=== PATIENT | male | born 1965 | race Caucasian/White ===

== ENCOUNTER → 2020-05-10 08:26 | Outpatient (BNVA) | payer BC, SELFPAY | PROVIDERS: PCP Internal Medicine; Referring Provider Internal Medicine; Visit Provider Nurse Practitioner Gerontology | DX: Z13.89 Encounter for screening for other disorder (principal) ==

== ENCOUNTER 2020-07-24 10:08 | Outpatient (REF) | payer BC, SELFPAY ==
[2020-07-24 11:04] LABS: MANUAL DIFF FLAG NO
[2020-07-24 11:15] LABS: Basophils Absolute Auto 0.1 X10*3/uL (0.0-0.2); Basophils Percent Auto 0.8 % (0-2); Eosinophils Absolute Auto 0.3 X10*3/uL (0.0-0.4); Hematocrit 46.1 % (42-52); Hemoglobin 15.3 g/dl (14.0-18.0); Imm Gran Abs Auto 0.05 X10*3/uL (0.00-0.03); Imm Gran Pct Auto 0.6 % (0.0-0.4); Lymphocytes Absolute Auto 2.2 X10*3/uL (1.2-4.9); Lymphocytes Percent Auto 26.1 % (20-40); Mean Corpuscular HGB Conc 33.2 g/dl (31.0-36.0); Mean Corpuscular Hemoglobin 27.7 pg (27.0-33.0); Mean Corpuscular Volume 83.5 fL (80-98); Mean Platelet Volume 8.6 fL (9.4-12.4); Monocytes Absolute Auto 0.8 X10*3/uL (0.1-1.2); Neutrophils Absolute Auto 5.1 X10*3/uL (2.0-8.3); Neutrophils Percent Auto 60.5 % (45-73); Platelet Count 399 X10*3/uL (160-400); Red Blood Count 5.52 X10*6/uL (4.60-5.80); Red Cell Distribution Width 12.3 % (11.0-16.0); White Blood Count 8.5 X10*3/uL (4.8-10.8)
[2020-07-24 11:30] LABS: Glucose Urine UA 500 MG/DL (NEG); Leukocyte Esterase Urine NEG (NEG); Nitrite Urine NEG (NEG); PH 5.5 (5.0-8.0); Specific Gravity - Urine >= 1.030 (1.005-1.025); Urine Blood NEG (NEG); Urine Ketones NEG (NEG); Urine Protein NEG (NEG-TRACE)
[2020-07-24 11:33] LABS: Appearance Urine CLEAR; Color Urine YELLOW
[2020-07-24 12:06] LABS: TSH reflex Free T4 1.69 uIU/mL (0.32-4.0)
[2020-07-24 12:11] LABS: Creatinine Urine 138.13 mg/dL; Microalbum/Creatinine Ratio Ur 73.8 ug/mg cr
[2020-07-24 12:12] LABS: Alanine Aminotransferase 22 U/L (0-40); Albumin Level 4.9 g/dL (3.5-5.0); Alkaline Phosphatase 41 U/L (39-117); Anion Gap 15 (12-20); Aspartate Amino Transferase 16 U/L (5-37); Bilirubin Total 0.5 mg/dL (0.0-1.0); Blood Urea Nitrogen 28 mg/dL (9-16); Calcium 10.2 mg/dL (8.4-10.2); Carbon Dioxide 26 mmol/L (22-29); Chloride 104 mmol/L (96-108); Cholesterol 180 mg/dL; Estimated Glomerular Filt Rate 48; Glucose Fasting 100 mg/dL (60-99); HDL Cholesterol 48 mg/dL; LDL Cholesterol Calculated 98 mg/dl; Potassium 4.3 mmol/L (3.3-5.1); Sodium 141 mmol/L (135-145); Total Protein 7.7 g/dL (6.5-8.0); Triglycerides 173 mg/dL
[2020-07-24 12:24] LABS: Folate 9.5 ng/mL (> or = 4.0); Vitamin B12 450 pg/mL (200-900)
== END 2020-07-24 10:09 | disposition home or self-care (01) ==
LOC: HO.HMGCLDS 10:08
PROVIDERS: PCP Internal Medicine; Visit Provider Internal Medicine
DX: D64.9 Anemia, unspecified (principal); I12.9 Hypertensive chronic kidney disease with stage 1 through stage 4 chronic kidney disease, or unspecified chronic kidney disease; E11.22 Type 2 diabetes mellitus with diabetic chronic kidney disease; E11.40 Type 2 diabetes mellitus with diabetic neuropathy, unspecified; N18.2 Chronic kidney disease, stage 2 (mild); K21.9 Gastro-esophageal reflux disease without esophagitis; E78.00 Pure hypercholesterolemia, unspecified; E55.9 Vitamin D deficiency, unspecified; G62.9 Polyneuropathy, unspecified; E66.9 Obesity, unspecified; R79.89 Other specified abnormal findings of blood chemistry; Z79.4 Long term (current) use of insulin
CPT/HCPCS: 36415; 80053; 80061; 81003; 82043; 82306; 82607; 82746; 84443; 85025

== ENCOUNTER → 2020-08-13 10:22 | Outpatient (BNVA) | payer BC, SELFPAY | PROVIDERS: PCP Internal Medicine; Visit Provider Nurse Practitioner Gerontology | DX: E11.40 Type 2 diabetes mellitus with diabetic neuropathy, unspecified (principal); E11.22 Type 2 diabetes mellitus with diabetic chronic kidney disease; I12.9 Hypertensive chronic kidney disease with stage 1 through stage 4 chronic kidney disease, or unspecified chronic kidney disease; N18.2 Chronic kidney disease, stage 2 (mild); Z79.4 Long term (current) use of insulin; E78.5 Hyperlipidemia, unspecified; E55.9 Vitamin D deficiency, unspecified; E66.9 Obesity, unspecified | CPT/HCPCS: 82947 ==

== ENCOUNTER 2021-01-06 14:04 | Outpatient (REF) | payer BC, SELFPAY ==
[2021-01-06 16:54] LABS: MANUAL DIFF FLAG NO
[2021-01-06 16:56] LABS: Glucose Urine UA >=1000 MG/DL (NEG); Leukocyte Esterase Urine NEG (NEG); Nitrite Urine NEG (NEG); Urine Blood NEG (NEG); Urine Ketones NEG (NEG); Urine Protein TRACE MG/DL (NEG-TRACE)
[2021-01-06 16:57] LABS: Appearance Urine CLEAR; Color Urine YELLOW
[2021-01-06 16:58] LABS: Basophils Absolute Auto 0.1 X10*3/uL (0.0-0.2); Basophils Percent Auto 0.7 % (0-2); Eosinophils Absolute Auto 0.2 X10*3/uL (0.0-0.4); Eosinophils Percent Auto 3.5 % (0-4); Imm Gran Abs Auto 0.03 X10*3/uL (0.00-0.03); Imm Gran Pct Auto 0.4 % (0.0-0.4); Lymphocytes Absolute Auto 1.8 X10*3/uL (1.2-4.9); Lymphocytes Percent Auto 25.8 % (20-40); Mean Corpuscular Hemoglobin 27.4 pg (27.0-33.0); Mean Corpuscular Volume 85.6 fL (80-98); Mean Platelet Volume 8.8 fL (9.4-12.4); Monocytes Absolute Auto 0.6 X10*3/uL (0.1-1.2); Monocytes Percent Auto 8.8 % (2-11); Neutrophils Absolute Auto 4.2 X10*3/uL (2.0-8.3); Neutrophils Percent Auto 60.8 % (45-73); Platelet Count 353 X10*3/uL (160-400); Red Blood Count 5.84 X10*6/uL (4.60-5.80); White Blood Count 6.9 X10*3/uL (4.8-10.8)
[2021-01-06 17:05] LABS: Estimated Average Glucose 160 mg/dL; Hemoglobin A1c % 7.2 %
[2021-01-06 17:10] LABS: Mucus Urine TRACE /LPF; RBC Urine 0 /HPF (0); Squamous Epithelial Cell Urine TRACE /LPF; WBC Urine 0 /HPF (0-4)
[2021-01-06 17:23] LABS: Alanine Aminotransferase 30 U/L (0-40); Albumin Level 4.6 g/dL (3.5-5.0); Alkaline Phosphatase 54 U/L (39-117); Anion Gap 14 (12-20); Aspartate Amino Transferase 20 U/L (5-37); Bilirubin Total 0.3 mg/dL (0.0-1.0); Blood Urea Nitrogen 23 mg/dL (9-16); Calcium 9.1 mg/dL (8.4-10.2); Carbon Dioxide 24 mmol/L (22-29); Chloride 106 mmol/L (96-108); Cholesterol 191 mg/dL; Creatinine Urine 128.44 mg/dL; Estimated Glomerular Filt Rate > 60; Glucose Fasting 167 mg/dL (60-99); HDL Cholesterol 57 mg/dL; LDL Cholesterol Calculated 99 mg/dl; Microalbum/Creatinine Ratio Ur 86.4 ug/mg cr; Potassium 4.2 mmol/L (3.3-5.1); Sodium 140 mmol/L (135-145); Total Protein 7.4 g/dL (6.5-8.0); Triglycerides 177 mg/dL
[2021-01-06 17:46] LABS: TSH reflex Free T4 2.13 uIU/mL (0.32-4.0)
[2021-01-06 17:53] LABS: Folate 7.1 ng/mL (> or = 4.0); Vitamin B12 491 pg/mL (200-900)
== END 2021-01-06 14:05 | disposition home or self-care (01) ==
LOC: HO.HMGCLDS 14:04
PROVIDERS: PCP Internal Medicine; Visit Provider Internal Medicine
DX: I12.9 Hypertensive chronic kidney disease with stage 1 through stage 4 chronic kidney disease, or unspecified chronic kidney disease (principal); N18.2 Chronic kidney disease, stage 2 (mild); E11.22 Type 2 diabetes mellitus with diabetic chronic kidney disease; E78.00 Pure hypercholesterolemia, unspecified; G62.9 Polyneuropathy, unspecified; E66.9 Obesity, unspecified; K21.9 Gastro-esophageal reflux disease without esophagitis; D64.9 Anemia, unspecified; E55.9 Vitamin D deficiency, unspecified; Z79.4 Long term (current) use of insulin
CPT/HCPCS: 36415; 80053; 80061; 81001; 82043; 82306; 82607; 82746; 83036; 84443; 85025

== ENCOUNTER 2021-03-18 10:48 | Outpatient (REF) | payer BC, SELFPAY ==
[2021-03-18 11:35] LABS: Amphetamine Screen Urine Not Detected (Not Detect); Barbiturates, Urine Not Detected (Not Detect); Benzodiazepines Screen Urine Not Detected (Not Detect); Cannabinoid Screen Urine Not Detected (Not Detect); Cocaine Screen Urine Not Detected (Not Detect); Fentanyl, urine Not Detected (Not Detect); Phencyclidine Screen Urine Not Detected (Not Detect)
[2021-03-18 11:37] LABS: Opiate Screen Urine POSITIVE (Not Detect)
== END 2021-03-18 10:49 | disposition home or self-care (01) ==
LOC: HO.LAB 10:48
PROVIDERS: PCP Internal Medicine; Visit Provider Internal Medicine
DX: F11.90 Opioid use, unspecified, uncomplicated (principal)
CPT/HCPCS: 80307

== ENCOUNTER 2021-05-05 10:52 | Outpatient (REF) | payer BC, SELFPAY ==
[2021-05-05 13:52] LABS: MANUAL DIFF FLAG NO
[2021-05-05 13:57] LABS: Basophils Percent Auto 0.5 % (0-2); Eosinophils Absolute Auto 0.2 X10*3/uL (0.0-0.4); Eosinophils Percent Auto 2.5 % (0-4); Hematocrit 47.2 % (42.0-52.0); Hemoglobin 15.5 g/dl (14.0-18.0); Imm Gran Abs Auto 0.04 X10*3/uL (0.00-0.03); Imm Gran Pct Auto 0.5 % (0.0-0.4); Lymphocytes Absolute Auto 1.8 X10*3/uL (1.2-4.9); Lymphocytes Percent Auto 22.4 % (20-40); Mean Corpuscular HGB Conc 32.8 g/dl (31.0-36.0); Mean Corpuscular Hemoglobin 27.6 pg (27.0-33.0); Mean Corpuscular Volume 84.1 fL (80.0-98.0); Mean Platelet Volume 8.7 fL (9.4-12.4); Monocytes Absolute Auto 0.6 X10*3/uL (0.1-1.2); Monocytes Percent Auto 7.4 % (2-11); Neutrophils Absolute Auto 5.3 x10*3/uL (2.0-8.3); Neutrophils Percent Auto 66.7 % (45-73); Platelet Count 305 X10*3/uL (160-400); Red Blood Count 5.61 X10*6/uL (4.60-5.80)
[2021-05-05 13:58] LABS: Appearance Urine CLEAR; Color Urine YELLOW; Glucose Urine UA 100 MG/DL (NEG); Leukocyte Esterase Urine NEG (NEG); Nitrite Urine NEG (NEG); UACC Culture Trigger NO; Urine Blood NEG (NEG); Urine Ketones NEG (NEG); Urine Protein 1+ MG/DL (NEG-TRACE)
[2021-05-05 14:16] LABS: Alanine Aminotransferase 22 U/L (0-40); Albumin Level 4.4 g/dL (3.5-5.0); Alkaline Phosphatase 60 U/L (39-117); Anion Gap 16 (12-20); Aspartate Amino Transferase 17 U/L (5-37); Bilirubin Total 0.5 mg/dL (0.0-1.0); Blood Urea Nitrogen 21 mg/dL (9-16); Calcium 9.7 mg/dL (8.4-10.2); Carbon Dioxide 26 mmol/L (22-29); Chloride 103 mmol/L (96-108); Cholesterol 227 mg/dL; Estimated Glomerular Filt Rate > 60; Glucose Fasting 105 mg/dL (60-99); HDL Cholesterol 60 mg/dL; LDL Cholesterol Calculated 117 mg/dl; Potassium 4.2 mmol/L (3.3-5.1); Sodium 141 mmol/L (135-145); Total Protein 7.1 g/dL (6.5-8.0); Triglycerides 251 mg/dL
[2021-05-05 14:25] LABS: RBC Urine 0 /HPF (0); WBC Urine 0-2 /HPF (0-4)
[2021-05-05 14:28] LABS: Estimated Average Glucose 171 mg/dL; Hemoglobin A1c % 7.6 %
[2021-05-05 14:41] LABS: TSH reflex Free T4 1.55 uIU/mL (0.32-4.0); Vitamin D 25-OH Total 26.7 ng/mL (>30)
[2021-05-05 14:45] LABS: Creatinine Urine 71.01 mg/dL; Microalbum/Creatinine Ratio Ur 408.3 ug/mg cr
[2021-05-05 14:52] LABS: Folate 11.5 ng/mL (> or = 4.0); Vitamin B12 551 pg/mL (200-900)
== END 2021-05-05 10:53 | disposition home or self-care (01) ==
LOC: HO.HMGCLDS 10:52
PROVIDERS: Visit Provider Internal Medicine
DX: E11.9 Type 2 diabetes mellitus without complications (principal); E78.00 Pure hypercholesterolemia, unspecified; E55.9 Vitamin D deficiency, unspecified; E53.8 Deficiency of other specified B group vitamins; G62.9 Polyneuropathy, unspecified; I10 Essential (primary) hypertension
CPT/HCPCS: 36415; 80053; 80061; 81001; 82043; 82306; 82607; 82746; 83036; 84443; 85025

== ENCOUNTER → 2021-06-09 08:15 | Outpatient (BNVA) | payer BC, SELFPAY | PROVIDERS: PCP Internal Medicine; Visit Provider Nurse Practitioner Gerontology ==

== ENCOUNTER 2021-08-26 10:38 | Outpatient (REF) | payer BC, SELFPAY ==
[2021-08-26 11:33] LABS: MANUAL DIFF FLAG NO
[2021-08-26 11:42] LABS: Basophils Absolute Auto 0.1 X10*3/uL (0.0-0.2); Basophils Percent Auto 0.6 % (0-2); Eosinophils Absolute Auto 0.3 X10*3/uL (0.0-0.4); Eosinophils Percent Auto 3.1 % (0-4); Hematocrit 39.7 % (42.0-52.0); Imm Gran Abs Auto 0.06 X10*3/uL (0.00-0.03); Imm Gran Pct Auto 0.8 % (0.0-0.4); Lymphocytes Percent Auto 24.9 % (20-40); Mean Corpuscular HGB Conc 32.7 g/dl (31.0-36.0); Mean Corpuscular Volume 88.4 fL (80.0-98.0); Mean Platelet Volume 8.6 fL (9.4-12.4); Monocytes Absolute Auto 0.8 X10*3/uL (0.1-1.2); Monocytes Percent Auto 10.3 % (2-11); Neutrophils Absolute Auto 4.8 x10*3/uL (2.0-8.3); Neutrophils Percent Auto 60.3 % (45-73); Platelet Count 345 X10*3/uL (160-400); Red Blood Count 4.49 X10*6/uL (4.60-5.80); Red Cell Distribution Width 12.7 % (11.0-16.0)
[2021-08-26 11:48] LABS: Estimated Average Glucose 171 mg/dL; Hemoglobin A1c % 7.6 %
[2021-08-26 12:16] LABS: TSH reflex Free T4 2.58 uIU/mL (0.32-4.0)
[2021-08-26 12:18] LABS: Alanine Aminotransferase 28 U/L (0-40); Albumin Level 4.2 g/dL (3.5-5.0); Alkaline Phosphatase 46 U/L (39-117); Anion Gap 14 (12-20); Aspartate Amino Transferase 12 U/L (5-37); Bilirubin Total 0.4 mg/dL (0.0-1.0); Blood Urea Nitrogen 34 mg/dL (9-16); Calcium 9.7 mg/dL (8.4-10.2); Carbon Dioxide 27 mmol/L (22-29); Chloride 106 mmol/L (96-108); Cholesterol 153 mg/dL; Estimated Glomerular Filt Rate 37; Glucose Fasting 147 mg/dL (60-99); HDL Cholesterol 43 mg/dL; LDL Cholesterol Calculated 70 mg/dl; Potassium 4.9 mmol/L (3.3-5.1); Sodium 142 mmol/L (135-145); Total Protein 6.9 g/dL (6.5-8.0); Triglycerides 203 mg/dL
[2021-08-26 14:07] LABS: Appearance Urine CLEAR; Color Urine STRAW; Glucose Urine UA >=1000 MG/DL (NEG); Leukocyte Esterase Urine NEG (NEG); Nitrite Urine NEG (NEG); PH 5.5 (5.0-8.0); Urine Blood NEG (NEG); Urine Ketones NEG (NEG); Urine Protein NEG (NEG-TRACE)
[2021-08-26 14:27] LABS: Creatinine Urine 72.85 mg/dL; Microalbum/Creatinine Ratio Ur 23.3 ug/mg cr
[2021-08-26 14:30] LABS: RBC Urine 0-2 /HPF (0); WBC Urine 0-2 /HPF (0-4)
[2021-08-28 14:03] LABS: Vitamin D 25-OH Total 28.9 ng/mL (>30)
== END 2021-08-26 10:39 | disposition home or self-care (01) ==
LOC: HO.HMGCLDS 10:38
PROVIDERS: PCP Internal Medicine; Visit Provider Internal Medicine
DX: I10 Essential (primary) hypertension (principal); E78.00 Pure hypercholesterolemia, unspecified; E11.9 Type 2 diabetes mellitus without complications; E55.9 Vitamin D deficiency, unspecified
CPT/HCPCS: 36415; 80053; 80061; 81001; 81003; 82043; 82306; 83036; 84443; 85025

== ENCOUNTER 2021-10-07 12:34 | Outpatient (REF) | payer BC, SELFPAY ==
--- NOTE | ~2021-10-07 | XR_ITS ---
EXAMINATION: XR KNEES, BILATERAL CLINICAL INFORMATION: Pain right knee. COMPARISON: None. TECHNIQUE: 3 views each knee. FINDINGS: Right Knee: There is mild loss of medial compartment joint space. Thee is no visible fracture, dislocation or subluxation. There is mild suprapatellar joint effusion. No loose body seen. Left Knee: The tricompartment joint space is maintained normal. There is no visible acute fracture, dislocation or subluxation. There is no abnormal suprapatellar joint effusion. The soft tissues are normal. XR/XR knee RT 3V IMPRESSION: Mild suprapatellar joint effusion with loss of medial compartment joint space and slight irregularity along the medial femoral condyle articular surface suggestive of degenerative arthritic changes, right knee. Unremarkable left knee.
--- NOTE | ~2021-10-07 | XR_ITS ---
EXAMINATION: XR KNEES, BILATERAL CLINICAL INFORMATION: Pain right knee. COMPARISON: None. TECHNIQUE: 3 views each knee. FINDINGS: Right Knee: There is mild loss of medial compartment joint space. Thee is no visible fracture, dislocation or subluxation. There is mild suprapatellar joint effusion. No loose body seen. Left Knee: The tricompartment joint space is maintained normal. There is no visible acute fracture, dislocation or subluxation. There is no abnormal suprapatellar joint effusion. The soft tissues are normal. XR/XR knee LT 3V IMPRESSION: Mild suprapatellar joint effusion with loss of medial compartment joint space and slight irregularity along the medial femoral condyle articular surface suggestive of degenerative arthritic changes, right knee. Unremarkable left knee.
[2021-10-07 13:50] LABS: Appearance Urine CLEAR; Color Urine YELLOW; Glucose Urine UA >=1000 MG/DL (NEG); Leukocyte Esterase Urine NEG (NEG); Nitrite Urine NEG (NEG); Specific Gravity - Urine 1.015 (1.005-1.025); UACC Culture Trigger NO; Urine Blood TRACE (NEG); Urine Ketones NEG (NEG); Urine Protein 1+ MG/DL (NEG-TRACE)
[2021-10-07 14:06] LABS: Anion Gap 14 (12-20); Blood Urea Nitrogen 21 mg/dL (9-16); Calcium 9.8 mg/dL (8.4-10.2); Carbon Dioxide 25 mmol/L (22-29); Chloride 102 mmol/L (96-108); Estimated Glomerular Filt Rate 47; Potassium 4.6 mmol/L (3.3-5.1); Sodium 136 mmol/L (135-145)
[2021-10-07 14:10] LABS: Glucose Random 398 mg/dL (60-115)
[2021-10-07 14:26] LABS: RBC Urine 0-2 /HPF (0); WBC Urine 0 /HPF (0-4)
== END 2021-10-07 12:35 | disposition home or self-care (01) ==
LOC: HO.HMGCLDS 12:34
PROVIDERS: Visit Provider Internal Medicine
DX: M25.561 Pain in right knee (principal); M25.562 Pain in left knee; N18.30 Chronic kidney disease, stage 3 unspecified
CPT/HCPCS: 36415; 73562; 80048; 81001

== ENCOUNTER 2021-12-15 10:14 | Outpatient (REF) | payer BC, SELFPAY ==
[2021-12-15 11:16] LABS: MANUAL DIFF FLAG NO
[2021-12-15 11:23] LABS: Basophils Absolute Auto 0.1 X10*3/uL (0.0-0.2); Eosinophils Absolute Auto 0.2 X10*3/uL (0.0-0.4); Eosinophils Percent Auto 2.8 % (0-4); Hematocrit 43.4 % (42.0-52.0); Hemoglobin 14.7 g/dl (14.0-18.0); Imm Gran Abs Auto 0.05 X10*3/uL (0.00-0.03); Imm Gran Pct Auto 0.7 % (0.0-0.4); Lymphocytes Percent Auto 27.5 % (20-40); Mean Corpuscular HGB Conc 33.9 g/dl (31.0-36.0); Mean Corpuscular Hemoglobin 27.6 pg (27.0-33.0); Mean Corpuscular Volume 81.4 fL (80.0-98.0); Monocytes Absolute Auto 0.6 X10*3/uL (0.1-1.2); Monocytes Percent Auto 7.8 % (2-11); Neutrophils Absolute Auto 4.3 x10*3/uL (2.0-8.3); Neutrophils Percent Auto 60.2 % (45-73); Platelet Count 271 X10*3/uL (160-400); Red Blood Count 5.33 X10*6/uL (4.60-5.80); Red Cell Distribution Width 12.1 % (11.0-16.0); White Blood Count 7.2 X10*3/uL (4.8-10.8)
[2021-12-15 11:32] LABS: Appearance Urine CLEAR; Color Urine STRAW; Glucose Urine UA >=1000 MG/DL (NEG); Leukocyte Esterase Urine NEG (NEG); Nitrite Urine NEG (NEG); Specific Gravity - Urine <= 1.005 (1.005-1.025); Urine Blood NEG (NEG); Urine Ketones NEG (NEG); Urine Protein NEG (NEG-TRACE)
[2021-12-15 11:38] LABS: Estimated Average Glucose 332 mg/dL; Hemoglobin A1c % 13.2 %
[2021-12-15 11:48] LABS: Alanine Aminotransferase 28 U/L (0-40); Albumin Level 4.5 g/dL (3.5-5.0); Alkaline Phosphatase 64 U/L (39-117); Anion Gap 15 (12-20); Aspartate Amino Transferase 14 U/L (5-37); Bilirubin Total 0.2 mg/dL (0.0-1.0); Blood Urea Nitrogen 35 mg/dL (9-16); Calcium 9.7 mg/dL (8.4-10.2); Carbon Dioxide 26 mmol/L (22-29); Chloride 99 mmol/L (96-108); Cholesterol 208 mg/dL; Estimated Glomerular Filt Rate 46; HDL Cholesterol 45 mg/dL; Potassium 4.8 mmol/L (3.3-5.1); Sodium 135 mmol/L (135-145); Total Protein 7.4 g/dL (6.5-8.0); Triglycerides 522 mg/dL
[2021-12-15 12:00] LABS: RBC Urine 0-2 /HPF (0); WBC Urine 0-2 /HPF (0-4)
[2021-12-15 12:09] LABS: TSH reflex Free T4 2.84 uIU/mL (0.32-4.0); Vitamin D 25-OH Total 30.2 ng/mL (>30)
[2021-12-15 12:25] LABS: Creatinine Urine 30.91 mg/dL; Microalbum/Creatinine Ratio Ur 145.5 ug/mg cr
[2021-12-15 13:16] LABS: Glucose Fasting 492 mg/dL (60-99)
== END 2021-12-15 10:15 | disposition home or self-care (01) ==
LOC: HO.HMGCLDS 10:14
PROVIDERS: Visit Provider Internal Medicine
DX: I12.9 Hypertensive chronic kidney disease with stage 1 through stage 4 chronic kidney disease, or unspecified chronic kidney disease (principal); N18.30 Chronic kidney disease, stage 3 unspecified; E11.22 Type 2 diabetes mellitus with diabetic chronic kidney disease; E78.00 Pure hypercholesterolemia, unspecified; E55.9 Vitamin D deficiency, unspecified
CPT/HCPCS: 36415; 80053; 80061; 81001; 82043; 82306; 83036; 84100; 84443; 85025

== ENCOUNTER 2022-03-10 12:35 | Outpatient (REF) | payer BC, SELFPAY ==
[2022-03-10 14:00] LABS: MANUAL DIFF FLAG NO
[2022-03-10 14:07] LABS: Basophils Absolute Auto 0.1 X10*3/uL (0.0-0.2); Basophils Percent Auto 0.8 % (0-2); Eosinophils Absolute Auto 0.2 X10*3/uL (0.0-0.4); Eosinophils Percent Auto 3.2 % (0-4); Hematocrit 48.5 % (42.0-52.0); Hemoglobin 16.3 g/dl (14.0-18.0); Imm Gran Abs Auto 0.07 X10*3/uL (0.00-0.03); Lymphocytes Absolute Auto 1.8 X10*3/uL (1.2-4.9); Lymphocytes Percent Auto 24.6 % (20-40); Mean Corpuscular HGB Conc 33.6 g/dl (31.0-36.0); Mean Corpuscular Hemoglobin 27.2 pg (27.0-33.0); Mean Corpuscular Volume 80.8 fL (80.0-98.0); Mean Platelet Volume 8.9 fL (9.4-12.4); Monocytes Absolute Auto 0.6 X10*3/uL (0.1-1.2); Monocytes Percent Auto 8.1 % (2-11); Neutrophils Absolute Auto 4.6 x10*3/uL (2.0-8.3); Neutrophils Percent Auto 62.3 % (45-73); Platelet Count 288 X10*3/uL (160-400); Red Cell Distribution Width 12.6 % (11.0-16.0); White Blood Count 7.3 X10*3/uL (4.8-10.8)
[2022-03-10 14:16] LABS: Appearance Urine Clear; Color Urine Yellow; Glucose Urine UA >=1000 mg/dL (Negative); Leukocyte Esterase Urine Negative (Negative); Nitrite Urine Negative (Negative); PH 5.5 (5.0-9.0); Specific Gravity - Urine >= 1.030 (1.005-1.025); UMIC TRIGGER UACC YES; Urine Blood Trace (Negative); Urine Ketones Negative (Negative); Urine Protein 100 (2+) mg/dL (Neg-Trace)
[2022-03-10 14:18] LABS: Estimated Average Glucose 335 mg/dL; Hemoglobin A1c % 13.3 %
[2022-03-10 14:22] LABS: Bacteria Urine None Seen (None Seen); Hyaline Casts Urine 0-2 /LPF (0-2); RBC Urine 0-2 /HPF (0-2); Squamous Epithelial Cell Urine 0-2 /HPF (0-2); WBC Urine 0-5 /HPF (0-5)
[2022-03-10 14:36] LABS: Alanine Aminotransferase 33 U/L (0-40); Albumin Level 4.8 g/dL (3.5-5.0); Alkaline Phosphatase 72 U/L (39-117); Anion Gap 16 (12-20); Aspartate Amino Transferase 14 U/L (5-37); Bilirubin Total 0.3 mg/dL (0.0-1.0); Blood Urea Nitrogen 28 mg/dL (9-16); Calcium 10.3 mg/dL (8.4-10.2); Carbon Dioxide 30 mmol/L (22-29); Chloride 97 mmol/L (96-108); Cholesterol 250 mg/dL; Estimated Glomerular Filt Rate 52; Glucose Fasting 428 mg/dL (60-99); HDL Cholesterol 53 mg/dL; Potassium 4.5 mmol/L (3.3-5.1); Sodium 138 mmol/L (135-145); Total Protein 7.8 g/dL (6.5-8.0); Triglycerides 422 mg/dL
[2022-03-10 14:43] LABS: TSH reflex Free T4 1.72 uIU/mL (0.32-4.0)
[2022-03-10 15:16] LABS: Creatinine Urine 48.52 mg/dL
[2022-03-10 15:45] LABS: Microalbum/Creatinine Ratio Ur 1201.5 ug/mg cr
== END 2022-03-10 12:36 | disposition home or self-care (01) ==
LOC: HO.HMGCLDS 12:35
PROVIDERS: PCP Internal Medicine; Visit Provider Internal Medicine
DX: E78.00 Pure hypercholesterolemia, unspecified (principal); E55.9 Vitamin D deficiency, unspecified; E11.9 Type 2 diabetes mellitus without complications; I10 Essential (primary) hypertension
CPT/HCPCS: 36415; 80053; 80061; 81001; 82043; 82306; 83036; 84443; 85025

== ENCOUNTER 2022-04-21 11:40 | Outpatient (REF) | payer BC, SELFPAY ==
[2022-04-21 14:23] LABS: Glucose Random 462 mg/dL (60-115)
[2022-04-22 04:51] LABS: C Peptide 4.18 ng/mL (0.80-3.85)
[2022-04-24 13:41] LABS: Glutamic acid decarboxylase Ab <5 IU/mL (<5)
== END 2022-04-21 11:41 | disposition home or self-care (01) ==
LOC: HO.10HDL 11:40
PROVIDERS: Visit Provider Internal Medicine Endocrinology, Diabetes & Metabolism
DX: E11.22 Type 2 diabetes mellitus with diabetic chronic kidney disease (principal); N18.2 Chronic kidney disease, stage 2 (mild); Z79.4 Long term (current) use of insulin
CPT/HCPCS: 36415; 82947; 84681; 86341

== ENCOUNTER → 2022-06-26 07:59 | Outpatient (BNVA) | payer BC, SELFPAY | PROVIDERS: PCP Internal Medicine; Visit Provider Registered Nurse Diabetes Educator | DX: Z13.89 Encounter for screening for other disorder (principal) ==

== ENCOUNTER 2022-06-30 14:05 | Outpatient (REF) | payer BC, SELFPAY ==
[2022-06-30 16:27] LABS: MANUAL DIFF FLAG NO
[2022-06-30 16:31] LABS: Basophils Absolute Auto 0.1 X10*3/uL (0.0-0.2); Basophils Percent Auto 0.8 % (0-2); Eosinophils Absolute Auto 0.2 X10*3/uL (0.0-0.4); Eosinophils Percent Auto 3.2 % (0-4); Hematocrit 44.9 % (42.0-52.0); Hemoglobin 14.8 g/dl (14.0-18.0); Imm Gran Abs Auto 0.05 X10*3/uL (0.00-0.03); Imm Gran Pct Auto 0.7 % (0.0-0.4); Lymphocytes Absolute Auto 2.2 X10*3/uL (1.2-4.9); Lymphocytes Percent Auto 29.9 % (20-40); Mean Corpuscular Hemoglobin 27.4 pg (27.0-33.0); Mean Corpuscular Volume 83.1 fL (80.0-98.0); Mean Platelet Volume 8.6 fL (9.4-12.4); Monocytes Absolute Auto 0.7 X10*3/uL (0.1-1.2); Monocytes Percent Auto 10.3 % (2-11); Neutrophils Percent Auto 55.1 % (45-73); Platelet Count 342 X10*3/uL (160-400); White Blood Count 7.2 X10*3/uL (4.8-10.8)
[2022-06-30 16:38] LABS: Estimated Average Glucose 269 mg/dL
[2022-06-30 16:40] LABS: Appearance Urine Clear; Color Urine Yellow; Glucose Urine UA >=1000 mg/dL (Negative); Leukocyte Esterase Urine Negative (Negative); Nitrite Urine Negative (Negative); Specific Gravity - Urine 1.025 (1.005-1.025); UMIC TRIGGER UACC YES; Urine Blood Negative (Negative); Urine Ketones Negative (Negative); Urine Protein Trace mg/dL (Neg-Trace)
[2022-06-30 16:55] LABS: Bacteria Urine None Seen (None Seen); Hyaline Casts Urine 0-2 /LPF (0-2); RBC Urine 0-2 /HPF (0-2); Squamous Epithelial Cell Urine 0-2 /HPF (0-2); WBC Urine 0-5 /HPF (0-5)
[2022-06-30 16:56] LABS: Creatinine Urine 68.74 mg/dL; Microalbum/Creatinine Ratio Ur 133.8 ug/mg cr
[2022-06-30 17:03] LABS: Alanine Aminotransferase 25 U/L (0-40); Albumin Level 4.2 g/dL (3.5-5.0); Alkaline Phosphatase 54 U/L (39-117); Anion Gap 15 (12-20); Aspartate Amino Transferase 17 U/L (5-37); Bilirubin Total 0.3 mg/dL (0.0-1.0); Blood Urea Nitrogen 39 mg/dL (9-16); Calcium 9.5 mg/dL (8.4-10.2); Carbon Dioxide 28 mmol/L (22-29); Chloride 104 mmol/L (96-108); Cholesterol 171 mg/dL; Estimated Glomerular Filt Rate 50; Glucose Fasting 98 mg/dL (60-99); HDL Cholesterol 55 mg/dL; LDL Cholesterol Calculated 82 mg/dl; Potassium 4.5 mmol/L (3.3-5.1); Sodium 142 mmol/L (135-145); Total Protein 6.9 g/dL (6.5-8.0); Triglycerides 170 mg/dL
[2022-06-30 17:12] LABS: TSH reflex Free T4 1.78 uIU/mL (0.32-4.0); Vitamin D 25-OH Total 32.5 ng/mL (>30)
== END 2022-06-30 14:06 | disposition home or self-care (01) ==
LOC: HO.HMGCLDS 14:05
PROVIDERS: PCP Internal Medicine; Visit Provider Internal Medicine
DX: E78.00 Pure hypercholesterolemia, unspecified (principal); E11.9 Type 2 diabetes mellitus without complications; E55.9 Vitamin D deficiency, unspecified; I10 Essential (primary) hypertension
CPT/HCPCS: 36415; 80053; 80061; 81001; 82043; 82306; 83036; 84443; 85025

== ENCOUNTER → 2022-07-01 09:30 | Outpatient (BNVA) | payer BC, SELFPAY | PROVIDERS: PCP Internal Medicine; Visit Provider Dietitian, Registered | DX: E11.22 Type 2 diabetes mellitus with diabetic chronic kidney disease (principal); N18.2 Chronic kidney disease, stage 2 (mild); Z79.4 Long term (current) use of insulin | CPT/HCPCS: 97802 ==

== ENCOUNTER 2022-09-22 14:33 | Outpatient (REF) | payer BC, SELFPAY ==
[2022-09-22 16:33] LABS: Appearance Urine Clear; Color Urine Yellow; Glucose Urine UA >=1000 mg/dL (Negative); Leukocyte Esterase Urine Negative (Negative); Nitrite Urine Negative (Negative); Specific Gravity - Urine 1.025 (1.005-1.025); UMIC TRIGGER UACC YES; Urine Blood Negative (Negative); Urine Ketones Negative (Negative); Urine Protein Negative (Neg-Trace)
[2022-09-22 16:36] LABS: Bacteria Urine None Seen (None Seen); Hyaline Casts Urine 0-2 /LPF (0-2); RBC Urine 0-2 /HPF (0-2); Squamous Epithelial Cell Urine 0-2 /HPF (0-2); WBC Urine 0-5 /HPF (0-5)
[2022-09-22 17:01] LABS: MANUAL DIFF FLAG NO
[2022-09-22 17:07] LABS: Basophils Absolute Auto 0.1 X10*3/uL (0.0-0.2); Basophils Percent Auto 0.9 % (0-2); Eosinophils Absolute Auto 0.3 X10*3/uL (0.0-0.4); Eosinophils Percent Auto 4.1 % (0-4); Hematocrit 43.9 % (42.0-52.0); Hemoglobin 14.8 g/dl (14.0-18.0); Imm Gran Abs Auto 0.05 X10*3/uL (0.00-0.03); Imm Gran Pct Auto 0.8 % (0.0-0.4); Lymphocytes Absolute Auto 1.9 X10*3/uL (1.2-4.9); Mean Corpuscular HGB Conc 33.7 g/dl (31.0-36.0); Mean Corpuscular Hemoglobin 28.1 pg (27.0-33.0); Mean Corpuscular Volume 83.3 fL (80.0-98.0); Mean Platelet Volume 8.6 fL (9.4-12.4); Monocytes Absolute Auto 0.7 X10*3/uL (0.1-1.2); Monocytes Percent Auto 10.3 % (2-11); Neutrophils Absolute Auto 3.6 x10*3/uL (2.0-8.3); Neutrophils Percent Auto 54.9 % (45-73); Platelet Count 266 X10*3/uL (160-400); Red Blood Count 5.27 X10*6/uL (4.60-5.80); Red Cell Distribution Width 12.6 % (11.0-16.0); White Blood Count 6.6 X10*3/uL (4.8-10.8)
[2022-09-22 17:19] LABS: Creatinine Urine 44.67 mg/dL; Microalbum/Creatinine Ratio Ur 123.1 ug/mg cr
[2022-09-22 17:28] LABS: Alanine Aminotransferase 26 U/L (0-40); Albumin Level 4.4 g/dL (3.5-5.0); Alkaline Phosphatase 57 U/L (39-117); Anion Gap 13 (12-20); Aspartate Amino Transferase 15 U/L (5-37); Bilirubin Total 0.4 mg/dL (0.0-1.0); Blood Urea Nitrogen 33 mg/dL (9-16); Calcium 9.7 mg/dL (8.4-10.2); Carbon Dioxide 26 mmol/L (22-29); Chloride 104 mmol/L (96-108); Cholesterol 208 mg/dL; Estimated Glomerular Filt Rate 49; Glucose Fasting 303 mg/dL (60-99); HDL Cholesterol 43 mg/dL; Potassium 4.8 mmol/L (3.3-5.1); Sodium 138 mmol/L (135-145); Total Protein 6.9 g/dL (6.5-8.0); Triglycerides 450 mg/dL
[2022-09-22 17:37] LABS: Estimated Average Glucose 214 mg/dL; Hemoglobin A1c % 9.1 %
[2022-09-22 17:44] LABS: TSH reflex Free T4 1.43 uIU/mL (0.32-4.0); Vitamin D 25-OH Total 31.9 ng/mL (>30)
== END 2022-09-22 14:34 | disposition home or self-care (01) ==
LOC: HO.HMGCLDS 14:33
PROVIDERS: PCP Internal Medicine; Visit Provider Internal Medicine
DX: E55.9 Vitamin D deficiency, unspecified (principal); E11.9 Type 2 diabetes mellitus without complications; I10 Essential (primary) hypertension; E78.00 Pure hypercholesterolemia, unspecified
CPT/HCPCS: 36415; 80053; 80061; 81001; 82043; 82306; 83036; 84443; 85025

== ENCOUNTER 2023-01-06 08:02 | Outpatient (AMB) | payer BC, SELFPAY ==
--- NOTE | 2023-01-06 08:06 | A.OFFVIS_ITS ---
Intake Vital Signs 01/06/23 08:09 Height 6 ft 1 in Weight 239 lb 13.807 oz BMI 31.6 BP 160/90 H Blood Pressure Location Rt brachial Position Sitting Pulse 92 Pulse Source Pulse Oximeter Intake Visit Reasons: dm Intake Note: Patient here today for Diabetes Type 2, with pump follow up visit. Patient receives is Omnipod supplies from [employer]. For eye care: last seen August 2022 For foot care: no specialist. [id number] A1c- >14.0 Content Specialist Required: No Accompanied by: Self / Same As Patient Allergies gabapentin Adverse Reaction (Intermediate, Verified 01/06/23 08:13) severe somnolence, dizziness HPI HPI Comments History of Present Illness Details Patient is a 57 yo male with DM type 2 diagnosed in 2012, who presents for continued diabetes management. Patient was last seen06/09/21 by Vidhya Thomas NP Past medical history: back pain with radiculopathy on opioid therapy, central hypogonadism, metastatic testicular cancer, CKD stage III, hypertension, hyperlipidemia, and diabetes mellitus type 2 diagnosed 2012 Micro and macrovascular complications include no retinopathy, + nephropathy, + neuropathy, diet: 2 meals and snacks. Medications: Trulicity 0.75mg/dl not taking , Humulin u500 via Omnipod pump, Jardiance 10mg. . Hypoglycemia: denies Hyperglycemia: nocturia (4-5x), polydypsia He has a Dexcom G6 but has not hooked it up. He is also not using insulin times as he was unable to afford it Previous Pump settings for [place] omnipod with u-500 12am - 12 pm 0.55 12 30pm- 12 am 0.600 Total 13.8 I:C Ratio 30 Sensitivity 97 Active insulin time 6 BG target 100 BG correction threshold 120 Total daily dose 14 units, 61% basal, 39% bolus. The patient states he went of insulin as but not t using the pump from time to time because he can not afford the insulin Back up plan: [place] U500 via insulin syringe: 30 units before breakfast, 25 units before lunch, 20 units before dinner - take insulin 30 mins prior to meal. Diet: 2 meals a day Activity: limited Eye Exam: needs to make appt Laboratory Tests 05/05/21 05/05/21 05/05/21 11:00 11:00 11:00 Creatinine 1.06 Estimated GFR > 60 Hemoglobin A1c % 7.6 Triglycerides 251 Cholesterol 227 LDL Cholesterol, C alc 117 HDL Cholesterol 60 Vitamin B12 551 25-OH Vitamin D To quita 26.7 TSH 1.55 Microalb/Creat Rat io 05/05/21 11:05 Creatinine Estimated GFR Hemoglobin A1c % Triglycerides Cholesterol LDL Cholesterol, C alc HDL Cholesterol Vitamin B12 25-OH Vitamin D To quita TSH Microalb/Creat Rat io 408.3 PFSH Medical History Anemia Anxiety Benign essential hypertension Chronic kidney disease (CKD), stage II (mild) Degeneration of lumbar or lumbosacral intervertebral disc Elevated LFTs GERD without esophagitis History of testicular cancer Mild chronic obstructive pulmonary disease Neuropathy Obesity (BMI 30-39.9) Type 2 diabetes mellitus with diabetic chronic kidney disease Type 2 diabetes mellitus with diabetic neuropathy, unspecified Vitamin D deficiency Surgical History (Updated 11/18/22 @ 10:59 by Yobany Raymundo MD) History of colonoscopy (~06/24/16) History of lumbar surgery History of orchiectomy Pure hypercholesterolemia Family History Father Cancer Mother Diabetes Social History Household Members: Other Housing: House Alcohol intake: former Patient Tobacco Use Status: Never used Tobacco e-Cigarette/Vaping Use: Never Used Second Hand Smoke Exposure: Yes service: Yes Current occupational status: disabled Cognitive needs: No Hearing needs: No Vision needs: No Physical Exam Absence of Cushingoid features. Absence of acromegalic features. Neck exam reveals nl size thyroid about 15 gms. No thyroid nodules palpable. No carotid bruits present. Lungs CTA. Heart S1 S2, Reg R/R. No M/R/ G. Skin exam reveals absence of vitiligo or acanthosis nigricans. Abdominal exam reveals Soft NT/ND with NA BS. No organomegaly present. Neck Other: . Extrem Other: Visual exam of foot performed. No ulcerations or open lesions. No onchomycosis, no callouses.Pulses 2 + distally Sensation decreased to monofilament exam. Vibratory sensation sensed is decreased with 128 Hz tuning fork Results AMB Hemoglobin A1c AMB Hemoglobin A1c > 14.0 % Last Edit by PIETER Andre on 01/06/23 08 :29 Assessment & Plan Assessment & Plan (1) Type 2 diabetes mellitus with diabetic chronic kidney disease: Code(s): E11.22 - Type 2 diabetes mellitus with diabetic chronic kidney disease Qualifiers: Diabetes mellitus intermediate project manager insulin use: with intermediate project manager use Chronic kidney disease stage: stage 2 (mild) Qualified Code(s): E11.22 - Type 2 diabetes mellitus with diabetic chronic kidney disease; N18.2 - Chronic kidney disease, stage 2 (mild); Z79.4 - [facility] (current) use of insulin Plan: This is a 57-year-old white male with history of type 2 diabetes being treated with Trulicity, Jardiance and U-500 insulin poor glycemic control and known microvascular complications namely CKD and neuropathy. Plan is stressed compliance with the insulin. Could not make any changes to the pump settings as not have any information. Will have patient meet with museum educator to initiate Dexcom and convert the Omnipod dash to Omnipod 5. Will change Trulicity to MonJaro 2.5 mg and titrate as tolerated. Went over side effects of Mounjaro including but not limited to nausea, vomiting risk of pancreatitis. Advised patient not to start Mounjaro until the hooks up the Dexcom. I explained the relationship of complication development and progression to that of poor glycemic control. Mounjaro 2.5 mg samples given to patient. Lot number [id number] A expiration date 06/28/2024 Orders: Orders AMB Hemoglobin A1c Today E11.9 - Type 2 diabetes mellitus without complications Coding Level of Care Code Est Pt Level 4 (35882) Diagnoses Type 2 diabetes mellitus with diabetic chronic kidney disease E11.22; N18.2; Z79.4 Diabetes mellitus intermediate project manager insulin use: with intermediate project manager use Chronic kidney disease stage: stage 2 (mild)
[2023-01-06 08:09] VITALS: BP 160/90; PULSE 92; BMI 31.6
[2023-01-06 08:17] LABS: Glucose, Whole Blood 344 mg/dL (60-115)
== END 2023-01-06 09:24 | disposition home or self-care (01) ==
PROVIDERS: PCP Internal Medicine; Referring Provider Internal Medicine; Visit Provider Internal Medicine Endocrinology, Diabetes & Metabolism
DX: E11.22 Type 2 diabetes mellitus with diabetic chronic kidney disease (principal); N18.2 Chronic kidney disease, stage 2 (mild); Z79.4 Long term (current) use of insulin
CPT/HCPCS: 99214

== ENCOUNTER → 2023-01-06 08:02 | Outpatient (BNVA) | payer BC, SELFPAY | PROVIDERS: Visit Provider Internal Medicine Endocrinology, Diabetes & Metabolism | DX: E11.22 Type 2 diabetes mellitus with diabetic chronic kidney disease (principal); E11.65 Type 2 diabetes mellitus with hyperglycemia; E11.40 Type 2 diabetes mellitus with diabetic neuropathy, unspecified; I12.9 Hypertensive chronic kidney disease with stage 1 through stage 4 chronic kidney disease, or unspecified chronic kidney disease; N18.2 Chronic kidney disease, stage 2 (mild); E78.00 Pure hypercholesterolemia, unspecified; E53.8 Deficiency of other specified B group vitamins; E55.9 Vitamin D deficiency, unspecified; Z79.85 Long-term (current) use of injectable non-insulin antidiabetic drugs; Z96.41 Presence of insulin pump (external) (internal); Z79.4 Long term (current) use of insulin; Z79.891 Long term (current) use of opiate analgesic | CPT/HCPCS: 82947; 83036 ==

== ENCOUNTER 2023-01-13 08:20 | Outpatient (REF) | payer BC, SELFPAY ==
[2023-01-13 11:32] LABS: MANUAL DIFF FLAG NO
[2023-01-13 11:46] LABS: Basophils Absolute Auto 0.1 X10*3/uL (0.0-0.2); Basophils Percent Auto 0.8 % (0-2); Eosinophils Absolute Auto 0.2 X10*3/uL (0.0-0.4); Eosinophils Percent Auto 2.6 % (0-4); Hematocrit 47.2 % (42.0-52.0); Hemoglobin 15.8 g/dl (14.0-18.0); Imm Gran Abs Auto 0.04 X10*3/uL (0.00-0.03); Imm Gran Pct Auto 0.5 % (0.0-0.4); Lymphocytes Absolute Auto 1.8 X10*3/uL (1.2-4.9); Lymphocytes Percent Auto 24.2 % (20-40); Mean Corpuscular HGB Conc 33.5 g/dl (31.0-36.0); Mean Corpuscular Hemoglobin 27.5 pg (27.0-33.0); Mean Corpuscular Volume 82.2 fL (80.0-98.0); Mean Platelet Volume 8.8 fL (9.4-12.4); Monocytes Absolute Auto 0.6 X10*3/uL (0.1-1.2); Monocytes Percent Auto 7.6 % (2-11); Neutrophils Absolute Auto 4.9 x10*3/uL (2.0-8.3); Neutrophils Percent Auto 64.3 % (45-73); Platelet Count 251 X10*3/uL (160-400); Red Blood Count 5.74 X10*6/uL (4.60-5.80); Red Cell Distribution Width 12.2 % (11.0-16.0); White Blood Count 7.6 X10*3/uL (4.8-10.8)
[2023-01-13 11:51] LABS: Estimated Average Glucose 352 mg/dL; Hemoglobin A1c % 13.9 %
[2023-01-13 12:00] LABS: Appearance Urine Clear; Color Urine Yellow; Glucose Urine UA >=1000 mg/dL (Negative); Leukocyte Esterase Urine Negative (Negative); Nitrite Urine Negative (Negative); PH 7.5 (5.0-9.0); Specific Gravity - Urine >= 1.030 (1.005-1.025); UMIC TRIGGER UACC YES; Urine Blood Negative (Negative); Urine Ketones Negative (Negative); Urine Protein Trace mg/dL (Neg-Trace)
[2023-01-13 12:06] LABS: Bacteria Urine None Seen (None Seen); Hyaline Casts Urine 0-2 /LPF (0-2); RBC Urine 0-2 /HPF (0-2); Squamous Epithelial Cell Urine 0-2 /HPF (0-2); WBC Urine 0-5 /HPF (0-5)
[2023-01-13 12:28] LABS: Creatinine Urine 45.48 mg/dL; Microalbum/Creatinine Ratio Ur 171.5 ug/mg cr
[2023-01-13 12:39] LABS: Folate 9.8 ng/mL (> or = 4.0); Vitamin B12 758 pg/mL (200-900)
[2023-01-13 12:42] LABS: Alanine Aminotransferase 49 U/L (0-40); Albumin Level 4.1 g/dL (3.5-5.0); Alkaline Phosphatase 70 U/L (39-117); Anion Gap 14 (12-20); Aspartate Amino Transferase 23 U/L (5-37); Bilirubin Total 0.4 mg/dL (0.0-1.0); Blood Urea Nitrogen 22 mg/dL (9-16); Carbon Dioxide 24 mmol/L (22-29); Chloride 102 mmol/L (96-108); Cholesterol 210 mg/dL; Estimated Glomerular Filt Rate 59; Glucose Fasting 432 mg/dL (60-99); HDL Cholesterol 47 mg/dL; LDL Cholesterol Calculated 91 mg/dl; Potassium 4.3 mmol/L (3.3-5.1); Sodium 136 mmol/L (135-145); TSH reflex Free T4 1.37 uIU/mL (0.32-4.0); Total Protein 7.3 g/dL (6.5-8.0); Triglycerides 360 mg/dL; Vitamin D 25-OH Total 40.9 ng/mL (>30)
== END 2023-01-13 08:21 | disposition home or self-care (01) ==
LOC: HO.HMGCLDS 08:20
PROVIDERS: PCP Internal Medicine; Visit Provider Internal Medicine
DX: E11.9 Type 2 diabetes mellitus without complications (principal); E78.00 Pure hypercholesterolemia, unspecified; I10 Essential (primary) hypertension; E53.8 Deficiency of other specified B group vitamins; E55.9 Vitamin D deficiency, unspecified; R30.0 Dysuria
CPT/HCPCS: 36415; 80053; 80061; 81001; 82043; 82306; 82607; 82746; 83036; 84443; 85025

== ENCOUNTER 2023-01-13 12:49 | Outpatient (AMB) | payer BC, SELFPAY ==
--- NOTE | 2023-01-13 12:49 | MHC.PC.OV ---
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) As directed 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 sensor (DexHi[employer] G6 Sensor device) As directed 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 transmitter (Dexcom G6 Transmitter device) USE DIRECTED carvedilol 12.5 mg PO BID 90 days cholecalciferol (vitamin D3) (Vitamin D3) 50 mcg PO DAILY 90 days empagliflozin (Jardiance) 10 mg PO QAM 90 days fenofibrate nanocrystallized 145 mg PO DAILY 90 days gabapentin 100 mg PO DAILY hydralazine 25 mg PO TID 90 days insulin regular hum U-500 conc (Humulin R U-500 (Concentrated) Insulin) 100 units (0.2 mL) subcut DIRECTED 30 days lamotrigine 200 mg PO BID lorazepam 1 mg PO BID PRN 30 days losartan 50 mg PO DAILY 90 days nortriptyline 50 mg PO BEDTIME oxycodone 30 mg PO Q6H PRN 30 days oxycodone ER 80 mg PO Q6H 30 days pravastatin 40 mg PO DAILY 90 days tirzepatide (Mounjaro) 2.5 mg subcut QWEEK Tobacco use date assessed: 01/13/23 Dental Screening Dental Screen Date: 01/13/23 Did you have a dental visit in the last 12 months?: Yes Did you have a dental problem in the last 6 months where you did not have access to dental care?: No Was dental information given to patient?: Patient has dentist HPI Med [phone] HPI Details Patient's follow up visit / consultation today is done over video conference (iPhone/iPad/Google Dexetra/Doximity) - this is a TELEHEALTH visit Patient's current medications have been reviewed and verified with patient and/or caregiver/proxy and have been updated accordingly in the medication list Patient states that his blood sugar has been not good lately States that he ran out of insulin for a while and could not get it refilled as he had no money to get it - will be picking up his Rx later today Adds that his insulin pump does not seem to be working correctly - was seen by Dr. Espinoza for follow up last week and states that he is going to have a new insulin pump set up tomorrow Will also have a CGM device in place as well He presently denies any headaches or dizziness Denies any chest pains, no SOB No nausea/vomiting, no abdominal pain and no change in bowel habits noted Relates that he could not get his pain med Rx in time last month even though we sent his Rx in to the pharmacy way ahead of time before I left for a couple of weeks States that he was experiencing increased diarrhea and stomach pains back then, presumably due to withdrawal symptoms States that his stomach is now back to normal States that his chronic pains remain adequately controlled on his current Rx and will need his Rx refilled again today Had his follow up labs done earlier this morning - to discuss his results [facility] Medical History Anemia Anxiety Benign essential hypertension Chronic kidney disease (CKD), stage II (mild) Degeneration of lumbar or lumbosacral intervertebral disc Elevated LFTs GERD without esophagitis History of testicular cancer Mild chronic obstructive pulmonary disease Neuropathy Obesity (BMI 30-39.9) Type 2 diabetes mellitus with diabetic chronic kidney disease Type 2 diabetes mellitus with diabetic neuropathy, unspecified Vitamin D deficiency Surgical History History of colonoscopy (~06/24/16) History of lumbar surgery History of orchiectomy Pure hypercholesterolemia Family History Father Cancer Mother Diabetes Social History Household Members: Other Housing: House Alcohol intake: former Patient Tobacco Use Status: Never used Tobacco e-Cigarette/Vaping Use: Never Used Second Hand Smoke Exposure: Yes service: Yes Current occupational status: disabled Cognitive needs: No Hearing needs: No Vision needs: No Questionnaire PHQ-9 Over the last 2 weeks, how often have you been bothered by any of the following problems? 1. Little interest or pleasure in doing things: not at all 2. Feeling down, depressed, or hopeless: not at all 3. Trouble falling or staying asleep, or sleeping too much: not at all 4. Feeling tired or having little energy: not at all 5. Poor appetite or overeating: not at all 6. Feeling bad about yourself - or that you are a failure or have let yourself or your family down: not at all 7. Trouble concentrating on things, such as reading the newspaper or watching television: not at all 8. Moving or speaking so slowly that other people could have noticed. Or the opposite - being so fidgety or restless that you have been moving around a lot more than usual: not at all 9. Thoughts that you would be better off or of hurting yourself in some way: not at all Total score: 0 Depression Screening Interpretation: Negative [id number] - PHQ-9 Billing: Yes Source: Developed by Drs. Robbi Keller, Margie Cardona, Parvez Adan and colleagues, with an educational breonna from [employer]. Thrive Questionnaire Date Thrive assessed: 01/13/23 I am a: Patient What is your living situation today?: I have a steady place to live Within the past 12 months, did the food you bought not last and you didn't have the money to get more?: Never true Within the past 12 months, did you worry whether your food would run out before you got money to buy more?: Never true Do you have trouble paying for medicines?: No Do you have trouble getting transportation to medical appointments?: No Do you have trouble paying your heating and electricity bill?: No Do you have trouble taking care of your child, family member or friend?: No Do you have trouble with day-to-day activities such as bathing, preparing meals, shopping, managing finances, etc.?: No Are you currently unemployed and looking for a job?: No Are you interested in more education?: No Please select the resources that you would like help with: None Currently or been in a relationship where the following occur: no concerns reported AUDIT C Alcohol Use Questionnaire (AUDIT-C) 1. How often do you have a drink containing alcohol?: Never 3. How often do you have six or more drinks on one occasion?: Never Total Score: 0 Score Reviewed/Action Taken: Yes SHAHRIAR-7 AMB Questionnaire SHAHRIAR-7 Date SHAHRIAR - 7 assessed: 01/13/23 Feeling nervous, anxious, or on edge: 0 = Not at all Not being able to stop or control worryin = Not at all Worrying too much about different things: 0 = Not at all Trouble relaxin = Not at all Being so restless that it is hard to sit still: 0 = Not at all Becoming easily annoyed or irritable: 0 = Not at all Feeling afraid as if something awful might happen: 0 = Not at all Total SHAHRIAR-7 score (0-4 normal; 5-9 mild; 10-14 moderate; 15-21 severe): 0 Source: Developed by Drs. Robbi Keller, Margie Cardona, Parvez Adan and colleagues, with an educational breonna from [employer]. Review of Systems Const Reports fatigue, Denies fever(s) and Denies headache(s) Eyes Details: (+) fixed visual field object in the left eye Denies eye pain ENT Denies dysphagia, Denies dizziness, Denies otalgia, Denies headache(s), Denies neck pain and Denies sore throat Card Denies chest pain, Denies palpitations and Denies dyspnea Resp Denies cough, Denies dyspnea and Denies wheezing GI Denies abdominal pain, Denies constipation, Denies dysphagia, Denies heartburn, Denies diarrhea, Denies nausea and Denies vomiting Denies dysuria, Reports nocturia and Reports urinary frequency Musc Reports back pain (over the lumbar spine - chronic), Reports arthralgias (over both knees - worsening lately), Denies joint swelling, Denies neck pain and Reports stiffness (a couple of fingers lock up every now and then) Neuro Denies dizziness and Denies headache(s) Psych Reports anxiety and Reports depression Endo Reports fatigue and Denies palpitations Aller/Immun Denies wheezing Physical exam (Primary Care) Vital Signs: Physical examination is not performed as visit / consultation today is done over videoconference - Telehealth visit All physical findings indicated here, if present, are as per patient's and / or caregivers / proxy's report and visual inspection over videoconference, if appropriate or applicable Tobacco/Smoking Status: Tobacco use Status Tobacco use date assessed 01/13/23 01/13/23 12:52 Patient Tobacco Use Status Never used Tobacco 01/13/23 12:52 e-Cigarette/Vaping Use Never Used 01/13/23 12:52 PHQ-9: PHQ-9 Score PHQ-9: Total score 0 01/13/23 12:52 Depression Screening Interpretation: Negative Thrive Assessment: Date of Thrive Assessment Date Thrive assessed 01/13/23 01/13/23 12:52 Currently or been in a relationship where the following occur: no concerns reported Telehealth Telehealth Location of provider rendering services: practice address Location of patient: address on file Patient Identification confirmed using: Name, : Yes Telehealth method: video (iphone/[employer]) Patient verbally consented to treatment: Yes Patient verbally consented to billing insurance company: Yes Patient informed of any privacy concerns related to visit: Yes Minutes spent on Phone/Video with Pt.: 23 Results Reviewed Results Reviewed: Laboratory Tests 01/06/23 01/13/23 01/13/23 08:25 08:26 08:26 WBC 7.6 Hgb 15.8 Hct 47.2 Plt Count 251 Sodium 136 Potassium 4.3 Creatinine 1.26 Estimated GFR 59 Fasting Glucose 432 H* Hgb A1c (Clinic) > 14.0 H Hemoglobin A1c % Calcium 10.0 AST 23 ALT 49 H Triglycerides 360 Cholesterol 210 LDL Cholesterol, Calc 91 HDL Cholesterol 47 Vitamin B12 25-OH Vitamin D Total 40.9 TSH 1.37 Ur Specific [place] Urine Protein Urine Glucose (UA) Urine Blood Microalb/Creat Ratio 01/13/23 01/13/23 01/13/23 08:26 08:26 08:30 WBC Hgb Hct Plt Count Sodium Potassium Creatinine Estimated GFR Fasting Glucose Hgb A1c (Clinic) Hemoglobin A1c % 13.9 Calcium AST ALT Triglycerides Cholesterol LDL Cholesterol, Calc HDL Cholesterol Vitamin B12 758 25-OH Vitamin D Total TSH Ur Specific [place] >= 1.030 H Urine Protein Trace Urine Glucose (UA) >=1000 H Urine Blood Negative Microalb/Creat Ratio 01/13/23 08:30 WBC Hgb Hct Plt Count Sodium Potassium Creatinine Estimated GFR Fasting Glucose Hgb A1c (Clinic) Hemoglobin A1c % Calcium AST ALT Triglycerides Cholesterol LDL Cholesterol, Calc HDL Cholesterol Vitamin B12 25-OH Vitamin D Total TSH Ur Specific [place] Urine Protein Urine Glucose (UA) Urine Blood Microalb/Creat Ratio 171.5 Assessment and Plan Assessment & Plan (1) Pure hypercholesterolemia: Code(s): E78.00 - Pure hypercholesterolemia, unspecified Plan: Results of his labs done earlier this morning reviewed and discussed with patient - cautioned that his serum TG level has increased further and is now at 360 mg/dl, most likely in relation to his declining/poor glycemic control lately Reinforced low cholesterol diet Continue Pravastatin 20 mg QD and Fenofibrate 145 mg QD (2) Type 2 diabetes mellitus with diabetic chronic kidney disease: Code(s): E11.22 - Type 2 diabetes mellitus with diabetic chronic kidney disease Qualifiers: Diabetes mellitus terminal superintendent insulin use: with chcf use Chronic kidney disease stage: stage 2 (mild) Qualified Code(s): E11.22 - Type 2 diabetes mellitus with diabetic chronic kidney disease; N18.2 - Chronic kidney disease, stage 2 (mild); Z79.4 - joint terminal attack controller (current) use of insulin Plan: HgbA1c is now at 13.9% on his labs done earlier this morning (in-office HgbA1c was >14% last week when checked at the endocrinology office; was previously at 9.1% a few months ago) - goal is <7.0% Admits that he ran out of his insulin recently and could not get it refilled immediately; thinks that his insulin pump was also not working correctly lately Admits also to poor compliance with his diet recently; reinforced again strict diabetic diet He is on an insulin pump (Omnipod) and follows up with endocrinology (Dr. Espinoza) for his diabetes management; was seen last week and is being switched out to a new insulin pump as well as set up for CGM Will be seeing diabetic orthopedic assistant again in a couple of weeks for diabetic teaching Continue Humalog solution 80 units per day via insulin pump and Jardiance 10 mg QD; used to be on Trulicity 0.75 mg but was switched over to Mounjaro 2.5 mg Q week by Dr. Espinoza last week Was previously taken OFF Metformin 500 mg BID due to his declining GFR (3) Chronic kidney disease (CKD), stage III (moderate): Code(s): N18.30 - Chronic kidney disease, stage 3 unspecified Qualifiers: Chronic kidney disease stage 3 subtype: stage 3a (GFR 45-59) Qualified Code(s): N18.31 - Chronic kidney disease, stage 3a Plan: Renal function still appears stable on his recent labs; will continue to monitor his renal function closely Follow up with nephrology as scheduled (4) Benign essential hypertension: Code(s): I10 - Essential (primary) hypertension Plan: Reinforced low-sodium diet -? goal is systolic BP of at least 130 mm or less Continue Amlodipine 10 mg QD, Carvedilol 12.5 mg BID, Hydralazine 25 mg TID and Losartan 50 mg QD Instructed to continue monitoring and checking his blood pressure regularly (5) Mild chronic obstructive pulmonary disease: Code(s): J44.9 - Chronic obstructive pulmonary disease, unspecified Plan: Stable -? PFTs done a couple of years ago showed mild COPD Patient has been mostly asymptomatic and has not needed to use any of his inhalers lately (6) Degeneration of lumbar or lumbosacral intervertebral disc: Code(s): M51.37 - Other intervertebral disc degeneration, lumbosacral region Plan: Reinforced activity and weight lifting restrictions Continue Oxycodone 30 mg every 6-8 hours as needed and Oxycodone ER 80 mg every 6 hours - Rx refilled (7) Bilateral knee pain: Code(s): M25.561 - Pain in right knee; M25.562 - Pain in left knee Qualifiers: Chronicity: unspecified Qualified Code(s): M25.561 - Pain in right knee; M25.562 - Pain in left knee Plan: X-rays of both knees done last year revealed (+) mild OA changes in the right knee; left knee x-rays were normal Was recommend to see orthopedics for further evaluation and management of his knee symptoms bur patient preferred to hold off for now and states that he will call for referral when he is ready to see orthopedics Notes that his knee symptoms have calmed down a lot since (8) Neuropathy: Code(s): G62.9 - Polyneuropathy, unspecified Plan: EMG and NCV of both lower extremities done in 2017 showed (+)? 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 chronic bilateral lower lumbar radiculopathy Continue Nortriptyline 50 mg Q HS Emphasized again the importance of tight glycemic control to slow down the progression of his neuropathy Follow up with podiatry as scheduled for regular/annual foot exam and diabetic foot care (9) Vision disturbance: Code(s): H53.9 - Unspecified visual disturbance Plan: Patient describes it as a fixed floater in his left eye's field of vision Due to his diabetes, this could represent a cotton wool spot, which can be a harbinger of diabetic retinopathy Follow up with ophthalmology as scheduled (10) Anemia: Code(s): D64.9 - Anemia, unspecified Qualifiers: Anemia type: unspecified type Qualified Code(s): D64.9 - Anemia, unspecified Plan: Most likely anemia of chronic disease although his H/H have corrected on his recent labs Will continue to monitor his CBC regularly (11) Elevated LFTs: Code(s): R79.89 - Other specified abnormal findings of blood chemistry Plan: Is most likely due to his weight and his medications and cholesterol level Reminded that losing weight will help keep his LFTs from going back up Will continue to monitor his LFTs regularly (12) GERD without esophagitis: Code(s): K21.9 - Gastro-esophageal reflux disease without esophagitis Plan: Dietary restrictions reinforced (13) Vitamin D deficiency: Code(s): E55.9 - Vitamin D deficiency, unspecified Plan: Corrected - continue Vitamin D3 1000 units QD (14) History of testicular cancer: Comment: S/P left orchiectomy Code(s): Z85.47 - Personal history of malignant neoplasm of testis Plan: S/P left orchiectomy - in remission Follow-up with Oncology/ urology as scheduled for continuing surveillance (15) Anxiety: Code(s): F41.9 - Anxiety disorder, unspecified Plan: Continue Lorazepam 1 mg 1 to 2 times a day as needed - Rx refilled (16) Obesity (BMI 30-39.9): Code(s): E66.9 - Obesity, unspecified Plan: Reinforced diet/exercise as tolerated/lose weight Plan Follow up in 1 month Medications: Refilled lorazepam 1 mg PO BID 30 days PRN 60 tabs 0RF anxiety F41.9 - Anxiety disorder, unspecified oxycodone 30 mg PO Q6H 30 days PRN 120 tabs 0RF pain M51.37 - Other intervertebral disc degeneration, lumbosacral region oxycodone ER 80 mg PO Q6H 30 days 120 tabs 0RF M51.37 - Other intervertebral disc degeneration, lumbosacral region Coding Level of Care Code Tele Est Pt Level 4 (42497) Diagnoses Pure hypercholesterolemia E78.00 Type 2 diabetes mellitus with diabetic chronic kidney disease E11.22; N18.2; Z79.4 Diabetes mellitus terminal superintendent insulin use: with terminal superintendent use Chronic kidney disease stage: stage 2 (mild) Chronic kidney disease (CKD), stage III (moderate) N18.31 Chronic kidney disease stage 3 subtype: stage 3a (GFR 45-59) Benign essential hypertension I10 Mild chronic obstructive pulmonary disease J44.9 Degeneration of lumbar or lumbosacral intervertebral disc M51.37 Bilateral knee pain M25.561; M25.562 Chronicity: unspecified Neuropathy G62.9 Vision disturbance H53.9 Anemia D64.9 Anemia type: unspecified type Elevated LFTs R79.89 GERD without esophagitis K21.9 Vitamin D deficiency E55.9 History of testicular cancer Z85.47 Anxiety F41.9 Obesity (BMI 30-39.9) E66.9
== END 2023-01-13 13:23 | disposition home or self-care (01) ==
LOC: HO.HMGH 12:49
PROVIDERS: PCP Internal Medicine; Visit Provider Internal Medicine
DX: E11.22 Type 2 diabetes mellitus with diabetic chronic kidney disease (principal); Z79.4 Long term (current) use of insulin; N18.31 Chronic kidney disease, stage 3a; J44.9 Chronic obstructive pulmonary disease, unspecified; E78.00 Pure hypercholesterolemia, unspecified; I12.9 Hypertensive chronic kidney disease with stage 1 through stage 4 chronic kidney disease, or unspecified chronic kidney disease; M51.37 Other intervertebral disc degeneration, lumbosacral region; M25.561 Pain in right knee; M25.562 Pain in left knee; G62.9 Polyneuropathy, unspecified; H53.9 Unspecified visual disturbance; D64.9 Anemia, unspecified
CPT/HCPCS: 99214

== ENCOUNTER 2023-02-10 12:37 | Outpatient (AMB) | payer BC, SELFPAY ==
--- NOTE | 2023-02-10 12:36 | A.OFFPC_ITS ---
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 Review/[phone] Info Specialist Required: No Accompanied by: Self / Same As Patient Allergies gabapentin Adverse Reaction (Intermediate, Verified 02/10/23 13:54) severe somnolence, dizziness Medication List - Last Reconciled 02/10/23 by Yobany Raymundo MD albuterol sulfate 90 mcg/actuation 2 puffs PO Q6H PRN amlodipine 10 mg PO DAILY 90 days 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 meter,continuous (Dexcom G6 [employer] Forms Developer) As directed 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 sensor (Dexcom G6 Sensor device) As directed 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 transmitter (Dexcom G6 Transmitter device) USE DIRECTED carvedilol 12.5 mg PO BID 90 days cholecalciferol (vitamin D3) (Vitamin D3) 50 mcg PO DAILY 90 days empagliflozin (Jardiance) 10 mg PO QAM 90 days fenofibrate nanocrystallized 145 mg PO DAILY 90 days gabapentin 100 mg PO DAILY hydralazine 25 mg PO TID 90 days insulin regular hum U-500 conc (Humulin R U-500 (Concentrated) Insulin) 100 units (0.2 mL) subcut DIRECTED 30 days lamotrigine 200 mg PO BID lorazepam 1 mg PO BID PRN 30 days losartan 50 mg PO DAILY 90 days nortriptyline 50 mg PO BEDTIME oxycodone 30 mg PO Q6H PRN 30 days oxycodone ER 80 mg PO Q6H 30 days pravastatin 40 mg PO DAILY 90 days tirzepatide (Mounjaro) 2.5 mg subcut QWEEK Tobacco use date assessed: 02/10/23 Dental Screening Dental Screen Date: 02/10/23 Did you have a dental visit in the last 12 months?: Yes Did you have a dental problem in the last 6 months where you did not have access to dental care?: No Was dental information given to patient?: Patient has dentist HPI Med Review/[id number] HPI Details Due to the COVID-19 pandemic, we are limiting [id number] visits to patients who have an absolute need for such visits Patient's follow up visit / consultation today is done over video conference (iPhone/iPad/[employer]) - this is a TELEHEALTH visit Patient's current medications have been reviewed and verified with patient and/or caregiver/proxy and have been updated accordingly in the medication list Patient states that he has been experiencing recurrent right-sided chest pa in/rib pain for the past 1 month or so Also relates (+) increased cough and congestion for the past 1 to 2 weeks and states that he is sometimes experiencing some difficulty breathing / chest congestion and tightness lately Coughs up some minimal phlegm at times Thinks that he may have contracted COVID recently as he states that everyone in the family and in his household all tested positive for COVID at one time or another about 2 weeks ago States that he has had similar symptoms from the others but he never got himself tested for COVID Relates (+) fatigue and some myalgia/malaise over the past couple of weeks but denies any fever, headaches or dizziness No nausea/vomiting, no abdominal pain and no change in bowel habits noted States that his blood sugars are still running high and are often over 300 mg/dl when he checks them; HgbA1c was most recently >14% early last month He is now seeing Dr. Espinoza for his diabetes and has a follow up appt scheduled with him next month States that his chronic low back pain and joint pains remain adequately controlled on his current Rx and he needs his pain meds and Lorazepam Rx refilled today [facility] Medical History Anemia Anxiety Benign essential hypertension Chronic kidney disease (CKD), stage II (mild) Degeneration of lumbar or lumbosacral intervertebral disc Elevated LFTs GERD without esophagitis History of testicular cancer Mild chronic obstructive pulmonary disease Neuropathy Obesity (BMI 30-39.9) Type 2 diabetes mellitus with diabetic chronic kidney disease Type 2 diabetes mellitus with diabetic neuropathy, unspecified Vitamin D deficiency Surgical History History of colonoscopy (~06/24/16) History of lumbar surgery History of orchiectomy Pure hypercholesterolemia Family History Father Cancer Mother Diabetes Social History Household Members: Other Housing: House Alcohol intake: former Patient Tobacco Use Status: Never used Tobacco e-Cigarette/Vaping Use: Never Used Second Hand Smoke Exposure: Yes service: Yes Current occupational status: disabled Cognitive needs: No Hearing needs: No Vision needs: No Questionnaire PHQ-9 Over the last 2 weeks, how often have you been bothered by any of the following problems? 1. Little interest or pleasure in doing things: not at all 2. Feeling down, depressed, or hopeless: not at all 3. Trouble falling or staying asleep, or sleeping too much: not at all 4. Feeling tired or having little energy: not at all 5. Poor appetite or overeating: not at all 6. Feeling bad about yourself - or that you are a failure or have let yourself or your family down: not at all 7. Trouble concentrating on things, such as reading the newspaper or watching television: not at all 8. Moving or speaking so slowly that other people could have noticed. Or the opposite - being so fidgety or restless that you have been moving around a lot more than usual: not at all 9. Thoughts that you would be better off or of hurting yourself in some way: not at all Total score: 0 Depression Screening Interpretation: Negative [id number] - PHQ-9 Billing: Yes Source: Developed by Drs. Robbi Keller, Margie Cardona, Parvez Adan and colleagues, with an educational breonna from [employer]. Thrive Questionnaire Date Thrive assessed: 02/10/23 I am a: Patient What is your living situation today?: I have a steady place to live Within the past 12 months, did the food you bought not last and you didn't have the money to get more?: Never true Within the past 12 months, did you worry whether your food would run out before you got money to buy more?: Never true Do you have trouble paying for medicines?: No Do you have trouble getting transportation to medical appointments?: No Do you have trouble paying your heating and electricity bill?: No Do you have trouble taking care of your child, family member or friend?: No Do you have trouble with day-to-day activities such as bathing, preparing meals, shopping, managing finances, etc.?: No Are you currently unemployed and looking for a job?: No Are you interested in more education?: No Please select the resources that you would like help with: None Currently or been in a relationship where the following occur: no concerns reported AUDIT C Alcohol Use Questionnaire (AUDIT-C) 1. How often do you have a drink containing alcohol?: Never 3. How often do you have six or more drinks on one occasion?: Never Total Score: 0 Score Reviewed/Action Taken: Yes SHAHRIAR-7 AMB Questionnaire SHAHRIAR-7 Date SHAHRIAR - 7 assessed: 02/10/23 Feeling nervous, anxious, or on edge: 0 = Not at all Not being able to stop or control worryin = Not at all Worrying too much about different things: 0 = Not at all Trouble relaxin = Not at all Being so restless that it is hard to sit still: 0 = Not at all Becoming easily annoyed or irritable: 0 = Not at all Feeling afraid as if something awful might happen: 0 = Not at all Total SHAHRIAR-7 score (0-4 normal; 5-9 mild; 10-14 moderate; 15-21 severe): 0 Source: Developed by Drs. Robbi Keller, Margie Cardona, Parvez Adan and colleagues, with an educational breonna from [employer]. Review of Systems Const Reports fatigue, Denies fever(s), Denies headache(s) and Reports malaise ENT Denies dysphagia, Denies dizziness, Denies otalgia, Denies headache(s), Reports nasal congestion, Denies neck pain, Denies odynophagia and Denies sore throat Card Reports chest pain (recurrent, over the right side (chest wall/ribs)), Denies palpitations and Reports dyspnea (mild, at times) Resp Reports chest congestion, Reports cough, Reports pain on inspiration (over the right chest wall), Reports dyspnea (mild, at times) and Denies wheezing GI Denies abdominal pain, Denies constipation, Denies dysphagia, Denies heartburn, Denies diarrhea, Denies nausea, Denies odynophagia and Denies vomiting Denies dysuria, Reports nocturia and Reports urinary frequency Musc Reports back pain (over the lumbar spine - chronic), Reports arthralgias (over both knees - worsening lately), Denies joint swelling, Denies neck pain and Reports stiffness (a couple of fingers lock up every now and then) Neuro Denies dizziness and Denies headache(s) Psych Reports anxiety and Reports depression Endo Reports fatigue and Denies palpitations Aller/Immun Denies wheezing Physical exam (Primary Care) Vital Signs: Physical examination is not performed as visit / consultation today is done over videoconference - Telehealth visit All physical findings indicated here, if present, are as per patient's and / or caregivers / proxy's report and visual inspection over videoconference, if appropriate or applicable Tobacco/Smoking Status: Tobacco use Status Tobacco use date assessed 02/10/23 02/10/23 12:39 Patient Tobacco Use Status Never used Tobacco 02/10/23 12:36 e-Cigarette/Vaping Use Never Used 02/10/23 12:36 PHQ-9: PHQ-9 Score PHQ-9: Total score 0 02/10/23 12:39 Depression Screening Interpretation: Negative Thrive Assessment: Date of Thrive Assessment Date Thrive assessed 02/10/23 02/10/23 12:39 Currently or been in a relationship where the following occur: no concerns reported Telehealth Telehealth Location of provider rendering services: practice address Location of patient: address on file Patient Identification confirmed using: Name, : Yes Telehealth method: video (iphone/[employer]) Patient verbally consented to treatment: Yes Patient verbally consented to billing insurance company: Yes Patient informed of any privacy concerns related to visit: Yes Minutes spent on Phone/Video with Pt.: 17 Assessment and Plan Assessment & Plan (1) Chest congestion: Code(s): R09.89 - Other specified symptoms and signs involving the circulatory and respiratory systems Plan: Will send patient for chest x-rays ROWENA for further evaluation Patient is advised that if his chest x-rays reveal (+) pneumonia or findings consistent with a respiratory tract infection, I will then send in the appropriate Abx or Rx for him as soon as possible if necessary (2) Right-sided chest pain: Code(s): R07.9 - Chest pain, unspecified Plan: Most likely musculoskeletal or pleuritic chest pains Will send patient for x-rays of the right ribs for further evaluation (3) Type 2 diabetes mellitus with diabetic chronic kidney disease: Code(s): E11.22 - Type 2 diabetes mellitus with diabetic chronic kidney disease Qualifiers: Diabetes mellitus intermission coordinator insulin use: with retirement use Chronic kidney disease stage: stage 2 (mild) Qualified Code(s): E11.22 - Type 2 diabetes mellitus with diabetic chronic kidney disease; N18.2 - Chronic kidney disease, stage 2 (mild); Z79.4 - longterm (current) use of insulin Plan: His HgbA1c was at 13.9% last month - goal is <7.0% Reinforced diabetic diet He is now seeing the diabetic hearing aid repair technician and educator(s) as well as Dr. Espinoza for management of his diabetes Continue Humalog solution 80 units per day via insulin pump and Jardiance 10 mg QD; used to be on Trulicity 0.75 mg but was switched over to Mounjaro 2.5 mg Q week by Dr. Espinoza last month Was previously taken OFF his Metformin 500 mg BID due to his declining renal function (4) Chronic kidney disease (CKD), stage III (moderate): Code(s): N18.30 - Chronic kidney disease, stage 3 unspecified Qualifiers: Chronic kidney disease stage 3 subtype: stage 3a (GFR 45-59) Qualified Code(s): N18.31 - Chronic kidney disease, stage 3a Plan: Renal function still appears stable on his recent labs last month; will continue to monitor his renal function closely Follow up with nephrology as scheduled (5) Benign essential hypertension: Code(s): I10 - Essential (primary) hypertension Plan: Reinforced low-sodium diet -? goal is systolic BP of at least 130 mm or less Continue Amlodipine 10 mg QD, Carvedilol 12.5 mg BID, Hydralazine 25 mg TID and Losartan 50 mg QD He is instructed again to continue monitoring and checking his blood pressure regularly (6) Pure hypercholesterolemia: Code(s): E78.00 - Pure hypercholesterolemia, unspecified Plan: Reinforced low cholesterol diet Continue Pravastatin 20 mg QD and Fenofibrate 145 mg QD (7) Mild chronic obstructive pulmonary disease: Code(s): J44.9 - Chronic obstructive pulmonary disease, unspecified Plan: Stable -? PFTs done a couple of years ago showed mild COPD Patient has been mostly asymptomatic and has not needed to use any of his inhalers lately unless he comes down with a cold or respiratory infection (8) Degeneration of lumbar or lumbosacral intervertebral disc: Code(s): M51.37 - Other intervertebral disc degeneration, lumbosacral region Plan: Reinforced activity and weight lifting restrictions Continue Oxycodone 30 mg every 6-8 hours as needed and Oxycodone ER 80 mg every 6 hours - Rx refilled (9) Bilateral knee pain: Code(s): M25.561 - Pain in right knee; M25.562 - Pain in left knee Qualifiers: Chronicity: unspecified Qualified Code(s): M25.561 - Pain in right knee; M25.562 - Pain in left knee Plan: X-rays of both knees done last year revealed (+) mild OA changes in the right knee; left knee x-rays were normal Was recommend to see orthopedics for further evaluation and management of his knee symptoms bur patient preferred to hold off for now and states that he will call for referral when he feels he is ready to see orthopedics; notes that his knee symptoms have calmed down a lot lately (10) Neuropathy: Code(s): G62.9 - Polyneuropathy, unspecified Plan: EMG and NCV of both lower extremities done in 2017 showed (+)? 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 chronic bilateral lower lumbar radiculopathy Continue Nortriptyline 50 mg Q HS Emphasized again the importance of tight glycemic control to slow down the progression of his neuropathy Follow up with podiatry as scheduled for regular/annual foot exam and diabetic foot care (11) Anemia: Code(s): D64.9 - Anemia, unspecified Qualifiers: Anemia type: unspecified type Qualified Code(s): D64.9 - Anemia, unspecified Plan: Most likely anemia of chronic disease although his H/H have corrected on his recent labs Will continue to monitor his CBC regularly (12) Elevated LFTs: Code(s): R79.89 - Other specified abnormal findings of blood chemistry Plan: Is most likely due to his weight and his medications and cholesterol level Reminded that losing weight will help keep his LFTs from going back up Will continue to monitor his LFTs regularly (13) GERD without esophagitis: Code(s): K21.9 - Gastro-esophageal reflux disease without esophagitis Plan: Dietary restrictions reinforced (14) Vitamin D deficiency: Code(s): E55.9 - Vitamin D deficiency, unspecified Plan: Continue Vitamin D3 1000 units QD (15) History of testicular cancer: Comment: S/P left orchiectomy Code(s): Z85.47 - Personal history of malignant neoplasm of testis Plan: S/P left orchiectomy - in remission Follow-up with Oncology/ urology as scheduled for continuing surveillance (16) Anxiety: Code(s): F41.9 - Anxiety disorder, unspecified Plan: Continue Lorazepam 1 mg 1 to 2 times a day as needed - Rx refilled (17) Obesity (BMI 30-39.9): Code(s): E66.9 - Obesity, unspecified Plan: Reinforced diet/exercise as tolerated/lose weight Plan Follow up in 1 month Orders: Orders XR chest 2V Today J98.8 - Other specified respiratory disorders, R05.9 - Cough, unspecified, R07.9 - Chest pain, unspecified XR ribs RT 2V Today R05.9 - Cough, unspecified, R07.9 - Chest pain, unspecified Medications: Refilled oxycodone ER 80 mg PO Q6H 30 days 120 tabs 0RF M51.37 - Other intervertebral disc degeneration, lumbosacral region oxycodone 30 mg PO Q6H 30 days PRN 120 tabs 0RF pain M51.37 - Other intervertebral disc degeneration, lumbosacral region lorazepam 1 mg PO BID 30 days PRN 60 tabs 0RF anxiety F41.9 - Anxiety disorder, unspecified Coding Level of Care Code Tele Est Pt Level 3 (10086) Diagnoses Chest congestion R09.89 Right-sided chest pain R07.9 Type 2 diabetes mellitus with diabetic chronic kidney disease E11.22; N18.2; Z79.4 Diabetes mellitus retirement insulin use: with retirement use Chronic kidney disease stage: stage 2 (mild) Chronic kidney disease (CKD), stage III (moderate) N18.31 Chronic kidney disease stage 3 subtype: stage 3a (GFR 45-59) Benign essential hypertension I10 Pure hypercholesterolemia E78.00 Mild chronic obstructive pulmonary disease J44.9 Degeneration of lumbar or lumbosacral intervertebral disc M51.37 Bilateral knee pain M25.561; M25.562 Chronicity: unspecified Neuropathy G62.9 Anemia D64.9 Anemia type: unspecified type Elevated LFTs R79.89 GERD without esophagitis K21.9 Vitamin D deficiency E55.9 History of testicular cancer Z85.47 Anxiety F41.9 Obesity (BMI 30-39.9) E66.9
== END 2023-02-10 13:19 | disposition home or self-care (01) ==
LOC: HO.HMGH 12:37
PROVIDERS: PCP Internal Medicine; Visit Provider Internal Medicine
DX: E11.22 Type 2 diabetes mellitus with diabetic chronic kidney disease (principal); I12.9 Hypertensive chronic kidney disease with stage 1 through stage 4 chronic kidney disease, or unspecified chronic kidney disease; N18.31 Chronic kidney disease, stage 3a; Z79.4 Long term (current) use of insulin; N18.2 Chronic kidney disease, stage 2 (mild); R09.89 Other specified symptoms and signs involving the circulatory and respiratory systems; R07.9 Chest pain, unspecified; E78.00 Pure hypercholesterolemia, unspecified; J44.9 Chronic obstructive pulmonary disease, unspecified; M51.37 Other intervertebral disc degeneration, lumbosacral region; M25.561 Pain in right knee; M25.562 Pain in left knee
CPT/HCPCS: 99213

== ENCOUNTER 2023-03-03 16:08 | Outpatient (REF) | payer BC, SELFPAY ==
--- NOTE | ~2023-03-03 | XR_ITS ---
X-RAY CHEST X-RAY RIGHT-SIDED RIBS CLINICAL HISTORY: Chest pain. COMPARISON: Chest radiograph 03/15/2015. TECHNIQUE: PA and lateral views of the chest. AP and oblique views of the right-sided rib cage. FINDINGS: Normal appearance of the cardiomediastinal silhouette. No focal airspace opacity, pleural effusion or pneumothorax. Very subtle nondisplaced fracture of the anterior right seventh rib. No displaced rib fractures. Chronic appearing deformity of the right mid clavicle. Partially imaged lumbar spinal hardware. XR/XR ribs RT 2V IMPRESSION: 1. No acute cardiopulmonary findings. 2. Very subtle nondisplaced fracture of the anterior right seventh rib. 3. Chronic appearing deformity of the right mid clavicle.
--- NOTE | ~2023-03-03 | XR_ITS ---
X-RAY CHEST X-RAY RIGHT-SIDED RIBS CLINICAL HISTORY: Chest pain. COMPARISON: Chest radiograph 03/15/2015. TECHNIQUE: PA and lateral views of the chest. AP and oblique views of the right-sided rib cage. FINDINGS: Normal appearance of the cardiomediastinal silhouette. No focal airspace opacity, pleural effusion or pneumothorax. Very subtle nondisplaced fracture of the anterior right seventh rib. No displaced rib fractures. Chronic appearing deformity of the right mid clavicle. Partially imaged lumbar spinal hardware. XR/XR chest 2V IMPRESSION: 1. No acute cardiopulmonary findings. 2. Very subtle nondisplaced fracture of the anterior right seventh rib. 3. Chronic appearing deformity of the right mid clavicle.
== END 2023-03-03 16:09 | disposition home or self-care (01) ==
LOC: HO.HMGCX 16:08
PROVIDERS: PCP Internal Medicine; Visit Provider Internal Medicine
DX: R07.9 Chest pain, unspecified (principal); J98.8 Other specified respiratory disorders; R05.9 Cough, unspecified
CPT/HCPCS: 71046; 71100

== ENCOUNTER 2023-03-10 09:30 | Outpatient (AMB) | payer BC, SELFPAY ==
--- NOTE | 2023-03-10 09:27 | A.OFFPC_ITS ---
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: No Accompanied by: Self / Same As Patient Allergies gabapentin Adverse Reaction (Intermediate, Verified 03/10/23 10:12) severe somnolence, dizziness Medication List - Last Reconciled 03/10/23 by Yobany Raymundo MD albuterol sulfate 90 mcg/actuation 2 puffs PO Q6H PRN amlodipine 10 mg PO DAILY 90 days 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 meter,continuous (Dexcom G6 Hat Cutter) As directed 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 sensor (Dexcom G6 Sensor device) As directed 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 transmitter (Dexcom G6 Transmitter device) USE DIRECTED carvedilol 12.5 mg PO BID 90 days cholecalciferol (vitamin D3) (Vitamin D3) 50 mcg PO DAILY 90 days empagliflozin (Jardiance) 10 mg PO QAM 90 days fenofibrate nanocrystallized 145 mg PO DAILY 90 days gabapentin 100 mg PO DAILY hydralazine 25 mg PO TID 90 days insulin regular hum U-500 conc (Humulin R U-500 (Concentrated) Insulin) 100 units (0.2 mL) subcut DIRECTED 30 days lamotrigine 200 mg PO BID lorazepam 1 mg PO BID PRN 30 days losartan 50 mg PO DAILY 90 days nortriptyline 50 mg PO BEDTIME oxycodone 30 mg PO Q6H PRN 30 days oxycodone ER 80 mg PO Q6H 30 days pravastatin 40 mg PO DAILY 90 days tirzepatide (Mounjaro) 2.5 mg subcut QWEEK Tobacco use date assessed: 03/10/23 Dental Screening Dental Screen Date: 03/10/23 Did you have a dental visit in the last 12 months?: No Did you have a dental problem in the last 6 months where you did not have access to dental care?: No Was dental information given to patient?: No HPI Med Review HPI Details Patient's follow up visit / consultation today is done over video conference (iPhone/iPad/the grafter/[employer]) - this is a TELEHEALTH visit Patient's current medications have been reviewed and verified with patient and/or caregiver/proxy and have been updated accordingly in the medication list States that he is still experiencing increased pain over the right side of his lower chest wall He was sent for rib x-rays last month and his x-rays revealed a very subtle non- displaced fracture of the right anterior 7th rib Patient again denies any recent injury, fall or trauma so he really does not know how he could have sustained his injury; may have been possibly incurred from severe coughing fits States that he feels okay otherwise and that he is still working on getting his blood sugar back under control - sees Dr. Espinoza now for management of his diabetes States that his chronic pains remain adequately controlled on his current Rx and will need his usual 3 Rx - Oxycodone ER, Oxycodone IR and Lorazepam - refilled today He denies any headaches or dizziness Denies any chest pains, no increased SOB No nausea/vomiting, no abdominal pain No change in bowel habits noted [facility] Medical History Obesity (BMI 30-39.9) Anxiety History of testicular cancer GERD without esophagitis Elevated LFTs Vitamin D deficiency Neuropathy Degeneration of lumbar or lumbosacral intervertebral disc Anemia Mild chronic obstructive pulmonary disease Benign essential hypertension Chronic kidney disease (CKD), stage II (mild) Type 2 diabetes mellitus with diabetic chronic kidney disease Type 2 diabetes mellitus with diabetic neuropathy, unspecified Surgical History History of colonoscopy (~06/24/16) History of orchiectomy Pure hypercholesterolemia History of lumbar surgery Family History Father Cancer Mother Diabetes Social History Household Members: Other Housing: House Alcohol intake: former Patient Tobacco Use Status: Never used Tobacco e-Cigarette/Vaping Use: Never Used Second Hand Smoke Exposure: Yes service: Yes Current occupational status: disabled Cognitive needs: No Hearing needs: No Vision needs: No Questionnaire PHQ-9 Over the last 2 weeks, how often have you been bothered by any of the following problems? 1. Little interest or pleasure in doing things: not at all 2. Feeling down, depressed, or hopeless: not at all 3. Trouble falling or staying asleep, or sleeping too much: not at all 4. Feeling tired or having little energy: not at all 5. Poor appetite or overeating: not at all 6. Feeling bad about yourself - or that you are a failure or have let yourself or your family down: not at all 7. Trouble concentrating on things, such as reading the newspaper or watching television: not at all 8. Moving or speaking so slowly that other people could have noticed. Or the opposite - being so fidgety or restless that you have been moving around a lot more than usual: not at all 9. Thoughts that you would be better off or of hurting yourself in some way: not at all Total score: 0 Depression Screening Interpretation: Negative Depression Screening Done: Yes 78700 - PHQ-9 Billing: Yes Source: Developed by Drs. Robbi Keller, Margie Cardona, Parvez Adan and colleagues, with an educational breonna from [employer]. Thrive Questionnaire Date Thrive assessed: 03/10/23 I am a: Patient What is your living situation today?: I have a steady place to live Within the past 12 months, did the food you bought not last and you didn't have the money to get more?: Never true Within the past 12 months, did you worry whether your food would run out before you got money to buy more?: Never true Do you have trouble paying for medicines?: No Do you have trouble getting transportation to medical appointments?: No Do you have trouble paying your heating and electricity bill?: No Do you have trouble taking care of your child, family member or friend?: No Do you have trouble with day-to-day activities such as bathing, preparing meals, shopping, managing finances, etc.?: No Are you currently unemployed and looking for a job?: No Are you interested in more education?: No Please select the resources that you would like help with: None Currently or been in a relationship where the following occur: no concerns reported AUDIT C Alcohol Use Questionnaire (AUDIT-C) 1. How often do you have a drink containing alcohol?: Never 3. How often do you have six or more drinks on one occasion?: Never Total Score: 0 Score Reviewed/Action Taken: Yes SHAHRIAR-7 AMB Questionnaire SHAHRIAR-7 Date SHAHRIAR - 7 assessed: 03/10/23 Feeling nervous, anxious, or on edge: 0 = Not at all Not being able to stop or control worryin = Not at all Worrying too much about different things: 0 = Not at all Trouble relaxin = Not at all Being so restless that it is hard to sit still: 0 = Not at all Becoming easily annoyed or irritable: 0 = Not at all Feeling afraid as if something awful might happen: 0 = Not at all Total SHAHRIAR-7 score (0-4 normal; 5-9 mild; 10-14 moderate; 15-21 severe): 0 Source: Developed by Drs. Robbi Keller, Margie Cardona, Parvez Adan and colleagues, with an educational breonna from [employer]. Review of Systems Const Reports fatigue, Denies fever(s) and Denies headache(s) ENT Denies dysphagia, Denies dizziness, Denies otalgia, Denies headache(s), Denies odynophagia and Denies sore throat Card Reports chest pain (recurrent, over the right side (chest wall/ribs)), Denies palpitations and Reports dyspnea (mild, at times) Resp Denies cough, Reports dyspnea (mild, at times) and Denies wheezing GI Denies abdominal pain, Denies constipation, Denies dysphagia, Denies heartburn, Denies diarrhea, Denies nausea, Denies odynophagia and Denies vomiting Denies dysuria, Reports nocturia and Reports urinary frequency Musc Reports back pain (over the lumbar spine - chronic), Reports arthralgias (over both knees - worsening lately), Denies joint swelling and Reports stiffness (a couple of fingers lock up every now and then) Skin/Breast Denies rash Neuro Denies dizziness and Denies headache(s) Psych Reports anxiety and Reports depression Endo Reports fatigue and Denies palpitations Aller/Immun Denies wheezing Physical exam (Primary Care) Vital Signs: Physical examination is not performed as visit / consultation today is done over videoconference - Telehealth visit All physical findings indicated here, if present, are as per patient's and / or caregivers / proxy's report and visual inspection over videoconference, if appropriate or applicable Tobacco/Smoking Status: Tobacco use Status Tobacco use date assessed 03/10/23 03/10/23 09:29 Patient Tobacco Use Status Never used Tobacco 03/10/23 09:29 e-Cigarette/Vaping Use Never Used 03/10/23 09:29 PHQ-9: PHQ-9 Score PHQ-9: Total score 0 03/10/23 09:29 Depression Screening Interpretation: Negative Thrive Assessment: Date of Thrive Assessment Date Thrive assessed 03/10/23 03/10/23 09:29 Currently or been in a relationship where the following occur: no concerns reported Telehealth Telehealth Location of provider rendering services: practice address Location of patient: address on file Patient Identification confirmed using: Name, : Yes Telehealth method: video (Iphone/Fixya) Patient verbally consented to treatment: Yes Patient verbally consented to billing insurance company: Yes Patient informed of any privacy concerns related to visit: Yes Minutes spent on Phone/Video with Pt.: 18 Assessment and Plan Assessment & Plan (1) Right rib fracture: Code(s): S22.31XA - Fracture of one rib, right side, initial encounter for closed fracture Qualifiers: Encounter type: sequela Rib fracture type: single rib Fracture type: closed Qualified Code(s): S22.31XS - Fracture of one rib, right side, sequela Plan: Patient is advised that his rib x-rays done last month revealed a subtle non-dis placed fracture of the anterior right 7th rib, which explains the source of his ongoing right-sided chest wall pain although patient states that he does not know how he could have gotten the injury It is likely that he sustained this when he was coughing severely a few weeks ago and as unlikely as it sounds, a very violent fit of coughing could theoretically result in a cracked rib if his bone density is low enough Advised that the fracture is non-displaced so there is really no intervention needed other than actively trying to avoid further injury or trauma that could potentially make this worse and give it some time to heal on its own Reassured that his chest x-rays came out normal (2) Type 2 diabetes mellitus with diabetic chronic kidney disease: Code(s): E11.22 - Type 2 diabetes mellitus with diabetic chronic kidney disease Qualifiers: Diabetes mellitus intermission coordinator insulin use: with intermission coordinator use Chronic kidney disease stage: stage 2 (mild) Qualified Code(s): E11.22 - Type 2 diabetes mellitus with diabetic chronic kidney disease; N18.2 - Chronic kidney disease, stage 2 (mild); Z79.4 - intermission coordinator (current) use of insulin Plan: His HgbA1c was at 13.9% a couple of months ago - goal is <7.0% Reinforced diabetic diet He is now seeing the the diabetic resistance welding machine operator and educator(s) at [facility] as well as Dr. Espinoza for management of his diabetes Continue Humalog solution 80 units per day via insulin pump and Jardiance 10 mg QD; used to be on Trulicity 0.75 mg but was switched over to Mounjaro 2.5 mg Q week by Dr. Espinoza last month Was previously taken OFF his Metformin 500 mg BID due to his declining renal function (3) Chronic kidney disease (CKD), stage III (moderate): Code(s): N18.30 - Chronic kidney disease, stage 3 unspecified Qualifiers: Chronic kidney disease stage 3 subtype: stage 3a (GFR 45-59) Qualified Code(s): N18.31 - Chronic kidney disease, stage 3a Plan: Renal function still appears stable on his recent labs from a couple of months ago; will continue to monitor his renal function closely Follow up with nephrology as scheduled (4) Benign essential hypertension: Code(s): I10 - Essential (primary) hypertension Plan: Reinforced low-sodium diet -? goal is systolic BP of at least 130 mm or less Continue Amlodipine 10 mg QD, Carvedilol 12.5 mg BID, Hydralazine 25 mg TID and Losartan 50 mg QD He is reminded to continue monitoring and checking his blood pressure regularly (5) Pure hypercholesterolemia: Code(s): E78.00 - Pure hypercholesterolemia, unspecified Plan: Reinforced low cholesterol diet Continue Pravastatin 20 mg QD and Fenofibrate 145 mg QD Will recheck his labs next month for follow up (6) Mild chronic obstructive pulmonary disease: Code(s): J44.9 - Chronic obstructive pulmonary disease, unspecified Plan: Stable -? PFTs done a couple of years ago showed mild COPD Patient has been mostly asymptomatic and has not needed to use any of his inhalers lately unless he comes down with a cold or respiratory infection (7) Degeneration of lumbar or lumbosacral intervertebral disc: Code(s): M51.37 - Other intervertebral disc degeneration, lumbosacral region Plan: Reinforced activity and weight lifting restrictions Continue Oxycodone 30 mg every 6-8 hours as needed and Oxycodone ER 80 mg every 6 hours - Rx refilled (8) Bilateral knee pain: Code(s): M25.561 - Pain in right knee; M25.562 - Pain in left knee Qualifiers: Chronicity: unspecified Qualified Code(s): M25.561 - Pain in right knee; M25.562 - Pain in left knee Plan: X-rays of both knees done last year revealed (+) mild OA changes in the right knee; left knee x-rays were normal Was recommend to see orthopedics for further evaluation and management of his knee symptoms bur patient preferred to hold off for now and states that he will call for referral when he feels he is ready to see orthopedics; notes that his knee symptoms have calmed down a lot lately (9) Neuropathy: Code(s): G62.9 - Polyneuropathy, unspecified Plan: EMG and NCV of both lower extremities done in 2017 showed (+)? 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 chronic bilateral lower lumbar radiculopathy Continue Nortriptyline 50 mg Q HS Emphasized again the importance of tight glycemic control to slow down the progression of his neuropathy Follow up with podiatry as scheduled for regular/annual foot exam and diabetic foot care (10) Anemia: Code(s): D64.9 - Anemia, unspecified Qualifiers: Anemia type: unspecified type Qualified Code(s): D64.9 - Anemia, unspecified Plan: Most likely anemia of chronic disease although his H/H have corrected on his recent labs Will continue to monitor his CBC regularly (11) Elevated LFTs: Code(s): R79.89 - Other specified abnormal findings of blood chemistry Plan: Is most likely due to his weight and his medications and cholesterol level Reminded that losing weight will help keep his LFTs from going back up Will continue to monitor his LFTs regularly (12) GERD without esophagitis: Code(s): K21.9 - Gastro-esophageal reflux disease without esophagitis Plan: Dietary restrictions reinforced (13) Vitamin D deficiency: Code(s): E55.9 - Vitamin D deficiency, unspecified Plan: Continue Vitamin D3 1000 units QD (14) History of testicular cancer: Comment: S/P left orchiectomy Code(s): Z85.47 - Personal history of malignant neoplasm of testis Plan: S/P left orchiectomy - in remission Follow-up with Oncology/ urology as scheduled for continuing surveillance (15) Anxiety: Code(s): F41.9 - Anxiety disorder, unspecified Plan: Continue Lorazepam 1 mg 1 to 2 times a day as needed - Rx refilled (16) Obesity (BMI 30-39.9): Code(s): E66.9 - Obesity, unspecified Plan: Reinforced diet/exercise as tolerated/lose weight Plan Follow up in 1 month Orders: Orders Complete Blood Count Auto Diff 4 Weeks I10 - Essential (primary) hypertension Hemoglobin A1c 4 Weeks E11.9 - Type 2 diabetes mellitus without complications Comprehensive Snow. Panel Fast 4 Weeks E78.00 - Pure hypercholesterolemia, unspecified Microalbumin, Random (w Creat) 4 Weeks E11.9 - Type 2 diabetes mellitus without complications Lipid Panel 4 Weeks E78.00 - Pure hypercholesterolemia, unspecified TSH reflex Free T4 4 Weeks E78.00 - Pure hypercholesterolemia, unspecified UA CC w/rflx Micro + Cult 4 Weeks R30.0 - Dysuria Vitamin B12 and Folate 4 Weeks E53.8 - Deficiency of other specified B group vitamins Vitamin D 25-OH Total 4 Weeks E55.9 - Vitamin D deficiency, unspecified Medications: Refilled oxycodone 30 mg PO Q6H PRN 120 tabs 0RF pain 30 days M51.37 - Other intervertebral disc degeneration, lumbosacral region oxycodone ER 80 mg PO Q6H 120 tabs 0RF 30 days M51.37 - Other intervertebral disc degeneration, lumbosacral region lorazepam 1 mg PO BID PRN 60 tabs 0RF anxiety 30 days F41.9 - Anxiety disorder, unspecified Coding Level of Care Code Tele Est Pt Level 3 (27471) Diagnoses Closed fracture of one rib of right side, sequela S22.31XS Encounter type: sequela Rib fracture type: single rib Fracture type: closed Type 2 diabetes mellitus with stage 2 chronic kidney disease, with long-term current use of insulin E11.22; N18.2; Z79.4 Diabetes mellitus intermission coordinator insulin use: with chcf use Chronic kidney disease stage: stage 2 (mild) Stage 3a chronic kidney disease N18.31 Chronic kidney disease stage 3 subtype: stage 3a (GFR 45-59) Benign essential hypertension I10 Pure hypercholesterolemia E78.00 Mild chronic obstructive pulmonary disease J44.9 Degeneration of lumbar or lumbosacral intervertebral disc M51.37 Pain in both knees, unspecified chronicity M25.561; M25.562 Chronicity: unspecified Neuropathy G62.9 Anemia, unspecified type D64.9 Anemia type: unspecified type Elevated LFTs R79.89 GERD without esophagitis K21.9 Vitamin D deficiency E55.9 History of testicular cancer Z85.47 Anxiety F41.9 Obesity (BMI 30-39.9) E66.9
== END 2023-03-10 11:02 | disposition home or self-care (01) ==
LOC: HO.HMGH 09:30
PROVIDERS: PCP Internal Medicine; Visit Provider Internal Medicine
DX: E11.22 Type 2 diabetes mellitus with diabetic chronic kidney disease (principal); I12.9 Hypertensive chronic kidney disease with stage 1 through stage 4 chronic kidney disease, or unspecified chronic kidney disease; N18.31 Chronic kidney disease, stage 3a; S22.31XS Fracture of one rib, right side, sequela
CPT/HCPCS: 99213

== ENCOUNTER 2023-03-16 11:30 | Outpatient (AMB) | payer BC, SELFPAY ==
--- NOTE | 2023-03-16 11:33 | MHC.OFFVIS ---
Intake Vital Signs 03/16/23 11:36 Weight 228 lb 6.382 oz BP 168/100 H Blood Pressure Location Lt brachial Position Sitting Pulse 121 H Pulse Source Pulse Oximeter Intake Visit Reasons: f/u Type 2 DM, appt confirmed Intake Note: Patient present today to follow up on Type 2 Diabetes Mellitus. Last Diabetic Eye exam: 8 years ago Last Podiatry Visit: None Random Glucose:246 mg/dl HgA1C: 13.9% 01/13/23 Night Warehouse Manager Required: No Accompanied by: Spouse Allergies gabapentin Adverse Reaction (Intermediate, Verified 03/16/23 11:38) severe somnolence, dizziness HPI HPI Comments History of Present Illness Details Patient is a 57 yo male with DM type 2 diagnosed in 2012, who presents for continued diabetes management. Patient was last seen06/09/21 by Vidhya Thomas NP Past medical history: back pain with radiculopathy on opioid therapy, central hypogonadism, metastatic testicular cancer, CKD stage III, hypertension, hyperlipidemia, and diabetes mellitus type 2 diagnosed 2012 Micro and macrovascular complications include no retinopathy, + nephropathy, + neuropathy, diet: 2 meals and snacks. Medications: Mounjaro 2.5 mg Qwkly , Humulin u500 via Omnipod pump, Jardiance 10mg. . Hypoglycemia: denies Hyperglycemia: nocturia (4-5x), polydypsia He has a Dexcom G6 but has not hooked it up. He is also not using insulin times as he was unable to afford it Previous Pump settings for [place] omnipod with u-500 was not using pump or sensor 12am - 12 pm 0.55 12 30pm- 12 am 0.600 Total 13.8 I:C Ratio 30 Sensitivity 97 Active insulin time 6 BG target 100 BG correction threshold 120 Total daily dose 14 units, 60% basal, 40% bolus. The patient states he went of insulin as but not t using the pump from time to time because he can not afford the insulin Back up plan: Humuling U500 via insulin syringe: 30 units before breakfast, 25 units before lunch, 20 units before dinner - take insulin 30 mins prior to meal. Diet: 2 meals a day Activity: limited Eye Exam: Laboratory Tests 05/05/21 05/05/21 05/05/21 11:00 11:00 11:00 Creatinine 1.06 Estimated GFR > 60 Hemoglobin A1c % 7.6 Triglycerides 251 Cholesterol 227 LDL Cholesterol, C alc 117 HDL Cholesterol 60 Vitamin B12 551 25-OH Vitamin D To quita 26.7 TSH 1.55 Microalb/Creat Rat io 05/05/21 11:05 Creatinine Estimated GFR Hemoglobin A1c % Triglycerides Cholesterol LDL Cholesterol, C alc HDL Cholesterol Vitamin B12 25-OH Vitamin D To quita TSH Microalb/Creat Rat io 408.3 [facility] Medical History Obesity (BMI 30-39.9) Anxiety History of testicular cancer GERD without esophagitis Elevated LFTs Vitamin D deficiency Neuropathy Degeneration of lumbar or lumbosacral intervertebral disc Anemia Mild chronic obstructive pulmonary disease Benign essential hypertension Chronic kidney disease (CKD), stage II (mild) Type 2 diabetes mellitus with diabetic chronic kidney disease Type 2 diabetes mellitus with diabetic neuropathy, unspecified Surgical History History of colonoscopy (~06/24/16) History of orchiectomy Pure hypercholesterolemia History of lumbar surgery Family History Father Cancer Mother Diabetes Social History Household Members: Other Housing: House Alcohol intake: former Patient Tobacco Use Status: Never used Tobacco e-Cigarette/Vaping Use: Never Used Second Hand Smoke Exposure: Yes service: Yes Current occupational status: disabled Cognitive needs: No Hearing needs: No Vision needs: No Physical Exam Vital Signs: Last Vital Signs Pulse 121 H 03/16/23 11:36 BP 168/100 H 03/16/23 11:36 Absence of Cushingoid features. Absence of acromegalic features. Neck exam reveals nl size thyroid about 15 gms. No thyroid nodules palpable. No carotid bruits present. Lungs CTA. Heart S1 S2, Reg R/R. No M/R/ G. Skin exam reveals absence of vitiligo or acanthosis nigricans. Abdominal exam reveals Soft NT/ND with NA BS. No organomegaly present. Neck Other: . Extrem Other: Visual exam of foot performed. No ulcerations or open lesions. No onchomycosis, no callouses.Pulses 2 + distally Sensation decreased to monofilament exam. 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 Plan is stressed compliance with the insulin. Could not make any changes to the pump settings as not have any information. Because currently we a short on staff and have no CDE to aid with sensor and pump initiation, suggested patient follow-up either [facility] for [facility]. Gave him contact information may referral to [facility]. Once again explained if point cares>400 to go to the emergency room. 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
[2023-03-16 11:36] VITALS: BP 168/100; PULSE 121
== END 2023-03-16 12:12 | disposition home or self-care (01) ==
PROVIDERS: PCP Internal Medicine; Visit Provider Internal Medicine Endocrinology, Diabetes & Metabolism
DX: E11.22 Type 2 diabetes mellitus with diabetic chronic kidney disease (principal); N18.2 Chronic kidney disease, stage 2 (mild); Z79.4 Long term (current) use of insulin
CPT/HCPCS: 99214

== ENCOUNTER → 2023-03-16 11:30 | Outpatient (BNVA) | payer BC, SELFPAY | PROVIDERS: PCP Internal Medicine; Visit Provider Internal Medicine Endocrinology, Diabetes & Metabolism | DX: E11.22 Type 2 diabetes mellitus with diabetic chronic kidney disease (principal); N18.2 Chronic kidney disease, stage 2 (mild); E11.40 Type 2 diabetes mellitus with diabetic neuropathy, unspecified; Z79.4 Long term (current) use of insulin | CPT/HCPCS: 82947 ==

== ENCOUNTER 2023-04-06 12:17 | Outpatient (REF) | payer BC, SELFPAY ==
[2023-04-06 13:28] LABS: MANUAL DIFF FLAG NO
[2023-04-06 13:33] LABS: Appearance Urine Clear; Color Urine Yellow; Glucose Urine UA >=1000 mg/dL (Negative); Leukocyte Esterase Urine Negative (Negative); Nitrite Urine Negative (Negative); Specific Gravity - Urine >= 1.030 (1.005-1.025); UMIC TRIGGER UACC YES; Urine Blood Negative (Negative); Urine Ketones Negative (Negative); Urine Protein Negative (Neg-Trace)
[2023-04-06 13:38] LABS: Basophils Absolute Auto 0.1 X10*3/uL (0.0-0.2); Basophils Percent Auto 0.8 % (0-2); Eosinophils Absolute Auto 0.1 X10*3/uL (0.0-0.4); Eosinophils Percent Auto 1.8 % (0-4); Hematocrit 47.2 % (42.0-52.0); Hemoglobin 16.1 g/dl (14.0-18.0); Imm Gran Abs Auto 0.07 X10*3/uL (0.00-0.03); Imm Gran Pct Auto 0.9 % (0.0-0.4); Lymphocytes Absolute Auto 1.5 X10*3/uL (1.2-4.9); Lymphocytes Percent Auto 19.5 % (20-40); Mean Corpuscular HGB Conc 34.1 g/dl (31.0-36.0); Mean Corpuscular Hemoglobin 27.5 pg (27.0-33.0); Mean Corpuscular Volume 80.7 fL (80.0-98.0); Mean Platelet Volume 9.1 fL (9.4-12.4); Monocytes Absolute Auto 0.6 X10*3/uL (0.1-1.2); Monocytes Percent Auto 7.2 % (2-11); Neutrophils Absolute Auto 5.3 x10*3/uL (2.0-8.3); Neutrophils Percent Auto 69.8 % (45-73); Platelet Count 311 X10*3/uL (160-400); Red Blood Count 5.85 X10*6/uL (4.60-5.80); Red Cell Distribution Width 12.1 % (11.0-16.0); White Blood Count 7.7 X10*3/uL (4.8-10.8)
[2023-04-06 13:53] LABS: Bacteria Urine None Seen (None Seen); Hyaline Casts Urine 0-2 /LPF (0-2); RBC Urine 0-2 /HPF (0-2); Squamous Epithelial Cell Urine 0-2 /HPF (0-2); WBC Urine 0-5 /HPF (0-5)
[2023-04-06 13:57] LABS: Hemoglobin A1c % > 14.0 % (<6.0)
[2023-04-06 14:44] LABS: Creatinine Urine 23.44 mg/dL; Microalbum/Creatinine Ratio Ur 349.8 ug/mg cr (<30)
[2023-04-06 14:51] LABS: Alanine Aminotransferase 43 U/L (0-40); Alkaline Phosphatase 98 U/L (39-117); Anion Gap 17 (12-20); Aspartate Amino Transferase 23 U/L (5-37); Bilirubin Total 0.4 mg/dL (0.0-1.0); Blood Urea Nitrogen 24 mg/dL (9-16); Calcium 9.8 mg/dL (8.4-10.2); Carbon Dioxide 21 mmol/L (22-29); Chloride 93 mmol/L (96-108); Cholesterol 267 mg/dL (<200); Estimated Glomerular Filt Rate 51; Glucose Fasting 686 mg/dL (60-99); HDL Cholesterol 40 mg/dL (>40); Potassium 4.3 mmol/L (3.3-5.1); Sodium 127 mmol/L (135-145); Total Protein 7.4 g/dL (6.5-8.0); Triglycerides 1031 mg/dL (<150)
[2023-04-06 15:08] LABS: Vitamin D 25-OH Total 34.5 ng/mL (>30)
[2023-04-06 15:17] LABS: Folate 7.9 ng/mL (> or = 4.0); Vitamin B12 883 pg/mL (200-900)
== END 2023-04-06 12:18 | disposition home or self-care (01) ==
LOC: HO.HMGCLDS 12:17
PROVIDERS: PCP Internal Medicine; Visit Provider Internal Medicine
DX: I10 Essential (primary) hypertension (principal); E11.9 Type 2 diabetes mellitus without complications; E78.00 Pure hypercholesterolemia, unspecified; E53.8 Deficiency of other specified B group vitamins; E55.9 Vitamin D deficiency, unspecified; R30.0 Dysuria
CPT/HCPCS: 36415; 80053; 80061; 81001; 82043; 82306; 82570; 82607; 82746; 83036; 84443; 85025

== ENCOUNTER 2023-04-07 10:00 | Outpatient (AMB) | payer BC, SELFPAY ==
--- NOTE | 2023-04-07 10:00 | A.OFFPC_ITS ---
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 Review, IPhone Screenplay Writer Required: No Accompanied by: Self / Same As Patient Allergies gabapentin Adverse Reaction (Intermediate, Verified 04/07/23 11:06) severe somnolence, dizziness Medication List - Last Reconciled 04/07/23 by Yobany Raymundo MD albuterol sulfate 90 mcg/actuation 2 puffs PO Q6H PRN amlodipine 10 mg PO DAILY 90 days blood sugar diagnostic (FreeStyle Lite Strips) As directed tests 4 X/day 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 meter,continuous (Dexcom G6 Hiv/Aids Care Nurse) As directed 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 sensor (Dexcom G6 Sensor device) As directed 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 transmitter (Dexbulletn. G6 Transmitter device) USE DIRECTED carvedilol 12.5 mg PO BID 90 days cholecalciferol (vitamin D3) (Vitamin D3) 50 mcg PO DAILY 90 days empagliflozin (Jardiance) 10 mg PO QAM 90 days fenofibrate nanocrystallized 145 mg PO DAILY 90 days gabapentin 100 mg PO DAILY hydralazine 25 mg PO TID 90 days insulin regular hum U-500 conc (Humulin R U-500 (Concentrated) Insulin) 100 units (0.2 mL) subcut DIRECTED 30 days lamotrigine 200 mg PO BID lorazepam 1 mg PO BID PRN 30 days losartan 50 mg PO DAILY 90 days nortriptyline 50 mg PO BEDTIME oxycodone 30 mg PO Q6H PRN 30 days oxycodone ER 80 mg PO Q6H 30 days pravastatin 40 mg PO DAILY 90 days tirzepatide (Mounjaro) 2.5 mg subcut QWEEK Tobacco use date assessed: 04/07/23 Dental Screening Dental Screen Date: 04/07/23 Did you have a dental visit in the last 12 months?: Yes Did you have a dental problem in the last 6 months where you did not have access to dental care?: No Was dental information given to patient?: Patient has dentist HPI Med Review, IPhone HPI Details Patient's follow up visit / consultation today is done over video conference (iPhone/iPad/Google Meets/Doximity) - this is a TELEHEALTH visit Patient's current medications have been reviewed and verified with patient and/or caregiver/proxy and have been updated accordingly in the medication list Patient states that he is still struggling with controlling his diabetes and is still getting high blood sugar readings often He was seeing a diabetes coordinator [place] [facility] [place] but was recently informed that the diabetes coordinator is no longer available (?) and was reportedly advised that if he wants to see one ROWENA, he can try going to [facility] to see if they can get him in faster (?) He admits that he has been drinking a lot of water lately (feels thirsty often) and has also been urinating often as a result Reports (+) some fatigue but states that he otherwise feels okay He denies any headaches or dizziness Denies any chest pains, no SOB No nausea/vomiting, no abdominal pain No change in bowel habits noted States that his chronic low back pain and joint pains remain adequately controlled on his current Rx and he needs his 2 pain meds and Lorazepam Rx refilled today Had his follow up labs done yesterday - to discuss his results [facility] Medical History Obesity (BMI 30-39.9) Anxiety History of testicular cancer GERD without esophagitis Elevated LFTs Vitamin D deficiency Neuropathy Degeneration of lumbar or lumbosacral intervertebral disc Anemia Mild chronic obstructive pulmonary disease Benign essential hypertension Chronic kidney disease (CKD), stage II (mild) Type 2 diabetes mellitus with diabetic chronic kidney disease Type 2 diabetes mellitus with diabetic neuropathy, unspecified Surgical History History of colonoscopy (~06/24/16) History of orchiectomy Pure hypercholesterolemia History of lumbar surgery Family History Father Cancer Mother Diabetes Social History Household Members: Other Housing: House Alcohol intake: former Patient Tobacco Use Status: Never used Tobacco e-Cigarette/Vaping Use: Never Used Second Hand Smoke Exposure: Yes service: Yes Current occupational status: disabled Cognitive needs: No Hearing needs: No Vision needs: No Questionnaire PHQ-9 Over the last 2 weeks, how often have you been bothered by any of the following problems? 1. Little interest or pleasure in doing things: not at all 2. Feeling down, depressed, or hopeless: not at all 3. Trouble falling or staying asleep, or sleeping too much: not at all 4. Feeling tired or having little energy: not at all 5. Poor appetite or overeating: not at all 6. Feeling bad about yourself - or that you are a failure or have let yourself or your family down: not at all 7. Trouble concentrating on things, such as reading the newspaper or watching television: not at all 8. Moving or speaking so slowly that other people could have noticed. Or the opposite - being so fidgety or restless that you have been moving around a lot more than usual: not at all 9. Thoughts that you would be better off or of hurting yourself in some way: not at all Total score: 0 Depression Screening Interpretation: Negative Depression Screening Done: Yes [id number] - PHQ-9 Billing: Yes Source: Developed by Drs. Robbi Keller, Margie Cardona, Parvze Adan and colleagues, with an educational breonna from [employer] Thrive Questionnaire Date Thrive assessed: 04/07/23 I am a: Patient What is your living situation today?: I have a steady place to live Within the past 12 months, did the food you bought not last and you didn't have the money to get more?: Never true Within the past 12 months, did you worry whether your food would run out before you got money to buy more?: Never true Do you have trouble paying for medicines?: No Do you have trouble getting transportation to medical appointments?: No Do you have trouble paying your heating and electricity bill?: No Do you have trouble taking care of your child, family member or friend?: No Do you have trouble with day-to-day activities such as bathing, preparing meals, shopping, managing finances, etc.?: No Are you currently unemployed and looking for a job?: No Are you interested in more education?: No Please select the resources that you would like help with: None Currently or been in a relationship where the following occur: no concerns reported AUDIT C Alcohol Use Questionnaire (AUDIT-C) 1. How often do you have a drink containing alcohol?: Never 3. How often do you have six or more drinks on one occasion?: Never Total Score: 0 Score Reviewed/Action Taken: Yes SHAHRIAR-7 AMB Questionnaire SHAHRIAR-7 Date SHAHRIAR - 7 assessed: 04/07/23 Feeling nervous, anxious, or on edge: 0 = Not at all Not being able to stop or control worryin = Not at all Worrying too much about different things: 0 = Not at all Trouble relaxin = Not at all Being so restless that it is hard to sit still: 0 = Not at all Becoming easily annoyed or irritable: 0 = Not at all Feeling afraid as if something awful might happen: 0 = Not at all Total SHAHRIAR-7 score (0-4 normal; 5-9 mild; 10-14 moderate; 15-21 severe): 0 Source: Developed by Drs. Robbi Keller, Margie Cardona, Parvez Adan and colleagues, with an educational breonna from [employer] Review of Systems Const Reports fatigue, Denies fever(s) and Denies headache(s) ENT Denies dysphagia, Denies dizziness, Denies otalgia, Denies headache(s), Denies odynophagia and Denies sore throat Card Denies chest pain, Denies palpitations and Reports dyspnea (mild, at times) Resp Denies cough, Reports dyspnea (mild, at times) and Denies wheezing GI Denies abdominal pain, Denies constipation, Denies dysphagia, Denies heartburn, Denies diarrhea, Denies nausea, Denies odynophagia and Denies vomiting Denies dysuria, Reports nocturia and Reports urinary frequency Musc Reports back pain (over the lumbar spine - chronic), Reports arthralgias (over both knees - worsening lately), Denies joint swelling and Reports stiffness (a couple of fingers lock up every now and then) Skin/Breast Denies rash Neuro Denies dizziness and Denies headache(s) Psych Reports anxiety and Reports depression Endo Reports fatigue, Reports polydipsia, Reports polyuria and Denies palpitations Aller/Immun Denies wheezing Physical exam (Primary Care) Vital Signs: Physical examination is not performed as visit / consultation today is done over videoconference - Telehealth visit All physical findings indicated here, if present, are as per patient's and / or caregivers / proxy's report and visual inspection over videoconference, if appropriate or applicable Tobacco/Smoking Status: Tobacco use Status Tobacco use date assessed 04/07/23 04/07/23 10:02 Patient Tobacco Use Status Never used Tobacco 04/07/23 10:02 e-Cigarette/Vaping Use Never Used 04/07/23 10:02 PHQ-9: PHQ-9 Score PHQ-9: Total score 0 04/07/23 11:11 Depression Screening Interpretation: Negative Thrive Assessment: Date of Thrive Assessment Date Thrive assessed 04/07/23 04/07/23 10:02 Currently or been in a relationship where the following occur: no concerns reported Telehealth Telehealth Location of provider rendering services: practice address Location of patient: address on file Patient Identification confirmed using: Name, : Yes Telehealth method: video (iPhone/[employer]) Patient verbally consented to treatment: Yes Patient verbally consented to billing insurance company: Yes Patient informed of any privacy concerns related to visit: Yes Minutes spent on Phone/Video with Pt.: 24 Results Reviewed Results Reviewed: Laboratory Tests 04/06/23 04/06/23 04/06/23 12:23 12:23 12:25 WBC 7.7 Hgb 16.1 Hct 47.2 Plt Count 311 Sodium 127 L Potassium 4.3 Creatinine 1.42 H Estimated GFR 51 Fasting Glucose 686 H* Hemoglobin A1c % > 14.0 H Calcium 9.8 AST 23 ALT 43 H Triglycerides 1031 H Cholesterol 267 H LDL Cholesterol, Calc TNP HDL Cholesterol 40 L Vitamin B12 883 25-OH Vitamin D Total 34.5 TSH 1.60 Ur Specific [place] >= 1.030 H Urine Protein Negative Urine Glucose (UA) >=1000 H Urine Blood Negative Microalb/Creat Ratio 04/06/23 12:25 WBC Hgb Hct Plt Count Sodium Potassium Creatinine Estimated GFR Fasting Glucose Hemoglobin A1c % Calcium AST ALT Triglycerides Cholesterol LDL Cholesterol, Calc HDL Cholesterol Vitamin B12 25-OH Vitamin D Total TSH Ur Specific [place] Urine Protein Urine Glucose (UA) Urine Blood Microalb/Creat Ratio 349.8 H Assessment and Plan Assessment & Plan (1) Uncontrolled diabetes mellitus with hyperglycemia: Code(s): E11.65 - Type 2 diabetes mellitus with hyperglycemia Qualifiers: Diabetes mellitus type: type 2 Qualified Code(s): E11.65 - Type 2 diabetes mellitus with hyperglycemia Plan: Patient is cautioned that his diabetes has been completely uncontrolled (HgbA1c >14%; FBS > 600 mg/dl) for some time now and his recent labs are showing a significant decline in his renal function as well as significant hyponatremia, which if it progresses, can lead to serious symptoms, including seizures He was seeing diabetic dormitory keeper and educator(s) [place] [facility] [place] as Dr. Espinoza for management of his diabetes but was reportedly informed recently that the glue plant operator he was seeing is no longer available currently (?) and if he wants an urgent appointment, can try to go to [facility] if he can get in quicker Patient states that [facility] would be too far for him to go as he lives in [place] but would like to try going to [facility] instead - referral to Endocrinology at [facility] done Is currently on Humalog solution 80 units per day via insulin pump and Jardiance 10 mg QD; used to be on Trulicity 0.75 mg but was switched over to Mounjaro 2.5 mg Q week by Dr. Espinoza a couple of months ago He was also previously taken OFF his Metformin 500 mg BID due to his declining renal function (2) Hyponatremia: Code(s): E87.1 - Hypo-osmolality and hyponatremia Plan: His serum sodium was at 127 mmol/L on his labs done yesterday Advised that this is the lowest his serum sodium has been over the past 5 years and is likely due to his uncontrolled DM as well as partly due to his recent polydipsia As mentioned above, he has been advised that if this gets worse. it can potentially cause some serious symptoms including seizures Will have him recheck his chem profile ROWENA for follow up/confirmation (3) Chronic kidney disease (CKD), stage III (moderate): Code(s): N18.30 - Chronic kidney disease, stage 3 unspecified Qualifiers: Chronic kidney disease stage 3 subtype: stage 3a (GFR 45-59) Qualified Code(s): N18.31 - Chronic kidney disease, stage 3a Plan: Patient is cautioned that his renal function has declined on his recent labs, likely due to his uncontrolled diabetes lately Will refer him to nephrology for an urgent consultation; have also included hyponatremia as a reason for his referral to nephrology (4) Benign essential hypertension: Code(s): I10 - Essential (primary) hypertension Plan: Reinforced low-sodium diet -? goal is systolic BP of at least 130 mm or less Continue Amlodipine 10 mg QD, Carvedilol 12.5 mg BID, Hydralazine 25 mg TID and Losartan 50 mg QD He is reminded to continue monitoring and checking his blood pressure regularly (5) Pure hypercholesterolemia: Code(s): E78.00 - Pure hypercholesterolemia, unspecified Plan: Results of his labs done yesterday reviewed and discussed with patient - cautioned that his total cholesterol has increased and his serum TG level is now >1000 mg/dl, likely in relation to his uncontrolled DM that has been going on lately Reinforced low cholesterol diet Continue Pravastatin 20 mg QD and Fenofibrate 145 mg QD for now (6) Mild chronic obstructive pulmonary disease: Code(s): J44.9 - Chronic obstructive pulmonary disease, unspecified Plan: Stable -? PFTs done a couple of years ago showed mild COPD Patient has been mostly asymptomatic and has not needed to use any of his inhalers lately unless he comes down with a cold or respiratory infection (7) Degeneration of lumbar or lumbosacral intervertebral disc: Code(s): M51.37 - Other intervertebral disc degeneration, lumbosacral region Plan: Reinforced activity and weight lifting restrictions Continue Oxycodone 30 mg every 6-8 hours as needed and Oxycodone ER 80 mg every 6 hours - Rx refilled (8) Bilateral knee pain: Code(s): M25.561 - Pain in right knee; M25.562 - Pain in left knee Qualifiers: Chronicity: unspecified Qualified Code(s): M25.561 - Pain in right knee; M25.562 - Pain in left knee Plan: X-rays of both knees done last year revealed (+) mild OA changes in the right knee; left knee x-rays were normal Was recommend to see orthopedics for further evaluation and management of his knee symptoms but patient prefers to hold off for now and he will call for referral when he feels he is ready to see orthopedics (9) Neuropathy: Code(s): G62.9 - Polyneuropathy, unspecified Plan: EMG and NCV of both lower extremities done in 2017 showed (+)? 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 chronic bilateral lower lumbar radiculopathy Continue Nortriptyline 50 mg Q HS Emphasized again the importance of tight glycemic control to slow down the progression of his neuropathy Follow up with podiatry as scheduled for regular/annual foot exam and diabetic foot care (10) Anemia: Code(s): D64.9 - Anemia, unspecified Qualifiers: Anemia type: unspecified type Qualified Code(s): D64.9 - Anemia, unspecified Plan: Most likely anemia of chronic disease although his H/H have corrected on his recent labs Will continue to monitor his CBC regularly (11) Elevated LFTs: Code(s): R79.89 - Other specified abnormal findings of blood chemistry Plan: Is most likely due to his weight and his medications and cholesterol level Reminded that losing weight will help keep his LFTs from going back up Will continue to monitor his LFTs regularly (12) GERD without esophagitis: Code(s): K21.9 - Gastro-esophageal reflux disease without esophagitis Plan: Dietary restrictions reinforced (13) Vitamin D deficiency: Code(s): E55.9 - Vitamin D deficiency, unspecified Plan: Continue Vitamin D3 1000 units QD (14) History of testicular cancer: Comment: S/P left orchiectomy Code(s): Z85.47 - Personal history of malignant neoplasm of testis Plan: S/P left orchiectomy - in remission Follow-up with Oncology/ urology as scheduled for continuing surveillance (15) Anxiety: Code(s): F41.9 - Anxiety disorder, unspecified Plan: Continue Lorazepam 1 mg 1 to 2 times a day as needed - Rx refilled (16) Obesity (BMI 30-39.9): Code(s): E66.9 - Obesity, unspecified Plan: Reinforced diet/exercise as tolerated/lose weight Plan Follow up in 1 month Orders: Orders Comprehensive [place]. Panel Fast 04/08/23 E11.22 - Type 2 diabetes mellitus with diabetic chronic kidney disease, E87.1 - Hypo-osmolality and hyponatremia Referrals Nephrology Referral E11.22 - Type 2 diabetes mellitus with diabetic chronic kidney disease, E87.1 - Hypo-osmolality and hyponatremia, N18.30 - Chronic kidney disease, stage 3 unspecified Endocrinology Referral E11.65 - Type 2 diabetes mellitus with hyperglycemia Medications: Refilled lorazepam 1 mg PO BID 30 days PRN 60 tabs 0RF anxiety F41.9 - Anxiety disorder, unspecified oxycodone ER 80 mg PO Q6H 30 days 120 tabs 0RF M51.37 - Other intervertebral disc degeneration, lumbosacral region oxycodone 30 mg PO Q6H 30 days PRN 120 tabs 0RF pain M51.37 - Other intervertebral disc degeneration, lumbosacral region Coding Level of Care Code Tele Est Pt Level 4 (72752) Diagnoses Uncontrolled type 2 diabetes mellitus with hyperglycemia E11.65 Diabetes mellitus type: type 2 Hyponatremia E87.1 Stage 3a chronic kidney disease N18.31 Chronic kidney disease stage 3 subtype: stage 3a (GFR 45-59) Benign essential hypertension I10 Pure hypercholesterolemia E78.00 Mild chronic obstructive pulmonary disease J44.9 Degeneration of lumbar or lumbosacral intervertebral disc M51.37 Pain in both knees, unspecified chronicity M25.561; M25.562 Chronicity: unspecified Neuropathy G62.9 Anemia, unspecified type D64.9 Anemia type: unspecified type Elevated LFTs R79.89 GERD without esophagitis K21.9 Vitamin D deficiency E55.9 History of testicular cancer Z85.47 Anxiety F41.9 Obesity (BMI 30-39.9) E66.9
== END 2023-04-07 11:58 | disposition home or self-care (01) ==
LOC: HO.HMGH 10:00
PROVIDERS: PCP Internal Medicine; Visit Provider Internal Medicine
DX: E11.65 Type 2 diabetes mellitus with hyperglycemia (principal); I12.9 Hypertensive chronic kidney disease with stage 1 through stage 4 chronic kidney disease, or unspecified chronic kidney disease; N18.31 Chronic kidney disease, stage 3a; J44.9 Chronic obstructive pulmonary disease, unspecified; M51.37 Other intervertebral disc degeneration, lumbosacral region; M25.561 Pain in right knee; M25.562 Pain in left knee; G62.9 Polyneuropathy, unspecified; D64.9 Anemia, unspecified; R79.89 Other specified abnormal findings of blood chemistry; K21.9 Gastro-esophageal reflux disease without esophagitis; E55.9 Vitamin D deficiency, unspecified
CPT/HCPCS: 99214

== ENCOUNTER 2023-04-08 09:56 | Outpatient (REF) | payer BC, SELFPAY ==
[2023-04-08 13:39] LABS: Alanine Aminotransferase 38 U/L (0-40); Albumin Level 4.3 g/dL (3.5-5.0); Alkaline Phosphatase 90 U/L (39-117); Anion Gap 14 (12-20); Aspartate Amino Transferase 18 U/L (5-37); Bilirubin Total 0.7 mg/dL (0.0-1.0); Blood Urea Nitrogen 29 mg/dL (9-16); Calcium 10.3 mg/dL (8.4-10.2); Carbon Dioxide 30 mmol/L (22-29); Chloride 92 mmol/L (96-108); Estimated Glomerular Filt Rate 49; Glucose Fasting 528 mg/dL (60-99); Potassium 4.5 mmol/L (3.3-5.1); Sodium 131 mmol/L (135-145); Total Protein 7.6 g/dL (6.5-8.0)
== END 2023-04-08 09:57 | disposition home or self-care (01) ==
LOC: HO.HMGCLDS 09:56
PROVIDERS: PCP Internal Medicine; Visit Provider Internal Medicine
DX: E87.1 Hypo-osmolality and hyponatremia (principal); E11.22 Type 2 diabetes mellitus with diabetic chronic kidney disease; N18.9 Chronic kidney disease, unspecified
CPT/HCPCS: 36415; 80053

== ENCOUNTER 2023-05-05 10:00 | Outpatient (AMB) | payer BC, SELFPAY ==
--- NOTE | 2023-05-05 09:57 | A.OFFPC_ITS ---
Vital Signs 05/05/23 09:57 Weight 220 lb 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 Review [phone] Chain Builder Required: No Accompanied by: Self / Same As Patient Allergies gabapentin Adverse Reaction (Intermediate, Verified 05/05/23 10:37) severe somnolence, dizziness Medication List - Last Reconciled 05/05/23 by Yobany Raymundo MD albuterol sulfate 90 mcg/actuation 2 puffs PO Q6H PRN amlodipine 10 mg PO DAILY 90 days blood sugar diagnostic (FreeStyle Lite Strips) As directed tests 4 X/day 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 meter,continuous (Dexcom G6 Spring Floor Service Worker) As directed 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 sensor (Dexcom G6 Sensor device) As directed 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 transmitter (Dexcom G6 Transmitter device) USE DIRECTED carvedilol 12.5 mg PO BID 90 days cholecalciferol (vitamin D3) (Vitamin D3) 50 mcg PO DAILY 90 days empagliflozin (Jardiance) 10 mg PO QAM 90 days fenofibrate nanocrystallized 145 mg PO DAILY 90 days gabapentin 100 mg PO DAILY hydralazine 25 mg PO TID 90 days insulin regular hum U-500 conc (Humulin R U-500 (Concentrated) Insulin) 100 un its (0.2 mL) subcut DIRECTED 30 days lamotrigine 200 mg PO BID lorazepam 1 mg PO BID PRN 30 days losartan 50 mg PO DAILY 90 days nortriptyline 50 mg PO BEDTIME oxycodone 30 mg PO Q6H PRN 30 days oxycodone ER 80 mg PO Q6H 30 days pravastatin 40 mg PO DAILY 90 days tirzepatide (Mounjaro) 2.5 mg subcut QWEEK Tobacco use date assessed: 05/05/23 Dental Screening Dental Screen Date: 05/05/23 Did you have a dental visit in the last 12 months?: Yes Did you have a dental problem in the last 6 months where you did not have access to dental care?: No Was dental information given to patient?: Patient has dentist HPI Med Review [phone] HPI Details Patient's follow up visit / consultation today is done over video conf erence (iPhone/iPad/Google Like.fm/Doximity) - this is a TELEHEALTH visit Patient's current medications have been reviewed andverified with patient and/or caregiver/proxy and have been updated accordingly in the medication list Patient states that he currently feels okay but his blood sugar remains uncontrolled Was reportedly advised by Dr. Espinoza a few weeks ago to try to reach out to [facility] as his diabetic nurse is supposedly on sick leave (FMLA) and he does not have anybody else in the office who can help him with his insulin pump and CGM device Patient states that he has not yet tried reaching out to [facility] but plans to do that after the holidays Feels that everybody around him in the family has been sick at one time or another with something lately although he himself has been able to stay away from them and he has not had any issues lately He was also previously referred to nephrology for his CKD and declining renal function and he has an appointment scheduled to see nephrology next week on 05/13/23 States that he currently feels okay He denies any headaches or dizziness Denies any chest pains, no SOB No nausea/vomiting, no abdominal pain No change in bowel habits noted States that his chronic low back pain and joint pains remain adequately controlled on his current Rx and as before, just needs his 2 pain meds and Lorazepam Rx refilled today [facility] Medical History Obesity (BMI 30-39.9) Anxiety History of testicular cancer GERD without esophagitis Elevated LFTs Vitamin D deficiency Neuropathy Degeneration of lumbar or lumbosacral intervertebral disc Anemia Mild chronic obstructive pulmonary disease Benign essential hypertension Chronic kidney disease (CKD), stage II (mild) Type 2 diabetes mellitus with diabetic chronic kidney disease Type 2 diabetes mellitus with diabetic neuropathy, unspecified Surgical History History of colonoscopy (~06/24/16) History of orchiectomy Pure hypercholesterolemia History of lumbar surgery Family History Father Cancer Mother Diabetes Social History Household Members: Other Housing: House Alcohol intake: former Patient Tobacco Use Status: Never used Tobacco e-Cigarette/Vaping Use: Never Used Second Hand Smoke Exposure: Yes service: Yes Current occupational status: disabled Cognitive needs: No Hearing needs: No Vision needs: No Questionnaire PHQ-9 Over the last 2 weeks, how often have you been bothered by any of the following problems? 1. Little interest or pleasure in doing things: not at all 2. Feeling down, depressed, or hopeless: not at all 3. Trouble falling or staying asleep, or sleeping too much: not at all 4. Feeling tired or having little energy: not at all 5. Poor appetite or overeating: not at all 6. Feeling bad about yourself - or that you are a failure or have let yourself or your family down: not at all 7. Trouble concentrating on things, such as reading the newspaper or watching television: not at all 8. Moving or speaking so slowly that other people could have noticed. Or the opposite - being so fidgety or restless that you have been moving around a lot more than usual: not at all 9. Thoughts that you would be better off or of hurting yourself in some way: not at all Total score: 0 Depression Screening Interpretation: Negative Depression Screening Done: Yes 86267 - PHQ-9 Billing: Yes Source: Developed by Drs. Robbi Keller, Margie Cardona, Parvez Adan and colleagues, with an educational breonna from [employer]. Thrive Questionnaire Date Thrive assessed: 05/05/23 I am a: Patient What is your living situation today?: I have a steady place to live Within the past 12 months, did the food you bought not last and you didn't have the money to get more?: Never true Within the past 12 months, did you worry whether your food would run out before you got money to buy more?: Never true Do you have trouble paying for medicines?: No Do you have trouble getting transportation to medical appointments?: No Do you have trouble paying your heating and electricity bill?: No Do you have trouble taking care of your child, family member or friend?: No Do you have trouble with day-to-day activities such as bathing, preparing meals, shopping, managing finances, etc.?: No Are you currently unemployed and looking for a job?: No Are you interested in more education?: No Please select the resources that you would like help with: None Currently or been in a relationship where the following occur: no concerns reported AUDIT C Alcohol Use Questionnaire (AUDIT-C) 1. How often do you have a drink containing alcohol?: Never 3. How often do you have six or more drinks on one occasion?: Never Total Score: 0 Score Reviewed/Action Taken: Yes SHAHRIAR-7 AMB Questionnaire SHAHRIAR-7 Date SHAHRIAR - 7 assessed: 05/05/23 Feeling nervous, anxious, or on edge: 0 = Not at all Not being able to stop or control worryin = Not at all Worrying too much about different things: 0 = Not at all Trouble relaxin = Not at all Being so restless that it is hard to sit still: 0 = Not at all Becoming easily annoyed or irritable: 0 = Not at all Feeling afraid as if something awful might happen: 0 = Not at all Total SHAHRIAR-7 score (0-4 normal; 5-9 mild; 10-14 moderate; 15-21 severe): 0 Source: Developed by Drs. Robbi Keller, Margie Cardona, Parvez Adan and colleagues, with an educational breonna from [employer]. Review of Systems Const Denies chills, Reports fatigue, Denies fever(s) and Denies headache(s) ENT Denies dysphagia, Denies dizziness, Denies otalgia, Denies headache(s), Denies neck pain, Denies odynophagia and Denies sore throat Card Denies chest pain, Denies palpitations and Reports dyspnea (mild, at times) Resp Denies cough, Reports dyspnea (mild, at times) and Denies wheezing GI Denies abdominal pain, Denies constipation, Denies dysphagia, Denies heartburn, Denies diarrhea, Denies nausea, Denies odynophagia and Denies vomiting Denies dysuria, Reports nocturia and Reports urinary frequency Musc Reports back pain (over the lumbar spine - chronic), Reports arthralgias (over both knees - worsening lately), Denies joint swelling, Denies neck pain and Reports stiffness (a couple of fingers lock up every now and then) Skin/Breast Denies rash Neuro Denies dizziness and Denies headache(s) Psych Reports anxiety and Reports depression Endo Details: blood sugar readings remain high.elevated often when checked Reports fatigue, Reports polydipsia, Reports polyuria and Denies palpitations Aller/Immun Denies wheezing Physical exam (Primary Care) Vital Signs: Physical examination is not performed as visit / consultation today is done over videoconference - Telehealth visit All physical findings indicated here, if present, are as per patient's and / or caregivers / proxy's report and visual inspection over videoconference, if appropriate or applicable Tobacco/Smoking Status: Tobacco use Status Tobacco use date assessed 05/05/23 05/05/23 09:59 Patient Tobacco Use Status Never used Tobacco 05/05/23 09:59 e-Cigarette/Vaping Use Never Used 05/05/23 09:59 PHQ-9: PHQ-9 Score PHQ-9: Total score 0 05/05/23 09:59 Depression Screening Interpretation: Negative Thrive Assessment: Date of Thrive Assessment Date Thrive assessed 05/05/23 05/05/23 09:59 Currently or been in a relationship where the following occur: no concerns reported Telehealth Telehealth Location of provider rendering services: practice address Location of patient: address on file Patient Identification confirmed using: Name, : Yes Telehealth method: video (Facetime) Patient verbally consented to treatment: Yes Patient verbally consented to billing insurance company: Yes Patient informed of any privacy concerns related to visit: Yes Minutes spent on Phone/Video with Pt.: 21 Assessment and Plan Assessment & Plan (1) Uncontrolled diabetes mellitus with hyperglycemia: Code(s): E11.65 - Type 2 diabetes mellitus with hyperglycemia Qualifiers: Diabetes mellitus type: type 2 Qualified Code(s): E11.65 - Type 2 diabetes mellitus with hyperglycemia Plan: Patient has been cautioned that his diabetes has been uncontrolled (HgbA1c >14%; FBS > 600 mg/dl) for some time now and his recent labs from last month are showing a significant decline in his renal function as well as hyponatremia - repeat chem profile showed some improvement in his hyponatremia to 131 mmol/L a couple of days later He was seeing diabetic fashion coordinator and educator(s) at [facility] as well as Dr. Espinoza for management of his diabetes but was reportedly informed recently that the senior health educator he was seeing is no longer available currently due to being on FMLA leave and if he wants an urgent appointment, can try to go to [facility] if he can get in quicker Patient states that [facility] would be too far for him to go as he lives in [place] but would like to try going to [facility] instead - referral to Endocrinology at [facility] was done last month and patient is still trying to decide where he wants to go but is now leaning on going to [facility] after the holidays Is currently on Humalog solution 80 units per day via insulin pump and Jardiance 10 mg QD; used to be on Trulicity 0.75 mg but was switched over to Mounjaro 2.5 mg Q week by Dr. Espinoza a couple of months ago He was also previously taken OFF his Metformin 500 mg BID due to his declining renal function (2) Hyponatremia: Code(s): E87.1 - Hypo-osmolality and hyponatremia Plan: His serum sodium was initially at 127 mmol/L on his labs done last month but repeat chem profile showed some improvement of this to 131 mmol/L a few days la ter Advised that this is likely related to his declining renal function as well as his persistent hyperglycemia (3) Chronic kidney disease (CKD), stage III (moderate): Code(s): N18.30 - Chronic kidney disease, stage 3 unspecified Qualifiers: Chronic kidney disease stage 3 subtype: stage 3a (GFR 45-59) Qualified Code(s): N18.31 - Chronic kidney disease, stage 3a Plan: Patient has been cautioned that his renal function has declined on his recent labs, likely due to his uncontrolled diabetes lately He was referred to nephrology for an urgent consultation and he is scheduled to be seen next week on 05/13/2023 (4) Benign essential hypertension: Code(s): I10 - Essential (primary) hypertension Plan: Reinforced low-sodium diet -? goal is systolic BP of at least 130 mm or less Continue Amlodipine 10 mg QD, Carvedilol 12.5 mg BID, Hydralazine 25 mg TID and Losartan 50 mg QD He is reminded to continue monitoring and checking his blood pressure regularly (5) Pure hypercholesterolemia: Code(s): E78.00 - Pure hypercholesterolemia, unspecified Plan: Reinforced low cholesterol diet Continue Pravastatin 20 mg QD and Fenofibrate 145 mg QD for now (6) Mild chronic obstructive pulmonary disease: Code(s): J44.9 - Chronic obstructive pulmonary disease, unspecified Plan: Stable -? PFTs done a couple of years ago showed mild COPD Patient has been mostly asymptomatic and has not needed to use any of his inhalers lately unless he comes down with a cold or respiratory infection (7) Degeneration of lumbar or lumbosacral intervertebral disc: Code(s): M51.37 - Other intervertebral disc degeneration, lumbosacral region Plan: Reinforced activity and weight lifting restrictions Continue Oxycodone 30 mg every 6-8 hours as needed and Oxycodone ER 80 mg every 6 hours - Rx refilled (8) Bilateral knee pain: Code(s): M25.561 - Pain in right knee; M25.562 - Pain in left knee Qualifiers: Chronicity: unspecified Qualified Code(s): M25.561 - Pain in right knee; M25.562 - Pain in left knee Plan: X-rays of both knees done last year revealed (+) mild OA changes in the right knee; left knee x-rays were normal Was recommend to see orthopedics for further evaluation and management of his knee symptoms but patient prefers to hold off for now and he will call for referral when he feels he is ready to see orthopedics (9) Neuropathy: Code(s): G62.9 - Polyneuropathy, unspecified Plan: EMG and NCV of both lower extremities done in 2017 showed (+)? 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 chronic bilateral lower lumbar radiculopathy Continue Nortriptyline 50 mg Q HS Emphasized again the importance of tight glycemic control to slow down the progression of his neuropathy Follow up with podiatry as scheduled for regular/annual foot exam and diabetic foot care (10) Anemia: Code(s): D64.9 - Anemia, unspecified Qualifiers: Anemia type: unspecified type Qualified Code(s): D64.9 - Anemia, unspecified Plan: Most likely anemia of chronic disease although his H/H have corrected on his recent labs Will continue to monitor his CBC regularly (11) Elevated LFTs: Code(s): R79.89 - Other specified abnormal findings of blood chemistry Plan: Is most likely due to his weight and his medications and cholesterol level Reminded that losing weight will help keep his LFTs from going back up Will continue to monitor his LFTs regularly (12) GERD without esophagitis: Code(s): K21.9 - Gastro-esophageal reflux disease without esophagitis Plan: Dietary restrictions reinforced (13) Vitamin D deficiency: Code(s): E55.9 - Vitamin D deficiency, unspecified Plan: Continue Vitamin D3 1000 units QD (14) History of testicular cancer: Comment: S/P left orchiectomy Code(s): Z85.47 - Personal history of malignant neoplasm of testis Plan: S/P left orchiectomy - in remission Follow-up with Oncology/ urology as scheduled for continuing surveillance (15) Anxiety: Code(s): F41.9 - Anxiety disorder, unspecified Plan: Continue Lorazepam 1 mg 1 to 2 times a day as needed - Rx refilled (16) Obesity (BMI 30-39.9): Code(s): E66.9 - Obesity, unspecified Plan: Reinforced diet/exercise as tolerated/lose weight Plan Follow up in 1 month Medications: Refilled lorazepam 1 mg PO BID 30 days PRN 60 tabs 0RF anxiety F41.9 - Anxiety disorder, unspecified oxycodone 30 mg PO Q6H 30 days PRN 120 tabs 0RF pain M51.37 - Other intervertebral disc degeneration, lumbosacral region oxycodone ER 80 mg PO Q6H 30 days 120 tabs 0RF M51.37 - Other intervertebral disc degeneration, lumbosacral region Coding Level of Care Code Tele Est Pt Level 3 (63162) Diagnoses Uncontrolled type 2 diabetes mellitus with hyperglycemia E11.65 Diabetes mellitus type: type 2 Hyponatremia E87.1 Stage 3a chronic kidney disease N18.31 Chronic kidney disease stage 3 subtype: stage 3a (GFR 45-59) Benign essential hypertension I10 Pure hypercholesterolemia E78.00 Mild chronic obstructive pulmonary disease J44.9 Degeneration of lumbar or lumbosacral intervertebral disc M51.37 Pain in both knees, unspecified chronicity M25.561; M25.562 Chronicity: unspecified Neuropathy G62.9 Anemia, unspecified type D64.9 Anemia type: unspecified type Elevated LFTs R79.89 GERD without esophagitis K21.9 Vitamin D deficiency E55.9 History of testicular cancer Z85.47 Anxiety F41.9 Obesity (BMI 30-39.9) E66.9
== END 2023-05-05 11:02 | disposition home or self-care (01) ==
LOC: HO.HMGH 10:00
PROVIDERS: PCP Internal Medicine; Visit Provider Internal Medicine
DX: E11.65 Type 2 diabetes mellitus with hyperglycemia (principal); I12.9 Hypertensive chronic kidney disease with stage 1 through stage 4 chronic kidney disease, or unspecified chronic kidney disease; N18.31 Chronic kidney disease, stage 3a; J44.9 Chronic obstructive pulmonary disease, unspecified; E87.1 Hypo-osmolality and hyponatremia; E78.00 Pure hypercholesterolemia, unspecified; M51.37 Other intervertebral disc degeneration, lumbosacral region; M25.561 Pain in right knee; M25.562 Pain in left knee; G62.9 Polyneuropathy, unspecified; D64.9 Anemia, unspecified; R79.89 Other specified abnormal findings of blood chemistry
CPT/HCPCS: 99213

== ENCOUNTER 2023-05-13 12:41 | Outpatient (AMB) | payer BC, SELFPAY ==
[2023-05-13 13:00] VITALS: BP 126/88; PULSE 80; O2SAT 93; BMI 29.3
--- NOTE | 2023-05-13 13:00 | HO.NEPHOV ---
HPI HPI Comments History of Present Illness Details 49-year-old man with a history of diabetes mellitus for almost 10 years which has been poorly controlled he is here for evaluation of CKD and hyponatremia. Blood pressure has been rather difficult to control. Recent blood sugars have been running in the range of 500-600 mg/dL. Serum sodium was 130 millimoles and hands this referral. Serum creatinine is around 1.4 mg/dL. History of SEminoma s/p Chemo [facility], [facility] Medical History Obesity (BMI 30-39.9) Anxiety History of testicular cancer GERD without esophagitis Elevated LFTs Vitamin D deficiency Neuropathy Degeneration of lumbar or lumbosacral intervertebral disc Anemia Mild chronic obstructive pulmonary disease Benign essential hypertension Chronic kidney disease (CKD), stage II (mild) Type 2 diabetes mellitus with diabetic chronic kidney disease Type 2 diabetes mellitus with diabetic neuropathy, unspecified Surgical History History of colonoscopy (~06/24/16) History of orchiectomy Pure hypercholesterolemia History of lumbar surgery Family History Father Cancer Mother Diabetes Social History Household Members: Other Housing: House Alcohol intake: former Patient Tobacco Use Status: Never used Tobacco e-Cigarette/Vaping Use: Never Used Second Hand Smoke Exposure: Yes service: Yes Current occupational status: disabled Cognitive needs: No Hearing needs: No Vision needs: No Vital Signs 05/13/23 13:00 Height 6 ft 1 in Weight 222 lb 6 oz BMI 29.3 BP 126/88 Blood Pressure Location Lt brachial Position Sitting Pulse 80 Pulse Source Pulse Oximeter Pulse Oximetry (%) 93 Oxygen Delivery Method Room Air Physical Exam Vital Signs: Last Vital Signs Pulse 80 05/13/23 13:00 BP 126/88 05/13/23 13:00 Pulse Ox 93 05/13/23 13:00 Oxygen Delivery Method Room Air 05/13/23 13:00 BMI result Body Mass Index 29.3 Const General: comfortable Nutritional Appearance: well nourished Orientation/consciousness: patient oriented x3 HEENT Head: No normal to inspection Mouth: moist mucous membranes Neck Neck: Yes supple and Yes no JVD Resp Auscultation: clear to auscultation bilaterally, no rales and rub present Cardio Jugular venous distension: no JVD Palpation: no palpable S3 and no palpable S4 Heart sounds: no rubs GI Palpation (GI): Soft to palpation and nontender Percussion: No Fluid wave present General: Yes no CVA tenderness Back/Spine/Pelvis Back: no CVA tenderness Skin General skin exam: no rashes or lesions noted Neuro General: patient oriented x3 Extrem General: Yes no pedal edema and No clubbing Assessment & Plan Assessment & Plan (1) Hyponatremia: Code(s): E87.1 - Hypo-osmolality and hyponatremia Plan: Hyponatremia in setting of hyperglycemia. I corrected serum sodium is more than 133 millimoles. Urine specific gravity is more than 1.030 which signifies adequate urinary concentrating ability. I have initiated workup for hyponatremia to rule out other causes (2) Chronic kidney disease (CKD), stage III (moderate): Code(s): N18.30 - Chronic kidney disease, stage 3 unspecified Qualifiers: Chronic kidney disease stage 3 subtype: stage 3a (GFR 45-59) Qualified Code(s): N18.31 - Chronic kidney disease, stage 3a Plan: Chronic kidney disease most likely due to underlying diabetic kidney disease. He has nonnephrotic range proteinuria due to underlying diabetic kidney disease Goal is to slow the progression of renal disease. Continue to avoid nephrotoxic agents. Maximize ELPIDIO inhibition. He will benefit from SGLT-2 inhibitor (3) Proteinuria: Code(s): R80.9 - Proteinuria, unspecified Plan: Due to underlying kidney disease As discussed above (4) Hyperglycemia: Code(s): R73.9 - Hyperglycemia, unspecified Plan: Chivo has poorly controlled diabetes mellitus He has severe hyperglycemia Complainance seems to be an issue. He needs close endocrine follow-up. Orders: Orders UA and rflx microscopic Today E87.1 - Hypo-osmolality and hyponatremia, N18.30 - Chronic kidney disease, stage 3 unspecified, R80.9 - Proteinuria, unspecified Basic Metabolic Panel Today E87.1 - Hypo-osmolality and hyponatremia, N18.30 - Chronic kidney disease, stage 3 unspecified, R80.9 - Proteinuria, unspecified Sodium Urine Random Today E87.1 - Hypo-osmolality and hyponatremia, N18.30 - Chronic kidney disease, stage 3 unspecified, R80.9 - Proteinuria, unspecified Osmolality Urine Today E87.1 - Hypo-osmolality and hyponatremia, N18.30 - Chronic kidney disease, stage 3 unspecified, R80.9 - Proteinuria, unspecified Creatinine Urine Today E87.1 - Hypo-osmolality and hyponatremia, N18.30 - Chronic kidney disease, stage 3 unspecified, R80.9 - Proteinuria, unspecified Osmolality, Serum Today E87.1 - Hypo-osmolality and hyponatremia, N18.30 - Chronic kidney disease, stage 3 unspecified, R80.9 - Proteinuria, unspecified Hemoglobin A1c Today E87.1 - Hypo-osmolality and hyponatremia, N18.30 - Chronic kidney disease, stage 3 unspecified, R80.9 - Proteinuria, unspecified Coding Level of Care Code New Pt Level 5 (29659) Diagnoses Hyponatremia E87.1 Stage 3a chronic kidney disease N18.31 Chronic kidney disease stage 3 subtype: stage 3a (GFR 45-59) Proteinuria R80.9 Hyperglycemia R73.9 Results Reviewed Nephrology Results: Hgb 16.1 g/dl (14.0-18.0) 04/06/23 WBC 7.7 X10*3/uL (4.8-10.8) 04/06/23 Plt Count 311 X10*3/uL (160-400) 04/06/23 Sodium 131 mmol/L (135-145) L 04/08/23 Potassium 4.5 mmol/L (3.3-5.1) 04/08/23 Chloride 92 mmol/L (96-108) L 04/08/23 Carbon Dioxide 30 mmol/L (22-29) H 04/08/23 BUN 29 mg/dL (9-16) H 04/08/23 Creatinine 1.48 mg/dL (0.5-1.4) H 04/08/23 Calcium 10.3 mg/dL (8.4-10.2) H 04/08/23 Urine Protein TNP 04/13/23 Urine Creatinine 23.44 mg/dL 04/06/23
== END 2023-05-13 13:38 | disposition home or self-care (01) ==
PROVIDERS: PCP Internal Medicine; Visit Provider Internal Medicine Hypertension Specialist
DX: E11.22 Type 2 diabetes mellitus with diabetic chronic kidney disease (principal); N18.31 Chronic kidney disease, stage 3a; E87.1 Hypo-osmolality and hyponatremia; E11.65 Type 2 diabetes mellitus with hyperglycemia; R80.9 Proteinuria, unspecified
CPT/HCPCS: 99205

== ENCOUNTER → 2023-05-13 12:41 | Outpatient (BNVA) | payer BC, SELFPAY | PROVIDERS: PCP Internal Medicine; Visit Provider Internal Medicine Hypertension Specialist ==

== ENCOUNTER 2023-06-01 12:22 | Outpatient (REF) | payer BC, SELFPAY ==
[2023-06-01 13:47] LABS: Hemoglobin A1c % > 14.0 % (<6.0)
[2023-06-01 14:11] LABS: Osmolality, Serum 309 mosm/kg (281-305)
[2023-06-01 14:14] LABS: Anion Gap 12 (12-20); Blood Urea Nitrogen 17 mg/dL (9-16); Calcium 9.5 mg/dL (8.4-10.2); Carbon Dioxide 27 mmol/L (22-29); Chloride 101 mmol/L (96-108); Estimated Glomerular Filt Rate > 60; Sodium 136 mmol/L (135-145)
[2023-06-01 15:53] LABS: Glucose Random 369 mg/dL (60-115)
[2023-06-01 16:39] LABS: Appearance Urine Clear; Color Urine Yellow; Glucose Urine UA >=1000 mg/dL (Negative); Leukocyte Esterase Urine Negative (Negative); Nitrite Urine Negative (Negative); PH 6.5 (5.0-9.0); Specific Gravity - Urine >= 1.030 (1.005-1.025); UMIC TRIGGER UA YES; Urine Blood Negative (Negative); Urine Ketones Negative (Negative); Urine Protein Negative (Neg-Trace)
[2023-06-01 17:18] LABS: Creatinine Urine 62.89 mg/dL
[2023-06-01 17:25] LABS: Bacteria Urine None Seen (None Seen); Hyaline Casts Urine 0-2 /LPF (0-2); RBC Urine 0-2 /HPF (0-2); Squamous Epithelial Cell Urine 0-2 /HPF (0-2); WBC Urine 0-5 /HPF (0-5)
[2023-06-01 17:30] LABS: Osmolality Urine 684 mosm/kg (373-1093)
== END 2023-06-01 12:23 | disposition home or self-care (01) ==
LOC: HO.HMGCLDS 12:22
PROVIDERS: PCP Internal Medicine; Visit Provider Internal Medicine Hypertension Specialist
DX: E87.1 Hypo-osmolality and hyponatremia (principal); N18.30 Chronic kidney disease, stage 3 unspecified; R80.9 Proteinuria, unspecified
CPT/HCPCS: 36415; 80048; 81001; 82570; 83036; 83930; 83935; 84300

== ENCOUNTER 2023-06-02 10:01 | Outpatient (AMB) | payer BC, SELFPAY ==
--- NOTE | 2023-06-02 10:07 | MHC.PC.OV ---
Vital Signs 06/02/23 10:08 06/02/23 10:14 Height 6 ft 1 in Weight 221 lb 2 oz BMI 29.2 BP 160/90 H 130/70 Blood Pressure Location Lt brachial Lt brachial Position Sitting Sitting Pulse 77 Pulse Source Pulse Oximeter Pulse Oximetry (%) 97 Oxygen Delivery Method Room Air 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 Review Intake Note: Patient is here to follow up on medication review. Nurse Ortho Required: No Manager Legal: Not Required per policy Accompanied by: Self / Same As Patient Allergies gabapentin Adverse Reaction (Intermediate, Verified 06/02/23 10:51) severe somnolence, dizziness Medication List - Last Reconciled 06/02/23 by Yobany Raymundo MD albuterol sulfate 90 mcg/actuation 2 puffs PO Q6H PRN amlodipine 10 mg PO DAILY 90 days blood sugar diagnostic (FreeStyle Lite Strips) As directed tests 4 X/day 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 meter,continuous (Dexcom G6 Combine Driver) As directed 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 sensor (Moodswiing G6 Sensor device) As directed 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 transmitter (Neuroneticscom G6 Transmitter device) USE DIRECTED carvedilol 12.5 mg PO BID 90 days cholecalciferol (vitamin D3) (Vitamin D3) 50 mcg PO DAILY 90 days empagliflozin (Jardiance) 10 mg PO QAM 90 days fenofibrate nanocrystallized 145 mg PO DAILY 90 days hydralazine 25 mg PO TID 90 days insulin regular hum U-500 conc (Humulin R U-500 (Concentrated) Insulin) 100 units (0.2 mL) subcut DIRECTED 30 days lamotrigine 200 mg PO BID lorazepam 1 mg PO BID PRN 30 days losartan 50 mg PO DAILY 90 days oxycodone 30 mg PO Q6H PRN 30 days oxycodone ER 80 mg PO Q6H 30 days pravastatin 40 mg PO DAILY 90 days tirzepatide (Mounjaro) 2.5 mg subcut QWEEK Tobacco use date assessed: 06/02/23 Dental Screening Dental Screen Date: 06/02/23 Did you have a dental visit in the last 12 months?: No Did you have a dental problem in the last 6 months where you did not have access to dental care?: No Was dental information given to patient?: Patient has dentist HPI Med Review HPI Details Patient comes in today for his follow up visit He continues to get high blood sugar readings - admits that he is currently NO LONGER on any insulin as his insulin pump is not working anymore; he is currently only taking his Mounjaro injections weekly and Jardiance 10 mg QD for his diabetes States that he has been drinking a lot of water lately and is aware that this is more likely a symptom of/due to his uncontrolled diabetes He has been referred back to endocrinology a couple of times over the past few months but states that he has no appointment scheduled yet - does not know why He denies any headaches or dizziness Denies any chest pains, no SOB No nausea/vomiting, no abdominal pain No change in bowel habits noted Was seen by nephrology a few weeks ago and is currently being worked up for his hyponatremia although he was advised that this is most likely due to his uncontrolled diabetes States that his chronic pain over his lower back and joints remain adequately controlled on his current Rx and needs his pain meds and Lorazepam Rx refilled today Had a couple of labs done yesterday, including his HgbA1c Would also like to get his flu shot today [facility] Medical History (Updated 06/02/23 @ 12:28 by Yobany Raymundo MD) Overweight (BMI 25.0-29.9) Obesity (BMI 30-39.9) Anxiety History of testicular cancer GERD without esophagitis Elevated LFTs Vitamin D deficiency Neuropathy Degeneration of lumbar or lumbosacral intervertebral disc Anemia Mild chronic obstructive pulmonary disease Benign essential hypertension Chronic kidney disease (CKD), stage II (mild) Type 2 diabetes mellitus with diabetic chronic kidney disease Type 2 diabetes mellitus with diabetic neuropathy, unspecified Surgical History History of colonoscopy (~06/24/16) History of orchiectomy Pure hypercholesterolemia History of lumbar surgery Family History Father Cancer Mother Diabetes Social History Household Members: Other Housing: House Alcohol intake: former Patient Tobacco Use Status: Never used Tobacco e-Cigarette/Vaping Use: Never Used Second Hand Smoke Exposure: Yes service: Yes Current occupational status: disabled Cognitive needs: No Hearing needs: No Vision needs: No Questionnaire Thrive Questionnaire Date Thrive assessed: 05/05/23 SHAHRIAR-7 AMB Questionnaire SHAHRIAR-7 Date SHAHRIAR - 7 assessed: 05/05/23 Source: Developed by Drs. Robbi Keller, Margie Cardona, Parvez Adan and colleagues, with an educational breonna from [employer] Review of Systems Const Denies chills, Reports fatigue, Denies fever(s) and Denies headache(s) ENT Denies dysphagia, Denies dizziness, Denies otalgia, Denies headache(s), Denies neck pain, Denies odynophagia and Denies sore throat Card Denies chest pain, Denies palpitations and Reports dyspnea (mild, at times) Resp Denies cough, Reports dyspnea (mild, at times) and Denies wheezing GI Denies abdominal pain, Denies constipation, Denies dysphagia, Denies heartburn, Denies diarrhea, Denies nausea, Denies odynophagia and Denies vomiting Denies dysuria, Reports nocturia and Reports urinary frequency Musc Reports back pain (over the lumbar spine - chronic), Reports arthralgias (over both knees - worsening lately), Denies joint swelling, Denies neck pain and Reports stiffness (a couple of fingers lock up every now and then) Skin/Breast Denies rash Neuro Denies dizziness and Denies headache(s) Psych Reports anxiety and Reports depression Endo Details: blood sugar readings remain high.elevated often when checked Reports fatigue, Reports polydipsia, Reports polyuria and Denies palpitations Aller/Immun Denies wheezing Physical exam (Primary Care) Vital Signs: Last Vital Signs Pulse 77 06/02/23 10:08 BP 130/70 06/02/23 10:14 Pulse Ox 97 06/02/23 10:08 Oxygen Delivery Method Room Air 06/02/23 10:08 BMI result Body Mass Index 29.2 Tobacco/Smoking Status: Tobacco use Status Tobacco use date assessed 06/02/23 06/02/23 10:15 Patient Tobacco Use Status Never used Tobacco 06/02/23 10:15 e-Cigarette/Vaping Use Never Used 06/02/23 10:15 Thrive Assessment: Date of Thrive Assessment Date Thrive assessed 05/05/23 06/02/23 10:15 Const General: no acute distress and alert HENMT Ears: TM's normal bilaterally and EAC's normal Throat: Yes posterior oropharynx normal and Yes tonsils normal (no TP congestion noted) Neck Neck: Yes no lymphadenopathy and Yes supple Resp Auscultation: clear to auscultation bilaterally, no rales and no wheezes Cardio Rate: regular rate Rhythm: regular rhythm Heart sounds: no murmurs GI Palpation (GI): Soft to palpation and nontender Auscultation: normal bowel sounds Back/Spine/Pelvis Thoracic/Lumbar Spine: lumbar spinal tenderness (chronic) Skin Rashes: no rashes Extrem General: Yes no clubbing, cyanosis or edema Office Procedures Flu Questionnaire Does the patient have a severe egg allergy?: No Does the patient have severe life threatening allergies?: No Does the patient have a fever or illness today?: No Has the patient ever had Guillain-Milford Syndrome?: No Has the patient ever had any past reaction to a flu shot?: No Immunizations flu vacc [id number] 6mos up(PF) 60 mcg(15 mcgx4)/0.5 mL IM syringe Performing Provider: Yobany Raymundo MD Performing Location: [facility] Administered by: PIETER Cage on 06/02/23 10:21 Dose Route Admin Location Dispensed Lot Number Expiration Date NDC Orthotist 0.5 mL IM Left Deltoid 0.5 mL [id number] 12/05/23 32361-119-49 [employer] VIS Given Date VIS Provided VIS Publication Date 06/02/23 Single Vaccine 21 Eligibility Eligibility Date Funding Source Not [facility] Eligible 06/02/23 Private Results Reviewed Results Reviewed: Laboratory Tests 06/01/23 12:26 Random Glucose 369 H* Hemoglobin A1c % > 14.0 H Calcium 9.5 D Ur Specific [place] >= 1.030 H Urine Glucose (UA) >=1000 H Assessment and Plan Assessment & Plan (1) Uncontrolled diabetes mellitus with hyperglycemia: Code(s): E11.65 - Type 2 diabetes mellitus with hyperglycemia Qualifiers: Diabetes mellitus type: type 2 Qualified Code(s): E11.65 - Type 2 diabetes mellitus with hyperglycemia Plan: Patient is again cautioned that his diabetes is completely uncontrolled (HgbA1c >14% yesterday) and has been for some time now His recent labs from a couple of months ago are showing a significant decline in his renal function as well as hyponatremia - repeat chem profile showed some improvement in his hyponatremia to 131 mmol/L a couple of days later He was seeing diabetic supervisor electric motor testing and educator([place] [facility] [place] Espinoza for management of his diabetes but has not been seen lately He was referred back to endocrinology a couple of times over the past few months but no appointments have been scheduled yet - states that he is not sure why He is advised to try calling them up and find out more details regarding this and try to get an appointment scheduled [facility] He was on Humalog solution 80 units per day via insulin pump and Jardiance 10 mg QD as well as Mounjaro 2.5 mg SQ once a week (used to be on Trulicity 0.75 mg but was switched over to Mounjaro by Dr. Espinoza a few months ago) but states that his insulin pump broke down and he has not been on any insulin for a few weeks now He was also previously taken OFF his Metformin 500 mg BID due to his declining renal function Advised that until he is seen by endocrinology, will at least start him back on some insulin injections to try to keep his diabetes under some control Will start him for now on Basaglar 20 units Q PM and Humalog Kwikpen 20 untis TID with meals He is to continue on his Mounjaro and Jardiance (2) Hyponatremia: Code(s): E87.1 - Hypo-osmolality and hyponatremia Plan: Advised again that this is likely related to his declining renal function as well as his persistent hyperglycemia Follow up with nephrology as scheduled - is currently being worked up further by nephrology (3) Chronic kidney disease (CKD), stage III (moderate): Code(s): N18.30 - Chronic kidney disease, stage 3 unspecified Qualifiers: Chronic kidney disease stage 3 subtype: stage 3a (GFR 45-59) Qualified Code(s): N18.31 - Chronic kidney disease, stage 3a Plan: Patient has been cautioned that his renal function has declined on his recent labs, likely due to his uncontrolled diabetes lately He is now being seen by nephrology as well for follow up and continuing management (4) Benign essential hypertension: Code(s): I10 - Essential (primary) hypertension Plan: Reinforced low-sodium diet -? goal is systolic BP of at least 130 mm or less Continue Amlodipine 10 mg QD, Carvedilol 12.5 mg BID, Hydralazine 25 mg TID and Losartan 50 mg QD He is reminded to continue monitoring and checking his blood pressure regularly (5) Pure hypercholesterolemia: Code(s): E78.00 - Pure hypercholesterolemia, unspecified Plan: Reinforced low cholesterol diet Continue Pravastatin 20 mg QD and Fenofibrate 145 mg QD Will recheck his labs and fasting lipids next month for follow up (6) Mild chronic obstructive pulmonary disease: Code(s): J44.9 - Chronic obstructive pulmonary disease, unspecified Plan: Stable -? PFTs done a couple of years ago showed mild COPD Patient has been mostly asymptomatic and has not needed to use any of his inhalers lately unless he comes down with a cold or respiratory infection (7) Degeneration of lumbar or lumbosacral intervertebral disc: Code(s): M51.37 - Other intervertebral disc degeneration, lumbosacral region Plan: Reinforced activity and weight lifting restrictions Continue Oxycodone 30 mg every 6-8 hours as needed and Oxycodone ER 80 mg every 6 hours - Rx refilled (8) Bilateral knee pain: Code(s): M25.561 - Pain in right knee; M25.562 - Pain in left knee Qualifiers: Chronicity: unspecified Qualified Code(s): M25.561 - Pain in right knee; M25.562 - Pain in left knee Plan: X-rays of both knees done last year revealed (+) mild OA changes in the right knee; left knee x-rays were normal Was recommended to see orthopedics for further evaluation and management of his knee symptoms but patient prefers to hold off for now and he will call for referral when he feels he is ready to see orthopedics (9) Neuropathy: Code(s): G62.9 - Polyneuropathy, unspecified Plan: EMG and NCV of both lower extremities done in 2017 showed (+)? 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 chronic bilateral lower lumbar radiculopathy Continue Nortriptyline 50 mg Q HS Emphasized again the importance of tight glycemic control to slow down the progression of his neuropathy Follow up with podiatry as scheduled for regular/annual foot exam and diabetic foot care (10) Anemia: Code(s): D64.9 - Anemia, unspecified Qualifiers: Anemia type: unspecified type Qualified Code(s): D64.9 - Anemia, unspecified Plan: Most likely anemia of chronic disease although his H/H have corrected on his recent labs Will continue to monitor his CBC regularly (11) Elevated LFTs: Code(s): R79.89 - Other specified abnormal findings of blood chemistry Plan: Is most likely due to his weight and his medications and cholesterol level Reminded that losing weight will help keep his LFTs from going back up Will continue to monitor his LFTs regularly (12) GERD without esophagitis: Code(s): K21.9 - Gastro-esophageal reflux disease without esophagitis Plan: Dietary restrictions reinforced (13) Vitamin D deficiency: Code(s): E55.9 - Vitamin D deficiency, unspecified Plan: Continue Vitamin D3 1000 units QD (14) History of testicular cancer: Comment: S/P left orchiectomy Code(s): Z85.47 - Personal history of malignant neoplasm of testis Plan: S/P left orchiectomy - in remission Follow-up with Oncology/ urology as scheduled for continuing surveillance (15) Anxiety: Code(s): F41.9 - Anxiety disorder, unspecified Plan: Continue Lorazepam 1 mg 1 to 2 times a day as needed - Rx refilled (16) Overweight (BMI 25.0-29.9): Code(s): E66.3 - Overweight Plan: Reinforced diet/exercise as tolerated/lose weight Plan Flu vaccine given today Follow up in 1 month Orders: Orders Complete Blood Count Auto Diff 06/26/23 I10 - Essential (primary) hypertension Comprehensive [place]. Panel Fast 06/26/23 E78.00 - Pure hypercholesterolemia, unspecified Microalbumin, Random (w Creat) 06/26/23 E11.9 - Type 2 diabetes mellitus without complications Influenza [id number] Immunization Today Z23 - Encounter for immunization Lipid Panel 06/26/23 E78.00 - Pure hypercholesterolemia, unspecified TSH reflex Free T4 06/26/23 E78.00 - Pure hypercholesterolemia, unspecified UA CC w/rflx Micro + Cult 06/26/23 R30.0 - Dysuria Hemoglobin A1c 06/26/23 E11.9 - Type 2 diabetes mellitus without complications Vitamin D 25-OH Total 06/26/23 E55.9 - Vitamin D deficiency, unspecified Medications: New pen needle, diabetic (BD Ultra-Fine Dee Pen Needle) As directed 4 times a day 100 ea 5RF E11.9 - Type 2 diabetes mellitus without complications insulin glargine (Basaglar Tempo Pen (U-100) Insulin) 20 units (0.2 mL) subcut QPM 6 mL 3RF 30 days insulin lispro (Humalog KwikPen (U-100) Insulin) 20 units (0.2 mL) subcut TID 18 mL 3RF 30 days Refilled albuterol sulfate 90 mcg/actuation 2 puffs PO Q6H PRN 8.5 grams 5RF for wheezing J44.9 - Chronic obstructive pulmonary disease, unspecified oxycodone 30 mg PO Q6H PRN 120 tabs 0RF pain 30 days M51.37 - Other intervertebral disc degeneration, lumbosacral region oxycodone ER 80 mg PO Q6H 120 tabs 0RF 30 days M51.37 - Other intervertebral disc degeneration, lumbosacral region lorazepam 1 mg PO BID PRN 60 tabs 0RF anxiety 30 days F41.9 - Anxiety disorder, unspecified Coding Level of Care Code Est Pt Level 4 (52214) Diagnoses Uncontrolled type 2 diabetes mellitus with hyperglycemia E11.65 Diabetes mellitus type: type 2 Hyponatremia E87.1 Stage 3a chronic kidney disease N18.31 Chronic kidney disease stage 3 subtype: stage 3a (GFR 45-59) Benign essential hypertension I10 Pure hypercholesterolemia E78.00 Mild chronic obstructive pulmonary disease J44.9 Degeneration of lumbar or lumbosacral intervertebral disc M51.37 Pain in both knees, unspecified chronicity M25.561; M25.562 Chronicity: unspecified Neuropathy G62.9 Anemia, unspecified type D64.9 Anemia type: unspecified type Elevated LFTs R79.89 GERD without esophagitis K21.9 Vitamin D deficiency E55.9 History of testicular cancer Z85.47 Anxiety F41.9 Overweight (BMI 25.0-29.9) E66.3
[2023-06-02 10:08] VITALS: BP 160/90; PULSE 77; O2SAT 97; BMI 29.2
[2023-06-02 10:14] VITALS: BP 130/70
== END 2023-06-02 11:06 | disposition home or self-care (01) ==
PROVIDERS: PCP Internal Medicine; Visit Provider Internal Medicine
DX: Z23 Encounter for immunization (principal); E11.65 Type 2 diabetes mellitus with hyperglycemia; I12.9 Hypertensive chronic kidney disease with stage 1 through stage 4 chronic kidney disease, or unspecified chronic kidney disease; N18.31 Chronic kidney disease, stage 3a; J44.9 Chronic obstructive pulmonary disease, unspecified; M51.37 Other intervertebral disc degeneration, lumbosacral region; M25.561 Pain in right knee; M25.562 Pain in left knee; G62.9 Polyneuropathy, unspecified; D64.9 Anemia, unspecified; R79.89 Other specified abnormal findings of blood chemistry
CPT/HCPCS: 90471; 90686; 99214

== ENCOUNTER 2023-06-10 13:05 | Outpatient (AMB) | payer BC, SELFPAY ==
[2023-06-10 13:17] VITALS: BP 150/108; PULSE 81; O2SAT 95; BMI 29.7
--- NOTE | 2023-06-10 13:17 | HO.NEPHOV ---
HPI HPI Comments History of Present Illness Details 49-year-old man with a history of diabetes mellitus for almost 10 years which has been poorly controlled he is here for evaluation of CKD and hyponatremia. Blood pressure has been rather difficult to control. Recent blood sugars have been running in the range of 500-600 mg/dL. Serum sodium was 130 millimoles and hands this referral. Serum creatinine is around 1.4 mg/dL. History of SEminoma s/p Chemo 06/10/2023. Insulin has been adjusted Blood sugar seems better control. He is feeling better. No new issues today. [facility] Medical History (Updated 06/02/23 @ 12:28 by Yobany Raymundo MD) Overweight (BMI 25.0-29.9) Obesity (BMI 30-39.9) Anxiety History of testicular cancer GERD without esophagitis Elevated LFTs Vitamin D deficiency Neuropathy Degeneration of lumbar or lumbosacral intervertebral disc Anemia Mild chronic obstructive pulmonary disease Benign essential hypertension Chronic kidney disease (CKD), stage II (mild) Type 2 diabetes mellitus with diabetic chronic kidney disease Type 2 diabetes mellitus with diabetic neuropathy, unspecified Surgical History History of colonoscopy (~06/24/16) History of orchiectomy Pure hypercholesterolemia History of lumbar surgery Family History Father Cancer Mother Diabetes Social History Household Members: Other Housing: House Alcohol intake: former Patient Tobacco Use Status: Never used Tobacco e-Cigarette/Vaping Use: Never Used Second Hand Smoke Exposure: Yes service: Yes Current occupational status: disabled Cognitive needs: No Hearing needs: No Vision needs: No Vital Signs 06/10/23 13:17 06/10/23 13:31 Height 6 ft 1 in Weight 225 lb 4 oz BMI 29.7 BP 150/108 H 130/88 Blood Pressure Location Lt brachial Lt brachial Position Sitting Pulse 81 Pulse Source Pulse Oximeter Pulse Oximetry (%) 95 Oxygen Delivery Method Room Air Physical Exam Vital Signs: Last Vital Signs Pulse 81 06/10/23 13:17 BP 130/88 06/10/23 13:31 Pulse Ox 95 06/10/23 13:17 Oxygen Delivery Method Room Air 06/10/23 13:17 BMI result Body Mass Index 29.7 Const General: comfortable Nutritional Appearance: well nourished Orientation/consciousness: patient oriented x3 HEENT Head: No normal to inspection Mouth: moist mucous membranes Neck Neck: Yes supple and Yes no JVD Resp Auscultation: clear to auscultation bilaterally, no rales and rub present Cardio Jugular venous distension: no JVD Palpation: no palpable S3 and no palpable S4 Heart sounds: no rubs GI Palpation (GI): Soft to palpation and nontender Percussion: No Fluid wave present General: Yes no CVA tenderness Back/Spine/Pelvis Back: no CVA tenderness Skin General skin exam: no rashes or lesions noted Neuro General: patient oriented x3 Extrem General: Yes no pedal edema and No clubbing Assessment & Plan Assessment & Plan (1) Hyponatremia: Code(s): E87.1 - Hypo-osmolality and hyponatremia Plan: Hyponatremia in setting of hyperglycemia. corrected serum sodium is more than 133 millimoles. Urine specific gravity is more than 1.030 which signifies adequate urinary concentrating ability. Repeat sodium seems better after blood sugar is better controlled (2) Chronic kidney disease (CKD), stage III (moderate): Code(s): N18.30 - Chronic kidney disease, stage 3 unspecified Qualifiers: Chronic kidney disease stage 3 subtype: stage 3a (GFR 45-59) Qualified Code(s): N18.31 - Chronic kidney disease, stage 3a Plan: Chronic kidney disease most likely due to underlying diabetic kidney disease. He has nonnephrotic range proteinuria due to underlying diabetic kidney disease Goal is to slow the progression of renal disease. Continue to avoid nephrotoxic agents. Maximize ELPIDIO inhibition. He will benefit from SGLT-2 inhibitor Creatinine is improved (3) Proteinuria: Code(s): R80.9 - Proteinuria, unspecified Plan: Due to underlying kidney disease As discussed above (4) Hyperglycemia: Code(s): R73.9 - Hyperglycemia, unspecified Plan: Chivo has poorly controlled diabetes mellitus He has h/o severe hyperglycemia Complainance seems to be an issue. Orders: Orders Blood Urea Nitrogen 3 Months E87.1 - Hypo-osmolality and hyponatremia, N18.30 - Chronic kidney disease, stage 3 unspecified Creatinine 3 Months E87.1 - Hypo-osmolality and hyponatremia, N18.30 - Chronic kidney disease, stage 3 unspecified Electrolytes 3 Months E87.1 - Hypo-osmolality and hyponatremia, N18.30 - Chronic kidney disease, stage 3 unspecified Calcium 3 Months E87.1 - Hypo-osmolality and hyponatremia, N18.30 - Chronic kidney disease, stage 3 unspecified Coding Level of Care Code Est Pt Level 4 (93837) Diagnoses Hyponatremia E87.1 Stage 3a chronic kidney disease N18.31 Chronic kidney disease stage 3 subtype: stage 3a (GFR 45-59) Proteinuria R80.9 Hyperglycemia R73.9 Results Reviewed Nephrology Results: Hgb 16.1 g/dl (14.0-18.0) 04/06/23 WBC 7.7 X10*3/uL (4.8-10.8) 04/06/23 Plt Count 311 X10*3/uL (160-400) 04/06/23 Sodium 136 mmol/L (135-145) 06/01/23 Potassium 4.0 mmol/L (3.3-5.1) 06/01/23 Chloride 101 mmol/L (96-108) 06/01/23 Carbon Dioxide 27 mmol/L (22-29) 06/01/23 BUN 17 mg/dL (9-16) H 06/01/23 Creatinine 1.16 mg/dL (0.5-1.4) 06/01/23 Calcium 9.5 mg/dL (8.4-10.2) 06/01/23 Urine Protein Negative mg/dL (Neg-Trace) 06/01/23 Urine Creatinine 62.89 mg/dL 06/01/23
[2023-06-10 13:31] VITALS: BP 130/88
== END 2023-06-10 13:35 | disposition home or self-care (01) ==
PROVIDERS: PCP Internal Medicine; Visit Provider Internal Medicine Hypertension Specialist
DX: E87.1 Hypo-osmolality and hyponatremia (principal); N18.31 Chronic kidney disease, stage 3a; R80.9 Proteinuria, unspecified; R73.9 Hyperglycemia, unspecified
CPT/HCPCS: 99214

== ENCOUNTER → 2023-06-10 13:05 | Outpatient (BNVA) | payer BC, SELFPAY | PROVIDERS: PCP Internal Medicine; Visit Provider Internal Medicine Hypertension Specialist ==

== ENCOUNTER 2023-06-30 10:41 | Outpatient (AMB) | payer BC, SELFPAY ==
--- NOTE | 2023-06-30 10:41 | A.OFFPC_ITS ---
Intake Visit Reasons: uncontrolled [id number] Tim[employer] Required: No Accompanied by: Self / Same As Patient Allergies gabapentin Adverse Reaction (Intermediate, Verified 06/30/23 11:22) severe somnolence, dizziness Medication List - Last Reconciled 06/30/23 by Yobany Raymundo MD albuterol sulfate 90 mcg/actuation 2 puffs PO Q6H PRN amlodipine 10 mg PO DAILY 90 days blood sugar diagnostic (FreeStyle Lite Strips) As directed tests 4 X/day 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 meter,continuous (Dexcom G6 Blood Bank Technician) As directed 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 sensor (Dexcom G6 Sensor device) As directed 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 transmitter (Dexcom G6 Transmitter device) USE DIRECTED carvedilol 12.5 mg PO BID 90 days cholecalciferol (vitamin D3) (Vitamin D3) 50 mcg PO DAILY 90 days empagliflozin (Jardiance) 10 mg PO QAM 90 days fenofibrate nanocrystallized 145 mg PO DAILY 90 days hydralazine 25 mg PO TID 90 days insulin glargine (Basaglar Tempo Pen (U-100) Insulin) 20 units (0.2 mL) subcut QPM 30 days insulin lispro (Humalog KwikPen (U-100) Insulin) 20 units (0.2 mL) subcut TID 30 days lamotrigine 200 mg PO BID lorazepam 1 mg PO BID PRN 30 days losartan 50 mg PO DAILY 90 days oxycodone 30 mg PO Q6H PRN 30 days oxycodone ER 80 mg PO Q6H 30 days pen needle, diabetic (BD Ultra-Fine Dee Pen Needle) As directed 4 times a day pravastatin 40 mg PO DAILY 90 days tirzepatide (Mounjaro) 2.5 mg subcut QWEEK Tobacco use date assessed: 06/30/23 Dental Screening Dental Screen Date: 06/30/23 Did you have a dental visit in the last 12 months?: No Did you have a dental problem in the last 6 months where you did not have access to dental care?: No Was dental information given to patient?: No HPI uncontrolled [id number] HPI Details Patient's follow up visit / consultation today is done over video conference (iPhone/iPad/Google Meets/Doximity) - this is a TELEHEALTH visit Patient's current medications have been reviewed and verified with patient and/or caregiver/proxy and have been updated accordingly in the medication list Patient states that he is actually feeling much better on his current insulin regimen than when he was on his insulin pump and states that his blood sugar readings have been gradually going down lately He has been taking his Basaglar with meals but admits that he has not been taking his insulin glargine (Lantus) at bedtime as he is scared of taking insulin at night for fear of experiencing hypoglycemia States that he actually has been taking his insuilin lispro (Basaglar) up to 5 times a day lately to try to get his blood sugar controlled better throughout the day He is presently not yet scheduled to see endocrinology States that he feels okay otherwise He denies any headaches or dizziness Denies any chest pains, no shortness of breath No nausea/vomiting, no abdominal pain No change in bowel habits noted States that his chronic low back pain and joint pains remain adequately controlled on his current medications and he needs his pain medications as well and as his Lorazepam Rx refilled today [facility] Medical History Overweight (BMI 25.0-29.9) Obesity (BMI 30-39.9) Anxiety History of testicular cancer GERD without esophagitis Elevated LFTs Vitamin D deficiency Neuropathy Degeneration of lumbar or lumbosacral intervertebral disc Anemia Mild chronic obstructive pulmonary disease Benign essential hypertension Chronic kidney disease (CKD), stage II (mild) Type 2 diabetes mellitus with diabetic chronic kidney disease Type 2 diabetes mellitus with diabetic neuropathy, unspecified Surgical History History of colonoscopy (~06/24/16) History of orchiectomy Pure hypercholesterolemia History of lumbar surgery Family History Father Cancer Mother Diabetes Social History Household Members: Other Housing: House Alcohol intake: former Patient Tobacco Use Status: Never used Tobacco e-Cigarette/Vaping Use: Never Used Second Hand Smoke Exposure: Yes service: Yes Current occupational status: disabled Cognitive needs: No Hearing needs: No Vision needs: No Questionnaire PHQ-9 Over the last 2 weeks, how often have you been bothered by any of the following problems? 1. Little interest or pleasure in doing things: not at all 2. Feeling down, depressed, or hopeless: not at all 3. Trouble falling or staying asleep, or sleeping too much: not at all 4. Feeling tired or having little energy: not at all 5. Poor appetite or overeating: not at all 6. Feeling bad about yourself - or that you are a failure or have let yourself or your family down: not at all 7. Trouble concentrating on things, such as reading the newspaper or watching television: not at all 8. Moving or speaking so slowly that other people could have noticed. Or the opposite - being so fidgety or restless that you have been moving around a lot more than usual: not at all 9. Thoughts that you would be better off or of hurting yourself in some way: not at all Total score: 0 Depression Screening Interpretation: Negative Depression Screening Done: Yes 21711 - PHQ-9 Billing: Yes Source: Developed by Drs. Robbi Keller, Margie Cardona, Parvez Adan and colleagues, with an educational breonna from [employer]. Thrive Questionnaire Date Thrive assessed: 06/30/23 I am a: Patient What is your living situation today?: I have a steady place to live Within the past 12 months, did the food you bought not last and you didn't have the money to get more?: Never true Within the past 12 months, did you worry whether your food would run out before you got money to buy more?: Never true Do you have trouble paying for medicines?: No Do you have trouble getting transportation to medical appointments?: No Do you have trouble paying your heating and electricity bill?: No Do you have trouble taking care of your child, family member or friend?: No Do you have trouble with day-to-day activities such as bathing, preparing meals, shopping, managing finances, etc.?: No Are you currently unemployed and looking for a job?: No Are you interested in more education?: No Please select the resources that you would like help with: None Currently or been in a relationship where the following occur: no concerns reported THRIVE Score: 0 AUDIT C Alcohol Use Questionnaire (AUDIT-C) 1. How often do you have a drink containing alcohol?: Never 3. How often do you have six or more drinks on one occasion?: Never Total Score: 0 Score Reviewed/Action Taken: Yes SHAHRIAR-7 AMB Questionnaire SHAHRIAR-7 Date SHAHRIAR - 7 assessed: 06/30/23 Feeling nervous, anxious, or on edge: 0 = Not at all Not being able to stop or control worryin = Not at all Worrying too much about different things: 0 = Not at all Trouble relaxin = Not at all Being so restless that it is hard to sit still: 0 = Not at all Becoming easily annoyed or irritable: 0 = Not at all Feeling afraid as if something awful might happen: 0 = Not at all Total SHAHRIAR-7 score (0-4 normal; 5-9 mild; 10-14 moderate; 15-21 severe): 0 Source: Developed by Drs. Robbi Keller, Margie Cardona, Parvez Adan and colleagues, with an educational breonna from [employer]. Review of Systems Const Denies chills, Denies fatigue, Denies fever(s) and Denies headache(s) ENT Denies dysphagia, Denies dizziness, Denies otalgia, Denies headache(s), Denies neck pain, Denies odynophagia and Denies sore throat Card Denies chest pain, Denies palpitations and Denies dyspnea Resp Denies cough, Denies dyspnea and Denies wheezing GI Denies abdominal pain, Denies constipation, Denies dysphagia, Denies heartburn, Denies diarrhea, Denies nausea, Denies odynophagia and Denies vomiting Denies dysuria, Denies nocturia and Denies urinary frequency Musc Reports back pain (over the lumbar spine - chronic), Reports arthralgias (over both knees - worsening lately), Denies joint swelling, Denies neck pain and Reports stiffness (a couple of fingers lock up every now and then) Skin/Breast Denies rash Neuro Denies dizziness and Denies headache(s) Psych Reports anxiety and Reports depression Endo Details: blood sugar readings remain high.elevated often when checked Denies fatigue, Denies polydipsia and Denies palpitations Aller/Immun Denies wheezing Physical exam (Primary Care) Vital Signs: Physical examination is not performed as visit / consultation today is done over videoconference - Telehealth visit All physical findings indicated here, if present, are as per patient's and / or caregivers / proxy's report and visual inspection over videoconference, if appropriate or applicable Tobacco/Smoking Status: Tobacco use Status Tobacco use date assessed 06/30/23 06/30/23 10:43 Patient Tobacco Use Status Never used Tobacco 06/30/23 10:43 e-Cigarette/Vaping Use Never Used 06/30/23 10:43 PHQ-9: PHQ-9 Score PHQ-9: Total score 0 06/30/23 11:34 Depression Screening Interpretation: Negative Thrive Assessment: Date of Thrive Assessment Date Thrive assessed 06/30/23 06/30/23 10:43 Currently or been in a relationship where the following occur: no concerns reported Telehealth Telehealth Location of provider rendering services: practice address Location of patient: address on file Patient Identification confirmed using: Name, : Yes Telehealth method: video (Iphone - [employer]) Patient verbally consented to treatment: Yes Patient verbally consented to billing insurance company: Yes Patient informed of any privacy concerns related to visit: Yes Minutes spent on Phone/Video with Pt.: 24 Assessment and Plan Assessment & Plan (1) Uncontrolled diabetes mellitus with hyperglycemia: Code(s): E11.65 - Type 2 diabetes mellitus with hyperglycemia Qualifiers: Diabetes mellitus type: type 2 Qualified Code(s): E11.65 - Type 2 diabetes mellitus with hyperglycemia Plan: He is currently on Humalog Kwikpen 20 units TID with meals although he admits to taking this up to 5 times a day recently to try to get his high blood sugar readings under better control He is also on Jardiance 10 mg QD as well as Mounjaro 2.5 mg SQ once a week He was supposed to take Basaglar 20 units Q HS as well but admits that he did not start this as he is scared of taking insulin at night Have advised him to start taking his Basaglar at bedtime and reassured him that Basaglar should not cause his blood sugar to bottom out in the middle of the night He should also go back to TID dosing with meals on his Humalog Will have him recheck his labs next month for follow-up and depending on how his HgbA1c is then (was >14% last month), will determine any further adjustments on his current medications He has been referred to Endocrinology but has not yet been seen or scheduled (2) Hyponatremia: Code(s): E87.1 - Hypo-osmolality and hyponatremia Plan: Advised again that this is likely related to his declining renal function as well as his persistent hyperglycemia Follow up with nephrology as scheduled - is currently being worked up further by nephrology (3) Chronic kidney disease (CKD), stage III (moderate): Code(s): N18.30 - Chronic kidney disease, stage 3 unspecified Qualifiers: Chronic kidney disease stage 3 subtype: stage 3a (GFR 45-59) Qualified Code(s): N18.31 - Chronic kidney disease, stage 3a Plan: Patient has been cautioned that his renal function has declined on his recent labs, likely due to his uncontrolled diabetes lately He is now being seen by nephrology as well for follow up and continuing management (4) Benign essential hypertension: Code(s): I10 - Essential (primary) hypertension Plan: Reinforced low-sodium diet -? goal is systolic BP of at least 130 mm or less Continue Amlodipine 10 mg QD, Carvedilol 12.5 mg BID, Hydralazine 25 mg TID and Losartan 50 mg QD He is reminded to continue monitoring and checking his blood pressure regularly (5) Pure hypercholesterolemia: Code(s): E78.00 - Pure hypercholesterolemia, unspecified Plan: Reinforced low cholesterol diet Continue Pravastatin 20 mg QD and Fenofibrate 145 mg QD Will recheck his labs and fasting lipids next month for follow up (6) Mild chronic obstructive pulmonary disease: Code(s): J44.9 - Chronic obstructive pulmonary disease, unspecified Plan: Stable -? PFTs done a couple of years ago showed mild COPD Patient has been mostly asymptomatic and has not needed to use any of his inhalers lately unless he comes down with a cold or respiratory infection (7) Degeneration of lumbar or lumbosacral intervertebral disc: Code(s): M51.37 - Other intervertebral disc degeneration, lumbosacral region Plan: Reinforced activity and weight lifting restrictions Continue Oxycodone 30 mg every 6-8 hours as needed and Oxycodone ER 80 mg every 6 hours - Rx refilled (8) Bilateral knee pain: Code(s): M25.561 - Pain in right knee; M25.562 - Pain in left knee Qualifiers: Chronicity: unspecified Qualified Code(s): M25.561 - Pain in right knee; M25.562 - Pain in left knee Plan: X-rays of both knees done last year revealed (+) mild OA changes in the right knee; left knee x-rays were normal Was recommended to see orthopedics for further evaluation and management of his knee symptoms but patient prefers to hold off for now and he will call for referral when he feels he is ready to see orthopedics (9) Neuropathy: Code(s): G62.9 - Polyneuropathy, unspecified Plan: EMG and NCV of both lower extremities done in 2017 showed (+)? 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 chronic bilateral lower lumbar radiculopathy Continue Nortriptyline 50 mg Q HS Emphasized again the importance of tight glycemic control to slow down the progression of his neuropathy Follow up with podiatry as scheduled for regular/annual foot exam and diabetic foot care (10) Anemia: Code(s): D64.9 - Anemia, unspecified Qualifiers: Anemia type: unspecified type Qualified Code(s): D64.9 - Anemia, unspecified Plan: Most likely anemia of chronic disease although his H/H have corrected on his recent labs Will continue to monitor his CBC regularly (11) Elevated LFTs: Code(s): R79.89 - Other specified abnormal findings of blood chemistry Plan: Is most likely due to his weight and his medications and cholesterol level Reminded that losing weight will help keep his LFTs from going back up Will continue to monitor his LFTs regularly (12) GERD without esophagitis: Code(s): K21.9 - Gastro-esophageal reflux disease without esophagitis Plan: Dietary restrictions reinforced (13) Vitamin D deficiency: Code(s): E55.9 - Vitamin D deficiency, unspecified Plan: Continue Vitamin D3 1000 units QD (14) History of testicular cancer: Comment: S/P left orchiectomy Code(s): Z85.47 - Personal history of malignant neoplasm of testis Plan: S/P left orchiectomy - in remission Follow-up with Oncology/ urology as scheduled for continuing surveillance (15) Anxiety: Code(s): F41.9 - Anxiety disorder, unspecified Plan: Continue Lorazepam 1 mg 1 to 2 times a day as needed - Rx refilled (16) Overweight (BMI 25.0-29.9): Code(s): E66.3 - Overweight Plan: Reinforced diet/exercise as tolerated/lose weight Plan Follow up in 1 month Orders: Orders Complete Blood Count Auto Diff 07/22/23 D64.9 - Anemia, unspecified Lipid Panel 07/22/23 E78.00 - Pure hypercholesterolemia, unspecified Microalbumin, Random (w Creat) 07/22/23 E11.9 - Type 2 diabetes mellitus without complications Comprehensive [place]. Panel Fast 07/22/23 E78.00 - Pure hypercholesterolemia, unspecified TSH reflex Free T4 07/22/23 E78.00 - Pure hypercholesterolemia, unspecified UA CC w/rflx Micro + Cult 07/22/23 R30.0 - Dysuria Hemoglobin A1c 07/22/23 E11.9 - Type 2 diabetes mellitus without complications Vitamin D 25-OH Total 07/22/23 E55.9 - Vitamin D deficiency, unspecified Medications: Refilled oxycodone ER 80 mg PO Q6H 30 days 120 tabs 0RF M51.37 - Other intervertebral disc degeneration, lumbosacral region lorazepam 1 mg PO BID 30 days PRN 60 tabs 0RF anxiety F41.9 - Anxiety disorder, unspecified oxycodone 30 mg PO Q6H 30 days PRN 120 tabs 0RF pain M51.37 - Other intervertebral disc degeneration, lumbosacral region Coding Level of Care Code Tele Est Pt Level 4 (44512) Diagnoses Uncontrolled type 2 diabetes mellitus with hyperglycemia E11.65 Diabetes mellitus type: type 2 Hyponatremia E87.1 Stage 3a chronic kidney disease N18.31 Chronic kidney disease stage 3 subtype: stage 3a (GFR 45-59) Benign essential hypertension I10 Pure hypercholesterolemia E78.00 Mild chronic obstructive pulmonary disease J44.9 Degeneration of lumbar or lumbosacral intervertebral disc M51.37 Pain in both knees, unspecified chronicity M25.561; M25.562 Chronicity: unspecified Neuropathy G62.9 Anemia, unspecified type D64.9 Anemia type: unspecified type Elevated LFTs R79.89 GERD without esophagitis K21.9 Vitamin D deficiency E55.9 History of testicular cancer Z85.47 Anxiety F41.9 Overweight (BMI 25.0-29.9) E66.3
== END 2023-06-30 12:04 | disposition home or self-care (01) ==
LOC: HO.HMGH 10:41
PROVIDERS: PCP Internal Medicine; Visit Provider Internal Medicine
DX: I12.9 Hypertensive chronic kidney disease with stage 1 through stage 4 chronic kidney disease, or unspecified chronic kidney disease (principal); E11.65 Type 2 diabetes mellitus with hyperglycemia; N18.31 Chronic kidney disease, stage 3a; J44.9 Chronic obstructive pulmonary disease, unspecified; E87.1 Hypo-osmolality and hyponatremia; E78.00 Pure hypercholesterolemia, unspecified; M51.37 Other intervertebral disc degeneration, lumbosacral region; M25.561 Pain in right knee; M25.562 Pain in left knee; G62.9 Polyneuropathy, unspecified; D64.9 Anemia, unspecified; R79.89 Other specified abnormal findings of blood chemistry
CPT/HCPCS: 99214

== ENCOUNTER 2023-07-27 15:13 | Outpatient (REF) | payer BC, SELFPAY ==
[2023-07-27 16:15] LABS: MANUAL DIFF FLAG NO
[2023-07-27 16:20] LABS: Basophils Absolute Auto 0.1 X10*3/uL (0.0-0.2); Basophils Percent Auto 0.8 % (0-2); Eosinophils Absolute Auto 0.2 X10*3/uL (0.0-0.4); Eosinophils Percent Auto 2.7 % (0-4); Hematocrit 45.3 % (42.0-52.0); Hemoglobin 15.4 g/dl (14.0-18.0); Imm Gran Abs Auto 0.03 X10*3/uL (0.00-0.03); Imm Gran Pct Auto 0.4 % (0.0-0.4); Lymphocytes Absolute Auto 2.1 X10*3/uL (1.2-4.9); Lymphocytes Percent Auto 25.2 % (20-40); Mean Corpuscular Hemoglobin 27.3 pg (27.0-33.0); Mean Corpuscular Volume 80.2 fL (80.0-98.0); Mean Platelet Volume 8.7 fL (9.4-12.4); Monocytes Absolute Auto 0.6 X10*3/uL (0.1-1.2); Monocytes Percent Auto 7.5 % (2-11); Neutrophils Absolute Auto 5.2 x10*3/uL (2.0-8.3); Neutrophils Percent Auto 63.4 % (45-73); Platelet Count 295 X10*3/uL (160-400); Red Blood Count 5.65 X10*6/uL (4.60-5.80); Red Cell Distribution Width 12.2 % (11.0-16.0); White Blood Count 8.3 X10*3/uL (4.8-10.8)
[2023-07-27 16:21] LABS: Appearance Urine Clear; Color Urine Yellow; Glucose Urine UA >=1000 mg/dL (Negative); Leukocyte Esterase Urine Negative (Negative); Nitrite Urine Negative (Negative); PH 5.5 (5.0-9.0); Specific Gravity - Urine >= 1.030 (1.005-1.025); UMIC TRIGGER UACC YES; Urine Blood Negative (Negative); Urine Ketones Negative (Negative); Urine Protein Negative (Neg-Trace)
[2023-07-27 16:30] LABS: Estimated Average Glucose 298 mg/dL
[2023-07-27 16:35] LABS: Bacteria Urine None Seen (None Seen); Hyaline Casts Urine 0-2 /LPF (0-2); RBC Urine 0-2 /HPF (0-2); Squamous Epithelial Cell Urine 0-2 /HPF (0-2); WBC Urine 0-5 /HPF (0-5)
[2023-07-27 16:44] LABS: Creatinine Urine 36.48 mg/dL; Microalbum/Creatinine Ratio Ur 158.9 ug/mg cr (<30)
[2023-07-27 16:53] LABS: Alanine Aminotransferase 18 U/L (0-40); Albumin Level 4.3 g/dL (3.5-5.0); Alkaline Phosphatase 67 U/L (39-117); Anion Gap 14 (12-20); Aspartate Amino Transferase 13 U/L (5-37); Bilirubin Total 0.3 mg/dL (0.0-1.0); Blood Urea Nitrogen 33 mg/dL (9-16); Calcium 9.7 mg/dL (8.4-10.2); Carbon Dioxide 25 mmol/L (22-29); Chloride 102 mmol/L (96-108); Cholesterol 188 mg/dL (<200); Estimated Glomerular Filt Rate 52; Glucose Fasting 276 mg/dL (60-99); HDL Cholesterol 53 mg/dL (>40); LDL Cholesterol Calculated 62 mg/dL (<100); Potassium 3.8 mmol/L (3.3-5.1); Sodium 137 mmol/L (135-145); Total Protein 7.4 g/dL (6.5-8.0); Triglycerides 367 mg/dL (<150)
[2023-07-27 17:09] LABS: TSH reflex Free T4 1.38 uIU/mL (0.32-4.0); Vitamin D 25-OH Total 33.4 ng/mL (>30)
== END 2023-07-27 15:14 | disposition home or self-care (01) ==
LOC: HO.HMGCLDS 15:13
PROVIDERS: PCP Internal Medicine; Visit Provider Internal Medicine
DX: E55.9 Vitamin D deficiency, unspecified (principal); E78.00 Pure hypercholesterolemia, unspecified; E11.9 Type 2 diabetes mellitus without complications; D64.9 Anemia, unspecified
CPT/HCPCS: 36415; 80053; 80061; 81001; 82043; 82306; 82570; 83036; 84443; 85025

== ENCOUNTER 2023-07-28 10:43 | Outpatient (AMB) | payer BC, SELFPAY ==
--- NOTE | 2023-07-28 10:51 | MHC.PC.OV ---
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 Management [phone] Collections And Archives Director Required: No Accompanied by: Self / Same As Patient Allergies gabapentin Adverse Reaction (Intermediate, Verified 07/28/23 12:30) severe somnolence, dizziness Medication List - Last Reconciled 07/28/23 by Yobany Raymundo MD albuterol sulfate 90 mcg/actuation 2 puffs PO Q6H PRN amlodipine 10 mg PO DAILY 90 days Basaglar KwikPen U-100 Insulin (insulin glargine) 20 units (0.2 mL) subcut QPM 30 days NS blood sugar diagnostic (FreeStyle Lite Strips) As directed tests 4 X/day 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 meter,continuous (Dexcom G6 Rolling Attendant) As directed 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 sensor (Dexcom G6 Sensor device) As directed 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 transmitter (Dexcom G6 Transmitter device) USE DIRECTED carvedilol 12.5 mg PO BID 90 days cholecalciferol (vitamin D3) (Vitamin D3) 50 mcg PO DAILY 90 days empagliflozin (Jardiance) 10 mg PO QAM 90 days fenofibrate nanocrystallized 145 mg PO DAILY 90 days hydralazine 25 mg PO TID 90 days insulin lispro (Humalog KwikPen (U-100) Insulin) 20 units (0.2 mL) subcut TID 30 days lamotrigine 200 mg PO BID lorazepam 1 mg PO BID PRN 30 days losartan 50 mg PO DAILY 90 days Mounjaro (tirzepatide) 2.5 mg (0.5 mL) subcut QWEEK 4 weeks NS oxycodone 30 mg PO Q6H PRN 30 days oxycodone ER 80 mg PO Q6H 30 days pen needle, diabetic (BD Ultra-Fine Dee Pen Needle) As directed 4 times a day pravastatin 40 mg PO DAILY 90 days Tobacco use date assessed: 07/28/23 Dental Screening Dental Screen Date: 07/28/23 Did you have a dental visit in the last 12 months?: Yes Did you have a dental problem in the last 6 months where you did not have access to dental care?: No Was dental information given to patient?: Patient has dentist HPI Med Management [phone] HPI Details Patient's follow up visit / consultation today is done over video conference (iPhone/iPad/Google X2TV/Doximity) - this is a TELEHEALTH visit Patient's current medications have been reviewed and verified with patient and/or caregiver/proxy and have been updated accordingly in the medication list Patient states that he feels okay and he feels that his blood sugar has been continuing to slowly improve over the past month He has been experiencing increased pain over his right shoulder for a while now and would like to see if he can get an order for x-rays to look into this He does not recall any recent injury or trauma to his right shoulder He denies any headaches or dizziness Denies any chest pains, no SOB No nausea/vomiting, no abdominal pain No change in bowel habits noted States that his chronic low back pain and joint pains (hip pains) remain adequately controlled on his current Rx and needs his usual pain med Rx refilled, as well as his Lorazepam Also needs a couple of his Rx refilled Had his follow up labs done yesterday - to discuss his results [facility] Medical History Overweight (BMI 25.0-29.9) Obesity (BMI 30-39.9) Anxiety History of testicular cancer GERD without esophagitis Elevated LFTs Vitamin D deficiency Neuropathy Degeneration of lumbar or lumbosacral intervertebral disc Anemia Mild chronic obstructive pulmonary disease Benign essential hypertension Chronic kidney disease (CKD), stage II (mild) Type 2 diabetes mellitus with diabetic chronic kidney disease Type 2 diabetes mellitus with diabetic neuropathy, unspecified Surgical History History of colonoscopy (~06/24/16) History of orchiectomy Pure hypercholesterolemia History of lumbar surgery Family History Father Cancer Mother Diabetes Social History Household Members: Other Housing: House Alcohol intake: former Patient Tobacco Use Status: Never used Tobacco e-Cigarette/Vaping Use: Never Used Second Hand Smoke Exposure: Yes service: Yes Current occupational status: disabled Cognitive needs: No Hearing needs: No Vision needs: No Questionnaire PHQ-9 Over the last 2 weeks, how often have you been bothered by any of the following problems? 1. Little interest or pleasure in doing things: not at all 2. Feeling down, depressed, or hopeless: not at all 3. Trouble falling or staying asleep, or sleeping too much: not at all 4. Feeling tired or having little energy: not at all 5. Poor appetite or overeating: not at all 6. Feeling bad about yourself - or that you are a failure or have let yourself or your family down: not at all 7. Trouble concentrating on things, such as reading the newspaper or watching television: not at all 8. Moving or speaking so slowly that other people could have noticed. Or the opposite - being so fidgety or restless that you have been moving around a lot more than usual: not at all 9. Thoughts that you would be better off or of hurting yourself in some way: not at all Total score: 0 Depression Screening Interpretation: Negative Depression Screening Done: Yes 69374 - PHQ-9 Billing: Yes Source: Developed by Drs. Robbi Keller, Margie Cardona, Parvez Adan and colleagues, with an educational breonna from [employer]. Thrive Questionnaire Date Thrive assessed: 07/28/23 I am a: Patient What is your living situation today?: I have a steady place to live Within the past 12 months, did the food you bought not last and you didn't have the money to get more?: Never true Within the past 12 months, did you worry whether your food would run out before you got money to buy more?: Never true Do you have trouble paying for medicines?: No Do you have trouble getting transportation to medical appointments?: No Do you have trouble paying your heating and electricity bill?: No Do you have trouble taking care of your child, family member or friend?: No Do you have trouble with day-to-day activities such as bathing, preparing meals, shopping, managing finances, etc.?: No Are you currently unemployed and looking for a job?: No Are you interested in more education?: No Please select the resources that you would like help with: None Currently or been in a relationship where the following occur: no concerns reported THRIVE Score: 0 AUDIT C Alcohol Use Questionnaire (AUDIT-C) 1. How often do you have a drink containing alcohol?: Never 3. How often do you have six or more drinks on one occasion?: Never Total Score: 0 Score Reviewed/Action Taken: Yes SHAHRIAR-7 AMB Questionnaire SHAHRIAR-7 Date SHAHRIAR - 7 assessed: 07/28/23 Feeling nervous, anxious, or on edge: 0 = Not at all Not being able to stop or control worryin = Not at all Worrying too much about different things: 0 = Not at all Trouble relaxin = Not at all Being so restless that it is hard to sit still: 0 = Not at all Becoming easily annoyed or irritable: 0 = Not at all Feeling afraid as if something awful might happen: 0 = Not at all Total SHAHRIAR-7 score (0-4 normal; 5-9 mild; 10-14 moderate; 15-21 severe): 0 Source: Developed by Drs. Robbi Keller, Margie Cardona, Parvez Adan and colleagues, with an educational breonna from [employer]. Review of Systems Const Denies chills, Denies fatigue, Denies fever(s) and Denies headache(s) ENT Denies dysphagia, Denies dizziness, Denies otalgia, Denies headache(s), Denies neck pain, Denies odynophagia and Denies sore throat Card Denies chest pain, Denies palpitations and Denies dyspnea Resp Denies cough, Denies dyspnea and Denies wheezing GI Denies abdominal pain, Denies constipation, Denies dysphagia, Denies heartburn, Denies diarrhea, Denies nausea, Denies odynophagia and Denies vomiting Denies dysuria, Denies nocturia and Denies urinary frequency Musc Reports back pain (over the lumbar spine - chronic), Reports arthralgias (over both knees; increased in the right shoulder lately), Denies joint swelling, Denies neck pain and Reports stiffness (a couple of fingers lock up every now and then) Skin/Breast Denies rash Neuro Denies dizziness and Denies headache(s) Psych Reports anxiety and Reports depression Endo Details: blood sugar readings remain high.elevated often when checked Denies fatigue, Denies polydipsia and Denies palpitations Aller/Immun Denies wheezing Physical exam (Primary Care) Vital Signs: Physical examination is not performed as visit / consultation today is done over videoconference - Telehealth visit All physical findings indicated here, if present, are as per patient's and / or caregivers / proxy's report and visual inspection over videoconference, if appropriate or applicable Tobacco/Smoking Status: Tobacco use Status Tobacco use date assessed 07/28/23 07/28/23 10:53 Patient Tobacco Use Status Never used Tobacco 07/28/23 10:53 e-Cigarette/Vaping Use Never Used 07/28/23 10:53 PHQ-9: PHQ-9 Score PHQ-9: Total score 0 07/28/23 10:53 Depression Screening Interpretation: Negative Thrive Assessment: Date of Thrive Assessment Date Thrive assessed 07/28/23 07/28/23 10:53 Currently or been in a relationship where the following occur: no concerns reported Telehealth Telehealth Location of provider rendering services: practice address Location of patient: address on file Patient Identification confirmed using: Name, : Yes Telehealth method: video (Facetime) Patient verbally consented to treatment: Yes Patient verbally consented to billing insurance company: Yes Patient informed of any privacy concerns related to visit: Yes Minutes spent on Phone/Video with Pt.: 23 Results Reviewed Results Reviewed: Laboratory Tests 07/27/23 07/27/23 07/27/23 13:25 13:25 13:25 WBC Hgb Hct Plt Count Sodium 137 Potassium 3.8 Creatinine 1.41 H Estimated GFR 52 Fasting Glucose 276 H Hemoglobin A1c % Calcium 9.7 AST 13 ALT 18 Triglycerides 367 H Cholesterol 188 LDL Cholesterol, Calc 62 HDL Cholesterol 25-OH Vitamin D Total 33.4 TSH 1.38 Ur Specific [place] Urine Protein Urine Glucose (UA) Urine Blood Urine Nitrite Ur Leukocyte Esterase Microalb/Creat Ratio 07/27/23 07/27/23 07/27/23 13:25 15:25 15:25 WBC 8.3 Hgb 15.4 Hct 45.3 Plt Count 295 Sodium Potassium Creatinine Estimated GFR Fasting Glucose Hemoglobin A1c % 12.0 H Calcium AST ALT Triglycerides Cholesterol LDL Cholesterol, Calc HDL Cholesterol 53 25-OH Vitamin D Total TSH Ur Specific [place] Urine Protein Urine Glucose (UA) Urine Blood Urine Nitrite Ur Leukocyte Esterase Microalb/Creat Ratio 07/27/23 07/27/23 15:28 15:28 WBC Hgb Hct Plt Count Sodium Potassium Creatinine Estimated GFR Fasting Glucose Hemoglobin A1c % Calcium AST ALT Triglycerides Cholesterol LDL Cholesterol, Calc HDL Cholesterol 25-OH Vitamin D Total TSH Ur Specific [place] >= 1.030 H Urine Protein Negative Urine Glucose (UA) >=1000 H Urine Blood Negative Urine Nitrite Negative Ur Leukocyte Esterase Negative Microalb/Creat Ratio 158.9 H Assessment and Plan Assessment & Plan (1) Uncontrolled diabetes mellitus with hyperglycemia: Code(s): E11.65 - Type 2 diabetes mellitus with hyperglycemia Qualifiers: Diabetes mellitus type: type 2 Qualified Code(s): E11.65 - Type 2 diabetes mellitus with hyperglycemia Plan: Patient's HgbA1c on his recent labs is now starting to trend again in the right direction, as he has gone down from >14.0% previously to 12.0% on his labs done yesterday - goal is at least <7.0% He is currently still on Humalog Kwikpen 20 units TID with meals, Jardiance 10 mg QD and Mounjaro 2.5 mg SQ once a week He was supposed to start back on Basaglar 20 units Q HS but states that he does not have this and for unclear reasons, cannot get it at his pharmacy as he was supposedly told that they did not receive this prescription - Rx sent to pharmacy now Have advised him to start taking his Basaglar at bedtime ROWENA He has been referred to Endocrinology but has not yet been seen or scheduled - states that he would prefer not seeing endocrinology as he is tired and frustrated at having to pay his $60 co-pay every time he is seen by endocrinology and he feels that he is only there for a few minutes and is not even getting the proper attention and treatment and that what we currently have him on works a lot better (and he feels a lot better on) that any of the ones endocrinology has him on in the past (2) Hyponatremia: Code(s): E87.1 - Hypo-osmolality and hyponatremia Plan: His serum sodium level is now back to normal on his recent labs Advised again that this is likely related to his declining renal function as well as his hyperglycemia Will continue to monitor this regularly Follow up with nephrology as scheduled (3) Chronic kidney disease (CKD), stage III (moderate): Code(s): N18.30 - Chronic kidney disease, stage 3 unspecified Qualifiers: Chronic kidney disease stage 3 subtype: stage 3a (GFR 45-59) Qualified Code(s): N18.31 - Chronic kidney disease, stage 3a Plan: Advised that his renal function appears to have stabilized again lately, based on his recent lab results Follow up with nephrology as scheduled (4) Benign essential hypertension: Code(s): I10 - Essential (primary) hypertension Plan: Reinforced low-sodium diet -? goal is systolic BP of at least 130 mm or less Continue Amlodipine 10 mg QD, Carvedilol 12.5 mg BID, Hydralazine 25 mg TID and Losartan 50 mg QD He is reminded to continue monitoring and checking his blood pressure regularly (5) Pure hypercholesterolemia: Code(s): E78.00 - Pure hypercholesterolemia, unspecified Plan: Results of his labs done yesterday reviewed and discussed with patient - advised that his triglyceride level has improved significantly from previous and his other numbers are at or close to goal Reinforced low cholesterol diet Continue Pravastatin 20 mg QD and Fenofibrate 145 mg QD (6) Mild chronic obstructive pulmonary disease: Code(s): J44.9 - Chronic obstructive pulmonary disease, unspecified Plan: Stable -? PFTs done a couple of years ago showed mild COPD Patient has been mostly asymptomatic and has not needed to use any of his inhalers lately unless he comes down with a cold or respiratory infection (7) Degeneration of lumbar or lumbosacral intervertebral disc: Code(s): M51.37 - Other intervertebral disc degeneration, lumbosacral region Plan: Reinforced activity and weight lifting restrictions Continue Oxycodone 30 mg every 6-8 hours as needed and Oxycodone ER 80 mg every 6 hours - Rx refilled (8) Bilateral knee pain: Code(s): M25.561 - Pain in right knee; M25.562 - Pain in left knee Qualifiers: Chronicity: unspecified Qualified Code(s): M25.561 - Pain in right knee; M25.562 - Pain in left knee Plan: X-rays of both knees done last year revealed (+) mild OA changes in the right knee; left knee x-rays were normal Was recommended to see orthopedics for further evaluation and management of his knee symptoms but patient prefers to hold off for now and he will call for referral when he feels he is ready to see orthopedics (9) Right shoulder pain: Code(s): M25.511 - Pain in right shoulder Qualifiers: Chronicity: acute Qualified Code(s): M25.511 - Pain in right shoulder Plan: Will send patient for x-rays of the right shoulder for further evaluation (10) Neuropathy: Code(s): G62.9 - Polyneuropathy, unspecified Plan: EMG and NCV of both lower extremities done in 2017 showed (+)? 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 chronic bilateral lower lumbar radiculopathy Continue Nortriptyline 50 mg Q HS Emphasized again the importance of tight glycemic control to slow down the progression of his neuropathy Follow up with podiatry as scheduled for regular/annual foot exam and diabetic foot care (11) Anemia: Code(s): D64.9 - Anemia, unspecified Qualifiers: Anemia type: unspecified type Qualified Code(s): D64.9 - Anemia, unspecified Plan: Most likely anemia of chronic disease although his H/H have corrected and have remained normal on his recent labs Will continue to monitor his CBC regularly (12) Elevated LFTs: Code(s): R79.89 - Other specified abnormal findings of blood chemistry Plan: His LFTs have remained normal on his recent labs - were most likely due to his weight and his medications and cholesterol level Reminded that losing weight will help keep his LFTs from going back up Will continue to monitor his LFTs regularly (13) GERD without esophagitis: Code(s): K21.9 - Gastro-esophageal reflux disease without esophagitis Plan: Dietary restrictions reinforced (14) Vitamin D deficiency: Code(s): E55.9 - Vitamin D deficiency, unspecified Plan: Continue Vitamin D3 1000 units QD (15) History of testicular cancer: Comment: S/P left orchiectomy Code(s): Z85.47 - Personal history of malignant neoplasm of testis Plan: S/P left orchiectomy - in remission Follow-up with Oncology/ urology as scheduled for continuing surveillance (16) Anxiety: Code(s): F41.9 - Anxiety disorder, unspecified Plan: Continue Lorazepam 1 mg 1 to 2 times a day as needed - Rx refilled (17) Overweight (BMI 25.0-29.9): Code(s): E66.3 - Overweight Plan: Reinforced diet/exercise as tolerated/lose weight Plan Follow up in 1 month Orders: Orders XR shoulder RT min 2V Today M25.511 - Pain in right shoulder Medications: Changed From insulin glargine (Basaglar Tempo Pen (U-100) Insulin) 20 units (0.2 mL) subcut QPM 30 days 6 mL 3RF To Basaglar KwikPen U-100 Insulin (insulin glargine) 20 units (0.2 mL) subcut QPM 30 days 15 mL 3RF NS From tirzepatide (Mounjaro) 2.5 mg subcut QWEEK To Mounjaro (tirzepatide) 2.5 mg (0.5 mL) subcut QWEEK 4 weeks 2 mL 3RF NS Refilled oxycodone ER 80 mg PO Q6H 30 days 120 tabs 0RF M51.37 - Other intervertebral disc degeneration, lumbosacral region oxycodone 30 mg PO Q6H 30 days PRN 120 tabs 0RF pain M51.37 - Other intervertebral disc degeneration, lumbosacral region lorazepam 1 mg PO BID 30 days PRN 60 tabs 0RF anxiety F41.9 - Anxiety disorder, unspecified Coding Level of Care Code Tele Est Pt Level 4 (12331) Diagnoses Uncontrolled type 2 diabetes mellitus with hyperglycemia E11.65 Diabetes mellitus type: type 2 Hyponatremia E87.1 Stage 3a chronic kidney disease N18.31 Chronic kidney disease stage 3 subtype: stage 3a (GFR 45-59) Benign essential hypertension I10 Pure hypercholesterolemia E78.00 Mild chronic obstructive pulmonary disease J44.9 Degeneration of lumbar or lumbosacral intervertebral disc M51.37 Pain in both knees, unspecified chronicity M25.561; M25.562 Chronicity: unspecified Acute pain of right shoulder M25.511 Chronicity: acute Neuropathy G62.9 Anemia, unspecified type D64.9 Anemia type: unspecified type Elevated LFTs R79.89 GERD without esophagitis K21.9 Vitamin D deficiency E55.9 History of testicular cancer Z85.47 Anxiety F41.9 Overweight (BMI 25.0-29.9) E66.3
== END 2023-07-28 13:03 | disposition home or self-care (01) ==
LOC: HO.HMGH 10:43
PROVIDERS: PCP Internal Medicine; Visit Provider Internal Medicine
DX: I12.9 Hypertensive chronic kidney disease with stage 1 through stage 4 chronic kidney disease, or unspecified chronic kidney disease (principal); E11.65 Type 2 diabetes mellitus with hyperglycemia; N18.31 Chronic kidney disease, stage 3a; J44.9 Chronic obstructive pulmonary disease, unspecified; E87.1 Hypo-osmolality and hyponatremia; E78.00 Pure hypercholesterolemia, unspecified; M51.37 Other intervertebral disc degeneration, lumbosacral region; M25.561 Pain in right knee; M25.562 Pain in left knee; M25.511 Pain in right shoulder; G62.9 Polyneuropathy, unspecified; D64.9 Anemia, unspecified
CPT/HCPCS: 99214

== ENCOUNTER 2023-08-19 12:01 | Outpatient (AMB) | payer BC, SELFPAY ==
[2023-08-19 12:02] VITALS: BP 130/86; PULSE 97; O2SAT 98; BMI 30.5
--- NOTE | 2023-08-19 12:02 | MHC.PC.OV ---
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: No Accompanied by: Self / Same As Patient Allergies gabapentin Adverse Reaction (Intermediate, Verified 08/19/23 12:22) severe somnolence, dizziness Medication List - Last Reconciled 08/19/23 by Yobany Raymundo MD albuterol sulfate 90 mcg/actuation 2 puffs PO Q6H PRN amlodipine 10 mg PO DAILY 90 days Basaglar KwikPen U-100 Insulin (insulin glargine) 20 units (0.2 mL) subcut QPM 30 days NS blood sugar diagnostic (FreeStyle Lite Strips) As directed tests 4 X/day 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 meter,continuous (Dexcom G6 Library Technology Instructor) As directed 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 sensor (Dexcom G6 Sensor device) As directed 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 transmitter (Dexcom G6 Transmitter device) USE DIRECTED carvedilol 12.5 mg PO BID 90 days cholecalciferol (vitamin D3) (Vitamin D3) 50 mcg PO DAILY 90 days empagliflozin (Jardiance) 10 mg PO QAM 90 days fenofibrate nanocrystallized 145 mg PO DAILY 90 days hydralazine 25 mg PO TID 90 days insulin lispro (Humalog KwikPen (U-100) Insulin) 20 units (0.2 mL) subcut TID 30 days lamotrigine 200 mg PO BID lorazepam 1 mg PO BID PRN 30 days losartan 50 mg PO DAILY 90 days Mounjaro (tirzepatide) 2.5 mg (0.5 mL) subcut QWEEK 4 weeks NS oxycodone 30 mg PO Q6H PRN 30 days oxycodone ER 80 mg PO Q6H 30 days pen needle, diabetic (BD Ultra-Fine Dee Pen Needle) As directed 4 times a day pravastatin 40 mg PO DAILY 90 days Tobacco use date assessed: 08/19/23 Dental Screening Dental Screen Date: 08/19/23 Did you have a dental visit in the last 12 months?: Yes Did you have a dental problem in the last 6 months where you did not have access to dental care?: No Was dental information given to patient?: Patient has dentist HPI Med Management HPI Details Patient comes in today for his follow up visit States that he feels okay States that he has gotten back on his Basaglar 20 units Q HS as instructed after his last visit and feels that his blood sugar is continuing to improve on his current Rx He denies any headaches or dizziness Denies any chest pains, no SOB No nausea/vomiting, no abdominal pain No change in bowel habits noted States that his chronic low back pain and joint pains remain adequately controlled on his current Rx and as I am not going to be in the office next week, he would like to have his pain meds Rx and Lorazepam Rx sent ahead to his pharmacy, who agreed to hold onto the Rx and will refill them next week when they are actually due [facility] Medical History Overweight (BMI 25.0-29.9) Obesity (BMI 30-39.9) Anxiety History of testicular cancer GERD without esophagitis Elevated LFTs Vitamin D deficiency Neuropathy Degeneration of lumbar or lumbosacral intervertebral disc Anemia Mild chronic obstructive pulmonary disease Benign essential hypertension Chronic kidney disease (CKD), stage II (mild) Type 2 diabetes mellitus with diabetic chronic kidney disease Type 2 diabetes mellitus with diabetic neuropathy, unspecified Surgical History History of colonoscopy (~06/24/16) History of orchiectomy Pure hypercholesterolemia History of lumbar surgery Family History Father Cancer Mother Diabetes Social History Household Members: Other Housing: House Alcohol intake: former Patient Tobacco Use Status: Never used Tobacco e-Cigarette/Vaping Use: Never Used Second Hand Smoke Exposure: Yes service: Yes Current occupational status: disabled Cognitive needs: No Hearing needs: No Vision needs: No Questionnaire PHQ-9 Over the last 2 weeks, how often have you been bothered by any of the following problems? 1. Little interest or pleasure in doing things: not at all 2. Feeling down, depressed, or hopeless: not at all 3. Trouble falling or staying asleep, or sleeping too much: not at all 4. Feeling tired or having little energy: not at all 5. Poor appetite or overeating: not at all 6. Feeling bad about yourself - or that you are a failure or have let yourself or your family down: not at all 7. Trouble concentrating on things, such as reading the newspaper or watching television: not at all 8. Moving or speaking so slowly that other people could have noticed. Or the opposite - being so fidgety or restless that you have been moving around a lot more than usual: not at all 9. Thoughts that you would be better off or of hurting yourself in some way: not at all Total score: 0 Depression Screening Interpretation: Negative Depression Screening Done: Yes 74768 - PHQ-9 Billing: Yes Source: Developed by Drs. Robbi Keller, Margie Cardona, Parvez Adan and colleagues, with an educational breonna from [employer]. Thrive Questionnaire Date Thrive assessed: 08/19/23 I am a: Patient What is your living situation today?: I have a steady place to live Within the past 12 months, did the food you bought not last and you didn't have the money to get more?: Never true Within the past 12 months, did you worry whether your food would run out before you got money to buy more?: Never true Do you have trouble paying for medicines?: No Do you have trouble getting transportation to medical appointments?: No Do you have trouble paying your heating and electricity bill?: No Do you have trouble taking care of your child, family member or friend?: No Do you have trouble with day-to-day activities such as bathing, preparing meals, shopping, managing finances, etc.?: No Are you currently unemployed and looking for a job?: No Are you interested in more education?: No Please select the resources that you would like help with: None Currently or been in a relationship where the following occur: no concerns reported THRIVE Score: 0 AUDIT C Alcohol Use Questionnaire (AUDIT-C) 1. How often do you have a drink containing alcohol?: Never 3. How often do you have six or more drinks on one occasion?: Never Total Score: 0 Score Reviewed/Action Taken: Yes SHAHRIAR-7 AMB Questionnaire SHAHRIAR-7 Date SHAHRIAR - 7 assessed: 08/19/23 Feeling nervous, anxious, or on edge: 0 = Not at all Not being able to stop or control worryin = Not at all Worrying too much about different things: 0 = Not at all Trouble relaxin = Not at all Being so restless that it is hard to sit still: 0 = Not at all Becoming easily annoyed or irritable: 0 = Not at all Feeling afraid as if something awful might happen: 0 = Not at all Total SHAHRIAR-7 score (0-4 normal; 5-9 mild; 10-14 moderate; 15-21 severe): 0 Source: Developed by Drs. Robbi Keller, Margie Cardona, Parvez Adan and colleagues, with an educational breonna from [employer]. Review of Systems Const Denies chills, Denies fatigue, Denies fever(s) and Denies headache(s) ENT Denies dysphagia, Denies dizziness, Denies otalgia, Denies headache(s), Denies neck pain, Denies odynophagia and Denies sore throat Card Denies chest pain, Denies palpitations and Denies dyspnea Resp Denies cough, Denies dyspnea and Denies wheezing GI Denies abdominal pain, Denies constipation, Denies dysphagia, Denies heartburn, Denies diarrhea, Denies nausea, Denies odynophagia and Denies vomiting Denies dysuria, Denies nocturia and Denies urinary frequency Musc Reports back pain (over the lumbar spine - chronic), Reports arthralgias (over both knees; increased in the right shoulder lately), Denies joint swelling, Denies neck pain and Reports stiffness (a couple of fingers lock up every now and then) Skin/Breast Denies rash Neuro Denies dizziness and Denies headache(s) Psych Reports anxiety and Reports depression Endo Details: blood sugar readings remain high.elevated often when checked Denies fatigue, Denies polydipsia and Denies palpitations Aller/Immun Denies wheezing Physical exam (Primary Care) Vital Signs: Last Vital Signs Pulse 97 08/19/23 12:02 BP 130/86 08/19/23 12:02 Pulse Ox 98 08/19/23 12:02 Oxygen Delivery Method Room Air 08/19/23 12:02 BMI result Body Mass Index 30.5 Tobacco/Smoking Status: Tobacco use Status Tobacco use date assessed 08/19/23 08/19/23 12:06 Patient Tobacco Use Status Never used Tobacco 08/19/23 12:06 e-Cigarette/Vaping Use Never Used 08/19/23 12:06 PHQ-9: PHQ-9 Score PHQ-9: Total score 0 08/19/23 12:23 Depression Screening Interpretation: Negative Thrive Assessment: Date of Thrive Assessment Date Thrive assessed 08/19/23 08/19/23 12:06 Currently or been in a relationship where the following occur: no concerns reported Const General: no acute distress and alert HENMT Ears: TM's normal bilaterally and EAC's normal Throat: Yes posterior oropharynx normal and Yes tonsils normal (no TP congestion noted) Neck Neck: Yes no lymphadenopathy and Yes supple Thyroid: Thyroid normal Resp Auscultation: clear to auscultation bilaterally, no rales and no wheezes Cardio Rate: regular rate Rhythm: regular rhythm Heart sounds: no murmurs GI Palpation (GI): Soft to palpation and nontender Auscultation: normal bowel sounds General: Yes no CVA tenderness Back/Spine/Pelvis Back: no CVA tenderness Thoracic/Lumbar Spine: lumbar spinal tenderness (chronic) Skin Rashes: no rashes Extrem General: Yes no clubbing, cyanosis or edema Results AMB Hemoglobin A1c AMB Hemoglobin A1c 13.6 % Last Edit by Neli Barrera on 08/19/23 12:21 Results Reviewed Results Reviewed: Laboratory Last Values Hgb A1c (Clinic) 13.6 % (4.0-6.0) H 08/19/23 12:15 Assessment and Plan Assessment & Plan (1) Uncontrolled diabetes mellitus with hyperglycemia: Code(s): E11.65 - Type 2 diabetes mellitus with hyperglycemia Qualifiers: Diabetes mellitus type: type 2 Qualified Code(s): E11.65 - Type 2 diabetes mellitus with hyperglycemia Plan: In-office HgbA1c today is at 13.6% (HgbA1c was at 12.0% on his labs done last month) - goal is at least <7.0% Reinforced diabetic diet He is currently on Humalog Kwikpen 20 units TID with meals, Basaglar 20 units Q HS, Jardiance 10 mg QD and Mounjaro 2.5 mg SQ once a week and based on his lab results last month and his report today that he feels okay and that his blood sugar readings have been improving, it comes as a surprise that his HgbA1c today is actually WORSE than it was last month Discussed that this can only mean that he is not really doing that well with his diet as he claims that he is taking all of his meds as prescribed He is again advised to continue on his current dose and meds for now but we will need to look into adjusting these further if his glycemic control still does not improve over the next month or two Have cautioned patient that he cannot keep procrastinating on his diet as he is already in stage 3 CKD and his renal function will continue to decline rapidly as long as his diabetes (and his blood pressure) are not adequately controlled He has been referred to Endocrinology but has not yet been seen or scheduled - he prefers not seeing endocrinology as he is tired and frustrated at having to pay his $60 co-pay every time he is seen by endocrinology and he feels that he is only there for a few minutes and is not even getting the proper attention and treatment there Feels that what we currently have him on has been working a lot better for him (and he feels a lot better on) than any of the Rx or Tx that endocrinology has him on in the past (2) Hyponatremia: Code(s): E87.1 - Hypo-osmolality and hyponatremia Plan: His serum sodium level was back to normal on his recent labs from last month Advised again that this is likely related to his declining renal function as well as his hyperglycemia We will continue to monitor this regularly Follow up with nephrology as scheduled (3) Chronic kidney disease (CKD), stage III (moderate): Code(s): N18.30 - Chronic kidney disease, stage 3 unspecified Qualifiers: Chronic kidney disease stage 3 subtype: stage 3a (GFR 45-59) Qualified Code(s): N18.31 - Chronic kidney disease, stage 3a Plan: Advised that his renal function appears to have stabilized again lately, based on his recent lab results but cautioned that this can change very quickly as long as his diabetes is uncontrolled Follow up with nephrology as scheduled (4) Benign essential hypertension: Code(s): I10 - Essential (primary) hypertension Plan: Reinforced low-sodium diet -? goal is systolic BP of at least 130 mm or less Continue Amlodipine 10 mg QD, Carvedilol 12.5 mg BID, Hydralazine 25 mg TID and Losartan 50 mg QD He is reminded to continue monitoring and checking his blood pressure regularly (5) Pure hypercholesterolemia: Code(s): E78.00 - Pure hypercholesterolemia, unspecified Plan: Reinforced low cholesterol diet Continue Pravastatin 20 mg QD and Fenofibrate 145 mg QD (6) Mild chronic obstructive pulmonary disease: Code(s): J44.9 - Chronic obstructive pulmonary disease, unspecified Plan: Stable -? PFTs done a couple of years ago showed mild COPD Patient has been mostly asymptomatic and has not needed to use any of his inhalers lately unless he comes down with a cold or respiratory infection (7) Degeneration of lumbar or lumbosacral intervertebral disc: Code(s): M51.37 - Other intervertebral disc degeneration, lumbosacral region Plan: Reinforced activity and weight lifting restrictions Continue Oxycodone 30 mg every 6-8 hours as needed and Oxycodone ER 80 mg every 6 hours - Rx refilled today although they are actually due some time next week (8) Bilateral knee pain: Code(s): M25.561 - Pain in right knee; M25.562 - Pain in left knee Qualifiers: Chronicity: unspecified Qualified Code(s): M25.561 - Pain in right knee; M25.562 - Pain in left knee Plan: X-rays of both knees done last year revealed (+) mild OA changes in the right knee; left knee x-rays were normal Was recommended to see orthopedics for further evaluation and management of his knee symptoms but patient prefers to hold off for now and he will call for referral when he feels he is ready to see orthopedics (9) Neuropathy: Code(s): G62.9 - Polyneuropathy, unspecified Plan: EMG and NCV of both lower extremities done in 2017 showed (+)? 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 chronic bilateral lower lumbar radiculopathy Continue Nortriptyline 50 mg Q HS Emphasized again the importance of tight glycemic control to slow down the progression of his neuropathy Follow up with podiatry as scheduled for regular/annual foot exam and diabetic foot care (10) Anemia: Code(s): D64.9 - Anemia, unspecified Qualifiers: Anemia type: unspecified type Qualified Code(s): D64.9 - Anemia, unspecified Plan: Most likely anemia of chronic disease although his H/H have corrected and have remained normal on his recent labs Will continue to monitor his CBC regularly (11) Elevated LFTs: Code(s): R79.89 - Other specified abnormal findings of blood chemistry Plan: His LFTs have remained normal on his recent labs - were most likely due to his weight and his medications and cholesterol level Reminded that losing weight will help keep his LFTs from going back up Will continue to monitor his LFTs regularly (12) GERD without esophagitis: Code(s): K21.9 - Gastro-esophageal reflux disease without esophagitis Plan: Dietary restrictions reinforced (13) Vitamin D deficiency: Code(s): E55.9 - Vitamin D deficiency, unspecified Plan: Continue Vitamin D3 1000 units QD (14) History of testicular cancer: Comment: S/P left orchiectomy Code(s): Z85.47 - Personal history of malignant neoplasm of testis Plan: S/P left orchiectomy - in remission Follow-up with Oncology/ urology as scheduled for continuing surveillance (15) Anxiety: Code(s): F41.9 - Anxiety disorder, unspecified Plan: Continue Lorazepam 1 mg 1 to 2 times a day as needed - Rx refilled (16) Overweight (BMI 25.0-29.9): Code(s): E66.3 - Overweight Plan: Reinforced diet/exercise as tolerated/lose weight Plan Follow up in 1 month Orders: Orders AMB Hemoglobin A1c Today Z13.9 - Encounter for screening, unspecified Medications: Refilled oxycodone 30 mg PO Q6H 30 days PRN 120 tabs 0RF pain M51.37 - Other intervertebral disc degeneration, lumbosacral region oxycodone ER 80 mg PO Q6H 30 days 120 tabs 0RF M51.37 - Other intervertebral disc degeneration, lumbosacral region lorazepam 1 mg PO BID 30 days PRN 60 tabs 0RF anxiety F41.9 - Anxiety disorder, unspecified Coding Level of Care Code Est Pt Level 4 (25887) Diagnoses Uncontrolled type 2 diabetes mellitus with hyperglycemia E11.65 Diabetes mellitus type: type 2 Hyponatremia E87.1 Stage 3a chronic kidney disease N18.31 Chronic kidney disease stage 3 subtype: stage 3a (GFR 45-59) Benign essential hypertension I10 Pure hypercholesterolemia E78.00 Mild chronic obstructive pulmonary disease J44.9 Degeneration of lumbar or lumbosacral intervertebral disc M51.37 Pain in both knees, unspecified chronicity M25.561; M25.562 Chronicity: unspecified Neuropathy G62.9 Anemia, unspecified type D64.9 Anemia type: unspecified type Elevated LFTs R79.89 GERD without esophagitis K21.9 Vitamin D deficiency E55.9 History of testicular cancer Z85.47 Anxiety F41.9 Overweight (BMI 25.0-29.9) E66.3
== END 2023-08-19 12:44 | disposition home or self-care (01) ==
PROVIDERS: PCP Internal Medicine; Visit Provider Internal Medicine
DX: E11.65 Type 2 diabetes mellitus with hyperglycemia (principal)
CPT/HCPCS: 83036; 99214

== ENCOUNTER 2023-09-22 14:32 | Outpatient (AMB) | payer BC, SELFPAY ==
--- NOTE | 2023-09-22 14:32 | MHC.PC.OV ---
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 Management Allergies gabapentin Adverse Reaction (Intermediate, Verified 09/22/23 15:22) severe somnolence, dizziness Medication List - Last Reconciled 09/22/23 by Yobany Raymundo MD albuterol sulfate 90 mcg/actuation 2 puffs PO Q6H PRN amlodipine 10 mg PO DAILY 90 days Basaglar KwikPen U-100 Insulin (insulin glargine) 20 units (0.2 mL) subcut QPM 30 days NS blood sugar diagnostic (FreeStyle Lite Strips) As directed tests 4 X/day 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 meter,continuous (Dexcom G6 Full Fashioned Garment Knitter) As directed 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 sensor (Dexcom G6 Sensor device) As directed 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 transmitter (Dexcom G6 Transmitter device) USE DIRECTED carvedilol 12.5 mg PO BID 90 days cholecalciferol (vitamin D3) (Vitamin D3) 50 mcg PO DAILY 90 days empagliflozin (Jardiance) 10 mg PO QAM 90 days fenofibrate nanocrystallized 145 mg PO DAILY 90 days hydralazine 25 mg PO TID 90 days insulin lispro (Humalog KwikPen (U-100) Insulin) 20 units (0.2 mL) subcut TID 30 days lamotrigine 200 mg PO BID lorazepam 1 mg PO BID PRN 30 days losartan 50 mg PO DAILY 90 days Mounjaro (tirzepatide) 2.5 mg (0.5 mL) subcut QWEEK 4 weeks NS oxycodone 30 mg PO Q6H PRN 30 days oxycodone ER 80 mg PO Q6H 30 days pen needle, diabetic (BD Ultra-Fine Dee Pen Needle) As directed 4 times a day pravastatin 40 mg PO DAILY 90 days Tobacco use date assessed: 09/22/23 Dental Screening Dental Screen Date: 08/19/23 HPI Med Management HPI Details Patient's follow up visit / consultation today is done over video conference (iPhone/iPad/Google Meets/[employer]) - this is a TELEHEALTH visit Patient's current medications have been reviewed and verified with patient and/or caregiver/proxy and have been updated accordingly in the medication list Patient states that he currently feels okay and feels that his blood sugar readings have stabilized lately - FBS was around 160 mg/dl earlier this morning but states that he went to bed very late and woke up later than usual this morning He denies any headaches or dizziness Denies any chest pains, no SOB No nausea/vomiting, no abdominal pain No change in bowel habits noted States that his chronic low back pain and joint pains remain adequately controlled on his current Rx Will need his pain meds and Lorazepam Rx refilled as usual [facility] Medical History Overweight (BMI 25.0-29.9) Obesity (BMI 30-39.9) Anxiety History of testicular cancer GERD without esophagitis Elevated LFTs Vitamin D deficiency Neuropathy Degeneration of lumbar or lumbosacral intervertebral disc Anemia Mild chronic obstructive pulmonary disease Benign essential hypertension Chronic kidney disease (CKD), stage II (mild) Type 2 diabetes mellitus with diabetic chronic kidney disease Type 2 diabetes mellitus with diabetic neuropathy, unspecified Surgical History History of colonoscopy (~06/24/16) History of orchiectomy Pure hypercholesterolemia History of lumbar surgery Family History Father Cancer Mother Diabetes Social History Household Members: Other Housing: House Alcohol intake: former Patient Tobacco Use Status: Never used Tobacco e-Cigarette/Vaping Use: Never Used Second Hand Smoke Exposure: Yes service: Yes Current occupational status: disabled Cognitive needs: No Hearing needs: No Vision needs: No Questionnaire Thrive Questionnaire Date Thrive assessed: 08/19/23 SHAHRIAR-7 AMB Questionnaire SHAHRIAR-7 Date SHAHRIAR - 7 assessed: 08/19/23 Source: Developed by Drs. Robbi Keller, Margie Cardona, Parvez Adan and colleagues, with an educational breonna from [employer] Review of Systems Const Denies chills, Denies fatigue, Denies fever(s) and Denies headache(s) ENT Denies dysphagia, Denies dizziness, Denies otalgia, Denies headache(s), Denies neck pain, Denies odynophagia and Denies sore throat Card Denies chest pain, Denies palpitations and Denies dyspnea Resp Denies cough, Denies dyspnea and Denies wheezing GI Denies abdominal pain, Denies constipation, Denies dysphagia, Denies heartburn, Denies diarrhea, Denies nausea, Denies odynophagia and Denies vomiting Denies dysuria, Denies nocturia and Denies urinary frequency Musc Reports back pain (over the lumbar spine - chronic), Reports arthralgias (over both knees; increased in the right shoulder lately), Denies joint swelling, Denies neck pain and Reports stiffness (a couple of fingers lock up every now and then) Skin/Breast Denies rash Neuro Denies dizziness and Denies headache(s) Psych Reports anxiety and Reports depression Endo Details: blood sugar readings remain high.elevated often when checked Denies fatigue, Denies polydipsia and Denies palpitations Aller/Immun Denies wheezing Physical exam (Primary Care) Vital Signs: Physical examination is not performed as visit / consultation today is done over videoconference - Telehealth visit All physical findings indicated here, if present, are as per patient's and / or caregivers / proxy's report and visual inspection over videoconference, if appropriate or applicable Tobacco/Smoking Status: Tobacco use Status Tobacco use date assessed 09/22/23 09/22/23 14:34 Patient Tobacco Use Status Never used Tobacco 09/22/23 14:34 e-Cigarette/Vaping Use Never Used 09/22/23 14:34 Thrive Assessment: Date of Thrive Assessment Date Thrive assessed 08/19/23 09/22/23 14:34 Telehealth Telehealth Location of provider rendering services: practice address Location of patient: address on file Patient Identification confirmed using: Name, : Yes Telehealth method: video (iphone/[employer]) Patient verbally consented to treatment: Yes Patient verbally consented to billing insurance company: Yes Patient informed of any privacy concerns related to visit: Yes Minutes spent on Phone/Video with Pt.: 18 Assessment and Plan Assessment & Plan (1) Uncontrolled diabetes mellitus with hyperglycemia: Code(s): E11.65 - Type 2 diabetes mellitus with hyperglycemia Qualifiers: Diabetes mellitus type: type 2 Qualified Code(s): E11.65 - Type 2 diabetes mellitus with hyperglycemia Plan: His in-office HgbA1c last month was at 13.6% (HgbA1c was previously at 12.0%) - goal is at least <7.0% Reinforced diabetic diet He is currently on Humalog Kwikpen 20 units TID with meals, Basaglar 20 units Q HS, Jardiance 10 mg QD and Mounjaro 2.5 mg SQ once a week He has been referred to Endocrinology but he prefers not seeing endocrinology as he is tired and frustrated at having to pay his $60 co-pay every time he is seen by endocrinology and he feels that he is only seen there for a few minutes and is not even getting the proper attention and treatment there Feels that what we currently have him on has been working a lot better for him (and he feels a lot better on) than any of the Rx or Tx that endocrinology has him on in the past Will have him recheck his labs next month for follow up (2) Hyponatremia: Code(s): E87.1 - Hypo-osmolality and hyponatremia Plan: His serum sodium level was back to normal on his recent labs from last month Advised again that this is likely related to his declining renal function as well as his hyperglycemia We will continue to monitor this regularly Follow up with nephrology as scheduled (3) Chronic kidney disease (CKD), stage III (moderate): Code(s): N18.30 - Chronic kidney disease, stage 3 unspecified Qualifiers: Chronic kidney disease stage 3 subtype: stage 3a (GFR 45-59) Qualified Code(s): N18.31 - Chronic kidney disease, stage 3a Plan: Advised that his renal function appears to have stabilized again lately, based on his recent lab results but cautioned that this can change very quickly as long as his diabetes is uncontrolled Follow up with nephrology as scheduled (4) Benign essential hypertension: Code(s): I10 - Essential (primary) hypertension Plan: Reinforced low-sodium diet -? goal is systolic BP of at least 130 mm or less Continue Amlodipine 10 mg QD, Carvedilol 12.5 mg BID, Hydralazine 25 mg TID and Losartan 50 mg QD He is reminded to continue monitoring and checking his blood pressure regularly (5) Pure hypercholesterolemia: Code(s): E78.00 - Pure hypercholesterolemia, unspecified Plan: Reinforced low cholesterol diet Continue Pravastatin 20 mg QD and Fenofibrate 145 mg QD Will have patient recheck his labs and fasting lipids next month for follow up (6) Mild chronic obstructive pulmonary disease: Code(s): J44.9 - Chronic obstructive pulmonary disease, unspecified Plan: Stable -? PFTs done a couple of years ago showed mild COPD Patient has been mostly asymptomatic and has not needed to use any of his inhalers lately unless he comes down with a cold or respiratory infection (7) Degeneration of lumbar or lumbosacral intervertebral disc: Code(s): M51.37 - Other intervertebral disc degeneration, lumbosacral region Plan: Reinforced activity and weight lifting restrictions Continue Oxycodone 30 mg every 6-8 hours as needed and Oxycodone ER 80 mg every 6 hours - Rx refilled today (8) Bilateral knee pain: Code(s): M25.561 - Pain in right knee; M25.562 - Pain in left knee Qualifiers: Chronicity: unspecified Qualified Code(s): M25.561 - Pain in right knee; M25.562 - Pain in left knee Plan: X-rays of both knees done last year revealed (+) mild OA changes in the right knee; left knee x-rays were normal Was recommended to see orthopedics for further evaluation and management of his knee symptoms but patient prefers to hold off for now and he will call for referral when he feels he is ready to or needs to see orthopedics (9) Neuropathy: Code(s): G62.9 - Polyneuropathy, unspecified Plan: EMG and NCV of both lower extremities done in 2017 showed (+)? 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 chronic bilateral lower lumbar radiculopathy Continue Nortriptyline 50 mg Q HS Emphasized again the importance of tight glycemic control to slow down the progression of his neuropathy Follow up with podiatry as scheduled for regular/annual foot exam and diabetic foot care (10) Anemia: Code(s): D64.9 - Anemia, unspecified Qualifiers: Anemia type: unspecified type Qualified Code(s): D64.9 - Anemia, unspecified Plan: Most likely anemia of chronic disease although his H/H have corrected and have remained normal on his recent labs Will continue to monitor his CBC regularly (11) Elevated LFTs: Code(s): R79.89 - Other specified abnormal findings of blood chemistry Plan: His LFTs have remained normal on his recent labs - were most likely due to his weight and his medications and cholesterol level Reminded that losing weight will help keep his LFTs from going back up Will continue to monitor his LFTs regularly (12) GERD without esophagitis: Code(s): K21.9 - Gastro-esophageal reflux disease without esophagitis Plan: Dietary restrictions reinforced (13) Vitamin D deficiency: Code(s): E55.9 - Vitamin D deficiency, unspecified Plan: Continue Vitamin D3 1000 units QD (14) History of testicular cancer: Comment: S/P left orchiectomy Code(s): Z85.47 - Personal history of malignant neoplasm of testis Plan: S/P left orchiectomy - in remission Follow-up with Oncology/ urology as scheduled for continuing surveillance (15) Anxiety: Code(s): F41.9 - Anxiety disorder, unspecified Plan: Continue Lorazepam 1 mg 1 to 2 times a day as needed - Rx refilled (16) Overweight (BMI 25.0-29.9): Code(s): E66.3 - Overweight Plan: Reinforced diet/exercise as tolerated/lose weight Plan Follow up in 1 month Orders: Orders Comprehensive Shock. Panel Fast 10/12/23 E78.00 - Pure hypercholesterolemia, unspecified TSH reflex Free T4 10/12/23 E78.00 - Pure hypercholesterolemia, unspecified UA CC w/rflx Micro + Cult 10/12/23 R30.0 - Dysuria Vitamin D 25-OH Total 10/12/23 E55.9 - Vitamin D deficiency, unspecified Hemoglobin A1c 10/12/23 E11.9 - Type 2 diabetes mellitus without complications Complete Blood Count Auto Diff 10/12/23 D64.9 - Anemia, unspecified Lipid Panel 10/12/23 E78.00 - Pure hypercholesterolemia, unspecified Microalbumin, Random (w Creat) 10/12/23 E11.9 - Type 2 diabetes mellitus without complications Vitamin B12 and Folate 10/12/23 E53.8 - Deficiency of other specified B group vitamins Medications: Refilled lorazepam 1 mg PO BID 30 days PRN 60 tabs 0RF anxiety F41.9 - Anxiety disorder, unspecified oxycodone 30 mg PO Q6H 30 days PRN 120 tabs 0RF pain M51.37 - Other intervertebral disc degeneration, lumbosacral region oxycodone ER 80 mg PO Q6H 30 days 120 tabs 0RF M51.37 - Other intervertebral disc degeneration, lumbosacral region Coding Level of Care Code Tele Est Pt Level 3 (03106) Diagnoses Uncontrolled type 2 diabetes mellitus with hyperglycemia E11.65 Diabetes mellitus type: type 2 Hyponatremia E87.1 Stage 3a chronic kidney disease N18.31 Chronic kidney disease stage 3 subtype: stage 3a (GFR 45-59) Benign essential hypertension I10 Pure hypercholesterolemia E78.00 Mild chronic obstructive pulmonary disease J44.9 Degeneration of lumbar or lumbosacral intervertebral disc M51.37 Pain in both knees, unspecified chronicity M25.561; M25.562 Chronicity: unspecified Neuropathy G62.9 Anemia, unspecified type D64.9 Anemia type: unspecified type Elevated LFTs R79.89 GERD without esophagitis K21.9 Vitamin D deficiency E55.9 History of testicular cancer Z85.47 Anxiety F41.9 Overweight (BMI 25.0-29.9) E66.3
== END 2023-09-22 15:51 | disposition home or self-care (01) ==
LOC: HO.HMGH 14:32
PROVIDERS: PCP Internal Medicine; Visit Provider Internal Medicine
DX: E11.65 Type 2 diabetes mellitus with hyperglycemia (principal); E87.1 Hypo-osmolality and hyponatremia; I12.9 Hypertensive chronic kidney disease with stage 1 through stage 4 chronic kidney disease, or unspecified chronic kidney disease; N18.31 Chronic kidney disease, stage 3a; E78.00 Pure hypercholesterolemia, unspecified; J44.9 Chronic obstructive pulmonary disease, unspecified; M51.37 Other intervertebral disc degeneration, lumbosacral region; M25.561 Pain in right knee; M25.562 Pain in left knee; G62.9 Polyneuropathy, unspecified; D64.9 Anemia, unspecified; R79.89 Other specified abnormal findings of blood chemistry
CPT/HCPCS: 99213

== ENCOUNTER 2023-10-19 11:27 | Outpatient (REF) | payer BC, SELFPAY ==
[2023-10-19 13:16] LABS: MANUAL DIFF FLAG NO
[2023-10-19 13:21] LABS: Basophils Absolute Auto 0.1 X10*3/uL (0.0-0.2); Basophils Percent Auto 1.1 % (0-2); Eosinophils Absolute Auto 0.2 X10*3/uL (0.0-0.4); Eosinophils Percent Auto 2.4 % (0-4); Hematocrit 45.5 % (42.0-52.0); Hemoglobin 15.5 g/dl (14.0-18.0); Imm Gran Abs Auto 0.03 X10*3/uL (0.00-0.03); Imm Gran Pct Auto 0.4 % (0.0-0.4); Lymphocytes Absolute Auto 1.8 X10*3/uL (1.2-4.9); Lymphocytes Percent Auto 25.5 % (20-40); Mean Corpuscular HGB Conc 34.1 g/dl (31.0-36.0); Mean Corpuscular Hemoglobin 27.9 pg (27.0-33.0); Mean Platelet Volume 8.9 fL (9.4-12.4); Monocytes Absolute Auto 0.5 X10*3/uL (0.1-1.2); Monocytes Percent Auto 7.5 % (2-11); Neutrophils Absolute Auto 4.4 x10*3/uL (2.0-8.3); Neutrophils Percent Auto 63.1 % (45-73); Platelet Count 294 X10*3/uL (160-400); Red Blood Count 5.55 X10*6/uL (4.60-5.80); Red Cell Distribution Width 12.7 % (11.0-16.0)
[2023-10-19 13:35] LABS: Appearance Urine Clear; Color Urine Yellow; Glucose Urine UA >=1000 mg/dL (Negative); Leukocyte Esterase Urine Negative (Negative); Nitrite Urine Negative (Negative); PH 5.5 (5.0-9.0); Specific Gravity - Urine >= 1.030 (1.005-1.025); UMIC TRIGGER UACC YES; Urine Blood Negative (Negative); Urine Ketones Negative (Negative); Urine Protein Trace mg/dL (Neg-Trace)
[2023-10-19 13:43] LABS: Estimated Average Glucose 309 mg/dL; Hemoglobin A1c % 12.4 % (<6.0)
[2023-10-19 13:46] LABS: Bacteria Urine None Seen (None Seen); Hyaline Casts Urine 0-2 /LPF (0-2); RBC Urine 0-2 /HPF (0-2); Squamous Epithelial Cell Urine 0-2 /HPF (0-2); WBC Urine 0-5 /HPF (0-5)
[2023-10-19 14:06] LABS: Alanine Aminotransferase 18 U/L (0-40); Albumin Level 4.2 g/dL (3.5-5.0); Alkaline Phosphatase 87 U/L (39-117); Anion Gap 16 (12-20); Aspartate Amino Transferase 11 U/L (5-37); Bilirubin Total 0.4 mg/dL (0.0-1.0); Blood Urea Nitrogen 24 mg/dL (9-16); Calcium 10.1 mg/dL (8.4-10.2); Carbon Dioxide 26 mmol/L (22-29); Chloride 100 mmol/L (96-108); Cholesterol 222 mg/dL (<200); Estimated Glomerular Filt Rate 59; Glucose Fasting 379 mg/dL (60-99); HDL Cholesterol 56 mg/dL (>40); LDL Cholesterol Calculated 105 mg/dL (<100); Potassium 4.7 mmol/L (3.3-5.1); Sodium 137 mmol/L (135-145); Total Protein 7.3 g/dL (6.5-8.0); Triglycerides 307 mg/dL (<150)
[2023-10-19 14:12] LABS: TSH reflex Free T4 1.69 uIU/mL (0.32-4.0)
[2023-10-19 14:21] LABS: Creatinine Urine 56.82 mg/dL; Microalbum/Creatinine Ratio Ur 195.3 ug/mg cr (<30)
[2023-10-19 14:32] LABS: Folate 9.2 ng/mL (> or = 4.0); Vitamin B12 535 pg/mL (200-900)
== END 2023-10-19 11:28 | disposition home or self-care (01) ==
LOC: HO.HMGCLDS 11:27
PROVIDERS: PCP Internal Medicine; Visit Provider Internal Medicine
DX: E11.9 Type 2 diabetes mellitus without complications (principal); D64.9 Anemia, unspecified; E78.00 Pure hypercholesterolemia, unspecified; E53.8 Deficiency of other specified B group vitamins; E55.9 Vitamin D deficiency, unspecified; R30.0 Dysuria
CPT/HCPCS: 36415; 80053; 80061; 81001; 82043; 82306; 82570; 82607; 82746; 83036; 84443; 85025

== ENCOUNTER 2023-10-19 16:38 | Outpatient (AMB) | payer BC, SELFPAY ==
[2023-10-19 16:44] VITALS: BP 176/96; PULSE 90; O2SAT 95; BMI 29.7
--- NOTE | 2023-10-19 16:44 | A.OFFPC_ITS ---
Vital Signs 10/19/23 16:44 Height 6 ft 1 in Weight 225 lb BMI 29.7 BP 176/96 H Blood Pressure Location Lt brachial Position Sitting Pulse 90 Pulse Source Pulse Oximeter Pulse Oximetry (%) 95 Oxygen Delivery Method Room Air 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 Management Integrative Medicine Physician Required: No Punch Finisher: Not Required per policy Accompanied by: Self / Same As Patient Allergies gabapentin Adverse Reaction (Intermediate, Verified 11/17/23 16:31) severe somnolence, dizziness Medication List - Last Reconciled 10/19/23 by Yobany Raymundo MD albuterol sulfate 90 mcg/actuation 2 puffs PO Q6H PRN amlodipine 10 mg PO DAILY 90 days Basaglar KwikPen U-100 Insulin (insulin glargine) 20 units (0.2 mL) subcut QPM 30 days NS blood sugar diagnostic (FreeStyle Lite Strips) As directed tests 4 X/day 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 meter,continuous (Dexcom G6 Order Takers Supervisor) As directed 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 sensor (Dexcom G6 Sensor device) As directed 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 transmitter (Dexcom G6 Transmitter device) USE DIRECTED carvedilol 12.5 mg PO BID 90 days cholecalciferol (vitamin D3) (Vitamin D3) 50 mcg PO DAILY 90 days empagliflozin (Jardiance) 10 mg PO QAM 90 days fenofibrate nanocrystallized 145 mg PO DAILY 90 days hydralazine 25 mg PO TID 90 days insulin lispro (Humalog KwikPen (U-100) Insulin) 20 units (0.2 mL) subcut TID 30 days lamotrigine 200 mg PO BID lorazepam 1 mg PO BID PRN 30 days losartan 50 mg PO DAILY 90 days Mounjaro (tirzepatide) 2.5 mg (0.5 mL) subcut QWEEK 4 weeks NS oxycodone 30 mg PO Q6H PRN 30 days oxycodone ER 80 mg PO Q6H 30 days pen needle, diabetic (BD Ultra-Fine Dee Pen Needle) As directed 4 times a day pravastatin 40 mg PO DAILY 90 days Tobacco use date assessed: 09/22/23 Dental Screening Dental Screen Date: 08/19/23 HPI Med Management HPI Details Patient comes in today for his follow up visit States that he feels okay He denies any headaches or dizziness Denies any chest pains, no SOB No nausea/vomiting, no abdominal pain No change in bowel habits noted States that his low back pain and lower extremity pain (due to neuropathy) remain adequately controlled on his current meds - needs his pain meds and Lorazepam Rx refilled He had his follow up labs done earlier this morning - to discuss his results [facility] Medical History Overweight (BMI 25.0-29.9) Obesity (BMI 30-39.9) Anxiety History of testicular cancer GERD without esophagitis Elevated LFTs Vitamin D deficiency Neuropathy Degeneration of lumbar or lumbosacral intervertebral disc Anemia Mild chronic obstructive pulmonary disease Benign essential hypertension Chronic kidney disease (CKD), stage II (mild) Type 2 diabetes mellitus with diabetic chronic kidney disease Type 2 diabetes mellitus with diabetic neuropathy, unspecified Surgical History History of colonoscopy (~06/24/16) History of orchiectomy Pure hypercholesterolemia History of lumbar surgery Family History Father Cancer Mother Diabetes Social History Household Members: Other Housing: House Alcohol intake: former Patient Tobacco Use Status: Never used Tobacco e-Cigarette/Vaping Use: Never Used Second Hand Smoke Exposure: Yes service: Yes Current occupational status: disabled Cognitive needs: No Hearing needs: No Vision needs: No Questionnaire Thrive Questionnaire Date Thrive assessed: 08/19/23 SHAHRIAR-7 AMB Questionnaire SHAHRIAR-7 Date SHAHRIAR - 7 assessed: 08/19/23 Source: Developed by Drs. Robbi Keller, Margie Cardona, Parvez Adan and colleagues, with an educational breonna from [employer]. Review of Systems Const Denies chills, Denies fatigue, Denies fever(s) and Denies headache(s) Eyes Denies blurry vision ENT Denies dysphagia, Denies dizziness, Denies otalgia, Denies headache(s), Denies neck pain, Denies odynophagia and Denies sore throat Card Denies chest pain, Denies palpitations and Denies dyspnea Resp Denies cough, Denies dyspnea and Denies wheezing GI Denies abdominal pain, Denies constipation, Denies dysphagia, Denies heartburn, Denies diarrhea, Denies nausea, Denies odynophagia and Denies vomiting Denies dysuria, Reports nocturia and Reports urinary frequency Musc Reports back pain (over the lumbar spine - chronic), Reports arthralgias (over both knees), Denies joint swelling and Denies neck pain Skin/Breast Denies rash Neuro Denies dizziness and Denies headache(s) Psych Reports anxiety and Reports depression Endo Denies fatigue, Denies polydipsia and Denies palpitations Aller/Immun Denies wheezing Physical exam (Primary Care) Vital Signs: Last Vital Signs Pulse 90 10/19/23 16:44 BP 176/96 H 10/19/23 16:44 Pulse Ox 95 10/19/23 16:44 Oxygen Delivery Method Room Air 10/19/23 16:44 BMI result Body Mass Index 29.7 Tobacco/Smoking Status: Tobacco use Status Tobacco use date assessed 09/22/23 10/19/23 16:45 Patient Tobacco Use Status Never used Tobacco 10/19/23 16:45 e-Cigarette/Vaping Use Never Used 10/19/23 16:45 Thrive Assessment: Date of Thrive Assessment Date Thrive assessed 08/19/23 10/19/23 16:45 Const General: no acute distress and alert HENMT Ears: TM's normal bilaterally and EAC's normal Throat: Yes posterior oropharynx normal and Yes tonsils normal (no TP congestion noted) Neck Neck: Yes no lymphadenopathy and Yes supple Thyroid: Thyroid normal Resp Auscultation: clear to auscultation bilaterally, no rales and no wheezes Cardio Rate: regular rate Rhythm: regular rhythm Heart sounds: no murmurs GI Palpation (GI): Soft to palpation and nontender Auscultation: normal bowel sounds General: Yes no CVA tenderness Back/Spine/Pelvis Back: no CVA tenderness Thoracic/Lumbar Spine: lumbar spinal tenderness (chronic) Skin Rashes: no rashes Extrem General: Yes no clubbing, cyanosis or edema Results Reviewed Results Reviewed: Laboratory Tests 10/19/23 11:37 WBC 7.0 Hgb 15.5 Hct 45.5 Plt Count 294 Sodium 137 Potassium 4.7 D Creatinine 1.26 Estimated GFR 59 Fasting Glucose 379 H* Hemoglobin A1c % 12.4 H Calcium 10.1 AST 11 ALT 18 Triglycerides 307 H Cholesterol 222 H LDL Cholesterol, Calc 105 H HDL Cholesterol 56 Vitamin B12 535 25-OH Vitamin D Total 45.0 Folate 9.2 TSH 1.69 Ur Specific [place] >= 1.030 H Urine Protein Trace Urine Glucose (UA) >=1000 H Urine Ketones Negative Urine Blood Negative Urine Nitrite Negative Ur Leukocyte Esterase Negative Microalb/Creat Ratio 195.3 H Assessment and Plan Assessment & Plan (1) Uncontrolled diabetes mellitus with hyperglycemia: Code(s): E11.65 - Type 2 diabetes mellitus with hyperglycemia Qualifiers: Diabetes mellitus type: type 2 Qualified Code(s): E11.65 - Type 2 diabetes mellitus with hyperglycemia Plan: His HgbA1c is at 12.4% on his labs done earlier today (HgbA1c was at 13.6% last month) - goal is at least <7.0% Reinforced diabetic diet He is currently on Humalog Kwikpen 20 units TID with meals, Basaglar 20 units Q HS and will continue him on the same dose Will increase his Jardiance from 10 mg to 25 mg QD and his Mounjaro from 2.5 mg to 5 mg SQ once a week He has been referred to Endocrinology but he prefers not seeing endocrinology as he is tired and frustrated at having to pay his $60 co-pay every time he is seen by endocrinology and he feels that he is only seen there for a few minutes and is not even getting the proper attention and treatment there Feels that what we currently have him on has been working a lot better for him (and he feels a lot better on) than any of the Rx or Tx that endocrinology had him on in the past Will also refer him to ophthalmology for his annual eye exam (2) Hyponatremia: Code(s): E87.1 - Hypo-osmolality and hyponatremia Plan: His serum sodium level remains normal on his labs done earlier today Advised again that this is likely related to his declining renal function as well as his hyperglycemia We will continue to monitor this regularly Follow up with nephrology as scheduled (3) Chronic kidney disease (CKD), stage III (moderate): Code(s): N18.30 - Chronic kidney disease, stage 3 unspecified Qualifiers: Chronic kidney disease stage 3 subtype: stage 3a (GFR 45-59) Qualified Code(s): N18.31 - Chronic kidney disease, stage 3a Plan: Patient is advised that his renal function appears to have stabilized again on his labs done earlier today, based on his recent lab results but cautioned that this can change very quickly as long as his diabetes is uncontrolled Follow up with nephrology as scheduled (4) Benign essential hypertension: Code(s): I10 - Essential (primary) hypertension Plan: Reinforced low-sodium diet -? goal is systolic BP of at least 130 mm or less Continue Amlodipine 10 mg QD, Carvedilol 12.5 mg BID, Hydralazine 25 mg TID and Losartan 50 mg QD He is reminded to continue monitoring and checking his blood pressure regularly (5) Pure hypercholesterolemia: Code(s): E78.00 - Pure hypercholesterolemia, unspecified Plan: Results of his labs done earlier today reviewed and discussed with patient Reinforced low cholesterol diet Continue Pravastatin 20 mg QD and Fenofibrate 145 mg QD (6) Mild chronic obstructive pulmonary disease: Code(s): J44.9 - Chronic obstructive pulmonary disease, unspecified Plan: Stable -? PFTs done a couple of years ago showed mild COPD Patient has been mostly asymptomatic and has not needed to use any of his inhalers lately unless he comes down with a cold or respiratory infection (7) Neuropathy: Code(s): G62.9 - Polyneuropathy, unspecified Plan: EMG and NCV of both lower extremities done in 2017 showed (+)? 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 chronic bilateral lower lumbar radiculopathy Continue Nortriptyline 50 mg Q HS Emphasized again the importance of tight glycemic control to slow down the progression of his neuropathy Follow up with podiatry as scheduled for regular/annual foot exam and diabetic foot care (8) Degeneration of lumbar or lumbosacral intervertebral disc: Code(s): M51.37 - Other intervertebral disc degeneration, lumbosacral region Plan: Reinforced activity and weight lifting restrictions Continue Oxycodone 30 mg every 6-8 hours as needed and Oxycodone ER 80 mg every 6 hours - Rx refilled today (9) Bilateral knee pain: Code(s): M25.561 - Pain in right knee; M25.562 - Pain in left knee Qualifiers: Chronicity: unspecified Qualified Code(s): M25.561 - Pain in right knee; M25.562 - Pain in left knee Plan: X-rays of both knees done last year revealed (+) mild OA changes in the right knee; left knee x-rays were normal Was recommended to see orthopedics for further evaluation and management of his knee symptoms but patient prefers to hold off for now and he will call for referral when he feels he is ready to or needs to see orthopedics (10) Anemia: Code(s): D64.9 - Anemia, unspecified Qualifiers: Anemia type: unspecified type Qualified Code(s): D64.9 - Anemia, unspecified Plan: Most likely anemia of chronic disease although his H/H have corrected and have remained normal on his recent labs Will continue to monitor his CBC regularly (11) Elevated LFTs: Code(s): R79.89 - Other specified abnormal findings of blood chemistry Plan: His LFTs have remained normal on his recent labs - were most likely due to his weight and his medications and cholesterol level Reminded that losing weight will help keep his LFTs from going back up Will continue to monitor his LFTs regularly (12) GERD without esophagitis: Code(s): K21.9 - Gastro-esophageal reflux disease without esophagitis Plan: Dietary restrictions reinforced (13) Vitamin D deficiency: Code(s): E55.9 - Vitamin D deficiency, unspecified Plan: Continue Vitamin D3 1000 units QD (14) History of testicular cancer: Comment: S/P left orchiectomy Code(s): Z85.47 - Personal history of malignant neoplasm of testis Plan: S/P left orchiectomy - in remission Follow-up with Oncology/ urology as scheduled for continuing surveillance (15) Anxiety: Code(s): F41.9 - Anxiety disorder, unspecified Plan: Continue Lorazepam 1 mg 1 to 2 times a day as needed - Rx refilled (16) Overweight (BMI 25.0-29.9): Code(s): E66.3 - Overweight Plan: Reinforced diet/exercise as tolerated/lose weight - he has been able to lose some weight lately Plan Follow up in 1 month Orders: Referrals Ophthalmology Referral E11.65 - Type 2 diabetes mellitus with hyperglycemia, E11.319 - Type 2 diabetes mellitus with unspecified diabetic retinopathy without macular edema Medications: Changed From empagliflozin 10 mg PO QAM 90 days 90 tabs 3RF E11.40 - Type 2 diabetes mellitus with diabetic neuropathy, unspecified To empagliflozin 25 mg PO QAM 90 tabs 3RF 90 days E11.40 - Type 2 diabetes mellitus with diabetic neuropathy, unspecified From Mounjaro 2.5 mg (0.5 mL) subcut QWEEK 4 weeks 2 mL 3RF NS To tirzepatide 5 mg (0.5 mL) subcut QWEEK 2 mL 3RF 4 weeks Refilled lorazepam 1 mg PO BID PRN 60 tabs 0RF anxiety 30 days F41.9 - Anxiety disorder, unspecified oxycodone 30 mg PO Q6H PRN 120 tabs 0RF pain 30 days M51.37 - Other intervertebral disc degeneration, lumbosacral region oxycodone ER 80 mg PO Q6H 120 tabs 0RF 30 days M51.37 - Other intervertebral disc degeneration, lumbosacral region Coding Level of Care Code Est Pt Level 4 (42059) Complex EM visit Add On G2211 Diagnoses Uncontrolled type 2 diabetes mellitus with hyperglycemia E11.65 Diabetes mellitus type: type 2 Hyponatremia E87.1 Stage 3a chronic kidney disease N18.31 Chronic kidney disease stage 3 subtype: stage 3a (GFR 45-59) Benign essential hypertension I10 Pure hypercholesterolemia E78.00 Mild chronic obstructive pulmonary disease J44.9 Neuropathy G62.9 Degeneration of lumbar or lumbosacral intervertebral disc M51.37 Pain in both knees, unspecified chronicity M25.561; M25.562 Chronicity: unspecified Anemia, unspecified type D64.9 Anemia type: unspecified type Elevated LFTs R79.89 GERD without esophagitis K21.9 Vitamin D deficiency E55.9 History of testicular cancer Z85.47 Anxiety F41.9 Overweight (BMI 25.0-29.9) E66.3
== END 2023-10-19 17:13 | disposition home or self-care (01) ==
PROVIDERS: PCP Internal Medicine; Visit Provider Internal Medicine
DX: I12.9 Hypertensive chronic kidney disease with stage 1 through stage 4 chronic kidney disease, or unspecified chronic kidney disease (principal); E11.65 Type 2 diabetes mellitus with hyperglycemia; N18.31 Chronic kidney disease, stage 3a; J44.9 Chronic obstructive pulmonary disease, unspecified; E87.1 Hypo-osmolality and hyponatremia; E78.00 Pure hypercholesterolemia, unspecified; G62.9 Polyneuropathy, unspecified; M51.37 Other intervertebral disc degeneration, lumbosacral region; M25.561 Pain in right knee; M25.562 Pain in left knee; D64.9 Anemia, unspecified; R79.89 Other specified abnormal findings of blood chemistry
CPT/HCPCS: 99214

== ENCOUNTER 2023-11-17 15:26 | Outpatient (AMB) | payer BC, SELFPAY ==
[2023-11-17 15:27] VITALS: BP 156/80; PULSE 86; O2SAT 100; BMI 30.5
--- NOTE | 2023-11-17 15:27 | A.OFFPC_ITS ---
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 Allergies gabapentin Adverse Reaction (Intermediate, Verified 11/17/23 16:31) severe somnolence, dizziness Medication List - Last Reconciled 11/17/23 by Yobany Raymundo MD albuterol sulfate 90 mcg/actuation 2 puffs PO Q6H PRN amlodipine 10 mg PO DAILY 90 days Basaglar KwikPen U-100 Insulin (insulin glargine) 20 units (0.2 mL) subcut QPM 30 days NS blood sugar diagnostic (FreeStyle Lite Strips) As directed tests 4 X/day 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 meter,continuous (Dexcom G6 Combat Control) As directed 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 sensor (Dexcom G6 Sensor device) As directed 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 transmitter (Dexcom G6 Transmitter device) USE DIRECTED carvedilol 12.5 mg PO BID 90 days cholecalciferol (vitamin D3) (Vitamin D3) 50 mcg PO DAILY 90 days empagliflozin 25 mg PO QAM 90 days fenofibrate nanocrystallized 145 mg PO DAILY 90 days hydralazine 25 mg PO TID 90 days insulin lispro (Humalog KwikPen (U-100) Insulin) 20 units (0.2 mL) subcut TID 30 days lamotrigine 200 mg PO BID lorazepam 1 mg PO BID PRN 30 days losartan 50 mg PO DAILY 90 days oxycodone 30 mg PO Q6H PRN 30 days oxycodone ER 80 mg PO Q6H 30 days pen needle, diabetic (BD Ultra-Fine Dee Pen Needle) As directed 4 times a day pravastatin 40 mg PO DAILY 90 days tirzepatide 5 mg (0.5 mL) subcut QWEEK 4 weeks Tobacco use date assessed: 11/17/23 Dental Screening Dental Screen Date: 11/17/23 HPI Med Management HPI Details Patient comes in today for his follow up visit States that he feels okay He denies any headaches or dizziness Denies any chest pains, no SOB No nausea/vomiting, no abdominal pain No change in bowel habits noted States that his low back pain and lower extremity pain (due to neuropathy) remain adequately controlled on his current meds - needs again his pain meds and Lorazepam Rx refilled PFSH Medical History Overweight (BMI 25.0-29.9) Obesity (BMI 30-39.9) Anxiety History of testicular cancer GERD without esophagitis Elevated LFTs Vitamin D deficiency Neuropathy Degeneration of lumbar or lumbosacral intervertebral disc Anemia Mild chronic obstructive pulmonary disease Benign essential hypertension Chronic kidney disease (CKD), stage II (mild) Type 2 diabetes mellitus with diabetic chronic kidney disease Type 2 diabetes mellitus with diabetic neuropathy, unspecified Surgical History History of colonoscopy (~06/24/16) History of orchiectomy Pure hypercholesterolemia History of lumbar surgery Family History Father Cancer Mother Diabetes Social History Household Members: Other Housing: House Alcohol intake: former Patient Tobacco Use Status: Never used Tobacco e-Cigarette/Vaping Use: Never Used Second Hand Smoke Exposure: Yes service: Yes Current occupational status: disabled Cognitive needs: No Hearing needs: No Vision needs: No Questionnaire Thrive Questionnaire Date Thrive assessed: 08/19/23 AUDIT C Alcohol Use Questionnaire (AUDIT-C) 1. How often do you have a drink containing alcohol?: Never 3. How often do you have six or more drinks on one occasion?: Never Total Score: 0 Score Reviewed/Action Taken: Yes SHAHRIAR-7 AMB Questionnaire SHAHRIAR-7 Date SHAHRIAR - 7 assessed: 08/19/23 Source: Developed by Drs. Robbi Keller, Margie Cardona, Parvez Adan and colleagues, with an educational breonna from [employer]. Review of Systems Const Denies chills, Denies fatigue, Denies fever(s) and Denies headache(s) ENT Denies dysphagia, Denies dizziness, Denies headache(s), Denies neck pain, Denies odynophagia and Denies sore throat Card Denies chest pain, Denies palpitations and Denies dyspnea Resp Denies cough, Denies dyspnea and Denies wheezing GI Denies abdominal pain, Denies constipation, Denies dysphagia, Denies heartburn, Denies diarrhea, Denies nausea, Denies odynophagia and Denies vomiting Denies dysuria, Reports nocturia and Reports urinary frequency Musc Reports back pain (over the lumbar spine - chronic), Reports arthralgias (over both knees; increased in the right shoulder lately), Denies joint swelling, Denies neck pain and Reports stiffness (a couple of fingers lock up every now and then) Skin/Breast Denies rash Neuro Denies dizziness and Denies headache(s) Psych Reports anxiety and Reports depression Endo Denies fatigue, Denies polydipsia and Denies palpitations Aller/Immun Denies wheezing Physical exam (Primary Care) Vital Signs: Last Vital Signs Pulse 86 11/17/23 15:27 BP 156/80 H 11/17/23 15:27 Pulse Ox 100 11/17/23 15:27 Oxygen Delivery Method Room Air 11/17/23 15:27 BMI result Body Mass Index 30.5 Tobacco/Smoking Status: Tobacco use Status Tobacco use date assessed 11/17/23 11/17/23 15:28 Patient Tobacco Use Status Never used Tobacco 11/17/23 15:28 e-Cigarette/Vaping Use Never Used 11/17/23 15:28 Thrive Assessment: Date of Thrive Assessment Date Thrive assessed 08/19/23 11/17/23 15:28 Const General: no acute distress and alert HENMT Throat: Yes posterior oropharynx normal and Yes tonsils normal (no TP congestion noted) Neck Neck: Yes no lymphadenopathy and Yes supple Thyroid: Thyroid normal Resp Auscultation: clear to auscultation bilaterally, no rales and no wheezes Cardio Rate: regular rate Rhythm: regular rhythm Heart sounds: no murmurs GI Palpation (GI): Soft to palpation and nontender Auscultation: normal bowel sounds General: Yes no CVA tenderness Back/Spine/Pelvis Back: no CVA tenderness Thoracic/Lumbar Spine: lumbar spinal tenderness (chronic) Skin Rashes: no rashes Extrem General: Yes no clubbing, cyanosis or edema Results AMB Hemoglobin A1c AMB Hemoglobin A1c 14.0 % Last Edit by PIETER Cage on 11/17/23 16:41 14.0> Анна Brito 11/17/23 16:41 Results Reviewed Results Reviewed: Laboratory Last Values Hgb A1c (Clinic) 14.0 % (4.0-6.0) H 11/17/23 16:35 Assessment and Plan Assessment & Plan (1) Uncontrolled diabetes mellitus with hyperglycemia: Code(s): E11.65 - Type 2 diabetes mellitus with hyperglycemia Qualifiers: Diabetes mellitus type: type 2 Qualified Code(s): E11.65 - Type 2 diabetes mellitus with hyperglycemia Plan: His in-office HgbA1c today is again >14.0% (HgbA1c was at 12.4% last month) - goal is at least <7.0% Reinforced diabetic diet Will now increase his Humalog Kwikpen to 30 units TID with meals and his Basaglar to 30 units Q HS Continue Jardiance 10 mg QD and Mounjaro 2.5 mg SQ once a week He has been referred to Endocrinology but he still prefers not seeing endocrinology as he is tired and frustrated at having to pay his $60 co-pay every time he is seen by endocrinology and he feels that he is only seen there for a few minutes and is not even getting the proper attention and treatment there He feels that what we currently have him on has been working a lot better for him (and he feels a lot better on) than any of the Rx or Tx that endocrinology had him on in the past (2) Hyponatremia: Code(s): E87.1 - Hypo-osmolality and hyponatremia Plan: His serum sodium level has remained normal at 137 on his labs done last month He is advised again that this is likely related to his declining renal function as well as his hyperglycemia We will continue to monitor this regularly Follow up with nephrology as scheduled (3) Chronic kidney disease (CKD), stage III (moderate): Code(s): N18.30 - Chronic kidney disease, stage 3 unspecified Qualifiers: Chronic kidney disease stage 3 subtype: stage 3a (GFR 45-59) Qualified Code(s): N18.31 - Chronic kidney disease, stage 3a Plan: Patient is advised that his renal function appears to have stabilized again lately, based on his recent lab results from last month but cautioned that this can change very quickly as long as his diabetes is uncontrolled Follow up with nephrology as scheduled (4) Benign essential hypertension: Code(s): I10 - Essential (primary) hypertension Plan: Reinforced low-sodium diet -? goal is systolic BP of at least 130 mm or less Continue Amlodipine 10 mg QD, Carvedilol 12.5 mg BID, Hydralazine 25 mg TID and Losartan 50 mg QD for now He is reminded to continue monitoring and checking his blood pressure regularly (5) Pure hypercholesterolemia: Code(s): E78.00 - Pure hypercholesterolemia, unspecified Plan: Reinforced low cholesterol diet Continue Pravastatin 20 mg QD and Fenofibrate 145 mg QD (6) Mild chronic obstructive pulmonary disease: Code(s): J44.9 - Chronic obstructive pulmonary disease, unspecified Plan: Stable -? PFTs done a couple of years ago showed mild COPD Patient has been mostly asymptomatic and has not needed to use any of his inhalers lately except for when he came down with a cold or respiratory infection (7) Degeneration of lumbar or lumbosacral intervertebral disc: Code(s): M51.37 - Other intervertebral disc degeneration, lumbosacral region Plan: Reinforced activity and weight lifting restrictions Continue Oxycodone 30 mg every 6-8 hours as needed and Oxycodone ER 80 mg every 6 hours - Rx refilled today (8) Bilateral knee pain: Code(s): M25.561 - Pain in right knee; M25.562 - Pain in left knee Qualifiers: Chronicity: unspecified Qualified Code(s): M25.561 - Pain in right knee; M25.562 - Pain in left knee Plan: X-rays of both knees done last year revealed (+) mild OA changes in the right knee; left knee x-rays were normal Was recommended to see orthopedics for further evaluation and management of his knee symptoms but patient prefers to hold off for now and he will call for referral when he feels he is ready to or needs to see orthopedics (9) Neuropathy: Code(s): G62.9 - Polyneuropathy, unspecified Plan: EMG and NCV of both lower extremities done in 2017 showed (+)? 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 chronic bilateral lower lumbar radiculopathy Continue Nortriptyline 50 mg Q HS Emphasized again the importance of tight glycemic control to slow down the progression of his neuropathy Follow up with podiatry as scheduled for regular/annual foot exam and diabetic foot care (10) Anemia: Code(s): D64.9 - Anemia, unspecified Qualifiers: Anemia type: unspecified type Qualified Code(s): D64.9 - Anemia, unspecified Plan: Most likely anemia of chronic disease although his H/H have corrected and have remained normal on his recent labs Will continue to monitor his CBC regularly (11) Elevated LFTs: Code(s): R79.89 - Other specified abnormal findings of blood chemistry Plan: His LFTs have remained normal on his recent labs - were most likely due to his weight and his medications and cholesterol level Reminded that losing weight will help keep his LFTs from going back up Will continue to monitor his LFTs regularly (12) GERD without esophagitis: Code(s): K21.9 - Gastro-esophageal reflux disease without esophagitis Plan: Dietary restrictions reinforced (13) Vitamin D deficiency: Code(s): E55.9 - Vitamin D deficiency, unspecified Plan: Continue Vitamin D3 1000 units QD (14) History of testicular cancer: Comment: S/P left orchiectomy Code(s): Z85.47 - Personal history of malignant neoplasm of testis Plan: S/P left orchiectomy - in remission Follow-up with Oncology/ urology as scheduled for continuing surveillance (15) Anxiety: Code(s): F41.9 - Anxiety disorder, unspecified Plan: Continue Lorazepam 1 mg 1 to 2 times a day as needed - Rx refilled (16) Obesity (BMI 30-39.9): Code(s): E66.9 - Obesity, unspecified Plan: Reinforced diet/exercise as tolerated/lose weight Plan Follow up in 1 month Orders: Orders AMB Hemoglobin A1c 11/17/23 E11.40 - Type 2 diabetes mellitus with diabetic neuropathy, unspecified Medications: Changed From Basaglar KwikPen U-100 Insulin (insulin glargine) 20 units (0.2 mL) subcut QPM 30 days 15 mL 3RF NS To Basaglar KwikPen U-100 Insulin (insulin glargine) 30 units (0.3 mL) subcut QPM 30 days 9 mL 3RF NS From insulin lispro (Humalog KwikPen (U-100) Insulin) 20 units (0.2 mL) subcut TID 30 days 18 mL 3RF To Humalog KwikPen Insulin (insulin lispro) 30 units (0.3 mL) subcut TID 30 days 30 mL 3RF NS Refilled lorazepam 1 mg PO BID 30 days PRN 60 tabs 0RF anxiety F41.9 - Anxiety disorder, unspecified oxycodone 30 mg PO Q6H 30 days PRN 120 tabs 0RF pain M51.37 - Other intervertebral disc degeneration, lumbosacral region oxycodone ER 80 mg PO Q6H 30 days 120 tabs 0RF M51.37 - Other intervertebral disc degeneration, lumbosacral region Coding Level of Care Code Est Pt Level 4 (09250) Complex EM visit Add On G2211 Diagnoses Uncontrolled type 2 diabetes mellitus with hyperglycemia E11.65 Diabetes mellitus type: type 2 Hyponatremia E87.1 Stage 3a chronic kidney disease N18.31 Chronic kidney disease stage 3 subtype: stage 3a (GFR 45-59) Benign essential hypertension I10 Pure hypercholesterolemia E78.00 Mild chronic obstructive pulmonary disease J44.9 Degeneration of lumbar or lumbosacral intervertebral disc M51.37 Pain in both knees, unspecified chronicity M25.561; M25.562 Chronicity: unspecified Neuropathy G62.9 Anemia, unspecified type D64.9 Anemia type: unspecified type Elevated LFTs R79.89 GERD without esophagitis K21.9 Vitamin D deficiency E55.9 History of testicular cancer Z85.47 Anxiety F41.9 Obesity (BMI 30-39.9) E66.9
== END 2023-11-17 16:45 | disposition home or self-care (01) ==
PROVIDERS: PCP Internal Medicine; Visit Provider Internal Medicine
DX: E11.40 Type 2 diabetes mellitus with diabetic neuropathy, unspecified (principal)
CPT/HCPCS: 83036; 99214

== ENCOUNTER 2023-12-15 09:49 | Outpatient (AMB) | payer BC, SELFPAY ==
[2023-12-15 09:55] VITALS: BP 176/110; PULSE 111; O2SAT 98; BMI 29.0
--- NOTE | 2023-12-15 09:55 | MHC.PC.OV ---
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: No Allergies gabapentin Adverse Reaction (Intermediate, Verified 12/15/23 10:21) severe somnolence, dizziness Medication List - Last Reconciled 12/15/23 by Yobany Raymundo MD albuterol sulfate 90 mcg/actuation 2 puffs PO Q6H PRN amlodipine 10 mg PO DAILY 90 days Basaglar KwikPen U-100 Insulin (insulin glargine) 30 units (0.3 mL) subcut QPM 30 days NS blood sugar diagnostic (FreeStyle Lite Strips) As directed tests 4 X/day 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 meter,continuous ([employer] G6 [employer]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) As directed 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 sensor (Dexcom G6 Sensor device) As directed 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 transmitter (Dexcom G6 Transmitter device) USE DIRECTED carvedilol 12.5 mg PO BID 90 days cholecalciferol (vitamin D3) (Vitamin D3) 50 mcg PO DAILY 90 days empagliflozin 25 mg PO QAM 90 days fenofibrate nanocrystallized 145 mg PO DAILY 90 days Humalog KwikPen Insulin (insulin lispro) 30 units (0.3 mL) subcut TID 30 days NS hydralazine 25 mg PO TID 90 days lamotrigine 200 mg PO BID lorazepam 1 mg PO BID PRN 30 days losartan 50 mg PO DAILY 90 days oxycodone 30 mg PO Q6H PRN 30 days oxycodone ER 80 mg PO Q6H 30 days pen needle, diabetic (BD Ultra-Fine Dee Pen Needle) As directed 4 times a day pravastatin 40 mg PO DAILY 90 days tirzepatide 5 mg (0.5 mL) subcut QWEEK 4 weeks Tobacco use date assessed: 11/17/23 Dental Screening Dental Screen Date: 11/17/23 HPI Med Management HPI Details Patient comes in today for his follow up visit Relates (+) fatigue but states that otherwise he feels okay He denies any headaches or dizziness Denies any chest pains, no SOB No nausea/vomiting, no abdominal pain No change in bowel habits noted States that his low back pain and lower extremity pain (due to neuropathy) remain adequately controlled on his current meds and again needs his pain meds and Lorazepam Rx refilled but he is aggravated by the fact that his insurance is requiring a prior authorization again on his meds and he has been playing phone tag for hours since yesterday with all the parties involved, including his insurance company and with the office and he thinks that this may be what is affecting his blood pressure, which is high today He is supposed to sign a new pain management agreement in the office today and provide a urine sample for a random drug screen, which was advised by his insurance company that these need to be sent to them as part of his prior authorization process States that his blood sugar seems to be responding to the dose adjustments in his meds that we did last month [facility] Medical History Overweight (BMI 25.0-29.9) Obesity (BMI 30-39.9) Anxiety History of testicular cancer GERD without esophagitis Elevated LFTs Vitamin D deficiency Neuropathy Degeneration of lumbar or lumbosacral intervertebral disc Anemia Mild chronic obstructive pulmonary disease Benign essential hypertension Chronic kidney disease (CKD), stage II (mild) Type 2 diabetes mellitus with diabetic chronic kidney disease Type 2 diabetes mellitus with diabetic neuropathy, unspecified Surgical History History of colonoscopy (~06/24/16) History of orchiectomy Pure hypercholesterolemia History of lumbar surgery Family History Father Cancer Mother Diabetes Social History Household Members: Other Housing: House Alcohol intake: former Patient Tobacco Use Status: Never used Tobacco e-Cigarette/Vaping Use: Never Used Second Hand Smoke Exposure: Yes service: Yes Current occupational status: disabled Cognitive needs: No Hearing needs: No Vision needs: No Questionnaire Thrive Questionnaire Date Thrive assessed: 08/19/23 AUDIT C Alcohol Use Questionnaire (AUDIT-C) 1. How often do you have a drink containing alcohol?: Never 3. How often do you have six or more drinks on one occasion?: Never Total Score: 0 Score Reviewed/Action Taken: Yes SHAHRIAR-7 AMB Questionnaire SHAHRIAR-7 Date SHAHRIAR - 7 assessed: 08/19/23 Source: Developed by Drs. Robbi Keller, Margie Cardona, Parvez Adan and colleagues, with an educational breonna from [employer]. Review of Systems Const Denies chills, Reports fatigue, Denies fever(s) and Denies headache(s) ENT Denies dysphagia, Denies dizziness, Denies otalgia, Denies headache(s), Denies neck pain, Denies odynophagia and Denies sore throat Card Denies chest pain, Denies palpitations and Denies dyspnea Resp Denies cough, Denies dyspnea and Denies wheezing GI Denies abdominal pain, Denies constipation, Denies dysphagia, Denies heartburn, Denies diarrhea, Denies nausea, Denies odynophagia and Denies vomiting Denies dysuria, Reports nocturia and Reports urinary frequency Musc Reports back pain (over the lumbar spine - chronic), Reports arthralgias (over both knees; increased in the right shoulder lately), Denies joint swelling, Denies neck pain and Reports stiffness (a couple of fingers lock up every now and then) Skin/Breast Denies rash Neuro Denies dizziness and Denies headache(s) Psych Reports anxiety and Reports depression Endo Reports fatigue, Denies polydipsia and Denies palpitations Aller/Immun Denies wheezing Physical exam (Primary Care) Vital Signs: Last Vital Signs Pulse 111 H 12/15/23 09:55 BP 176/110 H 12/15/23 09:55 Pulse Ox 98 12/15/23 09:55 Oxygen Delivery Method Room Air 12/15/23 09:55 BMI result Body Mass Index 29.0 Tobacco/Smoking Status: Tobacco use Status Tobacco use date assessed 11/17/23 12/15/23 09:56 Patient Tobacco Use Status Never used Tobacco 12/15/23 09:56 e-Cigarette/Vaping Use Never Used 12/15/23 09:56 Thrive Assessment: Date of Thrive Assessment Date Thrive assessed 08/19/23 12/15/23 09:56 Const General: no acute distress and alert HENMT Ears: TM's normal bilaterally and EAC's normal Throat: Yes posterior oropharynx normal and Yes tonsils normal (no TP congestion noted) Neck Neck: Yes no lymphadenopathy and Yes supple Thyroid: Thyroid normal Resp Auscultation: clear to auscultation bilaterally, no rales and no wheezes Cardio Rate: regular rate Rhythm: regular rhythm Heart sounds: no murmurs GI Palpation (GI): Soft to palpation and nontender Auscultation: normal bowel sounds General: Yes no CVA tenderness Back/Spine/Pelvis Back: no CVA tenderness Thoracic/Lumbar Spine: lumbar spinal tenderness (chronic) Skin Rashes: no rashes Extrem General: Yes no clubbing, cyanosis or edema Results AMB Hemoglobin A1c AMB Hemoglobin A1c 13.5 % Last Edit by PIETER Cage on 12/15/23 10:35 Assessment and Plan Assessment & Plan (1) Uncontrolled diabetes mellitus with hyperglycemia: Code(s): E11.65 - Type 2 diabetes mellitus with hyperglycemia Qualifiers: Diabetes mellitus type: type 2 Qualified Code(s): E11.65 - Type 2 diabetes mellitus with hyperglycemia Plan: His in-office HgbA1c done today is at >13.5% (was >14.0% last month) - goal is at least <7.0% Reinforced diabetic diet Will now increase his Humalog Kwikpen further to 35 units TID with meals and his Basaglar to 40 units Q HS Continue Jardiance 25 mg QD and Mounjaro 2.5 mg SQ once a week He is advised that I want to see his blood sugar readings and glycemic control continue to trend downwards consistently and not backtrack again He has been referred to Endocrinology but he still prefers not seeing endocrinology as he is tired and frustrated at having to pay his $60 co-pay every time he is seen by endocrinology and he feels that he is only seen there for a few minutes and is not even getting the proper attention and treatment there He feels that what we currently have him on has been working a lot better for him (and he feels a lot better on) than any of the Rx or Tx that endocrinology had him on in the past (2) Hyponatremia: Code(s): E87.1 - Hypo-osmolality and hyponatremia Plan: His serum sodium level has remained normal at 137 on his labs done a couple of months ago - he was advised that this is likely related to his declining renal function as well as his persistent hyperglycemia and we will continue to monitor this regularly Follow up with nephrology as scheduled (3) Chronic kidney disease (CKD), stage III (moderate): Code(s): N18.30 - Chronic kidney disease, stage 3 unspecified Qualifiers: Chronic kidney disease stage 3 subtype: stage 3a (GFR 45-59) Qualified Code(s): N18.31 - Chronic kidney disease, stage 3a Plan: Patient is advised that his renal function appears to have stabilized again lately, based on his recent lab results from a couple of months ago but cautioned that this can change very quickly as long as his diabetes is uncontrolled Follow up with nephrology as scheduled (4) Benign essential hypertension: Code(s): I10 - Essential (primary) hypertension Plan: Reinforced low-sodium diet -? goal is systolic BP of at least 130 mm or less His BP is still high today but he states that he has also been very aggravated for the past few days regarding the PA process on his pain meds Continue Amlodipine 10 mg QD, Carvedilol 12.5 mg BID, Hydralazine 25 mg TID and Losartan 50 mg QD for now He is reminded to continue monitoring and checking his blood pressure regularly (5) Pure hypercholesterolemia: Code(s): E78.00 - Pure hypercholesterolemia, unspecified Plan: Reinforced low cholesterol diet Continue Pravastatin 20 mg QD and Fenofibrate 145 mg QD Will have him recheck his labs and fasting lipids next month for follow up (6) Mild chronic obstructive pulmonary disease: Code(s): J44.9 - Chronic obstructive pulmonary disease, unspecified Plan: Stable -? PFTs done a couple of years ago showed mild COPD Patient has been mostly asymptomatic and has not needed to use any of his inhalers lately except for when he came down with a cold or respiratory infection (7) Degeneration of lumbar or lumbosacral intervertebral disc: Code(s): M51.37 - Other intervertebral disc degeneration, lumbosacral region Plan: Reinforced activity and weight lifting restrictions Continue Oxycodone 30 mg every 6-8 hours as needed and Oxycodone ER 80 mg every 6 hours - Rx refilled today As requested, have discussed with patient and updated his pain management agreement today Will also have him do a random UDS today for compliance (8) Bilateral knee pain: Code(s): M25.561 - Pain in right knee; M25.562 - Pain in left knee Qualifiers: Chronicity: unspecified Qualified Code(s): M25.561 - Pain in right knee; M25.562 - Pain in left knee Plan: X-rays of both knees done last year revealed (+) mild OA changes in the right knee; left knee x-rays were normal He was recommended to see orthopedics for further evaluation and management of his knee symptoms but patient prefers to hold off for now and he will call for referral when he feels he is ready to or needs to see orthopedics (9) Neuropathy: Code(s): G62.9 - Polyneuropathy, unspecified Plan: EMG and NCV of both lower extremities done in 2017 showed (+)? 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 chronic bilateral lower lumbar radiculopathy Continue Nortriptyline 50 mg Q HS Emphasized again the importance of tight glycemic control to slow down the progression of his neuropathy Follow up with podiatry as scheduled for regular/annual foot exam and diabetic foot care (10) Anemia: Code(s): D64.9 - Anemia, unspecified Qualifiers: Anemia type: unspecified type Qualified Code(s): D64.9 - Anemia, unspecified Plan: Most likely anemia of chronic disease although his H/H have corrected and have remained normal on his recent labs Will continue to monitor his CBC regularly (11) Elevated LFTs: Code(s): R79.89 - Other specified abnormal findings of blood chemistry Plan: His LFTs have remained normal on his recent labs - were most likely due to his weight and his medications and cholesterol level Reminded that losing weight will help keep his LFTs from going back up Will continue to monitor his LFTs regularly (12) GERD without esophagitis: Code(s): K21.9 - Gastro-esophageal reflux disease without esophagitis Plan: Dietary restrictions reinforced (13) Vitamin D deficiency: Code(s): E55.9 - Vitamin D deficiency, unspecified Plan: Continue Vitamin D3 1000 units QD (14) History of testicular cancer: Comment: S/P left orchiectomy Code(s): Z85.47 - Personal history of malignant neoplasm of testis Plan: S/P left orchiectomy - in remission Follow-up with Oncology/ urology as scheduled for continuing surveillance (15) Anxiety: Code(s): F41.9 - Anxiety disorder, unspecified Plan: Continue Lorazepam 1 mg 1 to 2 times a day as needed - Rx refilled (16) Obesity (BMI 30-39.9): Code(s): E66.9 - Obesity, unspecified Plan: Reinforced diet/exercise as tolerated/lose weight Plan Follow up as scheduled in 1 month Orders: Orders Complete Blood Count Auto Diff 01/06/24 D64.9 - Anemia, unspecified Comprehensive Prompton. Panel Fast 01/06/24 E78.00 - Pure hypercholesterolemia, unspecified TSH reflex Free T4 01/06/24 E78.00 - Pure hypercholesterolemia, unspecified Vitamin B12 and Folate 01/06/24 E53.8 - Deficiency of other specified B group vitamins AMB 14 Panel Urine Drug Screen Today Z51.81 - Encounter for therapeutic drug level monitoring AMB Hemoglobin A1c Today E11.40 - Type 2 diabetes mellitus with diabetic neuropathy, unspecified Hemoglobin A1c 01/06/24 E11.9 - Type 2 diabetes mellitus without complications Microalbumin, Random (w Creat) 01/06/24 E11.9 - Type 2 diabetes mellitus without complications Lipid Panel 01/06/24 E78.00 - Pure hypercholesterolemia, unspecified UA CC w/rflx Micro + Cult 01/06/24 R30.0 - Dysuria Vitamin D 25-OH Total 01/06/24 E55.9 - Vitamin D deficiency, unspecified Medications: Changed From Basaglar KwikPen U-100 Insulin (insulin glargine) 30 units (0.3 mL) subcut QPM 30 days 9 mL 3RF NS To Basaglar KwikPen U-100 Insulin (insulin glargine) 40 units (0.4 mL) subcut QPM 30 days 12 mL 3RF NS From Humalog KwikPen Insulin (insulin lispro) 30 units (0.3 mL) subcut TID 30 days 30 mL 3RF NS To Humalog KwikPen Insulin (insulin lispro) 35 units (0.35 mL) subcut TID 30 days 31.5 mL 3RF NS Refilled oxycodone ER 80 mg PO Q6H 30 days 120 tabs 0RF M51.37 - Other intervertebral disc degeneration, lumbosacral region lorazepam 1 mg PO BID 30 days PRN 60 tabs 0RF anxiety F41.9 - Anxiety disorder, unspecified oxycodone 30 mg PO Q6H 30 days PRN 120 tabs 0RF pain M51.37 - Other intervertebral disc degeneration, lumbosacral region Coding Level of Care Code Est Pt Level 4 (60461) Complex EM visit Add On G2211 Diagnoses Uncontrolled type 2 diabetes mellitus with hyperglycemia E11.65 Diabetes mellitus type: type 2 Hyponatremia E87.1 Stage 3a chronic kidney disease N18.31 Chronic kidney disease stage 3 subtype: stage 3a (GFR 45-59) Benign essential hypertension I10 Pure hypercholesterolemia E78.00 Mild chronic obstructive pulmonary disease J44.9 Degeneration of lumbar or lumbosacral intervertebral disc M51.37 Pain in both knees, unspecified chronicity M25.561; M25.562 Chronicity: unspecified Neuropathy G62.9 Anemia, unspecified type D64.9 Anemia type: unspecified type Elevated LFTs R79.89 GERD without esophagitis K21.9 Vitamin D deficiency E55.9 History of testicular cancer Z85.47 Anxiety F41.9 Obesity (BMI 30-39.9) E66.9
[2023-12-15 10:41] VITALS: BP 150/100
== END 2023-12-15 10:51 | disposition home or self-care (01) ==
PROVIDERS: PCP Internal Medicine; Visit Provider Internal Medicine
DX: E11.65 Type 2 diabetes mellitus with hyperglycemia (principal); I12.9 Hypertensive chronic kidney disease with stage 1 through stage 4 chronic kidney disease, or unspecified chronic kidney disease; N18.31 Chronic kidney disease, stage 3a; J44.9 Chronic obstructive pulmonary disease, unspecified; E78.00 Pure hypercholesterolemia, unspecified; M51.37 Other intervertebral disc degeneration, lumbosacral region; M25.561 Pain in right knee; M25.562 Pain in left knee; G62.9 Polyneuropathy, unspecified; D64.9 Anemia, unspecified; R79.89 Other specified abnormal findings of blood chemistry; K21.9 Gastro-esophageal reflux disease without esophagitis; E55.9 Vitamin D deficiency, unspecified; Z85.47 Personal history of malignant neoplasm of testis; F41.9 Anxiety disorder, unspecified; E66.9 Obesity, unspecified
CPT/HCPCS: 83036; 99214

== ENCOUNTER 2023-12-15 17:45 | Outpatient (REF) | payer BC, SELFPAY ==
[2023-12-16 08:52] LABS: Amphetamine Screen Urine Not Detected (Not Detect); Barbiturates, Urine Not Detected (Not Detect); Benzodiazepines Screen Urine Not Detected (Not Detect); Buprenorphine Scr Positive (Not Detect); Cannabinoid Screen Urine Not Detected (Not Detect); Cocaine Screen Urine Not Detected (Not Detect); Fentanyl, urine Not Detected (Not Detect); Methadone Screen, Urine Not Detected (Not Detect); Opiate Screen Urine Not Detected (Not Detect); Oxycodone Screen Urine Positive (Not Detect); Phencyclidine Screen Urine Not Detected (Not Detect)
== END 2023-12-15 17:46 | disposition home or self-care (01) ==
LOC: HO.LNP 17:45
PROVIDERS: Visit Provider Internal Medicine
DX: Z51.81 Encounter for therapeutic drug level monitoring (principal)
CPT/HCPCS: 80307

== ENCOUNTER 2024-01-12 09:54 | Outpatient (AMB) | payer BC, SELFPAY ==
[2024-01-12 10:10] VITALS: BP 148/80; PULSE 87; O2SAT 99; BMI 28.8
--- NOTE | 2024-01-12 10:10 | A.OFFPC_ITS ---
Vital Signs 01/12/24 10:10 Height 6 ft 1 in Weight 218 lb BMI 28.8 BP 148/80 H Blood Pressure Location Lt brachial Position Sitting Pulse 87 Pulse Source Pulse Oximeter Pulse Oximetry (%) 99 Oxygen Delivery Method Room Air 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 Management Allergies gabapentin Adverse Reaction (Intermediate, Verified 01/12/24 10:23) severe somnolence, dizziness Medication List - Last Reconciled 01/12/24 by Yobany Raymundo MD albuterol sulfate 90 mcg/actuation 2 puffs PO Q6H PRN amlodipine 10 mg PO DAILY 90 days Basaglar KwikPen U-100 Insulin (insulin glargine) 40 units (0.4 mL) subcut QPM 30 days NS blood sugar diagnostic (FreeStyle Lite Strips) As directed tests 4 X/day 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 meter,continuous (Dexcom G6 Process Area Supervisor) As directed 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 sensor (Dexcom G6 Sensor device) As directed 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 transmitter (Dexcom G6 Transmitter device) USE DIRECTED carvedilol 12.5 mg PO BID 90 days cholecalciferol (vitamin D3) (Vitamin D3) 50 mcg PO DAILY 90 days empagliflozin 25 mg PO QAM 90 days fenofibrate nanocrystallized 145 mg PO DAILY 90 days Humalog KwikPen Insulin (insulin lispro) 35 units (0.35 mL) subcut TID 30 days NS hydralazine 25 mg PO TID 90 days lamotrigine 200 mg PO BID lorazepam 1 mg PO BID PRN 30 days losartan 50 mg PO DAILY 90 days oxycodone 30 mg PO Q6H PRN 30 days oxycodone ER 80 mg PO Q6H 30 days pen needle, diabetic (BD Ultra-Fine Dee Pen Needle) As directed 4 times a day pravastatin 40 mg PO DAILY 90 days tirzepatide 5 mg (0.5 mL) subcut QWEEK 4 weeks Tobacco use date assessed: 11/17/23 Dental Screening Dental Screen Date: 11/17/23 HPI Med Management HPI Details Patient comes in today for his follow up visit States that he feels okay He denies any headaches or dizziness Denies any chest pains, no SOB No nausea/vomiting, no abdominal pain No change in bowel habits noted States that his low back pain and lower extremity pain (due to neuropathy) remain adequately controlled on his current meds Will need his pain meds and Lorazepam Rx refilled today He again feels that his blood sugar has been slowly improving over the past few weeks on his current Rx regimen He was supposed to get his follow up labs done prior to his appointment today but he forgot to do so [facility] Medical History Overweight (BMI 25.0-29.9) Obesity (BMI 30-39.9) Anxiety History of testicular cancer GERD without esophagitis Elevated LFTs Vitamin D deficiency Neuropathy Degeneration of lumbar or lumbosacral intervertebral disc Anemia Mild chronic obstructive pulmonary disease Benign essential hypertension Chronic kidney disease (CKD), stage II (mild) Type 2 diabetes mellitus with diabetic chronic kidney disease Type 2 diabetes mellitus with diabetic neuropathy, unspecified Surgical History History of colonoscopy (~06/24/16) History of orchiectomy Pure hypercholesterolemia History of lumbar surgery Family History Father Cancer Mother Diabetes Social History Household Members: Other Housing: House Alcohol intake: former Patient Tobacco Use Status: Never used Tobacco Tobacco use type: Cigarette e-Cigarette/Vaping Use: Never Used Second Hand Smoke Exposure: Yes service: Yes Current occupational status: disabled Cognitive needs: No Hearing needs: No Vision needs: Yes Questionnaire PHQ-9 Over the last 2 weeks, how often have you been bothered by any of the following problems? 1. Little interest or pleasure in doing things: not at all 2. Feeling down, depressed, or hopeless: not at all 3. Trouble falling or staying asleep, or sleeping too much: not at all 4. Feeling tired or having little energy: not at all 5. Poor appetite or overeating: not at all 6. Feeling bad about yourself - or that you are a failure or have let yourself or your family down: not at all 7. Trouble concentrating on things, such as reading the newspaper or watching television: not at all 8. Moving or speaking so slowly that other people could have noticed. Or the opposite - being so fidgety or restless that you have been moving around a lot more than usual: not at all 9. Thoughts that you would be better off or of hurting yourself in some way: not at all Total score: 0 Depression Screening Interpretation: Negative Depression Screening Done: Yes 32273 - PHQ-9 Billing: Yes Source: Developed by Drs. Robbi Keller, Margie Cardona, Parvez Adan and colleagues, with an educational breonna from [employer]. Thrive Questionnaire Date Thrive assessed: 08/19/23 AUDIT C Alcohol Use Questionnaire (AUDIT-C) 1. How often do you have a drink containing alcohol?: Never 3. How often do you have six or more drinks on one occasion?: Never Total Score: 0 Score Reviewed/Action Taken: Yes SHAHRIAR-7 AMB Questionnaire SHAHRIAR-7 Date SHAHRIAR - 7 assessed: 08/19/23 Source: Developed by Drs. Robbi Keller, Margie Cardona, Parvez Adan and colleagues, with an educational breonna from [employer]. Review of Systems Const Denies chills, Reports fatigue, Denies fever(s) and Denies headache(s) ENT Denies dysphagia, Denies dizziness, Denies otalgia, Denies headache(s), Denies neck pain, Denies odynophagia and Denies sore throat Card Denies chest pain, Denies palpitations and Denies dyspnea Resp Denies cough, Denies dyspnea and Denies wheezing GI Denies abdominal pain, Denies constipation, Denies dysphagia, Denies heartburn, Denies diarrhea, Denies nausea, Denies odynophagia and Denies vomiting Denies dysuria, Reports nocturia and Reports urinary frequency Musc Reports back pain (over the lumbar spine - chronic), Reports arthralgias (over both knees; increased in the right shoulder lately), Denies joint swelling, Denies neck pain and Reports stiffness (a couple of fingers lock up every now and then) Skin/Breast Denies rash Neuro Denies dizziness and Denies headache(s) Psych Reports anxiety and Reports depression Endo Reports fatigue, Denies polydipsia and Denies palpitations Aller/Immun Denies wheezing Physical exam (Primary Care) Vital Signs: Last Vital Signs Pulse 87 01/12/24 10:10 BP 148/80 H 01/12/24 10:10 Pulse Ox 99 01/12/24 10:10 Oxygen Delivery Method Room Air 01/12/24 10:10 BMI result Body Mass Index 28.8 Tobacco/Smoking Status: Tobacco use Status Tobacco use date assessed 11/17/23 01/12/24 10:16 Patient Tobacco Use Status Never used Tobacco 01/12/24 10:16 Tobacco use type Cigarette 01/12/24 10:16 e-Cigarette/Vaping Use Never Used 01/12/24 10:16 PHQ-9: PHQ-9 Score PHQ-9: Total score 0 01/12/24 10:16 Depression Screening Interpretation: Negative Thrive Assessment: Date of Thrive Assessment Date Thrive assessed 08/19/23 01/12/24 10:16 Const General: no acute distress and alert HENMT Throat: Yes posterior oropharynx normal and Yes tonsils normal (no TP congestion noted) Neck Neck: Yes no lymphadenopathy and Yes supple Thyroid: Thyroid normal Resp Auscultation: clear to auscultation bilaterally, no rales and no wheezes Cardio Rate: regular rate Rhythm: regular rhythm Heart sounds: no murmurs GI Palpation (GI): Soft to palpation and nontender Auscultation: normal bowel sounds General: Yes no CVA tenderness Back/Spine/Pelvis Back: no CVA tenderness Thoracic/Lumbar Spine: lumbar spinal tenderness (chronic) Skin Rashes: no rashes Extrem General: Yes no clubbing, cyanosis or edema Assessment and Plan Assessment & Plan (1) Uncontrolled diabetes mellitus with hyperglycemia: Code(s): E11.65 - Type 2 diabetes mellitus with hyperglycemia Qualifiers: Diabetes mellitus type: type 2 Qualified Code(s): E11.65 - Type 2 diabetes mellitus with hyperglycemia Plan: Patient is instructed to go and get his follow up labs done today and he can go straight to the lab after his visit today His in-office HgbA1c done was at >13.5% last month (was previously >14.0% a month before that) - goal is at least <7.0% Reinforced diabetic diet Continue Humalog Kwikpen 35 units TID with meals and Basaglar 40 units Q HS for now, pending the results of his labs Continue Jardiance 25 mg QD and Mounjaro 2.5 mg SQ once a week He has been referred to Endocrinology before but he still prefers not seeing endocrinology as he is tired and frustrated at having to pay a $60 co-pay every time he is seen by endocrinology and he feels that he is only seen there for a few minutes and is not even getting the proper attention and treatment there He feels that what we currently have him on has been working a lot better for him (and he feels a lot better on) than any of the Rx or Tx that endocrinology had him on in the past (2) Hyponatremia: Code(s): E87.1 - Hypo-osmolality and hyponatremia Plan: His serum sodium level has remained normal at 137 on his labs done a few months ago (will be rechecked as well today) - he was advised that this is likely related to his declining renal function as well as his persistent hyperglycemia and we will continue to monitor this regularly Follow up with nephrology as scheduled (3) Chronic kidney disease (CKD), stage III (moderate): Code(s): N18.30 - Chronic kidney disease, stage 3 unspecified Qualifiers: Chronic kidney disease stage 3 subtype: stage 3a (GFR 45-59) Qualified Code(s): N18.31 - Chronic kidney disease, stage 3a Plan: Patient is advised that his renal function appears to have stabilized again lately, based on his recent lab results from a few months ago but has been cautioned that this can change very quickly as long as his diabetes is uncontrolled Follow up with nephrology as scheduled (4) Benign essential hypertension: Code(s): I10 - Essential (primary) hypertension Plan: Reinforced low-sodium diet -? goal is systolic BP of at least 130 mm or less His BP is still high today but it is slowly trending down Continue Amlodipine 10 mg QD, Carvedilol 12.5 mg BID, Hydralazine 25 mg TID and Losartan 50 mg QD for now He is reminded to continue monitoring and checking his blood pressure regularly (5) Pure hypercholesterolemia: Code(s): E78.00 - Pure hypercholesterolemia, unspecified Plan: He will go and get his follow up labs done after he leaves the office today - will follow up his results Reinforced low cholesterol diet Continue Pravastatin 20 mg QD and Fenofibrate 145 mg QD (6) Mild chronic obstructive pulmonary disease: Code(s): J44.9 - Chronic obstructive pulmonary disease, unspecified Plan: Stable -? PFTs done a couple of years ago showed mild COPD Patient has been mostly asymptomatic and has not needed to use any of his inhalers lately except for when he came down with a cold or respiratory infection (7) Degeneration of lumbar or lumbosacral intervertebral disc: Code(s): M51.37 - Other intervertebral disc degeneration, lumbosacral region Plan: Reinforced activity and weight lifting restrictions Continue Oxycodone 30 mg every 6-8 hours as needed and Oxycodone ER 80 mg every 6 hours - Rx refilled (8) Bilateral knee pain: Code(s): M25.561 - Pain in right knee; M25.562 - Pain in left knee Qualifiers: Chronicity: unspecified Qualified Code(s): M25.561 - Pain in right knee; M25.562 - Pain in left knee Plan: X-rays of both knees done last year revealed (+) mild OA changes in the right knee; left knee x-rays were normal He was recommended to see orthopedics for further evaluation and management of his knee symptoms but patient prefers to hold off for now and he will call for referral when he feels he is ready to or needs to see orthopedics (9) Neuropathy: Code(s): G62.9 - Polyneuropathy, unspecified Plan: EMG and NCV of both lower extremities done in 2017 showed (+)? 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 chronic bilateral lower lumbar radiculopathy Continue Nortriptyline 50 mg Q HS Emphasized again the importance of tight glycemic control to slow down the progression of his neuropathy Follow up with podiatry as scheduled for regular/annual foot exam and diabetic foot care (10) Anemia: Code(s): D64.9 - Anemia, unspecified Qualifiers: Anemia type: unspecified type Qualified Code(s): D64.9 - Anemia, unspecified Plan: Most likely anemia of chronic disease although his H/H have corrected and have remained normal on his recent labs Will continue to monitor his CBC regularly (11) Elevated LFTs: Code(s): R79.89 - Other specified abnormal findings of blood chemistry Plan: His LFTs have remained normal on his recent labs - were most likely due to his weight and his medications and cholesterol level Reminded that losing weight will help keep his LFTs from going back up Will continue to monitor his LFTs regularly (12) GERD without esophagitis: Code(s): K21.9 - Gastro-esophageal reflux disease without esophagitis Plan: Dietary restrictions reinforced (13) Vitamin D deficiency: Code(s): E55.9 - Vitamin D deficiency, unspecified Plan: Continue Vitamin D3 1000 units QD (14) History of testicular cancer: Comment: S/P left orchiectomy Code(s): Z85.47 - Personal history of malignant neoplasm of testis Plan: S/P left orchiectomy - in remission Follow-up with Oncology/ urology as scheduled for continuing surveillance (15) Anxiety: Code(s): F41.9 - Anxiety disorder, unspecified Plan: Continue Lorazepam 1 mg 1 to 2 times a day as needed - Rx refilled (16) Obesity (BMI 30-39.9): Code(s): E66.9 - Obesity, unspecified Plan: Reinforced diet/exercise as tolerated/lose weight Plan Follow up in 1 month Medications: Refilled oxycodone 30 mg PO Q6H 30 days PRN 120 tabs 0RF pain M51.37 - Other intervertebral disc degeneration, lumbosacral region oxycodone ER 80 mg PO Q6H 30 days 120 tabs 0RF M51.37 - Other intervertebral disc degeneration, lumbosacral region lorazepam 1 mg PO BID 30 days PRN 60 tabs 0RF anxiety F41.9 - Anxiety disorder, unspecified Coding Level of Care Code Est Pt Level 4 (05125) Complex EM visit Add On G2211 Diagnoses Uncontrolled type 2 diabetes mellitus with hyperglycemia E11.65 Diabetes mellitus type: type 2 Hyponatremia E87.1 Stage 3a chronic kidney disease N18.31 Chronic kidney disease stage 3 subtype: stage 3a (GFR 45-59) Benign essential hypertension I10 Pure hypercholesterolemia E78.00 Mild chronic obstructive pulmonary disease J44.9 Degeneration of lumbar or lumbosacral intervertebral disc M51.37 Pain in both knees, unspecified chronicity M25.561; M25.562 Chronicity: unspecified Neuropathy G62.9 Anemia, unspecified type D64.9 Anemia type: unspecified type Elevated LFTs R79.89 GERD without esophagitis K21.9 Vitamin D deficiency E55.9 History of testicular cancer Z85.47 Anxiety F41.9 Obesity (BMI 30-39.9) E66.9
== END 2024-01-12 10:28 | disposition home or self-care (01) ==
PROVIDERS: PCP Internal Medicine; Visit Provider Internal Medicine
DX: E11.65 Type 2 diabetes mellitus with hyperglycemia (principal); E87.1 Hypo-osmolality and hyponatremia; I12.9 Hypertensive chronic kidney disease with stage 1 through stage 4 chronic kidney disease, or unspecified chronic kidney disease; N18.31 Chronic kidney disease, stage 3a; E78.00 Pure hypercholesterolemia, unspecified; M51.37 Other intervertebral disc degeneration, lumbosacral region; M25.561 Pain in right knee; M25.562 Pain in left knee; G62.9 Polyneuropathy, unspecified; D64.9 Anemia, unspecified; R79.89 Other specified abnormal findings of blood chemistry; K21.9 Gastro-esophageal reflux disease without esophagitis; E55.9 Vitamin D deficiency, unspecified; Z85.47 Personal history of malignant neoplasm of testis; F41.9 Anxiety disorder, unspecified; E66.9 Obesity, unspecified
CPT/HCPCS: 99214

== ENCOUNTER 2024-01-12 10:46 | Outpatient (REF) | payer BC, SELFPAY ==
[2024-01-12 13:16] LABS: MANUAL DIFF FLAG NO
[2024-01-12 13:21] LABS: Appearance Urine Clear; Color Urine Yellow; Glucose Urine UA >=1000 mg/dL (Negative); Leukocyte Esterase Urine Negative (Negative); Nitrite Urine Negative (Negative); PH 5.5 (5.0-9.0); Specific Gravity - Urine >= 1.030 (1.005-1.025); UMIC TRIGGER UACC YES; Urine Blood Negative (Negative); Urine Ketones Negative (Negative); Urine Protein 30 (1+) mg/dL (Neg-Trace)
[2024-01-12 13:30] LABS: Basophils Absolute Auto 0.1 X10*3/uL (0.0-0.2); Basophils Percent Auto 0.6 % (0-2); Eosinophils Absolute Auto 0.1 X10*3/uL (0.0-0.4); Eosinophils Percent Auto 1.7 % (0-4); Hematocrit 46.5 % (42.0-52.0); Hemoglobin 15.8 g/dl (14.0-18.0); Imm Gran Abs Auto 0.07 X10*3/uL (0.00-0.03); Imm Gran Pct Auto 0.8 % (0.0-0.4); Lymphocytes Absolute Auto 1.4 X10*3/uL (1.2-4.9); Lymphocytes Percent Auto 16.1 % (20-40); Mean Corpuscular Hemoglobin 28.1 pg (27.0-33.0); Mean Corpuscular Volume 82.6 fL (80.0-98.0); Mean Platelet Volume 8.8 fL (9.4-12.4); Monocytes Absolute Auto 0.6 X10*3/uL (0.1-1.2); Monocytes Percent Auto 6.9 % (2-11); Neutrophils Absolute Auto 6.3 x10*3/uL (2.0-8.3); Neutrophils Percent Auto 73.9 % (45-73); Platelet Count 316 X10*3/uL (160-400); Red Blood Count 5.63 X10*6/uL (4.60-5.80); Red Cell Distribution Width 12.7 % (11.0-16.0); White Blood Count 8.5 X10*3/uL (4.8-10.8)
[2024-01-12 14:07] LABS: Estimated Average Glucose 341 mg/dL; Hemoglobin A1c % 13.5 % (<6.0)
[2024-01-12 14:10] LABS: Bacteria Urine None Seen (None Seen); Hyaline Casts Urine 0-2 /LPF (0-2); RBC Urine 0-2 /HPF (0-2); Squamous Epithelial Cell Urine 0-2 /HPF (0-2); WBC Urine 0-5 /HPF (0-5)
[2024-01-12 14:12] LABS: Creatinine Urine 69.99 mg/dL; Microalbum/Creatinine Ratio Ur 281.4 ug/mg cr (<30)
[2024-01-12 14:19] LABS: Folate 11.3 ng/mL (> or = 4.0); Vitamin B12 616 pg/mL (200-900)
[2024-01-12 14:30] LABS: Alanine Aminotransferase 23 U/L (0-40); Albumin Level 4.4 g/dL (3.5-5.0); Alkaline Phosphatase 72 U/L (39-117); Anion Gap 14 (12-20); Aspartate Amino Transferase 17 U/L (5-37); Bilirubin Total 0.6 mg/dL (0.0-1.0); Blood Urea Nitrogen 16 mg/dL (9-16); Calcium 9.8 mg/dL (8.4-10.2); Carbon Dioxide 24 mmol/L (22-29); Chloride 104 mmol/L (96-108); Cholesterol 196 mg/dL (<200); Estimated Glomerular Filt Rate 59; Glucose Fasting 371 mg/dL (60-99); HDL Cholesterol 56 mg/dL (>40); LDL Cholesterol Calculated 100 mg/dL (<100); Potassium 4.6 mmol/L (3.3-5.1); Sodium 137 mmol/L (135-145); TSH reflex Free T4 1.31 uIU/mL (0.32-4.0); Total Protein 7.5 g/dL (6.5-8.0); Triglycerides 200 mg/dL (<150); Vitamin D 25-OH Total 54.9 ng/mL (>30)
== END 2024-01-12 10:47 | disposition home or self-care (01) ==
LOC: HO.HMGCLDS 10:46
PROVIDERS: PCP Internal Medicine; Visit Provider Internal Medicine
DX: D64.9 Anemia, unspecified (principal); E78.00 Pure hypercholesterolemia, unspecified; E53.8 Deficiency of other specified B group vitamins; E11.9 Type 2 diabetes mellitus without complications; E55.9 Vitamin D deficiency, unspecified
CPT/HCPCS: 36415; 80053; 80061; 81001; 81003; 82043; 82306; 82570; 82607; 82746; 83036; 84443; 85025

== ENCOUNTER 2024-02-09 09:59 | Outpatient (AMB) | payer BC, SELFPAY ==
[2024-02-09 10:08] VITALS: BP 148/92; PULSE 89; O2SAT 95; BMI 28.7
--- NOTE | 2024-02-09 10:08 | MHC.PC.OV ---
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 Accompanied by: Self / Same As Patient Allergies gabapentin Adverse Reaction (Intermediate, Verified 02/09/24 10:25) severe somnolence, dizziness Medication List - Last Reconciled 02/09/24 by Yobany Raymundo MD albuterol sulfate 90 mcg/actuation 2 puffs PO Q6H PRN amlodipine 10 mg PO DAILY 90 days Basaglar KwikPen U-100 Insulin (insulin glargine) 40 units (0.4 mL) subcut QPM 30 days NS blood sugar diagnostic (FreeStyle Lite Strips) As directed tests 4 X/day 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 meter,continuous (Dexcom G6 Insulation Board Calender Operator) As directed 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 sensor (Dexcom G6 Sensor device) As directed 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 transmitter (Dexcom G6 Transmitter device) USE DIRECTED carvedilol 12.5 mg PO BID 90 days cholecalciferol (vitamin D3) (Vitamin D3) 50 mcg PO DAILY 90 days empagliflozin 25 mg PO QAM 90 days fenofibrate nanocrystallized 145 mg PO DAILY 90 days Humalog KwikPen Insulin (insulin lispro) 35 units (0.35 mL) subcut TID 30 days NS hydralazine 25 mg PO TID 90 days lamotrigine 200 mg PO BID lorazepam 1 mg PO BID PRN 30 days losartan 50 mg PO DAILY 90 days oxycodone 30 mg PO Q6H PRN 30 days oxycodone ER 80 mg PO Q6H 30 days pen needle, diabetic (BD Ultra-Fine Dee Pen Needle) As directed 4 times a day pravastatin 40 mg PO DAILY 90 days tirzepatide 5 mg (0.5 mL) subcut QWEEK 4 weeks Tobacco use date assessed: 02/09/24 Dental Screening Dental Screen Date: 02/09/24 Did you have a dental visit in the last 12 months?: No Did you have a dental problem in the last 6 months where you did not have access to dental care?: No Was dental information given to patient?: Patient has dentist HPI Med management HPI Details Patient comes in today for his follow up visit States that he feels okay He denies any headaches or dizziness Denies any chest pains, no SOB No nausea/vomiting, no abdominal pain No change in bowel habits noted States that his low back pain and lower extremity pain (due to neuropathy) remain adequately controlled on his current meds - needs his pain meds and Lorazepam Rx refilled today He feels that his blood sugar has been slowly improving over the past few weeks on his current Rx regimen; admits that he still struggles with compliance with his diet often Would also like to know how he did on his labs done last month [facility] Medical History Overweight (BMI 25.0-29.9) Obesity (BMI 30-39.9) Anxiety History of testicular cancer GERD without esophagitis Elevated LFTs Vitamin D deficiency Neuropathy Degeneration of lumbar or lumbosacral intervertebral disc Anemia Mild chronic obstructive pulmonary disease Benign essential hypertension Chronic kidney disease (CKD), stage II (mild) Type 2 diabetes mellitus with diabetic chronic kidney disease Type 2 diabetes mellitus with diabetic neuropathy, unspecified Surgical History History of colonoscopy (~06/24/16) History of orchiectomy Pure hypercholesterolemia History of lumbar surgery Family History Father Cancer Mother Diabetes Social History Household Members: Other Housing: House Alcohol intake: former Patient Tobacco Use Status: Never used Tobacco Tobacco use type: Cigarette e-Cigarette/Vaping Use: Never Used Second Hand Smoke Exposure: Yes service: Yes Current occupational status: disabled Cognitive needs: No Hearing needs: No Vision needs: Yes Questionnaire PHQ-9 Over the last 2 weeks, how often have you been bothered by any of the following problems? 1. Little interest or pleasure in doing things: not at all 2. Feeling down, depressed, or hopeless: not at all 3. Trouble falling or staying asleep, or sleeping too much: not at all 4. Feeling tired or having little energy: not at all 5. Poor appetite or overeating: not at all 6. Feeling bad about yourself - or that you are a failure or have let yourself or your family down: not at all 7. Trouble concentrating on things, such as reading the newspaper or watching television: not at all 8. Moving or speaking so slowly that other people could have noticed. Or the opposite - being so fidgety or restless that you have been moving around a lot more than usual: not at all 9. Thoughts that you would be better off or of hurting yourself in some way: not at all Total score: 0 Depression Screening Interpretation: Negative Depression Screening Done: Yes 91336 - PHQ-9 Billing: Yes Source: Developed by Drs. Robbi Keller, Margie Cardona, Parvez Adan and colleagues, with an educational breonna from [employer]. Thrive Questionnaire Date Thrive assessed: 02/09/24 I am a: Patient What is your living situation today?: I have a steady place to live Within the past 12 months, did the food you bought not last and you didn't have the money to get more?: Never true Within the past 12 months, did you worry whether your food would run out before you got money to buy more?: Never true Do you have trouble paying for medicines?: No Do you have trouble getting transportation to medical appointments?: No Do you have trouble paying your heating and electricity bill?: No Do you have trouble taking care of your child, family member or friend?: No Do you have trouble with day-to-day activities such as bathing, preparing meals, shopping, managing finances, etc.?: No Are you currently unemployed and looking for a job?: No Are you interested in more education?: No Please select the resources that you would like help with: None Currently or been in a relationship where the following occur: No concerns reported THRIVE Score: 0 AUDIT C Alcohol Use Questionnaire (AUDIT-C) 1. How often do you have a drink containing alcohol?: Never 3. How often do you have six or more drinks on one occasion?: Never Total Score: 0 Score Reviewed/Action Taken: Yes SHAHRIAR-7 AMB Questionnaire SHAHRIAR-7 Date SHAHRIAR - 7 assessed: 02/09/24 Feeling nervous, anxious, or on edge: 0 = Not at all Not being able to stop or control worryin = Not at all Worrying too much about different things: 0 = Not at all Trouble relaxin = Not at all Being so restless that it is hard to sit still: 0 = Not at all Becoming easily annoyed or irritable: 0 = Not at all Feeling afraid as if something awful might happen: 0 = Not at all Total SHAHRIAR-7 score (0-4 normal; 5-9 mild; 10-14 moderate; 15-21 severe): 0 Source: Developed by Drs. Robbi Keller, Margie Cardona, Parvez Adan and colleagues, with an educational breonna from [employer]. Review of Systems Const Denies chills, Reports fatigue, Denies fever(s) and Denies headache(s) ENT Denies dysphagia, Denies dizziness, Denies otalgia, Denies headache(s), Denies neck pain, Denies odynophagia and Denies sore throat Card Denies chest pain, Denies palpitations and Denies dyspnea Resp Denies cough, Denies dyspnea and Denies wheezing GI Denies abdominal pain, Denies constipation, Denies dysphagia, Denies heartburn, Denies diarrhea, Denies nausea, Denies odynophagia and Denies vomiting Denies dysuria, Reports nocturia and Reports urinary frequency Musc Reports back pain (over the lumbar spine - chronic), Reports arthralgias (over both knees; increased in the right shoulder lately), Denies joint swelling, Denies neck pain and Reports stiffness (a couple of fingers lock up every now and then) Skin/Breast Denies rash Neuro Denies dizziness and Denies headache(s) Psych Reports anxiety and Reports depression Endo Reports fatigue, Denies polydipsia and Denies palpitations Aller/Immun Denies wheezing Physical exam (Primary Care) Vital Signs: Last Vital Signs Pulse 89 02/09/24 10:08 BP 148/92 H 02/09/24 10:08 Pulse Ox 95 02/09/24 10:08 Oxygen Delivery Method Room Air 02/09/24 10:08 BMI result Body Mass Index 28.7 Tobacco/Smoking Status: Tobacco use Status Tobacco use date assessed 02/09/24 02/09/24 10:10 Patient Tobacco Use Status Never used Tobacco 02/09/24 10:10 Tobacco use type Cigarette 02/09/24 10:10 e-Cigarette/Vaping Use Never Used 02/09/24 10:10 PHQ-9: PHQ-9 Score PHQ-9: Total score 0 02/09/24 10:10 Depression Screening Interpretation: Negative Thrive Assessment: Date of Thrive Assessment Date Thrive assessed 02/09/24 02/09/24 10:10 Currently or been in a relationship where the following occur: No concerns reported Const General: no acute distress and alert HENMT Throat: Yes posterior oropharynx normal and Yes tonsils normal (no TP congestion noted) Neck Neck: Yes no lymphadenopathy and Yes supple Thyroid: Thyroid normal Resp Auscultation: clear to auscultation bilaterally, no rales and no wheezes Cardio Rate: regular rate Rhythm: regular rhythm Heart sounds: no murmurs GI Palpation (GI): Soft to palpation and nontender Auscultation: normal bowel sounds General: Yes no CVA tenderness Back/Spine/Pelvis Back: no CVA tenderness Thoracic/Lumbar Spine: lumbar spinal tenderness (chronic) Skin Rashes: no rashes Extrem General: Yes no clubbing, cyanosis or edema Results Reviewed Results Reviewed: Laboratory Tests 01/12/24 01/12/24 10:52 11:00 WBC 8.5 Hgb 15.8 Hct 46.5 Plt Count 316 Sodium 137 Potassium 4.6 Creatinine 1.25 Estimated GFR 59 Fasting Glucose 371 H* Hemoglobin A1c % 13.5 H Calcium 9.8 AST 17 ALT 23 Triglycerides 200 H Cholesterol 196 LDL Cholesterol, Calc 100 H HDL Cholesterol 56 Vitamin B12 616 25-OH Vitamin D Total 54.9 TSH 1.31 Ur Specific [place] >= 1.030 H Urine Protein 30 (1+) H Urine Glucose (UA) >=1000 H Urine Ketones Negative Urine Blood Negative Urine Nitrite Negative Ur Leukocyte Esterase Negative Microalb/Creat Ratio 281.4 H Assessment and Plan Assessment & Plan (1) Uncontrolled diabetes mellitus with hyperglycemia: Code(s): E11.65 - Type 2 diabetes mellitus with hyperglycemia Qualifiers: Diabetes mellitus type: type 2 Qualified Code(s): E11.65 - Type 2 diabetes mellitus with hyperglycemia Plan: His in-office HgbA1c was still at >13.5% last month (was also previously at 13.5%% couple of months ago) - goal is at least <7.0% Reinforced diabetic diet - he still admits to struggling with compliance with his diet often Continue Humalog Kwikpen 35 units TID with meals and Basaglar 40 units Q HS; continue Jardiance 25 mg QD Will now increase his Mounjaro from 5 mg SQ once a week to 7.5 mg once a week He has been referred to Endocrinology before but he still prefers not seeing endocrinology as he is tired and frustrated at having to pay a $60 co-pay every time he is seen by endocrinology - states that he feels that he is only seen there for a few minutes and is not even getting the proper attention and treatment he needs and that what we currently have him on has been working a lot better for him (and he feels a lot better on) than any of the Rx or Tx that endocrinology had him on in the past (2) Hyponatremia: Code(s): E87.1 - Hypo-osmolality and hyponatremia Plan: His serum sodium level has remained normal at 137 on his labs done last month- he was again advised that this is likely related to his declining renal function as well as his persistent hyperglycemia We will continue to monitor this regularly Follow up with nephrology as scheduled (3) Chronic kidney disease (CKD), stage III (moderate): Code(s): N18.30 - Chronic kidney disease, stage 3 unspecified Qualifiers: Chronic kidney disease stage 3 subtype: stage 3a (GFR 45-59) Qualified Code(s): N18.31 - Chronic kidney disease, stage 3a Plan: Patient is advised that his renal function appears to have stabilized again lately, based on his recent lab results from last month He is again cautioned that this can change very quickly as long as his diabetes is uncontrolled Follow up with nephrology as scheduled (4) Benign essential hypertension: Code(s): I10 - Essential (primary) hypertension Plan: Reinforced low-sodium diet -? goal is systolic BP of at least 130 mm or less His BP is still high today but it is slowly trending down Continue Amlodipine 10 mg QD, Carvedilol 12.5 mg BID, Hydralazine 25 mg TID and Losartan 50 mg QD for now He is reminded to continue monitoring and checking his blood pressure regularly (5) Pure hypercholesterolemia: Code(s): E78.00 - Pure hypercholesterolemia, unspecified Plan: Results of his labs done last month reviewed and discussed with patient Reinforced low cholesterol diet Continue Pravastatin 20 mg QD and Fenofibrate 145 mg QD Will have him recheck his labs and fasting lipids next month for follow up (6) Mild chronic obstructive pulmonary disease: Code(s): J44.9 - Chronic obstructive pulmonary disease, unspecified Plan: Stable -? PFTs done a couple of years ago showed mild COPD Patient has been mostly asymptomatic and has not needed to use any of his inhalers lately except for when he came down with a cold or respiratory infection (7) Degeneration of lumbar or lumbosacral intervertebral disc: Code(s): M51.37 - Other intervertebral disc degeneration, lumbosacral region Plan: Reinforced activity and weight lifting restrictions Continue Oxycodone 30 mg every 6-8 hours as needed and Oxycodone ER 80 mg every 6 hours - Rx refilled (8) Bilateral knee pain: Code(s): M25.561 - Pain in right knee; M25.562 - Pain in left knee Qualifiers: Chronicity: unspecified Qualified Code(s): M25.561 - Pain in right knee; M25.562 - Pain in left knee Plan: X-rays of both knees done last year revealed (+) mild OA changes in the right knee; left knee x-rays were normal He was recommended to see orthopedics for further evaluation and management of his knee symptoms but patient prefers to hold off for now and he will call for referral when he feels he is ready to or needs to see orthopedics (9) Neuropathy: Code(s): G62.9 - Polyneuropathy, unspecified Plan: EMG and NCV of both lower extremities done in 2017 showed (+)? 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 chronic bilateral lower lumbar radiculopathy Continue Nortriptyline 50 mg Q HS Emphasized again the importance of tight glycemic control to slow down the progression of his neuropathy Follow up with podiatry as scheduled for regular/annual foot exam and diabetic foot care (10) Anemia: Code(s): D64.9 - Anemia, unspecified Qualifiers: Anemia type: unspecified type Qualified Code(s): D64.9 - Anemia, unspecified Plan: Most likely anemia of chronic disease although his H/H have corrected and have remained normal on his recent labs Will continue to monitor his CBC regularly (11) Elevated LFTs: Code(s): R79.89 - Other specified abnormal findings of blood chemistry Plan: His LFTs have remained normal on his recent labs - were most likely due to his weight and his medications and cholesterol level Reminded that losing weight will help keep his LFTs from going back up Will continue to monitor his LFTs regularly (12) GERD without esophagitis: Code(s): K21.9 - Gastro-esophageal reflux disease without esophagitis Plan: Dietary restrictions reinforced (13) Vitamin D deficiency: Code(s): E55.9 - Vitamin D deficiency, unspecified Plan: Continue Vitamin D3 1000 units QD (14) History of testicular cancer: Comment: S/P left orchiectomy Code(s): Z85.47 - Personal history of malignant neoplasm of testis Plan: S/P left orchiectomy - in remission Follow-up with Oncology/ urology as scheduled for continuing surveillance (15) Anxiety: Code(s): F41.9 - Anxiety disorder, unspecified Plan: Continue Lorazepam 1 mg 1 to 2 times a day as needed - Rx refilled (16) Obesity (BMI 30-39.9): Code(s): E66.9 - Obesity, unspecified Plan: Reinforced diet/exercise as tolerated/lose weight Plan Follow up in 1 month Orders: Orders Lipid Panel 4 Weeks E78.00 - Pure hypercholesterolemia, unspecified Hemoglobin A1c 4 Weeks E11.9 - Type 2 diabetes mellitus without complications Microalbumin, Random (w Creat) 4 Weeks E11.9 - Type 2 diabetes mellitus without complications UA CC w/rflx Micro + Cult 4 Weeks R30.0 - Dysuria Vitamin D 25-OH Total 4 Weeks E55.9 - Vitamin D deficiency, unspecified Complete Blood Count Auto Diff 4 Weeks D64.9 - Anemia, unspecified Comprehensive [place]. Panel Fast 4 Weeks E78.00 - Pure hypercholesterolemia, unspecified TSH reflex Free T4 4 Weeks E78.00 - Pure hypercholesterolemia, unspecified Medications: Changed From tirzepatide 5 mg (0.5 mL) subcut QWEEK 4 weeks 2 mL 3RF To tirzepatide 7.5 mg (0.5 mL) subcut QWEEK 4 weeks 2 mL 3RF Refilled lorazepam 1 mg PO BID 30 days PRN 60 tabs 0RF anxiety F41.9 - Anxiety disorder, unspecified oxycodone ER 80 mg PO Q6H 30 days 120 tabs 0RF M51.37 - Other intervertebral disc degeneration, lumbosacral region oxycodone 30 mg PO Q6H 30 days PRN 120 tabs 0RF pain M51.37 - Other intervertebral disc degeneration, lumbosacral region Coding Level of Care Code Est Pt Level 4 (58725) Complex EM visit Add On G2211 Diagnoses Uncontrolled type 2 diabetes mellitus with hyperglycemia E11.65 Diabetes mellitus type: type 2 Hyponatremia E87.1 Stage 3a chronic kidney disease N18.31 Chronic kidney disease stage 3 subtype: stage 3a (GFR 45-59) Benign essential hypertension I10 Pure hypercholesterolemia E78.00 Mild chronic obstructive pulmonary disease J44.9 Degeneration of lumbar or lumbosacral intervertebral disc M51.37 Pain in both knees, unspecified chronicity M25.561; M25.562 Chronicity: unspecified Neuropathy G62.9 Anemia, unspecified type D64.9 Anemia type: unspecified type Elevated LFTs R79.89 GERD without esophagitis K21.9 Vitamin D deficiency E55.9 History of testicular cancer Z85.47 Anxiety F41.9 Obesity (BMI 30-39.9) E66.9
== END 2024-02-09 10:42 | disposition home or self-care (01) ==
PROVIDERS: PCP Internal Medicine; Visit Provider Internal Medicine
DX: I12.9 Hypertensive chronic kidney disease with stage 1 through stage 4 chronic kidney disease, or unspecified chronic kidney disease (principal); E11.65 Type 2 diabetes mellitus with hyperglycemia; N18.31 Chronic kidney disease, stage 3a; J44.9 Chronic obstructive pulmonary disease, unspecified; E87.1 Hypo-osmolality and hyponatremia; E78.00 Pure hypercholesterolemia, unspecified; M51.37 Other intervertebral disc degeneration, lumbosacral region; M25.561 Pain in right knee; M25.562 Pain in left knee; G62.9 Polyneuropathy, unspecified; D64.9 Anemia, unspecified; R79.89 Other specified abnormal findings of blood chemistry
CPT/HCPCS: 99214

== ENCOUNTER 2024-03-07 10:08 | Outpatient (REF) | payer BC, SELFPAY ==
[2024-03-07 12:59] LABS: MANUAL DIFF FLAG NO
[2024-03-07 13:10] LABS: Basophils Absolute Auto 0.1 X10*3/uL (0.0-0.2); Eosinophils Absolute Auto 0.2 X10*3/uL (0.0-0.4); Eosinophils Percent Auto 2.4 % (0-4); Hemoglobin 16.4 g/dl (14.0-18.0); Imm Gran Abs Auto 0.07 X10*3/uL (0.00-0.03); Imm Gran Pct Auto 0.8 % (0.0-0.4); Lymphocytes Percent Auto 22.8 % (20-40); Mean Corpuscular HGB Conc 33.5 g/dl (31.0-36.0); Mean Corpuscular Hemoglobin 27.5 pg (27.0-33.0); Mean Corpuscular Volume 82.2 fL (80.0-98.0); Mean Platelet Volume 8.5 fL (9.4-12.4); Monocytes Absolute Auto 0.6 X10*3/uL (0.1-1.2); Monocytes Percent Auto 7.3 % (2-11); Neutrophils Absolute Auto 5.6 x10*3/uL (2.0-8.3); Neutrophils Percent Auto 65.7 % (45-73); Platelet Count 314 X10*3/uL (160-400); Red Blood Count 5.96 X10*6/uL (4.60-5.80); Red Cell Distribution Width 12.2 % (11.0-16.0); White Blood Count 8.6 X10*3/uL (4.8-10.8)
[2024-03-07 13:33] LABS: Alanine Aminotransferase 20 U/L (0-40); Albumin Level 4.4 g/dL (3.5-5.0); Alkaline Phosphatase 76 U/L (39-117); Anion Gap 14 (12-20); Aspartate Amino Transferase 11 U/L (5-37); Bilirubin Total 0.4 mg/dL (0.0-1.0); Blood Urea Nitrogen 18 mg/dL (9-16); Calcium 10.2 mg/dL (8.4-10.2); Carbon Dioxide 27 mmol/L (22-29); Chloride 102 mmol/L (96-108); Cholesterol 233 mg/dL (<200); Estimated Glomerular Filt Rate > 60; Glucose Fasting 300 mg/dL (60-99); HDL Cholesterol 52 mg/dL (>40); Potassium 4.6 mmol/L (3.3-5.1); Sodium 138 mmol/L (135-145); Total Protein 7.7 g/dL (6.5-8.0); Triglycerides 467 mg/dL (<150)
[2024-03-07 13:44] LABS: Appearance Urine Clear; Color Urine Yellow; Glucose Urine UA >=1000 mg/dL (Negative); Leukocyte Esterase Urine Negative (Negative); Nitrite Urine Negative (Negative); PH 5.5 (5.0-9.0); Specific Gravity - Urine >= 1.030 (1.005-1.025); UMIC TRIGGER UACC YES; Urine Blood Negative (Negative); Urine Ketones Negative (Negative); Urine Protein 30 (1+) mg/dL (Neg-Trace)
[2024-03-07 13:46] LABS: Creatinine Urine 95.24 mg/dL; Microalbum/Creatinine Ratio Ur 241.4 ug/mg cr (<30)
[2024-03-07 13:49] LABS: Estimated Average Glucose 298 mg/dL; Hemoglobin A1C 478.2007 umol/L; Total Hemoglobin (HGBA1C) 4440.8204 umol/L
[2024-03-07 13:52] LABS: Bacteria Urine None Seen (None Seen); Hyaline Casts Urine 0-2 /LPF (0-2); RBC Urine 0-2 /HPF (0-2); Squamous Epithelial Cell Urine 0-2 /HPF (0-2); WBC Urine 0-5 /HPF (0-5)
[2024-03-07 13:54] LABS: TSH reflex Free T4 2.12 uIU/mL (0.32-4.0); Vitamin D 25-OH Total 44.5 ng/mL (>30)
== END 2024-03-07 10:09 | disposition home or self-care (01) ==
LOC: HO.HMGCLDS 10:08
PROVIDERS: PCP Internal Medicine; Visit Provider Internal Medicine
DX: E78.00 Pure hypercholesterolemia, unspecified (principal); E11.9 Type 2 diabetes mellitus without complications; I10 Essential (primary) hypertension; E55.9 Vitamin D deficiency, unspecified
CPT/HCPCS: 36415; 80053; 80061; 81001; 82043; 82306; 82570; 83036; 84443; 85025

== ENCOUNTER 2024-03-08 10:36 | Outpatient (AMB) | payer BC, SELFPAY ==
--- NOTE | 2024-03-08 10:53 | A.OFFPC_ITS ---
Vital Signs 03/08/24 10:56 Height 6 ft 1 in Weight 221 lb BMI 29.2 BP 162/90 H Blood Pressure Location Lt brachial Position Sitting Pulse 90 Pulse Source Pulse Oximeter Pulse Oximetry (%) 95 Oxygen Delivery Method Room Air Intake Visit Reasons: DM, hyperlipidemia, HTN, CKD, lumbar DDD, OA Hand Tufter Required: No Accompanied by: Self / Same As Patient Allergies gabapentin Adverse Reaction (Intermediate, Verified 03/08/24 11:39) severe somnolence, dizziness Medication List - Last Reconciled 03/08/24 by Yobany Raymundo MD albuterol sulfate 90 mcg/actuation 2 puffs PO Q6H PRN amlodipine 10 mg PO DAILY 90 days Basaglar KwikPen U-100 Insulin (insulin glargine) 40 units (0.4 mL) subcut QPM 30 days NS blood sugar diagnostic (FreeStyle Lite Strips) As directed tests 4 X/day 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 meter,continuous (Dexcom G6 Morphologist) As directed 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 sensor (Dexcom G6 Sensor device) As directed 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 transmitter (Dexcom G6 Transmitter device) USE DIRECTED carvedilol 12.5 mg PO BID 90 days cholecalciferol (vitamin D3) (Vitamin D3) 50 mcg PO DAILY 90 days empagliflozin 25 mg PO QAM 90 days fenofibrate nanocrystallized 145 mg PO DAILY 90 days Humalog KwikPen Insulin (insulin lispro) 35 units (0.35 mL) subcut TID 30 days NS hydralazine 25 mg PO TID 90 days lamotrigine 200 mg PO BID lorazepam 1 mg PO BID PRN 30 days losartan 50 mg PO DAILY 90 days oxycodone 30 mg PO Q6H PRN 30 days oxycodone ER 80 mg PO Q6H 30 days pen needle, diabetic (BD Ultra-Fine Dee Pen Needle) As directed 4 times a day pravastatin 40 mg PO DAILY 90 days tirzepatide 7.5 mg (0.5 mL) subcut QWEEK 4 weeks Tobacco use date assessed: 03/08/24 Dental Screening Dental Screen Date: 03/08/24 Did you have a dental visit in the last 12 months?: No Did you have a dental problem in the last 6 months where you did not have access to dental care?: No Was dental information given to patient?: No HPI DM, hyperlipidemia, HTN, CKD, lumbar DDD, OA HPI Details Patient comes in today for his follow up visit States that he feels okay He denies any headaches or dizziness Denies any chest pains, no SOB No nausea/vomiting, no abdominal pain No change in bowel habits noted States that his low back pain and lower extremity pain (due to neuropathy) remain adequately controlled on his current meds - he again needs his pain meds and Lorazepam Rx refilled today He had his follow up labs done yesterday - to discuss his results He would also like to get his flu shot today [facility] Medical History Overweight (BMI 25.0-29.9) Obesity (BMI 30-39.9) Anxiety History of testicular cancer GERD without esophagitis Elevated LFTs Vitamin D deficiency Neuropathy Degeneration of lumbar or lumbosacral intervertebral disc Anemia Mild chronic obstructive pulmonary disease Benign essential hypertension Chronic kidney disease (CKD), stage II (mild) Type 2 diabetes mellitus with diabetic chronic kidney disease Type 2 diabetes mellitus with diabetic neuropathy, unspecified Surgical History History of colonoscopy (~06/24/16) History of orchiectomy Pure hypercholesterolemia History of lumbar surgery Family History Father Cancer Mother Diabetes Social History Household Members: Other Housing: House Alcohol intake: former Patient Tobacco Use Status: Never used Tobacco Tobacco use type: Cigarette e-Cigarette/Vaping Use: Never Used Second Hand Smoke Exposure: Yes service: Yes Current occupational status: disabled Cognitive needs: No Hearing needs: No Vision needs: Yes Questionnaire PHQ-9 Over the last 2 weeks, how often have you been bothered by any of the following problems? 1. Little interest or pleasure in doing things: not at all 2. Feeling down, depressed, or hopeless: not at all 3. Trouble falling or staying asleep, or sleeping too much: not at all 4. Feeling tired or having little energy: not at all 5. Poor appetite or overeating: not at all 6. Feeling bad about yourself - or that you are a failure or have let yourself or your family down: not at all 7. Trouble concentrating on things, such as reading the newspaper or watching television: not at all 8. Moving or speaking so slowly that other people could have noticed. Or the opposite - being so fidgety or restless that you have been moving around a lot more than usual: not at all 9. Thoughts that you would be better off or of hurting yourself in some way: not at all Total score: 0 Depression Screening Interpretation: Negative Depression Screening Done: Yes 79592 - PHQ-9 Billing: Yes Source: Developed by Drs. Robbi Keller, Margie Cardona, Parvez Adan and colleagues, with an educational breonna from [employer]. Thrive Questionnaire Date Thrive assessed: 03/08/24 I am a: Patient What is your living situation today?: I have a steady place to live Within the past 12 months, did the food you bought not last and you didn't have the money to get more?: Never true Within the past 12 months, did you worry whether your food would run out before you got money to buy more?: Never true Do you have trouble paying for medicines?: No Do you have trouble getting transportation to medical appointments?: No Do you have trouble paying your heating and electricity bill?: No Do you have trouble taking care of your child, family member or friend?: No Do you have trouble with day-to-day activities such as bathing, preparing meals, shopping, managing finances, etc.?: No Are you currently unemployed and looking for a job?: I choose not to answer this question Are you interested in more education?: No Please select the resources that you would like help with: None Currently or been in a relationship where the following occur: No concerns reported THRIVE Score: 0 AUDIT C Alcohol Use Questionnaire (AUDIT-C) 1. How often do you have a drink containing alcohol?: Never 3. How often do you have six or more drinks on one occasion?: Never Total Score: 0 Score Reviewed/Action Taken: Yes SHAHRIAR-7 AMB Questionnaire SHAHRIAR-7 Date SHAHRIAR - 7 assessed: 03/08/24 Feeling nervous, anxious, or on edge: 0 = Not at all Not being able to stop or control worryin = Not at all Worrying too much about different things: 0 = Not at all Trouble relaxin = Not at all Being so restless that it is hard to sit still: 0 = Not at all Becoming easily annoyed or irritable: 0 = Not at all Feeling afraid as if something awful might happen: 0 = Not at all Total SHAHRIAR-7 score (0-4 normal; 5-9 mild; 10-14 moderate; 15-21 severe): 0 Source: Developed by Drs. Robbi Keller, Margie Cardona, Parvez Adan and colleagues, with an educational breonna from [employer]. Review of Systems Const Denies chills, Reports fatigue, Denies fever(s) and Denies headache(s) ENT Denies dysphagia, Denies dizziness, Denies otalgia, Denies headache(s), Denies neck pain, Denies odynophagia and Denies sore throat Card Denies chest pain, Denies palpitations and Denies dyspnea Resp Denies chest congestion, Denies cough and Denies dyspnea GI Denies abdominal pain, Denies constipation, Denies dysphagia, Denies heartburn, Denies diarrhea, Denies nausea, Denies odynophagia and Denies vomiting Denies dysuria, Reports nocturia and Reports urinary frequency Musc Reports back pain (over the lumbar spine - chronic), Reports arthralgias (over both knees; increased in the right shoulder lately), Denies joint swelling, Denies neck pain and Reports stiffness (a couple of fingers lock up every now and then) Skin/Breast Denies rash Neuro Denies dizziness and Denies headache(s) Psych Reports anxiety and Reports depression Endo Reports fatigue, Denies polydipsia and Denies palpitations Physical exam (Primary Care) Vital Signs: Last Vital Signs Pulse 90 03/08/24 10:56 BP 162/90 H 03/08/24 10:56 Pulse Ox 95 03/08/24 10:56 Oxygen Delivery Method Room Air 03/08/24 10:56 BMI result Body Mass Index 29.2 Tobacco/Smoking Status: Tobacco use Status Tobacco use date assessed 03/08/24 03/08/24 11:01 Patient Tobacco Use Status Never used Tobacco 03/08/24 10:54 Tobacco use type Cigarette 03/08/24 10:54 e-Cigarette/Vaping Use Never Used 03/08/24 10:54 PHQ-9: PHQ-9 Score PHQ-9: Total score 0 03/08/24 11:39 Depression Screening Interpretation: Negative Thrive Assessment: Date of Thrive Assessment Date Thrive assessed 03/08/24 03/08/24 11:01 Currently or been in a relationship where the following occur: No concerns reported Const General: no acute distress and alert HENMT Throat: Yes posterior oropharynx normal and Yes tonsils normal (no TP congestion noted) Neck Neck: Yes no lymphadenopathy and Yes supple Thyroid: Thyroid normal Resp Auscultation: clear to auscultation bilaterally, no rales and no wheezes Cardio Rate: regular rate Rhythm: regular rhythm Heart sounds: no murmurs GI Palpation (GI): Soft to palpation and nontender Auscultation: normal bowel sounds General: Yes no CVA tenderness Back/Spine/Pelvis Back: no CVA tenderness Thoracic/Lumbar Spine: lumbar spinal tenderness (chronic) Skin Rashes: no rashes Extrem General: Yes no clubbing, cyanosis or edema Office Procedures Flu Questionnaire Does the patient have a severe egg allergy?: No Does the patient have severe life threatening allergies?: No Does the patient have a fever or illness today?: No Has the patient ever had Guillain-[place] Syndrome?: No Has the patient ever had any past reaction to a flu shot?: No Immunizations Fluarix Triv 5814-6061 (PF) 45 mcg (15 mcg x 3)/0.5 mL IM syringe Performing Provider: Yobany Raymundo MD [facility] Administered by: PIETER Hi on 03/08/24 11:14 Dose Route Admin Location Dispensed Lot Number Expiration Date [employer] 0.5 mL IM Left Deltoid 0.5 mL [id number] 12/04/24 [id number] [employer] VIS Given Date VIS Provided VIS Publication Date 03/08/24 Single Vaccine 21 Eligibility Eligibility Date Funding Source Not [facility] Eligible 03/08/24 Private Results Reviewed Results Reviewed: Laboratory Tests 03/07/24 10:12 WBC 8.6 Hgb 16.4 Hct 49.0 Plt Count 314 Sodium 138 Potassium 4.6 Creatinine 1.22 Estimated GFR > 60 Fasting Glucose 300 H Hemoglobin A1c % 12.0 H Calcium 10.2 AST 11 ALT 20 Triglycerides 467 H Cholesterol 233 H HDL Cholesterol 52 25-OH Vitamin D Total 44.5 TSH 2.12 Ur Specific [place] >= 1.030 H Urine Protein 30 (1+) H Urine Glucose (UA) >=1000 H Urine Blood Negative Urine Nitrite Negative Ur Leukocyte Esterase Negative Microalb/Creat Ratio 241.4 H Coding Level of Care Code Est Pt Level 4 (02486) Complex EM visit Add On G2211 Diagnoses Uncontrolled type 2 diabetes mellitus with hyperglycemia E11.65 Diabetes mellitus type: type 2 Hyponatremia E87.1 Stage 3a chronic kidney disease N18.31 Chronic kidney disease stage 3 subtype: stage 3a (GFR 45-59) Benign essential hypertension I10 Pure hypercholesterolemia E78.00 Mild chronic obstructive pulmonary disease J44.9 Degeneration of intervertebral disc of lumbosacral region with discogenic back pain M51.370 Disc-related pain type: discogenic back pain only Pain in both knees, unspecified chronicity M25.561; M25.562 Chronicity: unspecified Neuropathy G62.9 Anemia, unspecified type D64.9 Anemia type: unspecified type Elevated LFTs R79.89 GERD without esophagitis K21.9 Vitamin D deficiency E55.9 History of testicular cancer Z85.47 Anxiety F41.9 Obesity (BMI 30-39.9) E66.9 Assessment & Plan Assessment & Plan (1) Uncontrolled diabetes mellitus with hyperglycemia: Code(s): E11.65 - Type 2 diabetes mellitus with hyperglycemia Category: Medical Qualifiers: Diabetes mellitus type: type 2 Qualified Code(s): E11.65 - Type 2 diabetes mellitus with hyperglycemia Plan: His HgbA1c was at 12.0% on his labs done yesterday (his in-office HgbA1c was at >13.5% a couple of months ago) - goal is at least <7.0% Reinforced diabetic diet Continue Humalog Kwikpen 35 units TID with meals and Basaglar 40 units Q HS; continue Jardiance 25 mg QD and Mounjaro 7.5 mg once a week He has been referred to Endocrinology before but he still prefers not seeing endocrinology as he is tired and frustrated at having to pay a $60 co-pay every time he is seen by endocrinology - states that he feels that he is only seen there for a few minutes and is not even getting the proper attention and treatment he needs and that what we currently have him on has been working a lot better for him (and he feels a lot better on) than any of the Rx or Tx that endocrinology had him on in the past (2) Hyponatremia: Code(s): E87.1 - Hypo-osmolality and hyponatremia Category: Medical Plan: His serum sodium is normal at 138 on his labs done yesterday This is likely related to his declining renal function as well as his persistent hyperglycemia and we will continue to monitor this regularly Follow up with nephrology as scheduled (3) Chronic kidney disease (CKD), stage III (moderate): Code(s): N18.30 - Chronic kidney disease, stage 3 unspecified Category: Medical Qualifiers: Chronic kidney disease stage 3 subtype: stage 3a (GFR 45-59) Qualified Code(s): N18.31 - Chronic kidney disease, stage 3a Plan: His renal function currently appears to be stable, based on his recent lab results He is again cautioned that this can change very quickly as long as his diabetes is uncontrolled Follow up with nephrology as scheduled (4) Benign essential hypertension: Code(s): I10 - Essential (primary) hypertension Category: Medical Plan: Reinforced low-sodium diet -? goal is systolic BP of at least 130 mm or less His BP is still high today but it is slowly trending down Continue Amlodipine 10 mg QD, Carvedilol 12.5 mg BID, Hydralazine 25 mg TID and Losartan 50 mg QD for now He is reminded to continue monitoring and checking his blood pressure regularly (5) Pure hypercholesterolemia: Code(s): E78.00 - Pure hypercholesterolemia, unspecified Category: Surgical Plan: Results of his labs done yesterday reviewed and discussed with patient Reinforced low cholesterol diet Continue Pravastatin 20 mg QD and Fenofibrate 145 mg QD (6) Mild chronic obstructive pulmonary disease: Code(s): J44.9 - Chronic obstructive pulmonary disease, unspecified Category: Medical Plan: Stable -? PFTs done a couple of years ago showed mild COPD Patient has been mostly asymptomatic and has not needed to use any of his inhalers lately except for when he came down with a cold or respiratory infection (7) Degeneration of lumbar or lumbosacral intervertebral disc: Code(s): M51.37 - Other intervertebral disc degeneration, lumbosacral region Category: Medical Qualifiers: Disc-related pain type: discogenic back pain only Qualified Code(s): M51.370 - Other intervertebral disc degeneration, lumbosacral region with discogenic back pain only Plan: Reinforced activity and weight lifting restrictions Continue Oxycodone 30 mg every 6-8 hours as needed and Oxycodone ER 80 mg every 6 hours - Rx refilled (8) Bilateral knee pain: Code(s): M25.561 - Pain in right knee; M25.562 - Pain in left knee Category: Medical Qualifiers: Chronicity: unspecified Qualified Code(s): M25.561 - Pain in right knee; M25.562 - Pain in left knee Plan: X-rays of both knees done last year revealed (+) mild OA changes in the right knee; left knee x-rays were normal He was recommended to see orthopedics for further evaluation and management of his knee symptoms but patient prefers to hold off for now and he will call for referral when he feels he is ready to or needs to see orthopedics (9) Neuropathy: Code(s): G62.9 - Polyneuropathy, unspecified Category: Medical Plan: EMG and NCV of both lower extremities done in 2017 showed (+)? 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 chronic bilateral lower lumbar radiculopathy Continue Nortriptyline 50 mg Q HS Emphasized again the importance of tight glycemic control to slow down the progression of his neuropathy Follow up with podiatry as scheduled for regular/annual foot exam and diabetic foot care (10) Anemia: Code(s): D64.9 - Anemia, unspecified Category: Medical Qualifiers: Anemia type: unspecified type Qualified Code(s): D64.9 - Anemia, unspecified Plan: This is most likely anemia of chronic disease although his H/H have corrected and have remained normal on his recent labs Will continue to monitor his CBC regularly (11) Elevated LFTs: Code(s): R79.89 - Other specified abnormal findings of blood chemistry Category: Medical Plan: His LFTs have also remained normal on his recent labs - were most likely due to his weight and his medications and cholesterol level Reminded that losing weight will help keep his LFTs from going back up Will continue to monitor his LFTs regularly (12) GERD without esophagitis: Code(s): K21.9 - Gastro-esophageal reflux disease without esophagitis Category: Medical Plan: Dietary restrictions reinforced (13) Vitamin D deficiency: Code(s): E55.9 - Vitamin D deficiency, unspecified Category: Medical Plan: Continue Vitamin D3 2000 units QD (14) History of testicular cancer: Comment: S/P left orchiectomy Code(s): Z85.47 - Personal history of malignant neoplasm of testis Category: Medical Plan: S/P left orchiectomy - in remission Follow-up with Oncology/ urology as scheduled for continuing surveillance (15) Anxiety: Code(s): F41.9 - Anxiety disorder, unspecified Category: Medical Plan: Continue Lorazepam 1 mg 1 to 2 times a day as needed - Rx refilled (16) Obesity (BMI 30-39.9): Code(s): E66.9 - Obesity, unspecified Category: Medical Plan: Reinforced diet/exercise as tolerated/lose weight Plan As requested, flu vaccine given to patient today Follow up in 1 month Orders: Orders Influenza [id number] Immunization 03/08/24 Z23 - Encounter for immunization Medications: Refilled lorazepam 1 mg PO BID 30 days PRN 60 tabs 0RF anxiety F41.9 - Anxiety disorder, unspecified oxycodone 30 mg PO Q6H 30 days PRN 120 tabs 0RF pain M51.37 - Other intervertebral disc degeneration, lumbosacral region oxycodone ER 80 mg PO Q6H 30 days 120 tabs 0RF M51.37 - Other intervertebral disc degeneration, lumbosacral region
[2024-03-08 10:56] VITALS: BP 162/90; PULSE 90; O2SAT 95; BMI 29.2
== END 2024-03-08 11:42 | disposition home or self-care (01) ==
PROVIDERS: PCP Internal Medicine; Visit Provider Internal Medicine
DX: I12.9 Hypertensive chronic kidney disease with stage 1 through stage 4 chronic kidney disease, or unspecified chronic kidney disease (principal); E11.65 Type 2 diabetes mellitus with hyperglycemia; N18.31 Chronic kidney disease, stage 3a; J44.9 Chronic obstructive pulmonary disease, unspecified; E87.1 Hypo-osmolality and hyponatremia; E78.00 Pure hypercholesterolemia, unspecified; M51.370 Other intervertebral disc degeneration, lumbosacral region with discogenic back pain only; M25.561 Pain in right knee; M25.562 Pain in left knee; G62.9 Polyneuropathy, unspecified; D64.9 Anemia, unspecified; R79.89 Other specified abnormal findings of blood chemistry

== ENCOUNTER → 2024-03-08 10:36 | Outpatient (BNVA) | payer BC, SELFPAY | PROVIDERS: PCP Internal Medicine; Visit Provider Internal Medicine | DX: E11.65 Type 2 diabetes mellitus with hyperglycemia (principal); E11.22 Type 2 diabetes mellitus with diabetic chronic kidney disease; I12.9 Hypertensive chronic kidney disease with stage 1 through stage 4 chronic kidney disease, or unspecified chronic kidney disease; N18.31 Chronic kidney disease, stage 3a; E87.1 Hypo-osmolality and hyponatremia; E78.00 Pure hypercholesterolemia, unspecified; J44.9 Chronic obstructive pulmonary disease, unspecified; M51.370 Other intervertebral disc degeneration, lumbosacral region with discogenic back pain only; M25.561 Pain in right knee; M25.562 Pain in left knee; G62.9 Polyneuropathy, unspecified; D64.9 Anemia, unspecified; R79.89 Other specified abnormal findings of blood chemistry; K21.9 Gastro-esophageal reflux disease without esophagitis; E55.9 Vitamin D deficiency, unspecified; F41.9 Anxiety disorder, unspecified; E66.9 Obesity, unspecified; Z68.29 Body mass index [BMI] 29.0-29.9, adult; Z85.47 Personal history of malignant neoplasm of testis; Z79.4 Long term (current) use of insulin; Z79.891 Long term (current) use of opiate analgesic; Z79.899 Other long term (current) drug therapy; Z23 Encounter for immunization | CPT/HCPCS: 90471; 90656; 96127 ==

== ENCOUNTER 2024-04-05 10:41 | Outpatient (AMB) | payer BC, SELFPAY ==
--- NOTE | 2024-04-05 10:43 | MHC.PC.OV ---
Vital Signs 04/05/24 11:37 BP 177/96 H Blood Pressure Location Lt brachial Position Sitting Comment BP done by patient at home during video telehealth visit today 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 F/U Developmental Training Counselor Required: No Accompanied by: Self / Same As Patient Allergies gabapentin Adverse Reaction (Intermediate, Verified 04/05/24 11:35) severe somnolence, dizziness Medication List - Last Reconciled 04/05/24 by Yobany Raymundo MD albuterol sulfate 90 mcg/actuation 2 puffs PO Q6H PRN amlodipine 10 mg PO DAILY 90 days Basaglar KwikPen U-100 Insulin (insulin glargine) 40 units (0.4 mL) subcut QPM 30 days NS blood sugar diagnostic (FreeStyle Lite Strips) As directed tests 4 X/day 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 meter,continuous (Dexcom G6 Intensive Care Nurse) As directed 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 sensor (Dexcom G6 Sensor device) As directed 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 transmitter (Dexcom G6 Transmitter device) USE DIRECTED carvedilol 12.5 mg PO BID 90 days cholecalciferol (vitamin D3) (Vitamin D3) 50 mcg PO DAILY 90 days empagliflozin 25 mg PO QAM 90 days fenofibrate nanocrystallized 145 mg PO DAILY 90 days Humalog KwikPen Insulin (insulin lispro) 35 units (0.35 mL) subcut TID 30 days NS hydralazine 25 mg PO TID 90 days lamotrigine 200 mg PO BID lorazepam 1 mg PO BID PRN 30 days losartan 50 mg PO DAILY 90 days oxycodone 30 mg PO Q6H PRN 30 days oxycodone ER 80 mg PO Q6H 30 days pen needle, diabetic (BD Ultra-Fine Dee Pen Needle) As directed 4 times a day pravastatin 40 mg PO DAILY 90 days tirzepatide 7.5 mg (0.5 mL) subcut QWEEK 4 weeks Tobacco use date assessed: 04/05/24 Dental Screening Dental Screen Date: 04/05/24 Did you have a dental visit in the last 12 months?: No Did you have a dental problem in the last 6 months where you did not have access to dental care?: No Was dental information given to patient?: No HPI Med F/U HPI Details Patient's follow up visit / consultation today is done over video conference (iPhone/iPad/Google Meets/Doximity) - this is a TELEHEALTH visit Patient's current medications have been reviewed and verified with patient and/or caregiver/proxy and have been updated accordingly in the medication list Patient states that he feels okay He denies any headaches or dizziness Denies any chest pains, no SOB No nausea/vomiting, no abdominal pain No change in bowel habits noted States that his low back pain and lower extremity pain (due to neuropathy) remain adequately controlled on his current meds - he again needs his pain meds and Lorazepam Rx refilled today [facility] Medical History Overweight (BMI 25.0-29.9) Obesity (BMI 30-39.9) Anxiety History of testicular cancer GERD without esophagitis Elevated LFTs Vitamin D deficiency Neuropathy Degeneration of lumbar or lumbosacral intervertebral disc Anemia Mild chronic obstructive pulmonary disease Benign essential hypertension Chronic kidney disease (CKD), stage II (mild) Type 2 diabetes mellitus with diabetic chronic kidney disease Type 2 diabetes mellitus with diabetic neuropathy, unspecified Surgical History History of colonoscopy (~06/24/16) History of orchiectomy Pure hypercholesterolemia History of lumbar surgery Family History Father Cancer Mother Diabetes Social History Household Members: Other Housing: House Alcohol intake: former Patient Tobacco Use Status: Never used Tobacco Tobacco use type: Cigarette e-Cigarette/Vaping Use: Never Used Second Hand Smoke Exposure: Yes service: Yes Current occupational status: disabled Cognitive needs: No Hearing needs: No Vision needs: Yes Questionnaire PHQ-9 Over the last 2 weeks, how often have you been bothered by any of the following problems? 1. Little interest or pleasure in doing things: not at all 2. Feeling down, depressed, or hopeless: not at all 3. Trouble falling or staying asleep, or sleeping too much: not at all 4. Feeling tired or having little energy: not at all 5. Poor appetite or overeating: not at all 6. Feeling bad about yourself - or that you are a failure or have let yourself or your family down: not at all 7. Trouble concentrating on things, such as reading the newspaper or watching television: not at all 8. Moving or speaking so slowly that other people could have noticed. Or the opposite - being so fidgety or restless that you have been moving around a lot more than usual: not at all 9. Thoughts that you would be better off or of hurting yourself in some way: not at all Total score: 0 Depression Screening Interpretation: Negative Depression Screening Done: Yes 66292 - PHQ-9 Billing: Yes Source: Developed by Drs. Robbi Keller, Margie Cardona, Parvez Adan and colleagues, with an educational breonna from [employer]. Thrive Questionnaire Date Thrive assessed: 04/05/24 I am a: Patient What is your living situation today?: I have a steady place to live Within the past 12 months, did the food you bought not last and you didn't have the money to get more?: Never true Within the past 12 months, did you worry whether your food would run out before you got money to buy more?: Never true Do you have trouble paying for medicines?: No Do you have trouble getting transportation to medical appointments?: No Do you have trouble paying your heating and electricity bill?: No Do you have trouble taking care of your child, family member or friend?: No Do you have trouble with day-to-day activities such as bathing, preparing meals, shopping, managing finances, etc.?: No Are you currently unemployed and looking for a job?: I choose not to answer this question Are you interested in more education?: No Please select the resources that you would like help with: None Currently or been in a relationship where the following occur: No concerns reported THRIVE Score: 0 AUDIT C Alcohol Use Questionnaire (AUDIT-C) 1. How often do you have a drink containing alcohol?: Never 3. How often do you have six or more drinks on one occasion?: Never Total Score: 0 Score Reviewed/Action Taken: Yes SHAHRIAR-7 AMB Questionnaire SHAHRIAR-7 Date SHAHRIAR - 7 assessed: 04/05/24 Feeling nervous, anxious, or on edge: 0 = Not at all Not being able to stop or control worryin = Not at all Worrying too much about different things: 0 = Not at all Trouble relaxin = Not at all Being so restless that it is hard to sit still: 0 = Not at all Becoming easily annoyed or irritable: 0 = Not at all Feeling afraid as if something awful might happen: 0 = Not at all Total SHAHRIAR-7 score (0-4 normal; 5-9 mild; 10-14 moderate; 15-21 severe): 0 Source: Developed by Drs. Robbi Keller, Margie Cardona, Parvze Adan and colleagues, with an educational breonna from [employer]. Review of Systems Const Denies chills, Reports fatigue, Denies fever(s) and Denies headache(s) ENT Denies dysphagia, Denies dizziness, Denies otalgia, Denies headache(s), Denies neck pain, Denies odynophagia and Denies sore throat Card Denies chest pain, Denies palpitations and Denies dyspnea Resp Denies chest congestion, Denies cough and Denies dyspnea GI Denies abdominal pain, Denies constipation, Denies dysphagia, Denies heartburn, Denies diarrhea, Denies nausea, Denies odynophagia and Denies vomiting Denies dysuria, Reports nocturia and Reports urinary frequency Musc Reports back pain (over the lumbar spine - chronic), Reports arthralgias (over both knees; increased in the right shoulder lately), Denies joint swelling, Denies neck pain and Reports stiffness (a couple of fingers lock up every now and then) Skin/Breast Denies rash Neuro Denies dizziness and Denies headache(s) Psych Reports anxiety and Reports depression Endo Reports fatigue, Denies polydipsia and Denies palpitations Physical exam (Primary Care) Vital Signs: Last Vital Signs BP 177/96 H 04/05/24 11:37 Physical examination is not performed as visit / consultation today is done over videoconference - Telehealth visit All physical findings indicated here, if present, are as per patient's and / or caregivers / proxy's report and visual inspection over videoconference, if appropriate or applicable Tobacco/Smoking Status: Tobacco use Status Tobacco use date assessed 04/05/24 04/05/24 10:44 Patient Tobacco Use Status Never used Tobacco 04/05/24 10:44 Tobacco use type Cigarette 04/05/24 10:44 e-Cigarette/Vaping Use Never Used 04/05/24 10:44 PHQ-9: PHQ-9 Score PHQ-9: Total score 0 04/05/24 12:04 Depression Screening Interpretation: Negative Thrive Assessment: Date of Thrive Assessment Date Thrive assessed 04/05/24 04/05/24 10:44 Currently or been in a relationship where the following occur: No concerns reported Telehealth Telehealth Telehealth Platform: Telephone Location of provider rendering services: practice address Location of patient: address on file Patient Identification confirmed using: Name, : Yes Telehealth method: video (iphone / [employer]) Patient verbally consented to treatment: Yes Patient verbally consented to billing insurance company: Yes Patient informed of any privacy concerns related to visit: Yes Minutes spent on Phone/Video with Pt.: 19 Coding Level of Care Code Tele Est Pt Level 3 (77008) Diagnoses Uncontrolled type 2 diabetes mellitus with hyperglycemia E11.65 Diabetes mellitus type: type 2 Hyponatremia E87.1 Stage 3a chronic kidney disease N18.31 Chronic kidney disease stage 3 subtype: stage 3a (GFR 45-59) Benign essential hypertension I10 Pure hypercholesterolemia E78.00 Mild chronic obstructive pulmonary disease J44.9 Degeneration of intervertebral disc of lumbosacral region with discogenic back pain M51.370 Disc-related pain type: discogenic back pain only Pain in both knees, unspecified chronicity M25.561; M25.562 Chronicity: unspecified Neuropathy G62.9 Anemia, unspecified type D64.9 Anemia type: unspecified type Elevated LFTs R79.89 GERD without esophagitis K21.9 Vitamin D deficiency E55.9 History of testicular cancer Z85.47 Anxiety F41.9 Obesity (BMI 30-39.9) E66.9 Assessment & Plan Assessment & Plan (1) Uncontrolled diabetes mellitus with hyperglycemia: Code(s): E11.65 - Type 2 diabetes mellitus with hyperglycemia Category: Medical Qualifiers: Diabetes mellitus type: type 2 Qualified Code(s): E11.65 - Type 2 diabetes mellitus with hyperglycemia Plan: His HgbA1c was at 12.0% on his labs done a month ago (his in-office HgbA1c was previously at >13.5% a few months ago) - goal is at least <7.0% Reinforced diabetic diet Continue Humalog Kwikpen 35 units TID with meals and Basaglar 40 units Q HS; continue Jardiance 25 mg QD and Mounjaro 7.5 mg once a week He has been referred to Endocrinology before but he still prefers not seeing endocrinology as he is tired and frustrated at having to pay a $60 co-pay every time he is seen by endocrinology - states that he feels that he is only seen there for a few minutes and is not even getting the proper attention and treatment he needs and that what we currently have him on has been working a lot better for him (and he feels a lot better on) than any of the Rx or Tx that endocrinology had him on in the past (2) Hyponatremia: Code(s): E87.1 - Hypo-osmolality and hyponatremia Category: Medical Plan: His serum sodium is normal at 138 on his labs done a month ago This is likely related to his declining renal function as well as his persistent hyperglycemia and we will continue to monitor this regularly Follow up with nephrology as scheduled (3) Chronic kidney disease (CKD), stage III (moderate): Code(s): N18.30 - Chronic kidney disease, stage 3 unspecified Category: Medical Qualifiers: Chronic kidney disease stage 3 subtype: stage 3a (GFR 45-59) Qualified Code(s): N18.31 - Chronic kidney disease, stage 3a Plan: His renal function currently appears to be stable, based on his recent lab results He is again cautioned that this can change very quickly as long as his diabetes is uncontrolled Follow up with nephrology as scheduled (4) Benign essential hypertension: Code(s): I10 - Essential (primary) hypertension Category: Medical Plan: Reinforced low-sodium diet -? goal is systolic BP of at least 130 mm or less His BP is still high today Continue Amlodipine 10 mg QD, Carvedilol 12.5 mg BID, Hydralazine 25 mg TID and Losartan 50 mg QD for now He is reminded to continue monitoring and checking his blood pressure regularly (5) Pure hypercholesterolemia: Code(s): E78.00 - Pure hypercholesterolemia, unspecified Category: Surgical Plan: Reinforced low cholesterol diet Continue Pravastatin 20 mg QD and Fenofibrate 145 mg QD (6) Mild chronic obstructive pulmonary disease: Code(s): J44.9 - Chronic obstructive pulmonary disease, unspecified Category: Medical Plan: Stable -? PFTs done a couple of years ago showed mild COPD Patient has been mostly asymptomatic and has not needed to use any of his inhalers lately except for when he came down with a cold or respiratory infection (7) Degeneration of lumbar or lumbosacral intervertebral disc: Code(s): M51.37 - Other intervertebral disc degeneration, lumbosacral region Category: Medical Qualifiers: Disc-related pain type: discogenic back pain only Qualified Code(s): M51.370 - Other intervertebral disc degeneration, lumbosacral region with discogenic back pain only Plan: Reinforced activity and weight lifting restrictions Continue Oxycodone 30 mg every 6-8 hours as needed and Oxycodone ER 80 mg every 6 hours - Rx refilled (8) Bilateral knee pain: Code(s): M25.561 - Pain in right knee; M25.562 - Pain in left knee Category: Medical Qualifiers: Chronicity: unspecified Qualified Code(s): M25.561 - Pain in right knee; M25.562 - Pain in left knee Plan: X-rays of both knees done last year revealed (+) mild OA changes in the right knee; left knee x-rays were normal He was recommended to see orthopedics for further evaluation and management of his knee symptoms but patient prefers to hold off for now and he will call for referral when he feels he is ready to or needs to see orthopedics (9) Neuropathy: Code(s): G62.9 - Polyneuropathy, unspecified Category: Medical Plan: EMG and NCV of both lower extremities done in 2017 showed (+)? 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 chronic bilateral lower lumbar radiculopathy Continue Nortriptyline 50 mg Q HS Emphasized again the importance of tight glycemic control to slow down the progression of his neuropathy Follow up with podiatry as scheduled for regular/annual foot exam and diabetic foot care (10) Anemia: Code(s): D64.9 - Anemia, unspecified Category: Medical Qualifiers: Anemia type: unspecified type Qualified Code(s): D64.9 - Anemia, unspecified Plan: This is most likely anemia of chronic disease although his H/H have corrected and have remained normal on his recent labs Will continue to monitor his CBC regularly (11) Elevated LFTs: Code(s): R79.89 - Other specified abnormal findings of blood chemistry Category: Medical Plan: His LFTs have also remained normal on his recent labs - were most likely due to his weight and his medications and cholesterol level He is again reminded that losing weight will help keep his LFTs from going back up Will continue to monitor his LFTs regularly (12) GERD without esophagitis: Code(s): K21.9 - Gastro-esophageal reflux disease without esophagitis Category: Medical Plan: Dietary restrictions reinforced (13) Vitamin D deficiency: Code(s): E55.9 - Vitamin D deficiency, unspecified Category: Medical Plan: Continue Vitamin D3 2000 units QD (14) History of testicular cancer: Comment: S/P left orchiectomy Code(s): Z85.47 - Personal history of malignant neoplasm of testis Category: Medical Plan: S/P left orchiectomy - in remission Follow-up with Oncology/ urology as scheduled for continuing surveillance (15) Anxiety: Code(s): F41.9 - Anxiety disorder, unspecified Category: Medical Plan: Continue Lorazepam 1 mg 1 to 2 times a day as needed - Rx refilled (16) Obesity (BMI 30-39.9): Code(s): E66.9 - Obesity, unspecified Category: Medical Plan: Reinforced diet/exercise as tolerated/lose weight Plan Follow up in 1 month Medications: Refilled oxycodone ER 80 mg PO Q6H 30 days 120 tabs 0RF M51.37 - Other intervertebral disc degeneration, lumbosacral region oxycodone 30 mg PO Q6H 30 days PRN 120 tabs 0RF pain M51.37 - Other intervertebral disc degeneration, lumbosacral region lorazepam 1 mg PO BID 30 days PRN 60 tabs 0RF anxiety F41.9 - Anxiety disorder, unspecified
[2024-04-05 11:37] VITALS: BP 177/96
== END 2024-04-05 16:05 | disposition home or self-care (01) ==
LOC: HO.HMCH 10:41
PROVIDERS: PCP Internal Medicine; Visit Provider Internal Medicine
DX: I12.9 Hypertensive chronic kidney disease with stage 1 through stage 4 chronic kidney disease, or unspecified chronic kidney disease (principal); E11.65 Type 2 diabetes mellitus with hyperglycemia; J44.9 Chronic obstructive pulmonary disease, unspecified; N18.31 Chronic kidney disease, stage 3a; E87.1 Hypo-osmolality and hyponatremia; E78.00 Pure hypercholesterolemia, unspecified; M51.370 Other intervertebral disc degeneration, lumbosacral region with discogenic back pain only; M25.561 Pain in right knee; M25.562 Pain in left knee; G62.9 Polyneuropathy, unspecified; D64.9 Anemia, unspecified; R79.89 Other specified abnormal findings of blood chemistry

== ENCOUNTER → 2024-04-05 10:41 | Outpatient (BNVA) | payer BC, SELFPAY | PROVIDERS: PCP Internal Medicine; Visit Provider Internal Medicine ==

== ENCOUNTER 2024-05-03 10:29 | Outpatient (AMB) | payer BC, SELFPAY ==
[2024-05-03 10:41] VITALS: BP 116/80; PULSE 102; O2SAT 98; BMI 28.8
--- NOTE | 2024-05-03 10:41 | MHC.PC.OV ---
Vital Signs 05/03/24 10:41 Height 6 ft 1 in Weight 218 lb 2 oz BMI 28.8 BP 116/80 Blood Pressure Location Lt brachial Position Sitting Pulse 102 H Pulse Source Pulse Oximeter Pulse Oximetry (%) 98 Oxygen Delivery Method Room Air 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 F/U [employer] Supervisor Required: No Accompanied by: Self / Same As Patient Allergies gabapentin Adverse Reaction (Intermediate, Verified 05/03/24 11:31) severe somnolence, dizziness Medication List - Last Reconciled 05/03/24 by Yobany Raymundo MD albuterol sulfate 90 mcg/actuation 2 puffs PO Q6H PRN amlodipine 10 mg PO DAILY 90 days Basaglar KwikPen U-100 Insulin (insulin glargine) 40 units (0.4 mL) subcut QPM 30 days NS blood sugar diagnostic (FreeStyle Lite Strips) As directed tests 4 X/day 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 meter,continuous ([employer] G6 Director Of Financial Aid) As directed 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 sensor (Dexcom G6 Sensor device) As directed 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 transmitter (Dexcom G6 Transmitter device) USE DIRECTED carvedilol 12.5 mg PO BID 90 days cholecalciferol (vitamin D3) (Vitamin D3) 50 mcg PO DAILY 90 days empagliflozin 25 mg PO QAM 90 days fenofibrate nanocrystallized 145 mg PO DAILY 90 days Humalog KwikPen Insulin (insulin lispro) 35 units (0.35 mL) subcut TID 30 days NS hydralazine 25 mg PO TID 90 days lamotrigine 200 mg PO BID lorazepam 1 mg PO BID PRN 30 days losartan 50 mg PO DAILY 90 days oxycodone 30 mg PO Q6H PRN 30 days oxycodone ER 80 mg PO Q6H 30 days pen needle, diabetic (BD Ultra-Fine Dee Pen Needle) As directed 4 times a day pravastatin 40 mg PO DAILY 90 days tirzepatide 7.5 mg (0.5 mL) subcut QWEEK 4 weeks Tobacco use date assessed: 05/03/24 Dental Screening Dental Screen Date: 05/03/24 Did you have a dental visit in the last 12 months?: No Did you have a dental problem in the last 6 months where you did not have access to dental care?: No Was dental information given to patient?: No HPI Med F/U HPI Details Patient comes in today for his follow-up visit States that he feels okay He denies any headaches or dizziness Denies any chest pains, no shortness of breath No nausea/vomiting, no abdominal pain No change in bowel habits noted States that his chronic low back pain and joint pains remain adequately controlled on his current medications - will need his pain medications as well as his Lorazepam Rx refilled today [facility] Medical History (Updated 05/06/24 @ 10:23 by Yobany Raymundo MD) Overweight (BMI 25.0-29.9) Obesity (BMI 30-39.9) Anxiety History of testicular cancer GERD without esophagitis Elevated LFTs Vitamin D deficiency Neuropathy Degeneration of lumbar or lumbosacral intervertebral disc Anemia Mild chronic obstructive pulmonary disease Benign essential hypertension Chronic kidney disease (CKD), stage II (mild) Type 2 diabetes mellitus with diabetic chronic kidney disease Type 2 diabetes mellitus with diabetic neuropathy, unspecified Surgical History History of colonoscopy (~06/24/16) History of orchiectomy Pure hypercholesterolemia History of lumbar surgery Family History Father Cancer Mother Diabetes Social History Household Members: Other Housing: House Alcohol intake: former Patient Tobacco Use Status: Never used Tobacco Tobacco use type: Cigarette e-Cigarette/Vaping Use: Never Used Second Hand Smoke Exposure: Yes service: Yes Current occupational status: disabled Cognitive needs: No Hearing needs: No Vision needs: Yes Questionnaire PHQ-9 Over the last 2 weeks, how often have you been bothered by any of the following problems? 1. Little interest or pleasure in doing things: not at all 2. Feeling down, depressed, or hopeless: not at all 3. Trouble falling or staying asleep, or sleeping too much: not at all 4. Feeling tired or having little energy: not at all 5. Poor appetite or overeating: not at all 6. Feeling bad about yourself - or that you are a failure or have let yourself or your family down: not at all 7. Trouble concentrating on things, such as reading the newspaper or watching television: not at all 8. Moving or speaking so slowly that other people could have noticed. Or the opposite - being so fidgety or restless that you have been moving around a lot more than usual: not at all 9. Thoughts that you would be better off or of hurting yourself in some way: not at all Total score: 0 Depression Screening Interpretation: Negative Depression Screening Done: Yes 66574 - PHQ-9 Billing: Yes Source: Developed by Drs. Robbi Keller, Margie Cardona, Parvez Adan and colleagues, with an educational breonna from [employer]. Thrive Questionnaire Date Thrive assessed: 05/03/24 I am a: Patient What is your living situation today?: I have a steady place to live Within the past 12 months, did the food you bought not last and you didn't have the money to get more?: Never true Within the past 12 months, did you worry whether your food would run out before you got money to buy more?: Never true Do you have trouble paying for medicines?: No Do you have trouble getting transportation to medical appointments?: No Do you have trouble paying your heating and electricity bill?: No Do you have trouble taking care of your child, family member or friend?: No Do you have trouble with day-to-day activities such as bathing, preparing meals, shopping, managing finances, etc.?: No Are you currently unemployed and looking for a job?: I choose not to answer this question Are you interested in more education?: No Please select the resources that you would like help with: None Currently or been in a relationship where the following occur: No concerns reported THRIVE Score: 0 AUDIT C Alcohol Use Questionnaire (AUDIT-C) 1. How often do you have a drink containing alcohol?: Never 3. How often do you have six or more drinks on one occasion?: Never Total Score: 0 Score Reviewed/Action Taken: Yes SHAHRIAR-7 AMB Questionnaire SHAHRIAR-7 Date SHAHRIAR - 7 assessed: 05/03/24 Feeling nervous, anxious, or on edge: 0 = Not at all Not being able to stop or control worryin = Not at all Worrying too much about different things: 0 = Not at all Trouble relaxin = Not at all Being so restless that it is hard to sit still: 0 = Not at all Becoming easily annoyed or irritable: 0 = Not at all Feeling afraid as if something awful might happen: 0 = Not at all Total SHAHRIAR-7 score (0-4 normal; 5-9 mild; 10-14 moderate; 15-21 severe): 0 Source: Developed by Drs. Robbi Keller, Margie Cardona, Parvez Adan and colleagues, with an educational breonna from [employer]. Review of Systems Const Denies chills, Reports fatigue, Denies fever(s) and Denies headache(s) ENT Denies dysphagia, Denies dizziness, Denies otalgia, Denies headache(s), Denies neck pain, Denies odynophagia and Denies sore throat Card Denies chest pain, Denies palpitations and Denies dyspnea Resp Denies chest congestion, Denies cough and Denies dyspnea GI Denies abdominal pain, Denies constipation, Denies dysphagia, Denies heartburn, Denies diarrhea, Denies nausea, Denies odynophagia and Denies vomiting Denies dysuria, Reports nocturia and Reports urinary frequency Musc Reports back pain (over the lumbar spine - chronic), Reports arthralgias (over both knees; increased in the right shoulder lately), Denies joint swelling, Denies neck pain and Reports stiffness (a couple of fingers lock up every now and then) Skin/Breast Denies rash Neuro Denies dizziness and Denies headache(s) Psych Reports anxiety and Reports depression Endo Reports fatigue, Denies polydipsia and Denies palpitations Physical exam (Primary Care) Vital Signs: Last Vital Signs Pulse 102 H 05/03/24 10:41 BP 116/80 05/03/24 10:41 Pulse Ox 98 05/03/24 10:41 Oxygen Delivery Method Room Air 05/03/24 10:41 BMI result Body Mass Index 28.8 Tobacco/Smoking Status: Tobacco use Status Tobacco use date assessed 05/03/24 05/03/24 10:47 Patient Tobacco Use Status Never used Tobacco 05/03/24 10:47 Tobacco use type Cigarette 05/03/24 10:47 e-Cigarette/Vaping Use Never Used 05/03/24 10:47 PHQ-9: PHQ-9 Score PHQ-9: Total score 0 05/03/24 11:57 Depression Screening Interpretation: Negative Thrive Assessment: Date of Thrive Assessment Date Thrive assessed 05/03/24 05/03/24 10:47 Currently or been in a relationship where the following occur: No concerns reported Const General: no acute distress and alert HENMT Throat: Yes posterior oropharynx normal and Yes tonsils normal (no TP congestion noted) Neck Neck: Yes no lymphadenopathy and Yes supple Thyroid: Thyroid normal Resp Auscultation: clear to auscultation bilaterally, no rales and no wheezes Cardio Rate: regular rate Rhythm: regular rhythm Heart sounds: no murmurs GI Palpation (GI): Soft to palpation and nontender Auscultation: normal bowel sounds General: Yes no CVA tenderness Back/Spine/Pelvis Back: no CVA tenderness Thoracic/Lumbar Spine: lumbar spinal tenderness (chronic) Skin Rashes: no rashes Extrem General: Yes no clubbing, cyanosis or edema Results AMB Hemoglobin A1c AMB Hemoglobin A1c 14 % Last Edit by PIETER Hi on 05/03/24 11:57 Results Reviewed Results Reviewed: Laboratory Last Values Hgb A1c (Clinic) 14 % (4.0-6.0) H 05/03/24 11:41 Coding Level of Care Code Est Pt Level 4 (35699) Diagnoses Uncontrolled type 2 diabetes mellitus with hyperglycemia E11.65 Diabetes mellitus type: type 2 Hyponatremia E87.1 Stage 3a chronic kidney disease N18.31 Chronic kidney disease stage 3 subtype: stage 3a (GFR 45-59) Benign essential hypertension I10 Pure hypercholesterolemia E78.00 Mild chronic obstructive pulmonary disease J44.9 Degeneration of intervertebral disc of lumbosacral region with discogenic back pain M51.370 Disc-related pain type: discogenic back pain only Neuropathy G62.9 Pain in both knees, unspecified chronicity M25.561; M25.562 Chronicity: unspecified Elevated LFTs R79.89 GERD without esophagitis K21.9 Vitamin D deficiency E55.9 History of testicular cancer Z85.47 Anxiety F41.9 Obesity (BMI 30-39.9) E66.9 Additional Codes PHQ-9 - 15506 - PHQ-9 Billing: Yes ([id number]) Assessment & Plan Assessment & Plan (1) Uncontrolled diabetes mellitus with hyperglycemia: Code(s): E11.65 - Type 2 diabetes mellitus with hyperglycemia Category: Medical Qualifiers: Diabetes mellitus type: type 2 Qualified Code(s): E11.65 - Type 2 diabetes mellitus with hyperglycemia Plan: His in-office HgbA1c today is again at 14% (his HgbA1c was at 12.0% a couple of months ago and at >13.5% this past summer) - goal is at least <7.0% Reinforced diabetic diet - patient admits to inconsistent and poor compliance with his diet over the past year Continue Humalog Kwikpen 35 units TID with meals and Basaglar 40 units Q HS; continue Jardiance 25 mg QD and Mounjaro 7.5 mg once a week for now He has been referred to Endocrinology before and he still prefers NOT seeing endocrinology as he is tired and frustrated at having to pay a $60 co-pay every time he is seen by endocrinology but have advised patient that what we have been doing (as per his preference) over the past couple of years have not really helped at all and he is currently not any better at all compared to how he was 2 years ago and with his recent labs now showing (+) microalbuminuria and his GFR starting to change, I have advised him that it is not appropriate to continue as he is now and we need to refer him back to endocrinology for more intensive management of his diabetes - he is now being referred BACK to endocrinology for his uncontrolled diabetes despite his preference not to do so (2) Hyponatremia: Code(s): E87.1 - Hypo-osmolality and hyponatremia Category: Medical Plan: His serum sodium was normal at 138 on his labs done a couple of months ago This was likely related to his declining renal function as well as his persistent hyperglycemia We will continue to monitor his electrolyte levels regularly Follow up with nephrology as scheduled (3) Chronic kidney disease (CKD), stage III (moderate): Code(s): N18.30 - Chronic kidney disease, stage 3 unspecified Category: Medical Qualifiers: Chronic kidney disease stage 3 subtype: stage 3a (GFR 45-59) Qualified Code(s): N18.31 - Chronic kidney disease, stage 3a Plan: His renal function currently appears stable, based on his recent lab results He is again cautioned that this can change very quickly as long as his diabetes is uncontrolled, which it still is, based on his HgbA1c done in the office today (14%) Follow up with nephrology as scheduled (4) Benign essential hypertension: Code(s): I10 - Essential (primary) hypertension Category: Medical Plan: Reinforced low-sodium diet -? goal is systolic BP of at least 130 mm or less His BP appears to be much better controlled today than at his last visit a month ago Continue Amlodipine 10 mg QD, Carvedilol 12.5 mg BID, Hydralazine 25 mg TID and Losartan 50 mg QD He is reminded to continue monitoring his blood pressure regularly (5) Pure hypercholesterolemia: Code(s): E78.00 - Pure hypercholesterolemia, unspecified Category: Surgical Plan: Reinforced low cholesterol diet Continue Pravastatin 20 mg QD and Fenofibrate 145 mg QD (6) Mild chronic obstructive pulmonary disease: Code(s): J44.9 - Chronic obstructive pulmonary disease, unspecified Category: Medical Plan: Stable -? PFTs done a couple of years ago showed mild COPD Patient has been mostly asymptomatic and has not needed to use any of his inhalers lately except for when he comes down with a cold or respiratory infection (7) Degeneration of lumbar or lumbosacral intervertebral disc: Code(s): M51.37 - Other intervertebral disc degeneration, lumbosacral region Category: Medical Qualifiers: Disc-related pain type: discogenic back pain only Qualified Code(s): M51.370 - Other intervertebral disc degeneration, lumbosacral region with discogenic back pain only Plan: Reinforced activity and weight lifting restrictions Continue Oxycodone 30 mg every 6-8 hours as needed and Oxycodone ER 80 mg every 6 hours - Rx refilled (8) Neuropathy: Code(s): G62.9 - Polyneuropathy, unspecified Category: Medical Plan: EMG and NCV of both lower extremities done in 2017 showed (+)? 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 chronic bilateral lower lumbar radiculopathy Continue Nortriptyline 50 mg Q HS Have emphasized to him again the importance of tight glycemic control to slow down the progression of his neuropathy Follow up with podiatry as scheduled for regular/annual foot exam and diabetic foot care (9) Bilateral knee pain: Code(s): M25.561 - Pain in right knee; M25.562 - Pain in left knee Category: Medical Qualifiers: Chronicity: unspecified Qualified Code(s): M25.561 - Pain in right knee; M25.562 - Pain in left knee Plan: X-rays of both knees done last year revealed (+) mild OA changes in the right knee; left knee x-rays were normal He was recommended to see orthopedics for further evaluation and management of his knee symptoms but patient prefers to hold off for now and he will call for referral when he feels he needs to see orthopedics (10) Elevated LFTs: Code(s): R79.89 - Other specified abnormal findings of blood chemistry Category: Medical Plan: His LFTs have also remained normal on his recent labs done a couple of months ago - were most likely due to his weight and his medications and cholesterol level Will continue to monitor his LFTs regularly (11) GERD without esophagitis: Code(s): K21.9 - Gastro-esophageal reflux disease without esophagitis Category: Medical Plan: Dietary restrictions reinforced (12) Vitamin D deficiency: Code(s): E55.9 - Vitamin D deficiency, unspecified Category: Medical Plan: Continue Vitamin D3 2000 units QD (13) 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 & 3 cycles of BEP (bleomycin, etoposide, cisplatin) chemotherapy completed in 04/2008 Code(s): Z85.47 - Personal history of malignant neoplasm of testis Category: Medical Plan: S/P left orchiectomy and chemotherapy (completed in 2007) - patient currently remains in remission Follow-up with Oncology/ urology as scheduled for continuing surveillance (14) Anxiety: Code(s): F41.9 - Anxiety disorder, unspecified Category: Medical Plan: Continue Lorazepam 1 mg 1 to 2 times a day as needed - Rx refilled (15) Obesity (BMI 30-39.9): Code(s): E66.9 - Obesity, unspecified Category: Medical Plan: Reinforced diet/exercise as tolerated/lose weight Plan Follow up in 1 month Orders: Orders AMB Hemoglobin A1c 05/03/24 Z13.9 - Encounter for screening, unspecified Referrals Endocrinology Referral E11.65 - Type 2 diabetes mellitus with hyperglycemia Medications: Refilled oxycodone 30 mg PO Q6H 30 days PRN 120 tabs 0RF pain M51.37 - Other intervertebral disc degeneration, lumbosacral region oxycodone ER 80 mg PO Q6H 30 days 120 tabs 0RF M51.37 - Other intervertebral disc degeneration, lumbosacral region lorazepam 1 mg PO BID 30 days PRN 60 tabs 0RF anxiety F41.9 - Anxiety disorder, unspecified
== END 2024-05-03 11:59 | disposition home or self-care (01) ==
PROVIDERS: PCP Internal Medicine; Visit Provider Internal Medicine
DX: I12.9 Hypertensive chronic kidney disease with stage 1 through stage 4 chronic kidney disease, or unspecified chronic kidney disease (principal); E11.65 Type 2 diabetes mellitus with hyperglycemia; N18.31 Chronic kidney disease, stage 3a; J44.9 Chronic obstructive pulmonary disease, unspecified; E87.1 Hypo-osmolality and hyponatremia; E78.00 Pure hypercholesterolemia, unspecified; M51.370 Other intervertebral disc degeneration, lumbosacral region with discogenic back pain only; G62.9 Polyneuropathy, unspecified; M25.561 Pain in right knee; M25.562 Pain in left knee; K21.9 Gastro-esophageal reflux disease without esophagitis

== ENCOUNTER → 2024-05-03 10:29 | Outpatient (BNVA) | payer BC, SELFPAY | PROVIDERS: PCP Internal Medicine; Visit Provider Internal Medicine | DX: E11.65 Type 2 diabetes mellitus with hyperglycemia (principal); E78.1 Pure hyperglyceridemia; I12.9 Hypertensive chronic kidney disease with stage 1 through stage 4 chronic kidney disease, or unspecified chronic kidney disease; E11.22 Type 2 diabetes mellitus with diabetic chronic kidney disease; N18.31 Chronic kidney disease, stage 3a; E78.00 Pure hypercholesterolemia, unspecified; J44.9 Chronic obstructive pulmonary disease, unspecified; M51.370 Other intervertebral disc degeneration, lumbosacral region with discogenic back pain only; G62.9 Polyneuropathy, unspecified; M25.561 Pain in right knee; M25.562 Pain in left knee; R79.89 Other specified abnormal findings of blood chemistry; K21.9 Gastro-esophageal reflux disease without esophagitis; E55.9 Vitamin D deficiency, unspecified; F41.9 Anxiety disorder, unspecified; E66.9 Obesity, unspecified; Z68.28 Body mass index [BMI] 28.0-28.9, adult; Z79.891 Long term (current) use of opiate analgesic; Z79.899 Other long term (current) drug therapy; Z85.47 Personal history of malignant neoplasm of testis | CPT/HCPCS: 83036; 96127 ==

== ENCOUNTER 2024-05-30 10:01 | Outpatient (AMB) | payer BC, SELFPAY ==
--- NOTE | 2024-05-30 10:01 | MHC.PC.OV ---
Vital Signs 05/30/24 10:34 BP 173/97 H Blood Pressure Location Rt radial Position Sitting Comment wrist monitor 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 F/U Sequins Slinger Required: No Accompanied by: Self / Same As Patient Allergies gabapentin Adverse Reaction (Intermediate, Verified 05/30/24 12:35) severe somnolence, dizziness Medication List - Last Reconciled 05/30/24 by Yobany Raymundo MD albuterol sulfate 90 mcg/actuation 2 puffs PO Q6H PRN amlodipine 10 mg PO DAILY 90 days Basaglar KwikPen U-100 Insulin (insulin glargine) 40 units (0.4 mL) subcut QPM 30 days NS blood sugar diagnostic (FreeStyle Lite Strips) As directed tests 4 X/day 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 meter,continuous (Dexcom G6 Polystyrene Molding Machine Tender) As directed 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 sensor (Dexcom G6 Sensor device) As directed 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 transmitter (Dexcom G6 Transmitter device) USE DIRECTED carvedilol 12.5 mg PO BID 90 days cholecalciferol (vitamin D3) (Vitamin D3) 50 mcg PO DAILY 90 days empagliflozin 25 mg PO QAM 90 days fenofibrate nanocrystallized 145 mg PO DAILY 90 days Humalog KwikPen Insulin (insulin lispro) 35 units (0.35 mL) subcut TID 30 days NS hydralazine 25 mg PO TID 90 days lamotrigine 200 mg PO BID lorazepam 1 mg PO BID PRN 30 days losartan 50 mg PO DAILY 90 days oxycodone 30 mg PO Q6H PRN 30 days oxycodone ER 80 mg PO Q6H 30 days pen needle, diabetic (BD Ultra-Fine Dee Pen Needle) As directed 4 times a day pravastatin 40 mg PO DAILY 90 days tirzepatide 7.5 mg (0.5 mL) subcut QWEEK 4 weeks Tobacco use date assessed: 05/30/24 Dental Screening Dental Screen Date: 05/30/24 HPI Med F/U HPI Details Patient's follow up visit / consultation today is done over video conference (iPhone/iPad/Google Meets/Doximity) - this is a TELEHEALTH visit Patient's current medications have been reviewed and verified with patient and/or caregiver/proxy and have been updated accordingly in the medication list Patient states that he feels okay His blood sugar this morning was around 273 mg/dl; BP is still high at 173/97 mm - he uses a wrist monitor on his right wrist He was also referred back to endocrinology and he is now scheduled to see Dr. Espinoza on 06/12/2024 He denies any headaches or dizziness Denies any chest pains, no increased SOB No nausea/vomiting, no abdominal pain No change in bowel habits noted States that his chronic low back pain and joint pains remain adequately controlled on his current Rx and he will need his pain meds and Lorazepam Rx refilled today [facility] Medical History Overweight (BMI 25.0-29.9) Obesity (BMI 30-39.9) Anxiety History of testicular cancer GERD without esophagitis Elevated LFTs Vitamin D deficiency Neuropathy Degeneration of lumbar or lumbosacral intervertebral disc Anemia Mild chronic obstructive pulmonary disease Benign essential hypertension Chronic kidney disease (CKD), stage II (mild) Type 2 diabetes mellitus with diabetic chronic kidney disease Type 2 diabetes mellitus with diabetic neuropathy, unspecified Surgical History History of colonoscopy (~06/24/16) History of orchiectomy Pure hypercholesterolemia History of lumbar surgery Family History Father Cancer Mother Diabetes Social History Household Members: Other Housing: House Alcohol intake: former Patient Tobacco Use Status: Never used Tobacco Tobacco use type: Cigarette e-Cigarette/Vaping Use: Never Used Second Hand Smoke Exposure: Yes service: Yes Current occupational status: disabled Cognitive needs: No Hearing needs: No Vision needs: Yes Questionnaire PHQ-9 Over the last 2 weeks, how often have you been bothered by any of the following problems? 1. Little interest or pleasure in doing things: not at all 2. Feeling down, depressed, or hopeless: not at all 3. Trouble falling or staying asleep, or sleeping too much: not at all 4. Feeling tired or having little energy: not at all 5. Poor appetite or overeating: not at all 6. Feeling bad about yourself - or that you are a failure or have let yourself or your family down: not at all 7. Trouble concentrating on things, such as reading the newspaper or watching television: not at all 8. Moving or speaking so slowly that other people could have noticed. Or the opposite - being so fidgety or restless that you have been moving around a lot more than usual: not at all 9. Thoughts that you would be better off or of hurting yourself in some way: not at all Total score: 0 Depression Screening Interpretation: Negative Depression Screening Done: Yes 89039 - PHQ-9 Billing: Yes Source: Developed by Drs. Robbi Keller, Margie Cardona, Parvez Adan and colleagues, with an educational breonna from [employer]. Thrive Questionnaire Date Thrive assessed: 05/30/24 I am a: Patient What is your living situation today?: I have a steady place to live Within the past 12 months, did the food you bought not last and you didn't have the money to get more?: Never true Within the past 12 months, did you worry whether your food would run out before you got money to buy more?: Never true Do you have trouble paying for medicines?: No Do you have trouble getting transportation to medical appointments?: No Do you have trouble paying your heating and electricity bill?: No Do you have trouble taking care of your child, family member or friend?: No Do you have trouble with day-to-day activities such as bathing, preparing meals, shopping, managing finances, etc.?: No Are you currently unemployed and looking for a job?: I choose not to answer this question Are you interested in more education?: No Please select the resources that you would like help with: None Currently or been in a relationship where the following occur: No concerns reported THRIVE Score: 0 AUDIT C Alcohol Use Questionnaire (AUDIT-C) 1. How often do you have a drink containing alcohol?: Never 3. How often do you have six or more drinks on one occasion?: Never Total Score: 0 Score Reviewed/Action Taken: Yes SHAHRIAR-7 AMB Questionnaire SHAHRIAR-7 Date SHAHRIAR - 7 assessed: 05/30/24 Feeling nervous, anxious, or on edge: 0 = Not at all Not being able to stop or control worryin = Not at all Worrying too much about different things: 0 = Not at all Trouble relaxin = Not at all Being so restless that it is hard to sit still: 0 = Not at all Becoming easily annoyed or irritable: 0 = Not at all Feeling afraid as if something awful might happen: 0 = Not at all Total SHAHRIAR-7 score (0-4 normal; 5-9 mild; 10-14 moderate; 15-21 severe): 0 Source: Developed by Drs. Robbi Keller, Margie Cardona, Parvez Adan and colleagues, with an educational breonna from [employer]. Review of Systems Const Denies chills, Reports fatigue, Denies fever(s) and Denies headache(s) ENT Denies dysphagia, Denies dizziness, Denies otalgia, Denies headache(s), Denies neck pain, Denies odynophagia and Denies sore throat Card Denies chest pain, Denies palpitations and Denies dyspnea Resp Denies chest congestion, Denies cough and Denies dyspnea GI Denies abdominal pain, Denies constipation, Denies dysphagia, Denies heartburn, Denies diarrhea, Denies nausea, Denies odynophagia and Denies vomiting Denies dysuria, Reports nocturia and Reports urinary frequency Musc Reports back pain (over the lumbar spine - chronic), Reports arthralgias (over both knees; increased in the right shoulder lately), Denies joint swelling, Denies neck pain and Reports stiffness (a couple of fingers lock up every now and then) Skin/Breast Denies rash Neuro Denies dizziness and Denies headache(s) Psych Reports anxiety and Reports depression Endo Reports fatigue, Denies polydipsia and Denies palpitations Physical exam (Primary Care) Vital Signs: Last Vital Signs BP 173/97 H 05/30/24 10:34 Physical examination is not performed as visit / consultation today is done over videoconference - Telehealth visit All physical findings indicated here, if present, are as per patient's and / or caregivers / proxy's report and visual inspection over videoconference, if appropriate or applicable Tobacco/Smoking Status: Tobacco use Status Tobacco use date assessed 05/30/24 05/30/24 10:03 Patient Tobacco Use Status Never used Tobacco 05/30/24 10:03 Tobacco use type Cigarette 05/30/24 10:03 e-Cigarette/Vaping Use Never Used 05/30/24 10:03 PHQ-9: PHQ-9 Score PHQ-9: Total score 0 05/30/24 10:42 Depression Screening Interpretation: Negative Thrive Assessment: Date of Thrive Assessment Date Thrive assessed 05/30/24 05/30/24 10:03 Currently or been in a relationship where the following occur: No concerns reported Telehealth Telehealth Telehealth Platform: Telephone ([employer]) Location of provider rendering services: practice address Location of patient: address on file Patient Identification confirmed using: Name, : Yes Telehealth method: video (Iphone - [employer]) Patient verbally consented to treatment: Yes Patient verbally consented to billing insurance company: Yes Patient informed of any privacy concerns related to visit: Yes Minutes spent on Phone/Video with Pt.: 18 Coding Level of Care Code Tele Est Pt Level 3 (02466) Diagnoses Uncontrolled type 2 diabetes mellitus with hyperglycemia E11.65 Diabetes mellitus type: type 2 Hyponatremia E87.1 Stage 3a chronic kidney disease N18.31 Chronic kidney disease stage 3 subtype: stage 3a (GFR 45-59) Benign essential hypertension I10 Pure hypercholesterolemia E78.00 Mild chronic obstructive pulmonary disease J44.9 Degeneration of intervertebral disc of lumbosacral region with discogenic back pain M51.370 Disc-related pain type: discogenic back pain only Neuropathy G62.9 Pain in both knees, unspecified chronicity M25.561; M25.562 Chronicity: unspecified Elevated LFTs R79.89 GERD without esophagitis K21.9 Vitamin D deficiency E55.9 History of testicular cancer Z85.47 Anxiety F41.9 Obesity (BMI 30-39.9) E66.9 Additional Codes PHQ-9 - 14231 - PHQ-9 Billing: Yes ([id number]) Assessment & Plan Assessment & Plan (1) Uncontrolled diabetes mellitus with hyperglycemia: Code(s): E11.65 - Type 2 diabetes mellitus with hyperglycemia Category: Medical Qualifiers: Diabetes mellitus type: type 2 Qualified Code(s): E11.65 - Type 2 diabetes mellitus with hyperglycemia Plan: His in-office HgbA1c was again at 14% last month (his HgbA1c was previously at 12.0% a few months ago and at >13.5% this past summer) - goal is at least <7.0% Reinforced diabetic diet - patient admitted to inconsistent and poor compliance with his diet over the past year Continue Humalog Kwikpen 35 units TID with meals and Basaglar 40 units Q HS; continue Jardiance 25 mg QD and Mounjaro 7.5 mg once a week for now He has been referred to Endocrinology before and did NOT want to go back to endocrinology as he is tired and frustrated at having to pay a $60 co-pay every time he is seen by them but have advised patient that what we have been doing (as per his preference) over the past couple of years have not really helped at all and he is currently not any better at all compared to how he was 2 years ago and with his recent labs now showing (+) microalbuminuria and his GFR starting to change, I have advised him that it is not appropriate to continue what he is doing now and we need to refer him back to endocrinology for more intensive management of his diabetes - he was referred BACK to endocrinology for his uncontrolled diabetes last month despite his preference not to do so and he is now scheduled to see Dr. Espinoza again on 06/12/2024 (2) Hyponatremia: Code(s): E87.1 - Hypo-osmolality and hyponatremia Category: Medical Plan: His serum sodium was normal at 138 on his labs done a few months ago This was likely related to his declining renal function as well as his persistent hyperglycemia We will continue to monitor his electrolyte levels regularly Follow up with nephrology as scheduled (3) Chronic kidney disease (CKD), stage III (moderate): Code(s): N18.30 - Chronic kidney disease, stage 3 unspecified Category: Medical Qualifiers: Chronic kidney disease stage 3 subtype: stage 3a (GFR 45-59) Qualified Code(s): N18.31 - Chronic kidney disease, stage 3a Plan: His renal function currently appears stable, based on his recent lab results He is again cautioned that this can change very quickly as long as his diabetes is uncontrolled, which it still is, based on his HgbA1c done in the office today (14%) Follow up with nephrology as scheduled (4) Benign essential hypertension: Code(s): I10 - Essential (primary) hypertension Category: Medical Plan: Reinforced low-sodium diet -? goal is systolic BP of at least 130 mm or less Continue Amlodipine 10 mg QD, Carvedilol 12.5 mg BID, Hydralazine 25 mg TID and Losartan 50 mg QD He is reminded to continue monitoring his blood pressure regularly (5) Pure hypercholesterolemia: Code(s): E78.00 - Pure hypercholesterolemia, unspecified Category: Surgical Plan: Reinforced low cholesterol diet Continue Pravastatin 20 mg QD and Fenofibrate 145 mg QD Will recheck his labs and fasting lipids next month for follow up (6) Mild chronic obstructive pulmonary disease: Code(s): J44.9 - Chronic obstructive pulmonary disease, unspecified Category: Medical Plan: Stable -? PFTs done a couple of years ago showed mild COPD Patient has been mostly asymptomatic and has not needed to use any of his inhalers lately except for when he comes down with a cold or respiratory infection (7) Degeneration of lumbar or lumbosacral intervertebral disc: Code(s): M51.37 - Other intervertebral disc degeneration, lumbosacral region Category: Medical Qualifiers: Disc-related pain type: discogenic back pain only Qualified Code(s): M51.370 - Other intervertebral disc degeneration, lumbosacral region with discogenic back pain only Plan: Reinforced activity and weight lifting restrictions Continue Oxycodone 30 mg every 6-8 hours as needed and Oxycodone ER 80 mg every 6 hours - Rx refilled (8) Neuropathy: Code(s): G62.9 - Polyneuropathy, unspecified Category: Medical Plan: EMG and NCV of both lower extremities done in 2017 showed (+)? 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 chronic bilateral lower lumbar radiculopathy Continue Nortriptyline 50 mg Q HS Have emphasized to him again the importance of tight glycemic control to slow down the progression of his neuropathy Follow up with podiatry as scheduled for regular/annual foot exam and diabetic foot care (9) Bilateral knee pain: Code(s): M25.561 - Pain in right knee; M25.562 - Pain in left knee Category: Medical Qualifiers: Chronicity: unspecified Qualified Code(s): M25.561 - Pain in right knee; M25.562 - Pain in left knee Plan: X-rays of both knees done last year revealed (+) mild OA changes in the right knee; left knee x-rays were normal He was recommended to see orthopedics for further evaluation and management of his knee symptoms but patient prefers to hold off for now and he will call for referral when he feels he needs to see orthopedics (10) Elevated LFTs: Code(s): R79.89 - Other specified abnormal findings of blood chemistry Category: Medical Plan: His LFTs have also remained normal on his recent labs done a couple of months ago - were most likely due to his weight and his medications and cholesterol level Will continue to monitor his LFTs regularly (11) GERD without esophagitis: Code(s): K21.9 - Gastro-esophageal reflux disease without esophagitis Category: Medical Plan: Dietary restrictions reinforced (12) Vitamin D deficiency: Code(s): E55.9 - Vitamin D deficiency, unspecified Category: Medical Plan: Continue Vitamin D3 2000 units QD (13) 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 & 3 cycles of BEP (bleomycin, etoposide, cisplatin) chemotherapy completed in 04/2008 Code(s): Z85.47 - Personal history of malignant neoplasm of testis Category: Medical Plan: S/P left orchiectomy and chemotherapy (completed in 2007) - patient currently remains in remission Follow-up with Oncology/ urology as scheduled for continuing surveillance (14) Anxiety: Code(s): F41.9 - Anxiety disorder, unspecified Category: Medical Plan: Continue Lorazepam 1 mg 1 to 2 times a day as needed - Rx refilled (15) Obesity (BMI 30-39.9): Code(s): E66.9 - Obesity, unspecified Category: Medical Plan: Reinforced diet/exercise as tolerated/lose weight Plan Follow up in 1 month Orders: Orders Comprehensive [place]. Panel Fast 06/16/24 E78.00 - Pure hypercholesterolemia, unspecified Microalbumin, Random (w Creat) 06/16/24 E11.9 - Type 2 diabetes mellitus without complications Hemoglobin A1c 06/16/24 E11.9 - Type 2 diabetes mellitus without complications UA CC w/rflx Micro + Cult 06/16/24 R30.0 - Dysuria TSH reflex Free T4 06/16/24 E78.00 - Pure hypercholesterolemia, unspecified Complete Blood Count Auto Diff 06/16/24 D64.9 - Anemia, unspecified Lipid Panel 06/16/24 E78.00 - Pure hypercholesterolemia, unspecified Vitamin D 25-OH Total 06/16/24 E55.9 - Vitamin D deficiency, unspecified Lamotrigine Lamictal 06/16/24 G62.9 - Polyneuropathy, unspecified Medications: Refilled oxycodone ER 80 mg PO Q6H 120 tabs 0RF 30 days M51.37 - Other intervertebral disc degeneration, lumbosacral region oxycodone 30 mg PO Q6H PRN 120 tabs 0RF pain 30 days M51.37 - Other intervertebral disc degeneration, lumbosacral region lorazepam 1 mg PO BID PRN 60 tabs 0RF anxiety 30 days F41.9 - Anxiety disorder, unspecified
[2024-05-30 10:34] VITALS: BP 173/97
== END 2024-05-30 13:52 | disposition home or self-care (01) ==
LOC: HO.HMCH 10:01
PROVIDERS: PCP Internal Medicine; Visit Provider Internal Medicine
DX: I12.9 Hypertensive chronic kidney disease with stage 1 through stage 4 chronic kidney disease, or unspecified chronic kidney disease (principal); E11.65 Type 2 diabetes mellitus with hyperglycemia; N18.31 Chronic kidney disease, stage 3a; J44.9 Chronic obstructive pulmonary disease, unspecified; E87.1 Hypo-osmolality and hyponatremia; E78.00 Pure hypercholesterolemia, unspecified; M51.370 Other intervertebral disc degeneration, lumbosacral region with discogenic back pain only; G62.9 Polyneuropathy, unspecified; M25.561 Pain in right knee; M25.562 Pain in left knee; R79.89 Other specified abnormal findings of blood chemistry; K21.9 Gastro-esophageal reflux disease without esophagitis

== ENCOUNTER → 2024-05-30 10:01 | Outpatient (BNVA) | payer BC, SELFPAY | PROVIDERS: PCP Internal Medicine; Visit Provider Internal Medicine | DX: E11.65 Type 2 diabetes mellitus with hyperglycemia (principal); E11.22 Type 2 diabetes mellitus with diabetic chronic kidney disease; I12.9 Hypertensive chronic kidney disease with stage 1 through stage 4 chronic kidney disease, or unspecified chronic kidney disease; N18.31 Chronic kidney disease, stage 3a; E87.1 Hypo-osmolality and hyponatremia; E78.00 Pure hypercholesterolemia, unspecified; J44.9 Chronic obstructive pulmonary disease, unspecified; M51.370 Other intervertebral disc degeneration, lumbosacral region with discogenic back pain only; E11.40 Type 2 diabetes mellitus with diabetic neuropathy, unspecified; M25.561 Pain in right knee; M25.562 Pain in left knee; R79.89 Other specified abnormal findings of blood chemistry; K21.9 Gastro-esophageal reflux disease without esophagitis; F41.9 Anxiety disorder, unspecified; E66.9 Obesity, unspecified; E55.9 Vitamin D deficiency, unspecified; Z85.47 Personal history of malignant neoplasm of testis; Z79.4 Long term (current) use of insulin; Z79.891 Long term (current) use of opiate analgesic; Z79.899 Other long term (current) drug therapy | CPT/HCPCS: 96127 ==

== ENCOUNTER 2024-06-12 13:52 | Outpatient (AMB) | payer BC, SELFPAY ==
--- NOTE | 2024-06-12 13:59 | MHC.OFFVIS ---
Vital Signs 06/12/24 14:02 Height 6 ft 1 in Weight 226 lb 3.108 oz BMI 29.8 BP 166/110 H Blood Pressure Location Rt brachial Position Sitting Pulse 92 Pulse Source Pulse Oximeter Intake Visit Reasons: T2DM per pt request Intake Note: Patient present today for T2DM. Last Diabetic Eye exam: Due, past 1 year. Last Podiatry Visit: Does not see a Machine Joiner Cementer Random Glucose: 454 mg/dl 2:08 pm, 394 mg/dl @ 3:25pm HgA1C: 14.0% 05/03/24 Buggy Ladle Tender Required: No Accompanied by: Self / Same As Patient Allergies gabapentin Adverse Reaction (Intermediate, Verified 06/12/24 14:02) severe somnolence, dizziness HPI Comments Details: Patient is a 58 yo male with DM type 2 diagnosed in 2012, who presents for continued diabetes management. Past medical history: back pain with radiculopathy on opioid therapy, central hypogonadism, metastatic testicular cancer, CKD stage III, hypertension, hyperlipidemia, and diabetes mellitus type 2 diagnosed 2012 Micro and macrovascular complications include no retinopathy, + nephropathy, + neuropathy, diet: 2 meals and snacks. Medications: Mounjaro 7.5 mg Qwkly ,, Jardiance 10mg. . Basaglar 40 units , Humalog 30 units ac Hypoglycemia: denies Hyperglycemia: nocturia (4-5x), polydypsia Unfortunately, patient did not bring sensor, glucometer or log book to follow-up visit Eye Exam: > 1 yr ago . Needs to make appt Laboratory Tests 05/05/21 05/05/21 05/05/21 11:00 11:00 11:00 Creatinine 1.06 Estimated GFR > 60 Hemoglobin A1c % 7.6 Triglycerides 251 Cholesterol 227 LDL Cholesterol, Calc 117 HDL Cholesterol 60 Vitamin B12 551 25-OH Vitamin D Total 26.7 TSH 1.55 Microalb/Creat Ratio 05/05/21 11:05 Creatinine Estimated GFR Hemoglobin A1c % Triglycerides Cholesterol LDL Cholesterol, Calc HDL Cholesterol Vitamin B12 25-OH Vitamin D Total TSH Microalb/Creat Ratio 408.3 PFSH Medical History Overweight (BMI 25.0-29.9) Obesity (BMI 30-39.9) Anxiety History of testicular cancer GERD without esophagitis Elevated LFTs Vitamin D deficiency Neuropathy Degeneration of lumbar or lumbosacral intervertebral disc Anemia Mild chronic obstructive pulmonary disease Benign essential hypertension Chronic kidney disease (CKD), stage II (mild) Type 2 diabetes mellitus with diabetic chronic kidney disease Type 2 diabetes mellitus with diabetic neuropathy, unspecified Surgical History History of colonoscopy (~06/24/16) History of orchiectomy Pure hypercholesterolemia History of lumbar surgery Family History Father Cancer Mother Diabetes Social History Household Members: Other Housing: House Alcohol intake: former Patient Tobacco Use Status: Never used Tobacco Tobacco use type: Cigarette e-Cigarette/Vaping Use: Never Used Second Hand Smoke Exposure: Yes service: Yes Current occupational status: disabled Cognitive needs: No Hearing needs: No Vision needs: Yes Physical Exam Vital Signs: Last Vital Signs Pulse 92 06/12/24 14:02 BP 166/110 H 06/12/24 14:02 BMI result Body Mass Index 29.8 Absence of Cushingoid features. Absence of acromegalic features. Neck exam reveals nl size thyroid about 15 gms. No thyroid nodules palpable. No carotid bruits present. Lungs CTA. Heart S1 S2, Reg R/R. No M/R/ G. Skin exam reveals absence of vitiligo or acanthosis nigricans. Abdominal exam reveals Soft NT/ND with NA BS. No organomegaly present. Neck Other: . Extrem Other: Visual exam of foot performed. No ulcerations or open lesions. No onchomycosis, no callouses.Pulses 2 + distally Sensation decreased to monofilament exam. Vibratory sensation sensed is decreased with 128 Hz tuning fork Office Meds Humalog U-100 Insulin 100 unit/mL subcutaneous solution Performing Provider: Robbi Espinoza MD Performing Location: [facility] [place] Endocrinology Administered by: Nadya Woods RN on 06/12/24 14:32 Dose Route Admin Location Dispensed Lot Number Expiration Date [facility] Technical Instructor Course Developer 20 unit subcut left upper arm 0.2 mL [id number] 05/18/25 [id number] [employer] Comments: Dr. Espinoza ordered 20 units of Insulin Lispro, verbally confirmed and visually confirmed with Dr. Espinoza once insulin was drawn up. Pt agreeable to staying one hour to have his blood sugar rechecked per our policy. Pt is pushing fluids as well. Verbally spoke with the medical health researcher and advised 20 units of insulin given at 2:25pm today. Results Reviewed Results Reviewed: Laboratory Last Values Glucose (Clinic) 394 mg/dL (60-115) H* 06/12/24 15:25 Assessment & Plan Assessment & Plan (1) Type 2 diabetes mellitus with diabetic chronic kidney disease: Code(s): E11.22 - Type 2 diabetes mellitus with diabetic chronic kidney disease Category: Medical Qualifiers: Chronic kidney disease stage: stage 2 (mild) Diabetes mellitus prison insulin use: with prison use Qualified Code(s): E11.22 - Type 2 diabetes mellitus with diabetic chronic kidney disease; N18.2 - Chronic kidney disease, stage 2 (mild); Z79.4 - longterm (current) use of insulin Plan: This is a 58-year-old white male with history of type 2 diabetes being treated with Jardiance, Mounjaro and basal-bolus insulin with poor glycemic control and known microvascular complications namely CKD and neuropathy. Plan is stressed compliance with the insulin. Could not make any changes to the insulin regimen as not have any information. . Also went over the correlation of poor glycemic control to development and progression complications. I will have him follow up with Анна Mack NP in 3 wks . He received 20 units of Humalog for point of care >400 today Orders: Orders AMB Insulin Lispro Injection Practice Supplied Today E11.22 - Type 2 diabetes mellitus with diabetic chronic kidney disease, N18.2 - Chronic kidney disease, stage 2 (mild), Z79.4 - oil heaterman (current) use of insulin Coding Level of Care Code Est Pt Level 4 (84756) Complex EM visit Add On G2211 Diagnoses Type 2 diabetes mellitus with stage 2 chronic kidney disease, with long-term current use of insulin E11.22; N18.2; Z79.4 Chronic kidney disease stage: stage 2 (mild) Diabetes mellitus prison insulin use: with prison use
[2024-06-12 14:02] VITALS: BP 166/110; PULSE 92; BMI 29.8
[2024-06-12 14:14] LABS: Glucose, Whole Blood 454 mg/dL (60-115)
[2024-06-12 15:32] LABS: Glucose, Whole Blood 394 mg/dL (60-115)
== END 2024-06-12 15:27 | disposition home or self-care (01) ==
PROVIDERS: PCP Internal Medicine; Visit Provider Internal Medicine Endocrinology, Diabetes & Metabolism
DX: E11.22 Type 2 diabetes mellitus with diabetic chronic kidney disease (principal); N18.2 Chronic kidney disease, stage 2 (mild); Z79.4 Long term (current) use of insulin
CPT/HCPCS: 99214

== ENCOUNTER → 2024-06-12 13:52 | Outpatient (BNVA) | payer BC, SELFPAY | PROVIDERS: PCP Internal Medicine; Visit Provider Internal Medicine Endocrinology, Diabetes & Metabolism | DX: E11.22 Type 2 diabetes mellitus with diabetic chronic kidney disease (principal); N18.2 Chronic kidney disease, stage 2 (mild); Z79.4 Long term (current) use of insulin | CPT/HCPCS: 82947; 96372; J1815 ==

== ENCOUNTER 2024-06-28 11:17 | Outpatient (AMB) | payer BC, SELFPAY ==
--- NOTE | 2024-06-28 11:19 | A.OFFPC_ITS ---
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 f/u [employer] Level Five Required: No Accompanied by: Self / Same As Patient Allergies gabapentin Adverse Reaction (Intermediate, Verified 06/28/24 11:54) severe somnolence, dizziness Medication List - Last Reconciled 06/28/24 by Yobany Raymundo MD albuterol sulfate 90 mcg/actuation 2 puffs PO Q6H PRN amlodipine 10 mg PO DAILY 90 days Basaglar KwikPen U-100 Insulin (insulin glargine) 40 units (0.4 mL) subcut QPM 30 days NS blood sugar diagnostic (FreeStyle Lite Strips) As directed tests 4 X/day 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 meter,continuous (Dexcom G6 [employer] Dispatcher) As directed 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 sensor (Dexcom G6 Sensor device) As directed 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 transmitter (Dexcom G6 Transmitter device) USE DIRECTED carvedilol 12.5 mg PO BID 90 days cholecalciferol (vitamin D3) (Vitamin D3) 50 mcg PO DAILY 90 days empagliflozin 25 mg PO QAM 90 days fenofibrate nanocrystallized 145 mg PO DAILY 90 days Humalog KwikPen Insulin (insulin lispro) 35 units (0.35 mL) subcut TID 30 days NS hydralazine 25 mg PO TID 90 days lamotrigine 200 mg PO BID lorazepam 1 mg PO BID PRN 30 days losartan 50 mg PO DAILY 90 days oxycodone 30 mg PO Q6H PRN 30 days oxycodone ER 80 mg PO Q6H 30 days pen needle, diabetic (BD Ultra-Fine Dee Pen Needle) As directed 4 times a day pravastatin 40 mg PO DAILY 90 days tirzepatide 7.5 mg (0.5 mL) subcut QWEEK 4 weeks Tobacco use date assessed: 06/28/24 Dental Screening Dental Screen Date: 06/28/24 Did you have a dental visit in the last 12 months?: Yes Did you have a dental problem in the last 6 months where you did not have access to dental care?: No Was dental information given to patient?: Patient has dentist HPI Med f/u HPI Details Patient's follow up visit / consultation today is done over video conference (iPhone/iPad/[employer]) - this is a TELEHEALTH visit Patient's current medications have been reviewed and verified with patient and/or caregiver/proxy and have been updated accordingly in the medication list Patient states that he has been experiencing increased cough and congestion and sore throat for about 5 days now Relates that he tested himself for COVID the day after his symptoms started and his test came back positive States that he has been taking OTC cough/cold meds to help relieve his symptoms and that they are helping somewhat He relates increased fatigue and malaise but denies any fever States that his sore throat has subsided but he still has increased nasal and chest congestion and is coughing up some thick whitish to yellowish phlegm at times He denies any headaches or dizziness Denies any chest pains, no increased shortness of breath No nausea/vomiting, no abdominal pain No change in bowel habits noted States that his chronic low back pain and joint pains remain adequately controlled on his current medications and he just needs his pain medications as well as his Lorazepam refilled today He was also seen by endocrinology again a couple of weeks ago for his diabetes but he did not bring in his glucometer and blood sugar log at the time so no changes were made to his medication regimen He was given 20 units of insulin lispro in the office back then as his blood sugar was over 450 mg/dl at the time He is scheduled to see endocrinology again for follow-up of his diabetes next week Patient was not able to get his follow-up labs done due to his being sick over the past week [facility] Medical History Overweight (BMI 25.0-29.9) Obesity (BMI 30-39.9) Anxiety History of testicular cancer GERD without esophagitis Elevated LFTs Vitamin D deficiency Neuropathy Degeneration of lumbar or lumbosacral intervertebral disc Anemia Mild chronic obstructive pulmonary disease Benign essential hypertension Chronic kidney disease (CKD), stage II (mild) Type 2 diabetes mellitus with diabetic chronic kidney disease Type 2 diabetes mellitus with diabetic neuropathy, unspecified Surgical History History of colonoscopy (~06/24/16) History of orchiectomy Pure hypercholesterolemia History of lumbar surgery Family History Father Cancer Mother Diabetes Social History Household Members: Other Housing: House Alcohol intake: former Patient Tobacco Use Status: Never used Tobacco e-Cigarette/Vaping Use: Never Used Second Hand Smoke Exposure: Yes service: Yes Current occupational status: disabled Cognitive needs: No Hearing needs: No Vision needs: Yes Questionnaire PHQ-9 Over the last 2 weeks, how often have you been bothered by any of the following problems? 1. Little interest or pleasure in doing things: not at all 2. Feeling down, depressed, or hopeless: not at all 3. Trouble falling or staying asleep, or sleeping too much: not at all 4. Feeling tired or having little energy: not at all 5. Poor appetite or overeating: not at all 6. Feeling bad about yourself - or that you are a failure or have let yourself or your family down: not at all 7. Trouble concentrating on things, such as reading the newspaper or watching television: not at all 8. Moving or speaking so slowly that other people could have noticed. Or the opposite - being so fidgety or restless that you have been moving around a lot more than usual: not at all 9. Thoughts that you would be better off or of hurting yourself in some way: not at all Total score: 0 Depression Screening Interpretation: Negative Depression Screening Done: Yes 96850 - PHQ-9 Billing: Yes Source: Developed by Drs. Robbi Keller, Margie Cardona, Parvez Adan and colleagues, with an educational breonna from [employer]. Thrive Questionnaire Date Thrive assessed: 06/28/24 I am a: Patient What is your living situation today?: I have a steady place to live Within the past 12 months, did the food you bought not last and you didn't have the money to get more?: Never true Within the past 12 months, did you worry whether your food would run out before you got money to buy more?: Never true Do you have trouble paying for medicines?: No Do you have trouble getting transportation to medical appointments?: No Do you have trouble paying your heating and electricity bill?: No Do you have trouble taking care of your child, family member or friend?: No Do you have trouble with day-to-day activities such as bathing, preparing meals, shopping, managing finances, etc.?: No Are you currently unemployed and looking for a job?: No Are you interested in more education?: No Please select the resources that you would like help with: None Currently or been in a relationship where the following occur: No concerns reported THRIVE Score: 0 AUDIT C Alcohol Use Questionnaire (AUDIT-C) 1. How often do you have a drink containing alcohol?: Never 3. How often do you have six or more drinks on one occasion?: Never Total Score: 0 Score Reviewed/Action Taken: Yes SHAHRIAR-7 AMB Questionnaire SHAHRIAR-7 Date SHAHRIAR - 7 assessed: 06/28/24 Feeling nervous, anxious, or on edge: 0 = Not at all Not being able to stop or control worryin = Not at all Worrying too much about different things: 0 = Not at all Trouble relaxin = Not at all Being so restless that it is hard to sit still: 0 = Not at all Becoming easily annoyed or irritable: 0 = Not at all Feeling afraid as if something awful might happen: 0 = Not at all Total SHAHRIAR-7 score (0-4 normal; 5-9 mild; 10-14 moderate; 15-21 severe): 0 Source: Developed by Drs. Robbi Keller, Margie Cardona, Parvez Adan and colleagues, with an educational breonna from [employer]. Review of Systems Const Denies chills, Reports fatigue, Denies fever(s), Denies headache(s) and Reports malaise ENT Denies dysphagia, Denies dizziness, Denies otalgia, Denies headache(s), Reports nasal congestion, Denies neck pain, Denies odynophagia and Denies sore throat Card Denies chest pain, Denies palpitations and Denies dyspnea Resp Reports chest congestion, Reports cough (coughs up thick whitish to yellowish p hlegm at times), Denies dyspnea and Denies wheezing GI Denies abdominal pain, Denies constipation, Denies dysphagia, Denies heartburn, Denies diarrhea, Denies nausea, Denies odynophagia and Denies vomiting Denies dysuria, Reports nocturia and Reports urinary frequency Musc Reports back pain (over the lumbar spine - chronic), Reports arthralgias (over both knees; increased in the right shoulder lately), Denies joint swelling, Denies neck pain and Reports stiffness (a couple of fingers lock up every now and then) Skin/Breast Denies rash Neuro Denies dizziness and Denies headache(s) Psych Reports anxiety and Reports depression Endo Reports fatigue, Denies polydipsia and Denies palpitations Aller/Immun Denies wheezing Physical exam (Primary Care) Vital Signs: Physical examination is not performed as visit / consultation today is done over videoconference - Telehealth visit All physical findings indicated here, if present, are as per patient's and / or caregivers / proxy's report and visual inspection over videoconference, if appropriate or applicable Tobacco/Smoking Status: Tobacco use Status Tobacco use date assessed 06/28/24 06/28/24 11:21 Patient Tobacco Use Status Never used Tobacco 06/28/24 11:21 Tobacco use type 06/28/24 11:21 e-Cigarette/Vaping Use Never Used 06/28/24 11:21 PHQ-9: PHQ-9 Score PHQ-9: Total score 0 06/28/24 11:57 Depression Screening Interpretation: Negative Thrive Assessment: Date of Thrive Assessment Date Thrive assessed 06/28/24 06/28/24 11:21 Currently or been in a relationship where the following occur: No concerns reported Telehealth Telehealth Telehealth Platform: Telephone Location of provider rendering services: practice address Location of patient: address on file Patient Identification confirmed using: Name, : Yes Telehealth method: video (Facetime) Patient verbally consented to treatment: Yes Patient verbally consented to billing insurance company: Yes Patient informed of any privacy concerns related to visit: Yes Minutes spent on Phone/Video with Pt.: 19 Coding Level of Care Code Tele Est Pt Level 4 (64554) Diagnoses COVID-19 U07.1 Uncontrolled type 2 diabetes mellitus with hyperglycemia E11.65 Diabetes mellitus type: type 2 Hyponatremia E87.1 Stage 3a chronic kidney disease N18.31 Chronic kidney disease stage 3 subtype: stage 3a (GFR 45-59) Benign essential hypertension I10 Pure hypercholesterolemia E78.00 Mild chronic obstructive pulmonary disease J44.9 Degeneration of intervertebral disc of lumbosacral region with discogenic back pain M51.370 Disc-related pain type: discogenic back pain only Neuropathy G62.9 Pain in both knees, unspecified chronicity M25.561; M25.562 Chronicity: unspecified Elevated LFTs R79.89 GERD without esophagitis K21.9 Vitamin D deficiency E55.9 History of testicular cancer Z85.47 Anxiety F41.9 Obesity (BMI 30-39.9) E66.9 Additional Codes PHQ-9 - 24614 - PHQ-9 Billing: Yes ([id number]) Assessment & Plan Assessment & Plan (1) COVID-19: Code(s): U07.1 - COVID-19 Category: Medical Plan: Patient tested positive for COVID about 4 days ago, with his current symptoms starting the day prior to his testing (5 days ago) He declined offer to start him on Paxlovid due to concerns about his kidneys (he has stage 3 CKD) - feels that his respiratory symptoms are starting to improve and he denies any increased SOB Will just have patient continue symptomatic Tx with OTC cough/cold meds for now but reminded that he should seek medical care ROW[facility] any time he starts to experiencing increasing or progressive SOB over the next week or two (2) Uncontrolled diabetes mellitus with hyperglycemia: Code(s): E11.65 - Type 2 diabetes mellitus with hyperglycemia Category: Medical Qualifiers: Diabetes mellitus type: type 2 Qualified Code(s): E11.65 - Type 2 diabetes mellitus with hyperglycemia Plan: Patient's in-office HgbA1c was still at 14% when last checked a couple of months ago (his HgbA1c was previously at 12.0% a few prior and at >13.5% this past summer) - goal is at least <7.0% Reinforced diabetic diet - patient admits to inconsistent and poor compliance with his diet over the past year He is now seeing endocrinology again after a 2 year absence Continue Humalog Kwikpen 35 units TID with meals and Basaglar 40 units Q HS; continue Jardiance 25 mg QD and Mounjaro 7.5 mg once a week for now - no changes were made when he was seen by endocrinology a couple of weeks ago as he did not bring in his CGM sensor and glucose log He is scheduled to see endocrinology for his follow up visit next week and he is advised to try getting his scheduled follow up labs done before his appointment with them next week (3) Hyponatremia: Code(s): E87.1 - Hypo-osmolality and hyponatremia Category: Medical Plan: His serum sodium was normal at 138 on his labs when last checked a few months ago This was likely related to his declining renal function as well as his persistent hyperglycemia We will continue to monitor his electrolyte levels regularly Follow up with nephrology as scheduled (4) Chronic kidney disease (CKD), stage III (moderate): Code(s): N18.30 - Chronic kidney disease, stage 3 unspecified Category: Medical Qualifiers: Chronic kidney disease stage 3 subtype: stage 3a (GFR 45-59) Qualified Code(s): N18.31 - Chronic kidney disease, stage 3a Plan: His renal function currently appears stable, based on his most recent lab results He has been cautioned that this can change very quickly as long as his diabetes is uncontrolled - his HgbA1c done in the office a couple of months ago was still at 14% Follow up with nephrology as scheduled (5) Benign essential hypertension: Code(s): I10 - Essential (primary) hypertension Category: Medical Plan: Reinforced low-sodium diet -? goal is systolic BP of at least 130 mm or less Continue Amlodipine 10 mg QD, Carvedilol 12.5 mg BID, Hydralazine 25 mg TID and Losartan 50 mg QD He is reminded to continue monitoring his blood pressure regularly (6) Pure hypercholesterolemia: Code(s): E78.00 - Pure hypercholesterolemia, unspecified Category: Surgical Plan: Reinforced low cholesterol diet Continue Pravastatin 20 mg QD and Fenofibrate 145 mg QD Patient is instructed to try getting his follow up labs done R[facility], preferably before his endocrinology appointment next week (7) Mild chronic obstructive pulmonary disease: Code(s): J44.9 - Chronic obstructive pulmonary disease, unspecified Category: Medical Plan: Stable -? PFTs done a couple of years ago showed mild COPD Patient has been mostly asymptomatic and has not needed to use any of his inhalers lately except for when he comes down with a cold or respiratory infection, which he currently has (8) Degeneration of lumbar or lumbosacral intervertebral disc: Code(s): M51.37 - Other intervertebral disc degeneration, lumbosacral region Category: Medical Qualifiers: Disc-related pain type: discogenic back pain only Qualified Code(s): M51.370 - Other intervertebral disc degeneration, lumbosacral region with discogenic back pain only Plan: Reinforced activity and weight lifting restrictions Continue Oxycodone 30 mg every 6-8 hours as needed and Oxycodone ER 80 mg every 6 hours - Rx refilled (9) Neuropathy: Code(s): G62.9 - Polyneuropathy, unspecified Category: Medical Plan: EMG and NCV of both lower extremities done in 2017 showed (+)? 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 chronic bilateral lower lumbar radiculopathy Continue Nortriptyline 50 mg Q HS Have emphasized to him again the importance of tight glycemic control to slow down the progression of his neuropathy Follow up with podiatry as scheduled for regular/annual foot exam and diabetic foot care (10) Bilateral knee pain: Code(s): M25.561 - Pain in right knee; M25.562 - Pain in left knee Category: Medical Qualifiers: Chronicity: unspecified Qualified Code(s): M25.561 - Pain in right knee; M25.562 - Pain in left knee Plan: X-rays of both knees done last year revealed (+) mild OA changes in the right knee; left knee x-rays were normal He was recommended to see orthopedics for further evaluation and management of his knee symptoms but patient prefers to hold off for now and he will call for referral when he feels he needs to see orthopedics (11) Elevated LFTs: Code(s): R79.89 - Other specified abnormal findings of blood chemistry Category: Medical Plan: His LFTs have also remained normal on his recent labs done a couple of months ago - were most likely due to his weight and his medications and cholesterol level Will continue to monitor his LFTs regularly (12) GERD without esophagitis: Code(s): K21.9 - Gastro-esophageal reflux disease without esophagitis Category: Medical Plan: Dietary restrictions reinforced (13) Vitamin D deficiency: Code(s): E55.9 - Vitamin D deficiency, unspecified Category: Medical Plan: Continue Vitamin D3 2000 units QD (14) 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 & 3 cycles of BEP (bleomycin, etoposide, cisplatin) chemotherapy completed in 04/2008 Code(s): Z85.47 - Personal history of malignant neoplasm of testis Category: Medical Plan: S/P left orchiectomy and chemotherapy (completed in 2007) - patient currently remains in remission Follow-up with Oncology/ urology as scheduled for continuing surveillance (15) Anxiety: Code(s): F41.9 - Anxiety disorder, unspecified Category: Medical Plan: Continue Lorazepam 1 mg 1 to 2 times a day as needed - Rx refilled (16) Obesity (BMI 30-39.9): Code(s): E66.9 - Obesity, unspecified Category: Medical Plan: Reinforced diet/exercise as tolerated/lose weight Plan Follow up in 1 month as scheduled Medications: Refilled oxycodone 30 mg PO Q6H 30 days PRN 120 tabs 0RF pain M51.37 - Other intervertebral disc degeneration, lumbosacral region oxycodone ER 80 mg PO Q6H 30 days 120 tabs 0RF M51.37 - Other intervertebral disc degeneration, lumbosacral region lorazepam 1 mg PO BID 30 days PRN 60 tabs 0RF anxiety F41.9 - Anxiety disorder, unspecified
== END 2024-06-28 12:00 | disposition home or self-care (01) ==
LOC: HO.HMCH 11:17
PROVIDERS: PCP Internal Medicine; Visit Provider Internal Medicine
DX: I12.9 Hypertensive chronic kidney disease with stage 1 through stage 4 chronic kidney disease, or unspecified chronic kidney disease (principal); E11.65 Type 2 diabetes mellitus with hyperglycemia; N18.31 Chronic kidney disease, stage 3a; J44.9 Chronic obstructive pulmonary disease, unspecified; U07.1 COVID-19; E87.1 Hypo-osmolality and hyponatremia; E78.00 Pure hypercholesterolemia, unspecified; M51.370 Other intervertebral disc degeneration, lumbosacral region with discogenic back pain only; G62.9 Polyneuropathy, unspecified; M25.561 Pain in right knee; M25.562 Pain in left knee

== ENCOUNTER → 2024-06-28 11:17 | Outpatient (BNVA) | payer BC, SELFPAY | PROVIDERS: PCP Internal Medicine; Visit Provider Internal Medicine | DX: U07.1 COVID-19 (principal); E11.65 Type 2 diabetes mellitus with hyperglycemia; E87.1 Hypo-osmolality and hyponatremia; E11.22 Type 2 diabetes mellitus with diabetic chronic kidney disease; I12.9 Hypertensive chronic kidney disease with stage 1 through stage 4 chronic kidney disease, or unspecified chronic kidney disease; N18.31 Chronic kidney disease, stage 3a; E78.00 Pure hypercholesterolemia, unspecified; J44.9 Chronic obstructive pulmonary disease, unspecified; M51.370 Other intervertebral disc degeneration, lumbosacral region with discogenic back pain only; G62.9 Polyneuropathy, unspecified; M25.561 Pain in right knee; M25.562 Pain in left knee; R79.89 Other specified abnormal findings of blood chemistry; K21.9 Gastro-esophageal reflux disease without esophagitis; E55.9 Vitamin D deficiency, unspecified; F41.9 Anxiety disorder, unspecified; E66.9 Obesity, unspecified; Z85.47 Personal history of malignant neoplasm of testis; Z79.4 Long term (current) use of insulin; Z79.891 Long term (current) use of opiate analgesic; Z79.899 Other long term (current) drug therapy; Z92.21 Personal history of antineoplastic chemotherapy; Z90.79 Acquired absence of other genital organ(s) | CPT/HCPCS: 96127 ==

== ENCOUNTER 2024-07-25 12:31 | Outpatient (REF) | payer BC, SELFPAY ==
[2024-07-25 16:13] LABS: MANUAL DIFF FLAG NO
[2024-07-25 16:16] LABS: Appearance Urine Clear; Color Urine Yellow; Glucose Urine UA >=1000 mg/dL (Negative); Leukocyte Esterase Urine Negative (Negative); Nitrite Urine Negative (Negative); Specific Gravity - Urine >= 1.030 (1.005-1.025); UMIC TRIGGER UACC YES; Urine Blood Negative (Negative); Urine Ketones Negative (Negative); Urine Protein 100 (2+) mg/dL (Neg-Trace)
[2024-07-25 16:17] LABS: Basophils Absolute Auto 0.1 X10*3/uL (0.0-0.2); Basophils Percent Auto 0.6 % (0-2); Eosinophils Absolute Auto 0.2 X10*3/uL (0.0-0.4); Eosinophils Percent Auto 2.6 % (0-4); Hematocrit 47.6 % (42.0-52.0); Hemoglobin 16.2 g/dl (14.0-18.0); Imm Gran Abs Auto 0.04 X10*3/uL (0.00-0.03); Imm Gran Pct Auto 0.5 % (0.0-0.4); Lymphocytes Absolute Auto 1.9 X10*3/uL (1.2-4.9); Lymphocytes Percent Auto 24.4 % (20-40); Mean Corpuscular Hemoglobin 27.4 pg (27.0-33.0); Mean Corpuscular Volume 80.4 fL (80.0-98.0); Mean Platelet Volume 8.4 fL (9.4-12.4); Monocytes Absolute Auto 0.5 X10*3/uL (0.1-1.2); Monocytes Percent Auto 6.6 % (2-11); Neutrophils Percent Auto 65.3 % (45-73); Platelet Count 292 X10*3/uL (160-400); Red Blood Count 5.92 X10*6/uL (4.60-5.80); Red Cell Distribution Width 12.3 % (11.0-16.0); White Blood Count 7.7 X10*3/uL (4.8-10.8)
[2024-07-25 16:19] LABS: Bacteria Urine None Seen (None Seen); Hyaline Casts Urine 0-2 /LPF (0-2); RBC Urine 0-2 /HPF (0-2); Squamous Epithelial Cell Urine 0-2 /HPF (0-2); WBC Urine 0-5 /HPF (0-5)
[2024-07-25 16:24] LABS: Estimated Average Glucose 355 mg/dL; Hemoglobin A1C 535.1716 umol/L
[2024-07-25 16:44] LABS: Anion Gap 14 (12-20); Blood Urea Nitrogen 18 mg/dL (9-16); Calcium 9.5 mg/dL (8.4-10.2); Carbon Dioxide 25 mmol/L (22-29); Chloride 102 mmol/L (96-108); Estimated Glomerular Filt Rate > 60; Sodium 137 mmol/L (135-145)
[2024-07-25 16:45] LABS: Alanine Aminotransferase 20 U/L (0-40); Albumin Level 4.2 g/dL (3.5-5.0); Alkaline Phosphatase 87 U/L (39-117); Aspartate Amino Transferase 22 U/L (5-37); Bilirubin Total 0.6 mg/dL (0.0-1.0); Cholesterol 248 mg/dL (<200); HDL Cholesterol 49 mg/dL (>40); LDL Cholesterol Calculated 130 mg/dL (<100); Total Protein 7.7 g/dL (6.5-8.0); Triglycerides 348 mg/dL (<150)
[2024-07-25 16:56] LABS: TSH reflex Free T4 1.96 uIU/mL (0.32-4.0); Vitamin D 25-OH Total 58.3 ng/mL (>30)
[2024-07-25 17:01] LABS: Creatinine Urine 67.97 mg/dL
[2024-07-25 17:35] LABS: Glucose Fasting 360 mg/dL (60-99)
[2024-07-28 17:18] LABS: Lamotrigine Lamictal <0.5 mcg/mL (2.5-15.0)
== END 2024-07-25 12:32 | disposition home or self-care (01) ==
LOC: HO.HMGCLDS 12:31
PROVIDERS: PCP Internal Medicine; Visit Provider Internal Medicine
DX: D64.9 Anemia, unspecified (principal); E78.00 Pure hypercholesterolemia, unspecified; E11.9 Type 2 diabetes mellitus without complications; E55.9 Vitamin D deficiency, unspecified; G62.9 Polyneuropathy, unspecified
CPT/HCPCS: 36415; 80053; 80061; 80175; 81001; 82043; 82306; 82570; 83036; 84443; 85025

== ENCOUNTER 2024-07-26 12:42 | Outpatient (AMB) | payer BC, SELFPAY ==
[2024-07-26 12:51] VITALS: BP 142/90; PULSE 86; O2SAT 96; BMI 30.5
--- NOTE | 2024-07-26 12:51 | A.OFFPC_ITS ---
Vital Signs 07/26/24 12:51 Height 6 ft 1 in Weight 231 lb BMI 30.5 BP 142/90 H Blood Pressure Location Lt brachial Position Sitting Pulse 86 Pulse Source Pulse Oximeter Pulse Oximetry (%) 96 Oxygen Delivery Method Room Air 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 F/u Director Business Development Required: No Accompanied by: Self / Same As Patient Allergies gabapentin Adverse Reaction (Intermediate, Verified 07/26/24 13:18) severe somnolence, dizziness Medication List - Last Reconciled 07/26/24 by Yobany Raymundo MD albuterol sulfate 90 mcg/actuation 2 puffs PO Q6H PRN amlodipine 10 mg PO DAILY 90 days Basaglar KwikPen U-100 Insulin (insulin glargine) 40 units (0.4 mL) subcut QPM 30 days NS blood sugar diagnostic (FreeStyle Lite Strips) As directed tests 4 X/day 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 meter,continuous (Dexcom G6 Errand Runner) As directed 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 sensor (Dexcom G6 Sensor device) As directed 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 transmitter (Dexcom G6 Transmitter device) USE DIRECTED carvedilol 12.5 mg PO BID 90 days cholecalciferol (vitamin D3) (Vitamin D3) 50 mcg PO DAILY 90 days empagliflozin 25 mg PO QAM 90 days fenofibrate nanocrystallized 145 mg PO DAILY 90 days Humalog KwikPen Insulin (insulin lispro) 35 units (0.35 mL) subcut TID 30 days NS hydralazine 25 mg PO TID 90 days lamotrigine 200 mg PO BID lorazepam 1 mg PO BID PRN 30 days losartan 50 mg PO DAILY 90 days oxycodone 30 mg PO Q6H PRN 30 days oxycodone ER 80 mg PO Q6H 30 days pen needle, diabetic (BD Ultra-Fine Dee Pen Needle) As directed 4 times a day pravastatin 40 mg PO DAILY 90 days tirzepatide 7.5 mg (0.5 mL) subcut QWEEK 4 weeks Tobacco use date assessed: 07/26/24 Dental Screening Dental Screen Date: 07/26/24 Did you have a dental visit in the last 12 months?: No Did you have a dental problem in the last 6 months where you did not have access to dental care?: No Was dental information given to patient?: No HPI Med F/u HPI Details Patient comes in today for his follow up visit States that he feels okay He denies any headaches or dizziness Denies any chest pains, no increased shortness of breath No nausea/vomiting, no abdominal pain No change in bowel habits noted States that his chronic low back pain and joint pains remain adequately controlled on his current medications Will need his pain medications and Lorazepam Rx refilled today He had his follow up labs done yesterday - to discuss his results [facility] Medical History Overweight (BMI 25.0-29.9) Obesity (BMI 30-39.9) Anxiety History of testicular cancer GERD without esophagitis Elevated LFTs Vitamin D deficiency Neuropathy Degeneration of lumbar or lumbosacral intervertebral disc Anemia Mild chronic obstructive pulmonary disease Benign essential hypertension Chronic kidney disease (CKD), stage II (mild) Type 2 diabetes mellitus with diabetic chronic kidney disease Type 2 diabetes mellitus with diabetic neuropathy, unspecified Surgical History History of colonoscopy (~06/24/16) History of orchiectomy Pure hypercholesterolemia History of lumbar surgery Family History Father Cancer Mother Diabetes Social History Household Members: Other Housing: House Alcohol intake: former Patient Tobacco Use Status: Never used Tobacco e-Cigarette/Vaping Use: Never Used Second Hand Smoke Exposure: Yes service: Yes Current occupational status: disabled Cognitive needs: No Hearing needs: No Vision needs: Yes Questionnaire PHQ-9 Over the last 2 weeks, how often have you been bothered by any of the following problems? 1. Little interest or pleasure in doing things: not at all 2. Feeling down, depressed, or hopeless: not at all 3. Trouble falling or staying asleep, or sleeping too much: not at all 4. Feeling tired or having little energy: not at all 5. Poor appetite or overeating: not at all 6. Feeling bad about yourself - or that you are a failure or have let yourself or your family down: not at all 7. Trouble concentrating on things, such as reading the newspaper or watching television: not at all 8. Moving or speaking so slowly that other people could have noticed. Or the opposite - being so fidgety or restless that you have been moving around a lot more than usual: not at all 9. Thoughts that you would be better off or of hurting yourself in some way: not at all Total score: 0 Depression Screening Interpretation: Negative Depression Screening Done: Yes 72149 - PHQ-9 Billing: Yes Source: Developed by Drs. Robbi Keller, Margie Cardona, Parvez Adan and colleagues, with an educational breonna from [employer]. Thrive Questionnaire Date Thrive assessed: 07/26/24 I am a: Patient What is your living situation today?: I have a steady place to live Within the past 12 months, did the food you bought not last and you didn't have the money to get more?: Never true Within the past 12 months, did you worry whether your food would run out before you got money to buy more?: Never true Do you have trouble paying for medicines?: No Do you have trouble getting transportation to medical appointments?: No Do you have trouble paying your heating and electricity bill?: No Do you have trouble taking care of your child, family member or friend?: No Do you have trouble with day-to-day activities such as bathing, preparing meals, shopping, managing finances, etc.?: No Are you currently unemployed and looking for a job?: No Are you interested in more education?: No Please select the resources that you would like help with: None Currently or been in a relationship where the following occur: No concerns reported THRIVE Score: 0 AUDIT C Alcohol Use Questionnaire (AUDIT-C) 1. How often do you have a drink containing alcohol?: Never 3. How often do you have six or more drinks on one occasion?: Never Total Score: 0 Score Reviewed/Action Taken: Yes SHAHRIAR-7 AMB Questionnaire SHAHRIAR-7 Date SHAHRIAR - 7 assessed: 07/26/24 Feeling nervous, anxious, or on edge: 0 = Not at all Not being able to stop or control worryin = Not at all Worrying too much about different things: 0 = Not at all Trouble relaxin = Not at all Being so restless that it is hard to sit still: 0 = Not at all Becoming easily annoyed or irritable: 0 = Not at all Feeling afraid as if something awful might happen: 0 = Not at all Total SHAHRIAR-7 score (0-4 normal; 5-9 mild; 10-14 moderate; 15-21 severe): 0 Source: Developed by Drs. Robbi Keller, Margie Cardona, Parvez Adan and colleagues, with an educational breonna from [employer]. Review of Systems Const Denies chills, Reports fatigue, Denies fever(s) and Denies headache(s) ENT Denies dysphagia, Denies dizziness, Denies otalgia, Denies headache(s), Denies neck pain, Denies odynophagia and Denies sore throat Card Denies chest pain, Denies palpitations and Denies dyspnea Resp Denies chest congestion, Denies cough and Denies dyspnea GI Denies abdominal pain, Denies constipation, Denies dysphagia, Denies heartburn, Denies diarrhea, Denies nausea, Denies odynophagia and Denies vomiting Denies dysuria, Reports nocturia and Reports urinary frequency Musc Reports back pain (over the lumbar spine - chronic), Reports arthralgias (over both knees; increased in the right shoulder lately), Denies neck pain and Reports stiffness (a couple of fingers lock up every now and then) Skin/Breast Denies rash Neuro Denies dizziness and Denies headache(s) Psych Reports anxiety and Reports depression Endo Reports fatigue, Denies polydipsia and Denies palpitations Physical exam (Primary Care) Vital Signs: Last Vital Signs Pulse 86 07/26/24 12:51 BP 142/90 H 07/26/24 12:51 Pulse Ox 96 07/26/24 12:51 Oxygen Delivery Method Room Air 07/26/24 12:51 BMI result Body Mass Index 30.5 Tobacco/Smoking Status: Tobacco use Status Tobacco use date assessed 07/26/24 07/26/24 12:58 Patient Tobacco Use Status Never used Tobacco 07/26/24 12:58 Tobacco use type 07/05/24 20:08 e-Cigarette/Vaping Use Never Used 07/26/24 12:58 PHQ-9: PHQ-9 Score PHQ-9: Total score 0 07/26/24 12:58 Depression Screening Interpretation: Negative Thrive Assessment: Date of Thrive Assessment Date Thrive assessed 07/26/24 07/26/24 12:58 Currently or been in a relationship where the following occur: No concerns rep orted Const General: no acute distress and alert HENMT Ears: TM's normal bilaterally and EAC's normal Throat: Yes posterior oropharynx normal and Yes tonsils normal (no TP congestion noted) Neck Neck: Yes supple and No lymphadenopathy Thyroid: Thyroid normal Resp Auscultation: clear to auscultation bilaterally, no rales and no wheezes Cardio Rate: regular rate Rhythm: regular rhythm Heart sounds: no murmurs GI Palpation (GI): Soft to palpation, nontender and no other Auscultation: normal bowel sounds General: Yes no CVA tenderness Back/Spine/Pelvis Back: no CVA tenderness Thoracic/Lumbar Spine: lumbar spinal tenderness (chronic) Skin Rashes: no rashes Extrem General: Yes no clubbing, cyanosis or edema Results Reviewed Results Reviewed: Laboratory Tests 07/25/24 07/25/24 12:38 12:45 WBC 7.7 Hgb 16.2 Hct 47.6 Plt Count 292 Sodium 137 Potassium 4.0 Creatinine 1.11 Estimated GFR > 60 Fasting Glucose 360 H* Hemoglobin A1c % 14.0 H Calcium 9.5 D AST 22 ALT 20 Triglycerides 348 H Cholesterol 248 H LDL Cholesterol, Calc 130 H HDL Cholesterol 49 25-OH Vitamin D Total 58.3 TSH 1.96 Ur Specific [place] >= 1.030 H Urine Protein 100 (2+) H Urine Glucose (UA) >=1000 H Urine Blood Negative Urine Nitrite Negative Ur Leukocyte Esterase Negative Microalb/Creat Ratio 637.0 H Coding Level of Care Code Est Pt Level 4 (28109) Complex EM visit Add On G2211 Diagnoses Uncontrolled type 2 diabetes mellitus with hyperglycemia E11.65 Diabetes mellitus type: type 2 Hyponatremia E87.1 Stage 3a chronic kidney disease N18.31 Chronic kidney disease stage 3 subtype: stage 3a (GFR 45-59) Benign essential hypertension I10 Pure hypercholesterolemia E78.00 Mild chronic obstructive pulmonary disease J44.9 Degeneration of intervertebral disc of lumbosacral region with discogenic back pain M51.370 Disc-related pain type: discogenic back pain only Neuropathy G62.9 Pain in both knees, unspecified chronicity M25.561; M25.562 Chronicity: unspecified Elevated LFTs R79.89 GERD without esophagitis K21.9 Vitamin D deficiency E55.9 History of testicular cancer Z85.47 Anxiety F41.9 Obesity (BMI 30-39.9) E66.9 Additional Codes PHQ-9 - 13798 - PHQ-9 Billing: Yes ([id number]) Assessment & Plan Assessment & Plan (1) Uncontrolled diabetes mellitus with hyperglycemia: Code(s): E11.65 - Type 2 diabetes mellitus with hyperglycemia Category: Medical Qualifiers: Diabetes mellitus type: type 2 Qualified Code(s): E11.65 - Type 2 diabetes mellitus with hyperglycemia Plan: Patient's HgbA1c is still at 14.0% on his labs done yesterday (his in-office HgbA1c was also at 14% a few months ago) - goal is at least <7.0% Reinforced diabetic diet He is now seeing endocrinology again after a 2 year absence but there were no changes made to his regimen last month as he did not bring his glucometer, sensor or log book to his appointment then and Dr. Espinoza could not make any changes with no information to go on with Continue Humalog Kwikpen 35 units TID with meals and Basaglar 40 units Q HS; continue Jardiance 25 mg QD and Mounjaro 7.5 mg once a week for now He was supposed to see endocrinology for his follow up visit in a few weeks but he has not scheduled this yet as he is waiting for approval from his insurance company for his new sensor Have advised patient to go over to the diabetes clinic after his visit today to get this straightened out ROW[place] as he cannot afford to continue waiting and needs to address his diabetes now since his urine microalbumin level and proteinuria have gotten significantly worse recently on his follow up labs (2) Hyponatremia: Code(s): E87.1 - Hypo-osmolality and hyponatremia Category: Medical Plan: His serum sodium was normal at 137 on his labs done yesterday - this was likely related to his declining renal function as well as his persistent hyperglycemia We will continue to monitor his electrolyte levels regularly Follow up with nephrology as scheduled (3) Chronic kidney disease (CKD), stage III (moderate): Code(s): N18.30 - Chronic kidney disease, stage 3 unspecified Category: Medical Qualifiers: Chronic kidney disease stage 3 subtype: stage 3a (GFR 45-59) Qualified Code(s): N18.31 - Chronic kidney disease, stage 3a Plan: His renal function currently appears stable, based on his most recent lab results He has been cautioned that this can change very quickly as long as his diabetes is uncontrolled - his HgbA1c remains at 14.0% on his recent labs Have advised patient that he is also now presenting with increasing proteinuria and microalbuminuria Follow up with nephrology as scheduled (4) Benign essential hypertension: Code(s): I10 - Essential (primary) hypertension Category: Medical Plan: Reinforced low-sodium diet -? goal is systolic BP of at least 130 mm or less Continue Amlodipine 10 mg QD, Carvedilol 12.5 mg BID, Hydralazine 25 mg TID and Losartan 50 mg QD He is reminded to continue monitoring his blood pressure regularly (5) Pure hypercholesterolemia: Code(s): E78.00 - Pure hypercholesterolemia, unspecified Category: Surgical Plan: Results of his labs done yesterday reviewed and discussed with patient - his cholesterol levels have increased significantly from previous Reinforced low cholesterol diet Continue Fenofibrate 145 mg QD; will switch him out from his Pravastatin 40 mg to Atorvastatin 40 mg QD for better efficacy (6) Mild chronic obstructive pulmonary disease: Code(s): J44.9 - Chronic obstructive pulmonary disease, unspecified Category: Medical Plan: Stable -? PFTs done a couple of years ago showed mild COPD Patient has been mostly asymptomatic and has not needed to use any of his inhalers lately except for when he comes down with a cold or respiratory infection (7) Degeneration of lumbar or lumbosacral intervertebral disc: Code(s): M51.37 - Other intervertebral disc degeneration, lumbosacral region Category: Medical Qualifiers: Disc-related pain type: discogenic back pain only Qualified Code(s): M51.370 - Other intervertebral disc degeneration, lumbosacral region with discogenic back pain only Plan: Reinforced activity and weight lifting restrictions Continue Oxycodone 30 mg every 6-8 hours as needed and Oxycodone ER 80 mg every 6 hours - Rx refilled (8) Neuropathy: Code(s): G62.9 - Polyneuropathy, unspecified Category: Medical Plan: EMG and NCV of both lower extremities done in 2017 showed (+)? 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 chronic bilateral lower lumbar radiculopathy Continue Nortriptyline 50 mg Q HS Have emphasized to him again the importance of tight glycemic control to slow down the progression of his neuropathy Follow up with podiatry as scheduled for regular/annual foot exam and diabetic foot care (9) Bilateral knee pain: Code(s): M25.561 - Pain in right knee; M25.562 - Pain in left knee Category: Medical Qualifiers: Chronicity: unspecified Qualified Code(s): M25.561 - Pain in right knee; M25.562 - Pain in left knee Plan: X-rays of both knees done last year revealed (+) mild OA changes in the right knee; left knee x-rays were normal He was recommended to see orthopedics for further evaluation and management of his knee symptoms but patient prefers to hold off for now and he will call for referral when he feels he needs to see orthopedics (10) Elevated LFTs: Code(s): R79.89 - Other specified abnormal findings of blood chemistry Category: Medical Plan: His LFTs have remained normal on his labs done yesterday - were most likely due to his weight and his medications and cholesterol level Will continue to monitor his LFTs regularly (11) GERD without esophagitis: Code(s): K21.9 - Gastro-esophageal reflux disease without esophagitis Category: Medical Plan: Dietary restrictions reinforced (12) Vitamin D deficiency: Code(s): E55.9 - Vitamin D deficiency, unspecified Category: Medical Plan: Continue Vitamin D3 2000 units QD (13) 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 & 3 cycles of BEP (bleomycin, etoposide, cisplatin) chemotherapy completed in 04/2008 Code(s): Z85.47 - Personal history of malignant neoplasm of testis Category: Medical Plan: S/P left orchiectomy and chemotherapy (completed in 2007) - patient currently remains in remission Follow-up with Oncology/ urology as scheduled for continuing surveillance (14) Anxiety: Code(s): F41.9 - Anxiety disorder, unspecified Category: Medical Plan: Continue Lorazepam 1 mg 1 to 2 times a day as needed - Rx refilled (15) Obesity (BMI 30-39.9): Code(s): E66.9 - Obesity, unspecified Category: Medical Plan: Reinforced diet/exercise as tolerated/lose weight Plan Follow up in 1 month as scheduled Medications: New atorvastatin 40 mg PO BEDTIME 90 days 90 tabs 1RF Refilled oxycodone 30 mg PO Q6H 30 days PRN 120 tabs 0RF pain M51.37 - Other in tervertebral disc degeneration, lumbosacral region lorazepam 1 mg PO BID 30 days PRN 60 tabs 0RF anxiety F41.9 - Anxiety disorder, unspecified oxycodone ER 80 mg PO Q6H 30 days 120 tabs 0RF M51.37 - Other intervertebral disc degeneration, lumbosacral region Discontinued pravastatin Discontinued Reason: Doctor's Order 40 mg PO DAILY 90 days 90 tabs 3RF
== END 2024-07-26 13:53 | disposition home or self-care (01) ==
PROVIDERS: PCP Internal Medicine; Visit Provider Internal Medicine
DX: E11.65 Type 2 diabetes mellitus with hyperglycemia (principal); E87.1 Hypo-osmolality and hyponatremia; N18.31 Chronic kidney disease, stage 3a; I10 Essential (primary) hypertension; E78.00 Pure hypercholesterolemia, unspecified; J44.9 Chronic obstructive pulmonary disease, unspecified; M51.370 Other intervertebral disc degeneration, lumbosacral region with discogenic back pain only; G62.9 Polyneuropathy, unspecified; M25.561 Pain in right knee; M25.562 Pain in left knee; R79.89 Other specified abnormal findings of blood chemistry; K21.9 Gastro-esophageal reflux disease without esophagitis; E55.9 Vitamin D deficiency, unspecified; Z85.47 Personal history of malignant neoplasm of testis; F41.9 Anxiety disorder, unspecified; E66.9 Obesity, unspecified

== ENCOUNTER → 2024-07-26 12:42 | Outpatient (BNVA) | payer BC, SELFPAY | PROVIDERS: PCP Internal Medicine; Visit Provider Internal Medicine | DX: E11.65 Type 2 diabetes mellitus with hyperglycemia (principal); E11.22 Type 2 diabetes mellitus with diabetic chronic kidney disease; I12.9 Hypertensive chronic kidney disease with stage 1 through stage 4 chronic kidney disease, or unspecified chronic kidney disease; N18.31 Chronic kidney disease, stage 3a; E87.1 Hypo-osmolality and hyponatremia; E78.00 Pure hypercholesterolemia, unspecified; J44.9 Chronic obstructive pulmonary disease, unspecified; M51.370 Other intervertebral disc degeneration, lumbosacral region with discogenic back pain only; E11.40 Type 2 diabetes mellitus with diabetic neuropathy, unspecified; M25.561 Pain in right knee; M25.562 Pain in left knee; R79.89 Other specified abnormal findings of blood chemistry; K21.9 Gastro-esophageal reflux disease without esophagitis; E55.9 Vitamin D deficiency, unspecified; F41.9 Anxiety disorder, unspecified; E66.9 Obesity, unspecified; Z85.47 Personal history of malignant neoplasm of testis; Z79.4 Long term (current) use of insulin; Z79.891 Long term (current) use of opiate analgesic; Z79.899 Other long term (current) drug therapy | CPT/HCPCS: 96127 ==

== ENCOUNTER 2024-08-22 11:13 | Outpatient (AMB) | payer BC, SELFPAY ==
--- NOTE | 2024-08-22 11:13 | MHC.PC.OV ---
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 F/U/[phone] Lead Ios Developer Required: No Accompanied by: Self / Same As Patient Allergies gabapentin Adverse Reaction (Intermediate, Verified 08/22/24 12:04) severe somnolence, dizziness Medication List - Last Reconciled 08/22/24 by Yobany Raymundo MD albuterol sulfate 90 mcg/actuation 2 puffs PO Q6H PRN amlodipine 10 mg PO DAILY 90 days atorvastatin 40 mg PO BEDTIME 90 days Basaglar KwikPen U-100 Insulin (insulin glargine) 40 units (0.4 mL) subcut QPM 30 days NS blood sugar diagnostic (FreeStyle Lite Strips) As directed tests 4 X/day 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 meter,continuous (FreeStyle Syed 3 [place]) As directed every 15 days 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 sensor (FreeStyle Syed 3 Plus Sensor device) As directed every 15 days carvedilol 12.5 mg PO BID 90 days cholecalciferol (vitamin D3) (Vitamin D3) 50 mcg PO DAILY 90 days empagliflozin 25 mg PO QAM 90 days fenofibrate nanocrystallized 145 mg PO DAILY 90 days Humalog KwikPen Insulin (insulin lispro) 35 units (0.35 mL) subcut TID 30 days NS hydralazine 25 mg PO TID 90 days lamotrigine 200 mg PO BID lorazepam 1 mg PO BID PRN 30 days losartan 50 mg PO DAILY 90 days oxycodone 30 mg PO Q6H PRN 30 days oxycodone ER 80 mg PO Q6H 30 days pen needle, diabetic (BD Ultra-Fine Dee Pen Needle) As directed 4 times a day tirzepatide 7.5 mg (0.5 mL) subcut QWEEK 4 weeks Tobacco use date assessed: 08/22/24 Dental Screening Dental Screen Date: 08/22/24 Did you have a dental visit in the last 12 months?: No Did you have a dental problem in the last 6 months where you did not have access to dental care?: No Was dental information given to patient?: Patient has dentist HPI Med F/U/[phone] HPI Details Patient's follow up visit / consultation today is done over video conference (iPhone/iPad/Google [employer]) - this is a TELEHEALTH visit Patient's current medications have been reviewed and verified with patient and/or caregiver/proxy and have been updated accordingly in the medication list Patient states that he feels okay and mainly needs his pain medications and Lorazepam Rx refilled today States that he had to cancel his endocrinology follow-up appointment recently as he did not have his continuous glucose meter at the time due to insurance not covering Dexcom States that he just recently got his freestyle Syed CGM and will be contacting endocrinology to schedule a follow-up appointment with them soon He denies any headaches or dizziness Denies any chest pains, no increased shortness of breath No nausea/vomiting, no abdominal pain No change in bowel habits noted States that his chronic low back pain and joint pains remain adequately controlled on his current medications [facility] Medical History Central hypogonadism Overweight (BMI 25.0-29.9) Obesity (BMI 30-39.9) Anxiety History of testicular cancer GERD without esophagitis Elevated LFTs Vitamin D deficiency Neuropathy Degeneration of lumbar or lumbosacral intervertebral disc Anemia Mild chronic obstructive pulmonary disease Benign essential hypertension Chronic kidney disease (CKD), stage II (mild) Type 2 diabetes mellitus with diabetic chronic kidney disease Type 2 diabetes mellitus with diabetic neuropathy, unspecified Surgical History History of colonoscopy (~06/24/16) History of orchiectomy Pure hypercholesterolemia History of lumbar surgery Family History Father Cancer Mother Diabetes Social History Household Members: Other Housing: House Alcohol intake: former Patient Tobacco Use Status: Never used Tobacco e-Cigarette/Vaping Use: Never Used Second Hand Smoke Exposure: Yes service: Yes Current occupational status: disabled Cognitive needs: No Hearing needs: No Vision needs: Yes Questionnaire PHQ-9 Over the last 2 weeks, how often have you been bothered by any of the following problems? 1. Little interest or pleasure in doing things: not at all 2. Feeling down, depressed, or hopeless: not at all 3. Trouble falling or staying asleep, or sleeping too much: not at all 4. Feeling tired or having little energy: not at all 5. Poor appetite or overeating: not at all 6. Feeling bad about yourself - or that you are a failure or have let yourself or your family down: not at all 7. Trouble concentrating on things, such as reading the newspaper or watching television: not at all 8. Moving or speaking so slowly that other people could have noticed. Or the opposite - being so fidgety or restless that you have been moving around a lot more than usual: not at all 9. Thoughts that you would be better off or of hurting yourself in some way: not at all Total score: 0 Depression Screening Interpretation: Negative Depression Screening Done: Yes 46554 - PHQ-9 Billing: Yes Source: Developed by Drs. Robbi Keller, Margie Cardona, Parvez Adan and colleagues, with an educational breonna from [employer]. Thrive Questionnaire Date Thrive assessed: 08/22/24 I am a: Patient What is your living situation today?: I have a steady place to live Within the past 12 months, did the food you bought not last and you didn't have the money to get more?: Never true Within the past 12 months, did you worry whether your food would run out before you got money to buy more?: Never true Do you have trouble paying for medicines?: No Do you have trouble getting transportation to medical appointments?: No Do you have trouble paying your heating and electricity bill?: No Do you have trouble taking care of your child, family member or friend?: No Do you have trouble with day-to-day activities such as bathing, preparing meals, shopping, managing finances, etc.?: No Are you currently unemployed and looking for a job?: No Are you interested in more education?: No Please select the resources that you would like help with: None Currently or been in a relationship where the following occur: No concerns reported THRIVE Score: 0 AUDIT C Alcohol Use Questionnaire (AUDIT-C) 1. How often do you have a drink containing alcohol?: Never 3. How often do you have six or more drinks on one occasion?: Never Total Score: 0 Score Reviewed/Action Taken: Yes SHAHRIAR-7 AMB Questionnaire SHAHRIAR-7 Date SHAHRIAR - 7 assessed: 08/22/24 Feeling nervous, anxious, or on edge: 0 = Not at all Not being able to stop or control worryin = Not at all Worrying too much about different things: 0 = Not at all Trouble relaxin = Not at all Being so restless that it is hard to sit still: 0 = Not at all Becoming easily annoyed or irritable: 0 = Not at all Feeling afraid as if something awful might happen: 0 = Not at all Total SHAHRIAR-7 score (0-4 normal; 5-9 mild; 10-14 moderate; 15-21 severe): 0 Source: Developed by Drs. Robbi Keller, Margie Cardona, Parvez Adan and colleagues, with an educational breonna from [employer]. Review of Systems Const Denies chills, Reports fatigue, Denies fever(s) and Denies headache(s) ENT Denies dysphagia, Denies dizziness, Denies otalgia, Denies headache(s), Denies neck pain, Denies odynophagia and Denies sore throat Card Denies chest pain, Denies palpitations and Denies dyspnea Resp Denies chest congestion, Denies cough and Denies dyspnea GI Denies abdominal pain, Denies constipation, Denies dysphagia, Denies heartburn, Denies diarrhea, Denies nausea, Denies odynophagia and Denies vomiting Denies dysuria, Reports nocturia and Reports urinary frequency Musc Reports back pain (over the lumbar spine - chronic), Reports arthralgias (over both knees; increased in the right shoulder lately), Denies neck pain and Reports stiffness (a couple of fingers lock up every now and then) Skin/Breast Denies rash Neuro Denies dizziness and Denies headache(s) Psych Reports anxiety and Reports depression Endo Reports fatigue, Denies polydipsia and Denies palpitations Physical exam (Primary Care) Vital Signs: Physical examination is not performed as visit / consultation today is done over videoconference - Telehealth visit All physical findings indicated here, if present, are as per patient's and / or caregivers / proxy's report and visual inspection over videoconference, if appropriate or applicable Tobacco/Smoking Status: Tobacco use Status Tobacco use date assessed 08/22/24 08/22/24 11:17 Patient Tobacco Use Status Never used Tobacco 08/22/24 11:17 Tobacco use type 07/26/24 13:39 e-Cigarette/Vaping Use Never Used 08/22/24 11:17 PHQ-9: PHQ-9 Score PHQ-9: Total score 0 08/22/24 12:05 Depression Screening Interpretation: Negative Thrive Assessment: Date of Thrive Assessment Date Thrive assessed 08/22/24 08/22/24 11:17 Currently or been in a relationship where the following occur: No concerns reported Telehealth Telehealth Telehealth Platform: Telephone Location of provider rendering services: practice address Location of patient: address on file Patient Identification confirmed using: Name, : Yes Telehealth method: video (IPHONE/[employer]) Patient verbally consented to treatment: Yes Patient verbally consented to billing insurance company: Yes Patient informed of any privacy concerns related to visit: Yes Minutes spent on Phone/Video with Pt.: 19 Coding Level of Care Code Tele Est Pt Level 4 (32366) Complex EM visit Add On G2211 Diagnoses Uncontrolled type 2 diabetes mellitus with hyperglycemia E11.65 Diabetes mellitus type: type 2 Hyponatremia E87.1 Stage 3a chronic kidney disease N18.31 Chronic kidney disease stage 3 subtype: stage 3a (GFR 45-59) Benign essential hypertension I10 Pure hypercholesterolemia E78.00 Mild chronic obstructive pulmonary disease J44.9 Degeneration of intervertebral disc of lumbosacral region with discogenic back pain M51.370 Disc-related pain type: discogenic back pain only Neuropathy G62.9 Pain in both knees, unspecified chronicity M25.561; M25.562 Chronicity: unspecified Elevated LFTs R79.89 GERD without esophagitis K21.9 Vitamin D deficiency E55.9 History of testicular cancer Z85.47 Anxiety F41.9 Obesity (BMI 30-39.9) E66.9 Additional Codes PHQ-9 - 62155 - PHQ-9 Billing: Yes ([id number]) Assessment & Plan Assessment & Plan (1) Uncontrolled diabetes mellitus with hyperglycemia: Code(s): E11.65 - Type 2 diabetes mellitus with hyperglycemia Category: Medical Qualifiers: Diabetes mellitus type: type 2 Qualified Code(s): E11.65 - Type 2 diabetes mellitus with hyperglycemia Plan: Patient's HgbA1c is still at 14.0% on his labs done last month (his in-office HgbA1c was also previously at 14% a few months ago) - goal is at least <7.0% Reinforced diabetic diet He is now seeing endocrinology again after a 2 year absence but there were no changes made to his regimen when he was last seen a couple of months ago as he did not bring his glucometer, sensor or log book to his appointment then and Dr. Espinoza could not make any changes with no information to go on with He also recently had to cancel his appointment as he did not have his Dexcom CGM sensor due to his insurance refusing to cover it States that he now just got his [employer] CGM and he will be calling endocrinology to schedule a follow-up appointment soon Continue Humalog Kwikpen 35 units TID with meals and Basaglar 40 units Q HS; continue Jardiance 25 mg QD and Mounjaro 7.5 mg once a week for now until he is seen by endocrinology (2) Hyponatremia: Code(s): E87.1 - Hypo-osmolality and hyponatremia Category: Medical Plan: His serum sodium was normal at 137 on his labs done last month - this was likely related to his declining renal function as well as his persistent hyperglycemia We will continue to monitor his electrolyte levels regularly Follow up with nephrology as scheduled (3) Chronic kidney disease (CKD), stage III (moderate): Code(s): N18.30 - Chronic kidney disease, stage 3 unspecified Category: Medical Qualifiers: Chronic kidney disease stage 3 subtype: stage 3a (GFR 45-59) Qualified Code(s): N18.31 - Chronic kidney disease, stage 3a Plan: His renal function currently appears stable, based on his most recent lab results He has been cautioned that this can change very quickly as long as his diabetes is uncontrolled - his HgbA1c remains at 14.0% on his recent labs done last month Have advised patient that he is also now presenting with increasing proteinuria and microalbuminuria on his recent labs Follow up with nephrology as scheduled (4) Benign essential hypertension: Code(s): I10 - Essential (primary) hypertension Category: Medical Plan: Reinforced low-sodium diet -? goal is systolic BP of at least 130 mm or less Continue Amlodipine 10 mg QD, Carvedilol 12.5 mg BID, Hydralazine 25 mg TID and Losartan 50 mg QD He is reminded to continue monitoring his blood pressure regularly (5) Pure hypercholesterolemia: Code(s): E78.00 - Pure hypercholesterolemia, unspecified Category: Surgical Plan: Reinforced low cholesterol diet Continue Fenofibrate 145 mg QD; we also switched him out from his Pravastatin 40 mg to Atorvastatin 40 mg QD last month for better efficacy (6) Mild chronic obstructive pulmonary disease: Code(s): J44.9 - Chronic obstructive pulmonary disease, unspecified Category: Medical Plan: Stable -? PFTs done a couple of years ago showed mild COPD Patient has been mostly asymptomatic and has not needed to use any of his inhalers lately except for when he comes down with a cold or respiratory infection (7) Degeneration of lumbar or lumbosacral intervertebral disc: Code(s): M51.37 - Other intervertebral disc degeneration, lumbosacral region Category: Medical Qualifiers: Disc-related pain type: discogenic back pain only Qualified Code(s): M51.370 - Other intervertebral disc degeneration, lumbosacral region with discogenic back pain only Plan: Reinforced activity and weight lifting restrictions Continue Oxycodone 30 mg every 6-8 hours as needed and Oxycodone ER 80 mg every 6 hours - Rx refilled (8) Neuropathy: Code(s): G62.9 - Polyneuropathy, unspecified Category: Medical Plan: EMG and NCV of both lower extremities done in 2017 showed (+)? 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 chronic bilateral lower lumbar radiculopathy Continue Nortriptyline 50 mg Q HS Have emphasized to him again the importance of tight glycemic control to slow down the progression of his neuropathy Follow up with podiatry as scheduled for regular/annual foot exam and diabetic foot care (9) Bilateral knee pain: Code(s): M25.561 - Pain in right knee; M25.562 - Pain in left knee Category: Medical Qualifiers: Chronicity: unspecified Qualified Code(s): M25.561 - Pain in right knee; M25.562 - Pain in left knee Plan: X-rays of both knees done last year revealed (+) mild OA changes in the right knee; left knee x-rays were normal He was recommended to see orthopedics for further evaluation and management of his knee symptoms but patient prefers to hold off for now and he will call for referral when he feels he needs to see orthopedics (10) Elevated LFTs: Code(s): R79.89 - Other specified abnormal findings of blood chemistry Category: Medical Plan: His LFTs have remained normal on his labs done last month - these were most likely due to his weight, his medications and his elevated cholesterol levels Will continue to monitor his LFTs regularly (11) GERD without esophagitis: Code(s): K21.9 - Gastro-esophageal reflux disease without esophagitis Category: Medical Plan: Dietary restrictions reinforced (12) Vitamin D deficiency: Code(s): E55.9 - Vitamin D deficiency, unspecified Category: Medical Plan: Continue Vitamin D3 2000 units QD (13) 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 & 3 cycles of BEP (bleomycin, etoposide, cisplatin) chemotherapy completed in 04/2008 Code(s): Z85.47 - Personal history of malignant neoplasm of testis Category: Medical Plan: S/P left orchiectomy and chemotherapy (completed in 2007) - patient currently remains in remission Follow-up with Oncology/ urology as scheduled for continuing surveillance (14) Anxiety: Code(s): F41.9 - Anxiety disorder, unspecified Category: Medical Plan: Continue Lorazepam 1 mg 1 to 2 times a day as needed - Rx refilled (15) Obesity (BMI 30-39.9): Code(s): E66.9 - Obesity, unspecified Category: Medical Plan: Reinforced diet/exercise as tolerated/lose weight Plan Follow up in 1 month Medications: Refilled oxycodone ER 80 mg PO Q6H 30 days 120 tabs 0RF M51.37 - Other intervertebral disc degeneration, lumbosacral region lorazepam 1 mg PO BID 30 days PRN 60 tabs 0RF anxiety F41.9 - Anxiety disorder, unspecified oxycodone 30 mg PO Q6H 30 days PRN 120 tabs 0RF pain M51.37 - Other intervertebral disc degeneration, lumbosacral region
== END 2024-08-22 11:52 | disposition home or self-care (01) ==
LOC: HO.HMCH 11:13
PROVIDERS: PCP Internal Medicine; Visit Provider Internal Medicine
DX: I12.9 Hypertensive chronic kidney disease with stage 1 through stage 4 chronic kidney disease, or unspecified chronic kidney disease (principal); E11.65 Type 2 diabetes mellitus with hyperglycemia; N18.31 Chronic kidney disease, stage 3a; J44.9 Chronic obstructive pulmonary disease, unspecified; E87.1 Hypo-osmolality and hyponatremia; E78.00 Pure hypercholesterolemia, unspecified; M51.370 Other intervertebral disc degeneration, lumbosacral region with discogenic back pain only; G62.9 Polyneuropathy, unspecified; M25.561 Pain in right knee; M25.562 Pain in left knee; R79.89 Other specified abnormal findings of blood chemistry; K21.9 Gastro-esophageal reflux disease without esophagitis

== ENCOUNTER → 2024-08-22 11:13 | Outpatient (BNVA) | payer BC, SELFPAY | PROVIDERS: PCP Internal Medicine; Visit Provider Internal Medicine | DX: E11.65 Type 2 diabetes mellitus with hyperglycemia (principal); E87.1 Hypo-osmolality and hyponatremia; I12.9 Hypertensive chronic kidney disease with stage 1 through stage 4 chronic kidney disease, or unspecified chronic kidney disease; N18.31 Chronic kidney disease, stage 3a; E78.00 Pure hypercholesterolemia, unspecified; J44.9 Chronic obstructive pulmonary disease, unspecified; M51.370 Other intervertebral disc degeneration, lumbosacral region with discogenic back pain only; E11.40 Type 2 diabetes mellitus with diabetic neuropathy, unspecified; M25.561 Pain in right knee; M25.562 Pain in left knee; R79.89 Other specified abnormal findings of blood chemistry; K21.9 Gastro-esophageal reflux disease without esophagitis; E55.9 Vitamin D deficiency, unspecified; F41.9 Anxiety disorder, unspecified; E66.9 Obesity, unspecified; Z85.47 Personal history of malignant neoplasm of testis; Z79.4 Long term (current) use of insulin; Z79.899 Other long term (current) drug therapy | CPT/HCPCS: 96127 ==

== ENCOUNTER 2024-09-20 11:30 | Outpatient (AMB) | payer BC, SELFPAY ==
--- NOTE | 2024-09-20 11:31 | A.OFFPC_ITS ---
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 Accompanied by: Self / Same As Patient Allergies gabapentin Adverse Reaction (Intermediate, Verified 09/20/24 11:58) severe somnolence, dizziness Medication List - Last Reconciled 09/20/24 by Yobany Raymundo MD albuterol sulfate 90 mcg/actuation 2 puffs PO Q6H PRN amlodipine 10 mg PO DAILY 90 days atorvastatin 40 mg PO BEDTIME 90 days Basaglar KwikPen U-100 Insulin (insulin glargine) 40 units (0.4 mL) subcut QPM 30 days NS blood sugar diagnostic (FreeStyle Lite Strips) As directed tests 4 X/day 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 sensor (FreeStyle Syed 3 Plus Sensor device) As directed every 15 days 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,weaving inspector,cont (FreeStyle Syed 3 Berkley) As directed every 15 days carvedilol 12.5 mg PO BID 90 days cholecalciferol (vitamin D3) (Vitamin D3) 50 mcg PO DAILY 90 days empagliflozin 25 mg PO QAM 90 days fenofibrate nanocrystallized 145 mg PO DAILY 90 days Humalog KwikPen Insulin (insulin lispro) 35 units (0.35 mL) subcut TID 30 days NS hydralazine 25 mg PO TID 90 days lamotrigine 200 mg PO BID lorazepam 1 mg PO BID PRN 30 days losartan 50 mg PO DAILY 90 days oxycodone 30 mg PO Q6H PRN 30 days oxycodone ER 80 mg PO Q6H 30 days pen needle, diabetic (BD Ultra-Fine Dee Pen Needle) As directed 4 times a day tirzepatide 7.5 mg (0.5 mL) subcut QWEEK 4 weeks Tobacco use date assessed: 09/20/24 Dental Screening Dental Screen Date: 09/20/24 Did you have a dental visit in the last 12 months?: No Did you have a dental problem in the last 6 months where you did not have access to dental care?: No Was dental information given to patient?: Patient has dentist HPI Med [phone] HPI Details Patient's follow up visit / consultation today is done over video conference (iPhone/iPad/Google Meets/Doximity) - this is a TELEHEALTH visit Patient's current medications have been reviewed and verified with patient and/or caregiver/proxy and have been updated accordingly in the medication list Patient states that he feels okay States that he has not been seen by endocrinology yet since he had to cancel his appointment last month and has no appointment scheduled yet He denies any headaches or dizziness Denies any chest pains, no increased shortness of breath No nausea/vomiting, no abdominal pain No change in bowel habits noted States that his chronic low back pain and joint pains remain adequately controlled on his current medications and he mainly just needs his pain meds and Lorazepam Rx refilled today [facility] Medical History Central hypogonadism Overweight (BMI 25.0-29.9) Obesity (BMI 30-39.9) Anxiety History of testicular cancer GERD without esophagitis Elevated LFTs Vitamin D deficiency Neuropathy Degeneration of lumbar or lumbosacral intervertebral disc Anemia Mild chronic obstructive pulmonary disease Benign essential hypertension Chronic kidney disease (CKD), stage II (mild) Type 2 diabetes mellitus with diabetic chronic kidney disease Type 2 diabetes mellitus with diabetic neuropathy, unspecified Surgical History History of colonoscopy (~06/24/16) History of orchiectomy Pure hypercholesterolemia History of lumbar surgery Family History Father Cancer Mother Diabetes Social History Household Members: Other Housing: House Alcohol intake: former Patient Tobacco Use Status: Never used Tobacco e-Cigarette/Vaping Use: Never Used Second Hand Smoke Exposure: Yes service: Yes Current occupational status: disabled Cognitive needs: No Hearing needs: No Vision needs: Yes Questionnaire PHQ-9 Over the last 2 weeks, how often have you been bothered by any of the following problems? 1. Little interest or pleasure in doing things: not at all 2. Feeling down, depressed, or hopeless: not at all 3. Trouble falling or staying asleep, or sleeping too much: not at all 4. Feeling tired or having little energy: not at all 5. Poor appetite or overeating: not at all 6. Feeling bad about yourself - or that you are a failure or have let yourself or your family down: not at all 7. Trouble concentrating on things, such as reading the newspaper or watching television: not at all 8. Moving or speaking so slowly that other people could have noticed. Or the opposite - being so fidgety or restless that you have been moving around a lot more than usual: not at all 9. Thoughts that you would be better off or of hurting yourself in some way: not at all Total score: 0 Depression Screening Interpretation: Negative Depression Screening Done: Yes 81390 - PHQ-9 Billing: Yes Source: Developed by Drs. Robbi Keller, Margie Cardona, Parvez Adan and colleagues, with an educational breonna from [employer]. Thrive Questionnaire Date Thrive assessed: 09/20/24 I am a: Patient What is your living situation today?: I have a steady place to live Within the past 12 months, did the food you bought not last and you didn't have the money to get more?: Never true Within the past 12 months, did you worry whether your food would run out before you got money to buy more?: Never true Do you have trouble paying for medicines?: No Do you have trouble getting transportation to medical appointments?: No Do you have trouble paying your heating and electricity bill?: No Do you have trouble taking care of your child, family member or friend?: No Do you have trouble with day-to-day activities such as bathing, preparing meals, shopping, managing finances, etc.?: No Are you currently unemployed and looking for a job?: No Are you interested in more education?: No Please select the resources that you would like help with: None Currently or been in a relationship where the following occur: No concerns reported THRIVE Score: 0 AUDIT C Alcohol Use Questionnaire (AUDIT-C) 1. How often do you have a drink containing alcohol?: Never 3. How often do you have six or more drinks on one occasion?: Never Total Score: 0 Score Reviewed/Action Taken: Yes SHAHRIAR-7 AMB Questionnaire SHAHRIAR-7 Date SHAHRIAR - 7 assessed: 09/20/24 Feeling nervous, anxious, or on edge: 0 = Not at all Not being able to stop or control worryin = Not at all Worrying too much about different things: 0 = Not at all Trouble relaxin = Not at all Being so restless that it is hard to sit still: 0 = Not at all Becoming easily annoyed or irritable: 0 = Not at all Feeling afraid as if something awful might happen: 0 = Not at all Total SHAHRIAR-7 score (0-4 normal; 5-9 mild; 10-14 moderate; 15-21 severe): 0 Source: Developed by Drs. Robbi Keller, Margie Cardona, Parvez Adan and colleagues, with an educational breonna from [employer]. Review of Systems Const Denies chills, Reports fatigue, Denies fever(s) and Denies headache(s) ENT Denies dysphagia, Denies dizziness, Denies otalgia, Denies headache(s), Denies neck pain, Denies odynophagia and Denies sore throat Card Denies chest pain, Denies palpitations and Denies dyspnea Resp Denies chest congestion, Denies cough and Denies dyspnea GI Denies abdominal pain, Denies constipation, Denies dysphagia, Denies heartburn, Denies diarrhea, Denies nausea, Denies odynophagia and Denies vomiting Denies dysuria, Reports nocturia and Reports urinary frequency Musc Reports back pain (over the lumbar spine - chronic), Reports arthralgias (over both knees; increased in the right shoulder lately), Denies neck pain and Reports stiffness (a couple of fingers lock up every now and then) Skin/Breast Denies rash Neuro Denies dizziness and Denies headache(s) Psych Reports anxiety and Reports depression Endo Reports fatigue, Denies polydipsia and Denies palpitations Physical exam (Primary Care) Vital Signs: Physical examination is not performed as visit / consultation today is done over videoconference - Telehealth visit All physical findings indicated here, if present, are as per patient's and / or caregivers / proxy's report and visual inspection over videoconference, if appropriate or applicable Tobacco/Smoking Status: Tobacco use Status Tobacco use date assessed 09/20/24 09/20/24 11:33 Patient Tobacco Use Status Never used Tobacco 09/20/24 11:33 Tobacco use type 07/26/24 13:39 e-Cigarette/Vaping Use Never Used 09/20/24 11:33 PHQ-9: PHQ-9 Score PHQ-9: Total score 0 09/20/24 11:33 Depression Screening Interpretation: Negative Thrive Assessment: Date of Thrive Assessment Date Thrive assessed 09/20/24 09/20/24 11:33 Currently or been in a relationship where the following occur: No concerns reported Telehealth Telehealth Telehealth Platform: Telephone (FT ) Location of provider rendering services: practice address Location of patient: address on file Patient Identification confirmed using: Name, : Yes Telehealth method: video (IPHONE / Trusted Opinion) Patient verbally consented to treatment: Yes Patient verbally consented to billing insurance company: Yes Patient informed of any privacy concerns related to visit: Yes Minutes spent on Phone/Video with Pt.: 17 Coding Level of Care Code Tele Est Pt Level 3 (04584) Diagnoses Uncontrolled type 2 diabetes mellitus with hyperglycemia E11.65 Diabetes mellitus type: type 2 Hyponatremia E87.1 Stage 3a chronic kidney disease N18.31 Chronic kidney disease stage 3 subtype: stage 3a (GFR 45-59) Benign essential hypertension I10 Pure hypercholesterolemia E78.00 Mild chronic obstructive pulmonary disease J44.9 Degeneration of intervertebral disc of lumbosacral region with discogenic back pain M51.370 Disc-related pain type: discogenic back pain only Neuropathy G62.9 Pain in both knees, unspecified chronicity M25.561; M25.562 Chronicity: unspecified Elevated LFTs R79.89 GERD without esophagitis K21.9 Vitamin D deficiency E55.9 History of testicular cancer Z85.47 Anxiety F41.9 Obesity (BMI 30-39.9) E66.9 Additional Codes PHQ-9 - 96266 - PHQ-9 Billing: Yes ([id number]) Assessment & Plan Assessment & Plan (1) Uncontrolled diabetes mellitus with hyperglycemia: Code(s): E11.65 - Type 2 diabetes mellitus with hyperglycemia Category: Medical Qualifiers: Diabetes mellitus type: type 2 Qualified Code(s): E11.65 - Type 2 diabetes mellitus with hyperglycemia Plan: Patient's HgbA1c was still at 14.0% when checked a couple of months ago (his in- office HgbA1c was also previously at 14% a few months prior) - goal is at least <7.0% Reinforced diabetic diet He is now seeing endocrinology again after a 2 year absence but there were no changes made to his regimen when he was last seen a few months ago as he did not bring his glucometer, sensor or log book to his appointment at the time and Dr. Espinoza could not make any changes with no available information He also had to cancel his appointment last month as he did not have his Dexcom CGM sensor due to his insurance refusing to cover it States that he now has his Freestyle Syed CGM and he will be calling endocrinology to schedule a follow-up appointment soon - he is advised to do this ROWENA as there is still no appointment scheduled for him to be seen by endocrinology at this time Continue Humalog Kwikpen 35 units TID with meals and Basaglar 40 units Q HS; continue Jardiance 25 mg QD and Mounjaro 7.5 mg once a week for now until he is seen by endocrinology (2) Hyponatremia: Code(s): E87.1 - Hypo-osmolality and hyponatremia Category: Medical Plan: His serum sodium was normal at 137 on his labs done a couple of months ago - this was likely related to his declining renal function as well as his persistent hyperglycemia We will continue to monitor his electrolyte levels regularly Follow up with nephrology as scheduled (3) Chronic kidney disease (CKD), stage III (moderate): Code(s): N18.30 - Chronic kidney disease, stage 3 unspecified Category: Medical Qualifiers: Chronic kidney disease stage 3 subtype: stage 3a (GFR 45-59) Qualified Code(s): N18.31 - Chronic kidney disease, stage 3a Plan: His renal function appeared stable, based on his recent lab results He has been cautioned that this can change very quickly as long as his diabetes is uncontrolled - his HgbA1c remains at 14.0% on his recent labs done a couple of months ago Have advised patient that he is also now presenting with increasing proteinuria and microalbuminuria on his recent labs Follow up with nephrology as scheduled (4) Benign essential hypertension: Code(s): I10 - Essential (primary) hypertension Category: Medical Plan: Reinforced low-sodium diet -? goal is systolic BP of at least 130 mm or less Continue Amlodipine 10 mg QD, Carvedilol 12.5 mg BID, Hydralazine 25 mg TID and Losartan 50 mg QD He is reminded to continue monitoring his blood pressure regularly (5) Pure hypercholesterolemia: Code(s): E78.00 - Pure hypercholesterolemia, unspecified Category: Surgical Plan: Reinforced low cholesterol diet Continue Fenofibrate 145 mg QD; we also switched him out from his Pravastatin 40 mg to Atorvastatin 40 mg QD a couple of months ago for better efficacy Will have him recheck his labs and fasting lipids next month for follow up (6) Mild chronic obstructive pulmonary disease: Code(s): J44.9 - Chronic obstructive pulmonary disease, unspecified Category: Medical Plan: Stable -? PFTs done a couple of years ago showed mild COPD Patient has been mostly asymptomatic and has not needed to use any of his inhalers lately except for when he comes down with a cold or respiratory infection (7) Degeneration of lumbar or lumbosacral intervertebral disc: Code(s): M51.37 - Other intervertebral disc degeneration, lumbosacral region Category: Medical Qualifiers: Disc-related pain type: discogenic back pain only Qualified Code(s): M51.370 - Other intervertebral disc degeneration, lumbosacral region with discogenic back pain only Plan: Reinforced activity and weight lifting restrictions Continue Oxycodone 30 mg every 6-8 hours as needed and Oxycodone ER 80 mg every 6 hours - Rx refilled (8) Neuropathy: Code(s): G62.9 - Polyneuropathy, unspecified Category: Medical Plan: EMG and NCV of both lower extremities done in 2017 showed (+)? 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 chronic bilateral lower lumbar radiculopathy Continue Nortriptyline 50 mg Q HS Have emphasized to him again the importance of tight glycemic control to slow down the progression of his neuropathy Follow up with podiatry as scheduled for regular/annual foot exam and diabetic foot care (9) Bilateral knee pain: Code(s): M25.561 - Pain in right knee; M25.562 - Pain in left knee Category: Medical Qualifiers: Chronicity: unspecified Qualified Code(s): M25.561 - Pain in right knee; M25.562 - Pain in left knee Plan: X-rays of both knees done last year revealed (+) mild OA changes in the right knee; left knee x-rays were normal He was recommended to see orthopedics for further evaluation and management of his knee symptoms but patient prefers to hold off for now and he will call for referral when he feels he needs to see orthopedics (10) Elevated LFTs: Code(s): R79.89 - Other specified abnormal findings of blood chemistry Category: Medical Plan: His LFTs have remained normal on his labs done last month - these were most likely due to his weight, his medications and his elevated cholesterol levels Will continue to monitor his LFTs regularly (11) GERD without esophagitis: Code(s): K21.9 - Gastro-esophageal reflux disease without esophagitis Category: Medical Plan: Dietary restrictions reinforced (12) Vitamin D deficiency: Code(s): E55.9 - Vitamin D deficiency, unspecified Category: Medical Plan: Continue Vitamin D3 2000 units QD (13) 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 & 3 cycles of BEP (bleomycin, etoposide, cisplatin) chemotherapy completed in 04/2008 Code(s): Z85.47 - Personal history of malignant neoplasm of testis Category: Medical Plan: S/P left orchiectomy and chemotherapy (completed in 2007) - patient currently remains in remission Follow-up with Oncology/ urology as scheduled for continuing surveillance (14) Anxiety: Code(s): F41.9 - Anxiety disorder, unspecified Category: Medical Plan: Continue Lorazepam 1 mg 1 to 2 times a day as needed - Rx refilled (15) Obesity (BMI 30-39.9): Code(s): E66.9 - Obesity, unspecified Category: Medical Plan: Reinforced diet/exercise as tolerated/lose weight Plan Follow up in 1 month Orders: Orders Comprehensive [place]. Panel Fast 10/14/24 E78.00 - Pure hypercholesterolemia, unspecified Hemoglobin A1c 10/14/24 E11.9 - Type 2 diabetes mellitus without complications Microalbumin, Random (w Creat) 10/14/24 E11.9 - Type 2 diabetes mellitus without complications Vitamin D 25-OH Total 10/14/24 E55.9 - Vitamin D deficiency, unspecified TSH reflex Free T4 10/14/24 E78.00 - Pure hypercholesterolemia, unspecified UA CC w/rflx Micro + Cult 10/14/24 R30.0 - Dysuria Complete Blood Count Auto Diff 10/14/24 D64.9 - Anemia, unspecified Lipid Panel 10/14/24 E78.00 - Pure hypercholesterolemia, unspecified Vitamin B12 and Folate 10/14/24 E53.8 - Deficiency of other specified B group vitamins Medications: Refilled oxycodone 30 mg PO Q6H 30 days PRN 120 tabs 0RF pain M51.37 - Other intervertebral disc degeneration, lumbosacral region lorazepam 1 mg PO BID 30 days PRN 60 tabs 0RF anxiety F41.9 - Anxiety diso rder, unspecified oxycodone ER 80 mg PO Q6H 30 days 120 tabs 0RF M51.37 - Other intervertebral disc degeneration, lumbosacral region
== END 2024-09-20 12:39 | disposition home or self-care (01) ==
LOC: HO.HMCH 11:30
PROVIDERS: PCP Internal Medicine; Visit Provider Internal Medicine
DX: I12.9 Hypertensive chronic kidney disease with stage 1 through stage 4 chronic kidney disease, or unspecified chronic kidney disease (principal); E11.65 Type 2 diabetes mellitus with hyperglycemia; N18.31 Chronic kidney disease, stage 3a; J44.9 Chronic obstructive pulmonary disease, unspecified; E87.1 Hypo-osmolality and hyponatremia; E78.00 Pure hypercholesterolemia, unspecified; M51.370 Other intervertebral disc degeneration, lumbosacral region with discogenic back pain only; G62.9 Polyneuropathy, unspecified; M25.561 Pain in right knee; M25.562 Pain in left knee; R79.89 Other specified abnormal findings of blood chemistry; K21.9 Gastro-esophageal reflux disease without esophagitis

== ENCOUNTER → 2024-09-20 11:30 | Outpatient (BNVA) | payer BC, SELFPAY | PROVIDERS: PCP Internal Medicine; Visit Provider Internal Medicine | DX: E11.65 Type 2 diabetes mellitus with hyperglycemia (principal); E87.1 Hypo-osmolality and hyponatremia; E11.22 Type 2 diabetes mellitus with diabetic chronic kidney disease; I12.9 Hypertensive chronic kidney disease with stage 1 through stage 4 chronic kidney disease, or unspecified chronic kidney disease; N18.31 Chronic kidney disease, stage 3a; E78.00 Pure hypercholesterolemia, unspecified; J44.9 Chronic obstructive pulmonary disease, unspecified; M51.370 Other intervertebral disc degeneration, lumbosacral region with discogenic back pain only; E11.40 Type 2 diabetes mellitus with diabetic neuropathy, unspecified; M25.561 Pain in right knee; M25.562 Pain in left knee; R79.89 Other specified abnormal findings of blood chemistry; K21.9 Gastro-esophageal reflux disease without esophagitis; E55.9 Vitamin D deficiency, unspecified; F41.9 Anxiety disorder, unspecified; E66.9 Obesity, unspecified; Z85.47 Personal history of malignant neoplasm of testis; Z79.4 Long term (current) use of insulin; Z79.899 Other long term (current) drug therapy | CPT/HCPCS: 96127 ==

== ENCOUNTER 2024-10-17 10:55 | Outpatient (REF) | payer BC, SELFPAY ==
[2024-10-17 13:07] LABS: MANUAL DIFF FLAG NO
[2024-10-17 13:12] LABS: Basophils Absolute Auto 0.1 X10*3/uL (0.0-0.2); Basophils Percent Auto 0.8 % (0-2); Eosinophils Absolute Auto 0.2 X10*3/uL (0.0-0.4); Eosinophils Percent Auto 2.3 % (0-4); Hematocrit 48.2 % (42.0-52.0); Hemoglobin 16.3 g/dl (14.0-18.0); Imm Gran Abs Auto 0.04 X10*3/uL (0.00-0.03); Imm Gran Pct Auto 0.5 % (0.0-0.4); Lymphocytes Absolute Auto 1.6 X10*3/uL (1.2-4.9); Lymphocytes Percent Auto 19.1 % (20-40); Mean Corpuscular HGB Conc 33.8 g/dl (31.0-36.0); Mean Corpuscular Hemoglobin 27.5 pg (27.0-33.0); Mean Corpuscular Volume 81.3 fL (80.0-98.0); Mean Platelet Volume 8.5 fL (9.4-12.4); Monocytes Absolute Auto 0.5 X10*3/uL (0.1-1.2); Monocytes Percent Auto 5.5 % (2-11); Neutrophils Absolute Auto 6.2 x10*3/uL (2.0-8.3); Neutrophils Percent Auto 71.8 % (45-73); Platelet Count 324 X10*3/uL (160-400); Red Blood Count 5.93 X10*6/uL (4.60-5.80); Red Cell Distribution Width 12.5 % (11.0-16.0); White Blood Count 8.6 X10*3/uL (4.8-10.8)
[2024-10-17 13:19] LABS: Appearance Urine Clear; Color Urine Yellow; Glucose Urine UA >=1000 mg/dL (Negative); Leukocyte Esterase Urine Negative (Negative); Nitrite Urine Negative (Negative); UMIC TRIGGER UACC YES; Urine Blood Negative (Negative); Urine Ketones Negative (Negative); Urine Protein 100 (2+) mg/dL (Neg-Trace)
[2024-10-17 13:23] LABS: Bacteria Urine None Seen (None Seen); Hyaline Casts Urine 0-2 /LPF (0-2); RBC Urine 0-2 /HPF (0-2); Squamous Epithelial Cell Urine 0-2 /HPF (0-2); WBC Urine 0-5 /HPF (0-5)
[2024-10-17 14:00] LABS: Alanine Aminotransferase 21 U/L (0-40); Albumin Level 4.6 g/dL (3.5-5.0); Alkaline Phosphatase 85 U/L (39-117); Anion Gap 15 (12-20); Aspartate Amino Transferase 23 U/L (5-37); Bilirubin Total 0.6 mg/dL (0.0-1.0); Blood Urea Nitrogen 19 mg/dL (9-16); Calcium 9.9 mg/dL (8.4-10.2); Carbon Dioxide 27 mmol/L (22-29); Chloride 100 mmol/L (96-108); Cholesterol 272 mg/dL (<200); Estimated Glomerular Filt Rate > 60; Glucose Fasting 288 mg/dL (60-99); HDL Cholesterol 62 mg/dL (>40); LDL Cholesterol Calculated 149 mg/dL (<100); Potassium 4.2 mmol/L (3.3-5.1); Sodium 138 mmol/L (135-145); Triglycerides 307 mg/dL (<150)
[2024-10-17 14:11] LABS: Folate 8.5 ng/mL (> or = 4.0); Vitamin B12 571 pg/mL (200-900)
[2024-10-17 14:14] LABS: Creatinine Urine 59.68 mg/dL
[2024-10-17 14:17] LABS: TSH reflex Free T4 1.24 uIU/mL (0.32-4.0); Vitamin D 25-OH Total 48.6 ng/mL (>30)
[2024-10-17 14:33] LABS: Microalbum/Creatinine Ratio Ur 995.3 ug/mg cr (<30)
[2024-10-17 15:13] LABS: Estimated Average Glucose 263 mg/dL; Hemoglobin A1C 396.8148 umol/L; Hemoglobin A1c % 10.8 % (<6.0); Total Hemoglobin (HGBA1C) 4197.1982 umol/L
== END 2024-10-17 10:56 | disposition home or self-care (01) ==
LOC: HO.HMGCLDS 10:55
PROVIDERS: PCP Internal Medicine; Visit Provider Internal Medicine
DX: D64.9 Anemia, unspecified (principal); E53.8 Deficiency of other specified B group vitamins; E55.9 Vitamin D deficiency, unspecified; E11.9 Type 2 diabetes mellitus without complications; E78.00 Pure hypercholesterolemia, unspecified
CPT/HCPCS: 36415; 80053; 80061; 81001; 81003; 82043; 82306; 82570; 82607; 82746; 83036; 84443; 85025

== ENCOUNTER 2024-10-18 11:16 | Outpatient (AMB) | payer BC, SELFPAY ==
[2024-10-18 11:17] VITALS: BP 160/120; PULSE 85; O2SAT 98; BMI 29.8
--- NOTE | 2024-10-18 11:17 | MHC.PC.OV ---
Vital Signs 10/18/24 11:17 10/18/24 11:48 Height 6 ft 1 in Weight 226 lb BMI 29.8 BP 160/120 H 140/100 H Blood Pressure Location Lt brachial Lt brachial Position Sitting Sitting Pulse 85 Pulse Source Pulse Oximeter Pulse Oximetry (%) 98 Oxygen Delivery Method Room Air Intake Visit Reasons: 1 month F/U Tinning Equipment Tender Required: No Accompanied by: Self / Same As Patient Allergies gabapentin Adverse Reaction (Intermediate, Verified 10/18/24 11:44) severe somnolence, dizziness Medication List - Last Reconciled 10/18/24 by Yobany Raymundo MD albuterol sulfate 90 mcg/actuation 2 puffs PO Q6H PRN amlodipine 10 mg PO DAILY 90 days atorvastatin 40 mg PO BEDTIME 90 days Basaglar KwikPen U-100 Insulin (insulin glargine) 40 units (0.4 mL) subcut QPM 30 days NS blood sugar diagnostic (FreeStyle Lite Strips) As directed tests 4 X/day 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 sensor (FreeStyle Syed 3 Plus Sensor device) As directed every 15 days 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,intensive care nurse,cont (FreeStyle Syed 3 [place]) As directed every 15 days carvedilol 12.5 mg PO BID 90 days cholecalciferol (vitamin D3) (Vitamin D3) 50 mcg PO DAILY 90 days empagliflozin 25 mg PO QAM 90 days fenofibrate nanocrystallized 145 mg PO DAILY 90 days Humalog KwikPen Insulin (insulin lispro) 35 units (0.35 mL) subcut TID 30 days NS hydralazine 25 mg PO TID 90 days lamotrigine 200 mg PO BID lorazepam 1 mg PO BID PRN 30 days losartan 50 mg PO DAILY 90 days oxycodone 30 mg PO Q6H PRN 30 days oxycodone ER 80 mg PO Q6H 30 days pen needle, diabetic (BD Ultra-Fine Dee Pen Needle) As directed 4 times a day tirzepatide 7.5 mg (0.5 mL) subcut QWEEK 4 weeks Tobacco use date assessed: 10/18/24 Dental Screening Dental Screen Date: 10/18/24 Did you have a dental visit in the last 12 months?: No Did you have a dental problem in the last 6 months where you did not have access to dental care?: No Was dental information given to patient?: No HPI 1 month F/U HPI Details Patient comes in today for his follow up visit States that he feels okay and is happy to see on his lab results that he is finally back on track at getting his diabetes better controlled again States that both of his feet now feels numb all the time and that he can hardly feel anything with his feet lately He has not noticed any problems so far with his mobility yet He denies any headaches or dizziness Denies any chest pains, no increased shortness of breath No nausea/vomiting, no abdominal pain No change in bowel habits noted States that his chronic low back pain and joint pains remain adequately controlled on his current medications and will need his pain medications and Lorazepam Rx refilled today He had his follow up labs done yesterday - to discuss his results [facility] Medical History Central hypogonadism Overweight (BMI 25.0-29.9) Obesity (BMI 30-39.9) Anxiety History of testicular cancer GERD without esophagitis Elevated LFTs Vitamin D deficiency Neuropathy Degeneration of lumbar or lumbosacral intervertebral disc Anemia Mild chronic obstructive pulmonary disease Benign essential hypertension Chronic kidney disease (CKD), stage II (mild) Type 2 diabetes mellitus with diabetic chronic kidney disease Type 2 diabetes mellitus with diabetic neuropathy, unspecified Surgical History History of colonoscopy (~06/24/16) History of orchiectomy Pure hypercholesterolemia History of lumbar surgery Family History Father Cancer Mother Diabetes Social History Household Members: Other Housing: House Alcohol intake: former Patient Tobacco Use Status: Never used Tobacco e-Cigarette/Vaping Use: Never Used Second Hand Smoke Exposure: Yes service: Yes Current occupational status: disabled Cognitive needs: No Hearing needs: No Vision needs: Yes Questionnaire PHQ-9 Over the last 2 weeks, how often have you been bothered by any of the following problems? 1. Little interest or pleasure in doing things: more than half the days 2. Feeling down, depressed, or hopeless: not at all 3. Trouble falling or staying asleep, or sleeping too much: not at all 4. Feeling tired or having little energy: not at all 5. Poor appetite or overeating: not at all 6. Feeling bad about yourself - or that you are a failure or have let yourself or your family down: not at all 7. Trouble concentrating on things, such as reading the newspaper or watching television: not at all 8. Moving or speaking so slowly that other people could have noticed. Or the opposite - being so fidgety or restless that you have been moving around a lot more than usual: not at all 9. Thoughts that you would be better off or of hurting yourself in some way: not at all Total score: 2 Depression Screening Interpretation: Negative Depression Screening Done: Yes 63413 - PHQ-9 Billing: Yes Source: Developed by Drs. Robbi Keller, Margie Cardona, Parvez Adan and colleagues, with an educational breonna from [employer]. Thrive Questionnaire Date Thrive assessed: 10/18/24 I am a: Patient What is your living situation today?: I have a steady place to live Within the past 12 months, did the food you bought not last and you didn't have the money to get more?: Sometimes True Within the past 12 months, did you worry whether your food would run out before you got money to buy more?: Sometimes True Do you have trouble paying for medicines?: No Do you have trouble getting transportation to medical appointments?: No Do you have trouble paying your heating and electricity bill?: Yes Do you have trouble taking care of your child, family member or friend?: I choose not to answer this question Do you have trouble with day-to-day activities such as bathing, preparing meals, shopping, managing finances, etc.?: No Are you currently unemployed and looking for a job?: No Are you interested in more education?: No Please select the resources that you would like help with: None Currently or been in a relationship where the following occur: I choose not to answer THRIVE Score: 3 AUDIT C Alcohol Use Questionnaire (AUDIT-C) 1. How often do you have a drink containing alcohol?: Never 3. How often do you have six or more drinks on one occasion?: Never Total Score: 0 Score Reviewed/Action Taken: Yes SHAHRIAR-7 AMB Questionnaire SHAHRIAR-7 Date SHAHRIAR - 7 assessed: 10/18/24 Feeling nervous, anxious, or on edge: 0 = Not at all Not being able to stop or control worryin = Not at all Worrying too much about different things: 0 = Not at all Trouble relaxin = Not at all Being so restless that it is hard to sit still: 3 = Nearly every day Becoming easily annoyed or irritable: 2 = More than half the days Feeling afraid as if something awful might happen: 0 = Not at all Total SHAHRIAR-7 score (0-4 normal; 5-9 mild; 10-14 moderate; 15-21 severe): 5 Source: Developed by Drs. Robbi Keller, Margie Cardona, Parvez Adan and colleagues, with an educational breonna from [employer]. Review of Systems Const Denies chills, Reports fatigue, Denies fever(s) and Denies headache(s) ENT Denies dysphagia, Denies dizziness, Denies otalgia, Denies headache(s), Denies neck pain, Denies odynophagia and Denies sore throat Card Denies chest pain, Denies palpitations and Denies dyspnea Resp Denies chest congestion, Denies cough and Denies dyspnea GI Denies abdominal pain, Denies constipation, Denies dysphagia, Denies heartburn, Denies diarrhea, Denies nausea, Denies odynophagia and Denies vomiting Denies dysuria, Reports nocturia and Reports urinary frequency Musc Reports back pain (over the lumbar spine - chronic), Reports arthralgias (over both knees; increased in the right shoulder lately), Denies neck pain, Reports numbness (in both feet - constant) and Reports stiffness (a couple of fingers lock up every now and then) Skin/Breast Denies rash Neuro Denies dizziness, Denies headache(s) and Reports numbness (in both feet - constant) Psych Reports anxiety and Reports depression Endo Reports fatigue, Denies polydipsia and Denies palpitations Physical exam (Primary Care) Vital Signs: Last Vital Signs Pulse 85 10/18/24 11:17 BP 160/120 H 10/18/24 11:17 Pulse Ox 98 10/18/24 11:17 Oxygen Delivery Method Room Air 10/18/24 11:17 BMI result Body Mass Index 29.8 Tobacco/Smoking Status: Tobacco use Status Tobacco use date assessed 10/18/24 10/18/24 11:20 Patient Tobacco Use Status Never used Tobacco 10/18/24 11:20 Tobacco use type 07/26/24 13:39 e-Cigarette/Vaping Use Never Used 10/18/24 11:20 PHQ-9: PHQ-9 Score PHQ-9: Total score 2 10/18/24 11:20 Depression Screening Interpretation: Negative Thrive Assessment: Date of Thrive Assessment Date Thrive assessed 10/18/24 10/18/24 11:20 Currently or been in a relationship where the following occur: I choose not to answer Const General: no acute distress and alert HENMT Ears: TM's normal bilaterally and EAC's normal Throat: Yes posterior oropharynx normal and Yes tonsils normal (no TP congestion noted) Neck Neck: Yes supple and No lymphadenopathy Thyroid: Thyroid normal Resp Auscultation: clear to auscultation bilaterally, no rales and no wheezes Cardio Rate: regular rate Rhythm: regular rhythm Heart sounds: no murmurs GI Palpation (GI): Soft to palpation, nontender and no other Auscultation: normal bowel sounds General: Yes no CVA tenderness Back/Spine/Pelvis Back: no CVA tenderness Thoracic/Lumbar Spine: lumbar spinal tenderness (chronic) Skin Rashes: no rashes Extrem General: Yes no clubbing, cyanosis or edema Results Reviewed Results Reviewed: Laboratory Tests 10/17/24 10/17/24 10:59 11:05 WBC 8.6 Hgb 16.3 Hct 48.2 Plt Count 324 Sodium 138 Potassium 4.2 Creatinine 1.00 Estimated GFR > 60 Fasting Glucose 288 H Hemoglobin A1c % 10.8 H Calcium 9.9 AST 23 ALT 21 Triglycerides 307 H Cholesterol 272 H LDL Cholesterol, Calc 149 H HDL Cholesterol 62 Vitamin B12 571 25-OH Vitamin D Total 48.6 TSH 1.24 Ur Specific [place] 1.020 Urine Protein 100 (2+) H Urine Glucose (UA) >=1000 H Urine Blood Negative Urine Nitrite Negative Ur Leukocyte Esterase Negative Microalb/Creat Ratio 995.3 H Z aaz Coding Level of Care Code Est Pt Level 4 (75087) Complex EM visit Add On G2211 Diagnoses Uncontrolled type 2 diabetes mellitus with hyperglycemia E11.65 Diabetes mellitus type: type 2 Hyponatremia E87.1 Stage 3a chronic kidney disease N18.31 Chronic kidney disease stage 3 subtype: stage 3a (GFR 45-59) Benign essential hypertension I10 Pure hypercholesterolemia E78.00 Mild chronic obstructive pulmonary disease J44.9 Degeneration of intervertebral disc of lumbosacral region with discogenic back pain M51.370 Disc-related pain type: discogenic back pain only Neuropathy G62.9 Pain in both knees, unspecified chronicity M25.561; M25.562 Chronicity: unspecified Elevated LFTs R79.89 GERD without esophagitis K21.9 Vitamin D deficiency E55.9 History of testicular cancer Z85.47 Anxiety F41.9 Obesity (BMI 30-39.9) E66.9 Additional Codes PHQ-9 - 90956 - PHQ-9 Billing: Yes ([id number]) Assessment & Plan Assessment & Plan (1) Uncontrolled diabetes mellitus with hyperglycemia: Code(s): E11.65 - Type 2 diabetes mellitus with hyperglycemia Category: Medical Qualifiers: Diabetes mellitus type: type 2 Qualified Code(s): E11.65 - Type 2 diabetes mellitus with hyperglycemia Plan: Patient's HgbA1c has finally improved to 10.8% on his labs done yesterday (HgbA1c was previously at 14.0% a few months ago) - goal is at least <7.0% Reinforced diabetic diet Continue Humalog Kwikpen 35 units TID with meals and Basaglar 40 units Q HS; continue Jardiance 25 mg QD and Mounjaro 7.5 mg once a week Follow up with endocrinology as scheduled - he is reminded that he has an appointment with endocrinology next week (2) Hyponatremia: Code(s): E87.1 - Hypo-osmolality and hyponatremia Category: Medical Plan: His serum sodium is again normal at 138 on his labs done yesterday (he was also normal at 137 a few months ago This was likely related to his persistent hyperglycemia over the past year We will continue to monitor his electrolyte levels regularly Follow up with nephrology as scheduled (3) Chronic kidney disease (CKD), stage III (moderate): Code(s): N18.30 - Chronic kidney disease, stage 3 unspecified Category: Medical Qualifiers: Chronic kidney disease stage 3 subtype: stage 3a (GFR 45-59) Qualified Code(s): N18.31 - Chronic kidney disease, stage 3a Plan: His renal function appeared stable, based on his recent lab results Have advised patient again that controlling his diabetes and blood pressure is the best way to keep his renal function stable He is still presenting with 2+ proteinuria and microalbuminuria on his recent labs Follow up with nephrology as scheduled (4) Benign essential hypertension: Code(s): I10 - Essential (primary) hypertension Category: Medical Plan: Reinforced low-sodium diet -? goal is systolic BP of at least 130 mm or less Continue Amlodipine 10 mg QD, Carvedilol 12.5 mg BID and Hydralazine 25 mg TID Will increase his Losartan up to 100 mg QD He is reminded to continue monitoring his blood pressure regularly (5) Pure hypercholesterolemia: Code(s): E78.00 - Pure hypercholesterolemia, unspecified Category: Surgical Plan: Results of his labs done yesterday reviewed and discussed with patient - he is cautioned that his cholesterol levels have increased from previous Reinforced low cholesterol diet Continue Fenofibrate 145 mg QD; we switched him out from his Pravastatin 40 mg to Atorvastatin 40 mg QD a few months ago for better efficacy Will now increase his Atorvastatin all the way up to 80 mg QD Will have him recheck his labs and fasting lipids again in a few month for follow up, possibly in January 2025 (6) Mild chronic obstructive pulmonary disease: Code(s): J44.9 - Chronic obstructive pulmonary disease, unspecified Category: Medical Plan: Stable -? PFTs done a couple of years ago showed mild COPD Patient has been mostly asymptomatic and has not needed to use any of his inhalers lately except for when he comes down with a cold or respiratory infection (7) Degeneration of lumbar or lumbosacral intervertebral disc: Code(s): M51.37 - Other intervertebral disc degeneration, lumbosacral region Category: Medical Qualifiers: Disc-related pain type: discogenic back pain only Qualified Code(s): M51.370 - Other intervertebral disc degeneration, lumbosacral region with discogenic back pain only Plan: Reinforced activity and weight lifting restrictions Continue Oxycodone 30 mg every 6-8 hours as needed and Oxycodone ER 80 mg every 6 hours - Rx refilled (8) Neuropathy: Code(s): G62.9 - Polyneuropathy, unspecified Category: Medical Plan: EMG and NCV of both lower extremities done in 2016 showed (+)? 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 chronic bilateral lower lumbar radiculopathy Continue Nortriptyline 50 mg Q HS Have emphasized to him again the importance of tight glycemic control to slow down the progression of his neuropathy although it looks like his neuropathy has progressed lately as he is now experiencing a constant / peristent numbness on both of his feet Follow up with podiatry as scheduled for regular/annual foot exam and diabetic foot care (9) Bilateral knee pain: Code(s): M25.561 - Pain in right knee; M25.562 - Pain in left knee Category: Medical Qualifiers: Chronicity: unspecified Qualified Code(s): M25.561 - Pain in right knee; M25.562 - Pain in left knee Plan: X-rays of both knees done last year revealed (+) mild OA changes in the right knee; left knee x-rays were normal He was recommended to see orthopedics for further evaluation and management of his knee symptoms but patient prefers to hold off for now and he will call for referral when he feels he needs to see orthopedics (10) Elevated LFTs: Code(s): R79.89 - Other specified abnormal findings of blood chemistry Category: Medical Plan: His LFTs have remained normal on his labs done last month - these were most likely due to his weight, his medications and his elevated cholesterol levels Will continue to monitor his LFTs regularly (11) GERD without esophagitis: Code(s): K21.9 - Gastro-esophageal reflux disease without esophagitis Category: Medical Plan: Dietary restrictions reinforced (12) Vitamin D deficiency: Code(s): E55.9 - Vitamin D deficiency, unspecified Category: Medical Plan: Continue Vitamin D3 2000 units QD (13) 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 & 3 cycles of BEP (bleomycin, etoposide, cisplatin) chemotherapy completed in 04/2008 Code(s): Z85.47 - Personal history of malignant neoplasm of testis Category: Medical Plan: S/P left orchiectomy and chemotherapy (completed in 2007) - patient currently remains in remission Follow-up with Oncology/ urology as scheduled for continuing surveillance (14) Anxiety: Code(s): F41.9 - Anxiety disorder, unspecified Category: Medical Plan: Continue Lorazepam 1 mg 1 to 2 times a day as needed - Rx refilled (15) Obesity (BMI 30-39.9): Code(s): E66.9 - Obesity, unspecified Category: Medical Plan: Reinforced diet/exercise as tolerated/lose weight Plan Follow up in 1 month Medications: Changed From losartan 50 mg PO DAILY 90 days 90 tabs 1RF I10 - Essential (primary) hypertension To losartan 100 mg PO DAILY 90 days 90 tabs 1RF I10 - Essential (primary) hypertension From atorvastatin 40 mg PO BEDTIME 90 days 90 tabs 1RF To atorvastatin 80 mg PO BEDTIME 90 days 90 tabs 1RF Refilled lorazepam 1 mg PO BID 30 days PRN 60 tabs 0RF anxiety F41.9 - Anxiety disorder, unspecified oxycodone 30 mg PO Q6H 30 days PRN 120 tabs 0RF pain M51.37 - Other intervertebral disc degeneration, lumbosacral region oxycodone ER 80 mg PO Q6H 30 days 120 tabs 0RF M51.37 - Other intervertebral disc degeneration, lumbosacral region
[2024-10-18 11:48] VITALS: BP 140/100
== END 2024-10-18 11:54 | disposition home or self-care (01) ==
LOC: HO.HMCH 11:16
PROVIDERS: PCP Internal Medicine; Visit Provider Internal Medicine
DX: I12.9 Hypertensive chronic kidney disease with stage 1 through stage 4 chronic kidney disease, or unspecified chronic kidney disease (principal); E11.65 Type 2 diabetes mellitus with hyperglycemia; N18.31 Chronic kidney disease, stage 3a; J44.9 Chronic obstructive pulmonary disease, unspecified; E87.1 Hypo-osmolality and hyponatremia; E78.00 Pure hypercholesterolemia, unspecified; M51.370 Other intervertebral disc degeneration, lumbosacral region with discogenic back pain only; G62.9 Polyneuropathy, unspecified; M25.561 Pain in right knee; M25.562 Pain in left knee; R79.89 Other specified abnormal findings of blood chemistry; K21.9 Gastro-esophageal reflux disease without esophagitis

== ENCOUNTER → 2024-10-18 11:16 | Outpatient (BNVA) | payer BC, SELFPAY | PROVIDERS: PCP Internal Medicine; Visit Provider Internal Medicine | DX: E11.22 Type 2 diabetes mellitus with diabetic chronic kidney disease (principal); E11.65 Type 2 diabetes mellitus with hyperglycemia; I12.9 Hypertensive chronic kidney disease with stage 1 through stage 4 chronic kidney disease, or unspecified chronic kidney disease; E87.1 Hypo-osmolality and hyponatremia; E11.42 Type 2 diabetes mellitus with diabetic polyneuropathy; N18.31 Chronic kidney disease, stage 3a; E78.00 Pure hypercholesterolemia, unspecified; J44.9 Chronic obstructive pulmonary disease, unspecified; M51.370 Other intervertebral disc degeneration, lumbosacral region with discogenic back pain only; M25.561 Pain in right knee; M25.562 Pain in left knee; R79.89 Other specified abnormal findings of blood chemistry; K21.9 Gastro-esophageal reflux disease without esophagitis; E55.9 Vitamin D deficiency, unspecified; F41.9 Anxiety disorder, unspecified; E66.9 Obesity, unspecified; Z85.47 Personal history of malignant neoplasm of testis; Z68.29 Body mass index [BMI] 29.0-29.9, adult | CPT/HCPCS: 96127 ==

== ENCOUNTER 2024-10-26 12:33 | Outpatient (AMB) | payer BC, SELFPAY ==
--- NOTE | 2024-10-26 12:18 | MHC.OFFVIS ---
Vital Signs 10/26/24 12:44 Height 6 ft 1 in Weight 235 lb 10.786 oz BMI 31.1 BP 146/86 H Blood Pressure Location Rt brachial Position Sitting Pulse 86 Pulse Source Pulse Oximeter Pulse Oximetry (%) 98 Oxygen Delivery Method Room Air Intake Visit Reasons: T2DM Intake Note: Patient presents today for a follow-up on Type 2 Diabetes Mellitus: Last Diabetic eye exam was on: DUE Last Podiatry exam was on: Patient does not see a Highway Engineer Most recent HbA1c: 10.8%, 10/17/2024 Random Glucose- 181 mg/dL, Today Apple Press Operator Required: No Accompanied by: Self / Same As Patient Allergies gabapentin Adverse Reaction (Intermediate, Verified 10/26/24 12:45) severe somnolence, dizziness HPI Comments Details: Patient is a 58 yo male with DM type 2 diagnosed in 2012, who presents for continued diabetes management. He was last seen 06/12/[address] Espinoza, HgbA1C 10/26/24 14 05/03/24 14% Past medical history: back pain with radiculopathy on opioid therapy, central hypogonadism, metastatic testicular cancer, CKD stage III, hypertension, hyperlipidemia, and diabetes mellitus type 2 diagnosed 2012 Micro and macrovascular complications include no retinopathy, + nephropathy, + neuropathy, diet: 2 meals and snacks. Medications: Mounjaro 7.5 mg Qwkly Jardiance 10mg Basaglar 40 units he stopped taking at night as he was having lows to the 50's Humalog 20-25 units at times takes 30, occ 40 units he often takes 4 times daily he will often dose with an extra 10 units in between meals Freestyle chung sensor 3 average glucose: 260 14 day continuous glucose sensor report reviewed Glucose Management indicator 9.5 % Time CGM active 97 % TIme in ranges: 56 % very high (above 250) 27 % high (181-250) 17 % in range (70-180] 0 % low (69-55) 0 % very low (below 54) 30.6 Glucose variability [ ] (target <36%) Interpretation of CGMS glucose running 100 points over target Hypoglycemia: denies Hyperglycemia: nocturia (4-5x), polydypsia Has HLD on statin most recent LDL 149 10/17/24 has nephropathy: 10/17/2024 eGFR>60 microalbumin [address] Mosqueda 06/2023 recommended SGLT-2 inhibitor Neuropathy: numb and tingling all the time up to the heel Eye Exam: > 1 yr ago . Needs to make appt [facility] Medical History Central hypogonadism Overweight (BMI 25.0-29.9) Obesity (BMI 30-39.9) Anxiety History of testicular cancer GERD without esophagitis Elevated LFTs Vitamin D deficiency Neuropathy Degeneration of lumbar or lumbosacral intervertebral disc Anemia Mild chronic obstructive pulmonary disease Benign essential hypertension Chronic kidney disease (CKD), stage II (mild) Type 2 diabetes mellitus with diabetic chronic kidney disease Type 2 diabetes mellitus with diabetic neuropathy, unspecified Surgical History History of colonoscopy (~06/24/16) History of orchiectomy Pure hypercholesterolemia History of lumbar surgery Family History Father Cancer Mother Diabetes Social History Household Members: Other Housing: House Alcohol intake: former Patient Tobacco Use Status: Never used Tobacco e-Cigarette/Vaping Use: Never Used Second Hand Smoke Exposure: Yes service: Yes Current occupational status: disabled Cognitive needs: No Hearing needs: No Vision needs: Yes Physical Exam Vital Signs: Last Vital Signs Pulse 86 10/26/24 12:44 BP 146/86 H 10/26/24 12:44 Pulse Ox 98 10/26/24 12:44 Oxygen Delivery Method Room Air 10/26/24 12:44 BMI result Body Mass Index 31.1 Const Other: Absence of Cushingoid features. Absence of acromegalic features. Neck exam reveals nl size thyroid about 15 gms. No thyroid nodules palpable. Heart S1 S2, Reg R/R. No M/R G. Skin exam reveals absence of vitiligo or acanthosis nigricans. Visual exam of foot performed. No ulcerations or open lesions. No inter digit maceration or fissuring. No onychomycosis, no callouses. Sensatiion is absent monofilament exam. Vibratory sensation is absent with 128 Hz tuning fork. pulse positive feet slight cool Results Reviewed Results Reviewed: Laboratory Last Values Glucose (Clinic) 181 mg/dL (60-115) H 10/26/24 12:49 Assessment & Plan Assessment & Plan (1) Type 2 diabetes mellitus with diabetic chronic kidney disease: Code(s): E11.22 - Type 2 diabetes mellitus with diabetic chronic kidney disease Category: Medical Qualifiers: Chronic kidney disease stage: stage 2 (mild) Diabetes mellitus penitentiary insulin use: with penitentiary use Qualified Code(s): E11.22 - Type 2 diabetes mellitus with diabetic chronic kidney disease; N18.2 - Chronic kidney disease, stage 2 (mild); Z79.4 - interior block wirer (current) use of insulin Plan: This is a 58-year-old white male with history of type 2 diabetes being treated with Jardiance, Mounjaro and basal-bolus insulin with poor glycemic control and known microvascular complications namely CKD and neuropathy. He was counseled that he needs a basal insulin and that we will switch over to Tresiba which has a much flatter action than Lantus. He had stopped this because it was causing nocturnal lows in his using Humalog 5 or 6 times during the day to compensate for this. Tresiba 40 units If a.m. readings are over 150 for 2 days in row increase by 2 units every 2 days Humalog 30 units t.i.d. with meals Continue Mounjaro 7.5 weekly Continue Jardiance 25 mg The patient had an opportunity to ask questions regarding treatment plan. The patient expressed understanding and agreement with the above treatment plan. The patient is aware they should contact our office by phone for worsening glucose readings or for any low blood sugars which may warrant a change in diabetes medication. Compliance is encouraged with medications and any followup testing/consults which may have been ordered. Medications: New insulin degludec (Tresiba FlexTouch U-200 insulin) may increase every 2 days by 2 units until am glucose less than 150 40 units (0.2 mL) subcut DAILY 9 mL 6RF 30 days MDD 60 units Changed From Humalog KwikPen Insulin 35 units (0.35 mL) subcut TID 30 days 31.5 mL 3RF NS To Humalog KwikPen Insulin (insulin lispro) 35 units (0.35 mL) subcut TID 33 mL 3RF 30 days NS Discontinued Basaglar KwikPen U-100 Insulin Discontinued Reason: Doctor's Order 40 units (0.4 mL) subcut QPM 30 days 12 mL 3RF NS Coding Level of Care Code Est Pt Level 4 (38241) Complex EM visit Add On G2211 Diagnoses Type 2 diabetes mellitus with stage 2 chronic kidney disease, with long-term current use of insulin E11.22; N18.2; Z79.4 Chronic kidney disease stage: stage 2 (mild) 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
[2024-10-26 12:44] VITALS: BP 146/86; PULSE 86; O2SAT 98; BMI 31.1
[2024-10-26 13:08] LABS: Glucose, Whole Blood 181 mg/dL (60-115)
== END 2024-10-26 13:23 | disposition home or self-care (01) ==
LOC: HO.ENCR 12:34
PROVIDERS: PCP Internal Medicine; Visit Provider Nurse Practitioner Adult Health
DX: E11.22 Type 2 diabetes mellitus with diabetic chronic kidney disease (principal); N18.2 Chronic kidney disease, stage 2 (mild); Z79.4 Long term (current) use of insulin
CPT/HCPCS: 99214

== ENCOUNTER → 2024-10-26 12:33 | Outpatient (BNVA) | payer BC, SELFPAY | PROVIDERS: PCP Internal Medicine; Visit Provider Nurse Practitioner Adult Health | DX: E11.22 Type 2 diabetes mellitus with diabetic chronic kidney disease (principal) | CPT/HCPCS: 82947 ==

== ENCOUNTER 2024-12-13 10:36 | Outpatient (AMB) | payer BC, SELFPAY ==
--- NOTE | 2024-12-13 10:36 | A.OFFPC_ITS ---
Vital Signs 12/13/24 10:36 Height 6 ft 1 in Blood Pressure Location Lt brachial Position Sitting Pulse Source Pulse Oximeter Oxygen Delivery Method Room Air 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 Check Carder Blankets Required: No Accompanied by: Self / Same As Patient Allergies gabapentin Adverse Reaction (Intermediate, Verified 12/13/24 11:57) severe somnolence, dizziness Medication List - Last Reconciled 12/13/24 by Yobany Raymundo MD albuterol sulfate 90 mcg/actuation 2 puffs PO Q6H PRN amlodipine 10 mg PO DAILY 90 days atorvastatin 80 mg PO BEDTIME 90 days blood sugar diagnostic (FreeStyle Lite Strips) As directed tests 4 X/day 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 sensor (FreeStyle Syed 3 Plus Sensor device) As directed every 15 days 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,crawler crane operator,cont (FreeStyle Syed 3 Tilly) As directed every 15 days carvedilol 12.5 mg PO BID 90 days cholecalciferol (vitamin D3) (Vitamin D3) 50 mcg PO DAILY 90 days empagliflozin 25 mg PO QAM 90 days fenofibrate nanocrystallized 145 mg PO DAILY 90 days Humalog KwikPen Insulin (insulin lispro) 35 units (0.35 mL) subcut TID 30 days NS hydralazine 25 mg PO TID 90 days insulin degludec (Tresiba FlexTouch U-200 insulin) 40 units (0.2 mL) subcut DAILY 30 days MDD 60 units lamotrigine 200 mg PO BID lorazepam 1 mg PO BID PRN 30 days losartan 100 mg PO DAILY 90 days oxycodone 30 mg PO Q6H PRN 30 days oxycodone ER 80 mg PO Q6H 30 days pen needle, diabetic (BD Ultra-Fine Dee Pen Needle) As directed 4 times a day tirzepatide 7.5 mg (0.5 mL) subcut QWEEK 4 weeks Tobacco use date assessed: 12/13/24 Dental Screening Dental Screen Date: 12/13/24 HPI Med Check HPI Details Patient's follow up visit / consultation today is done over video conference (iPhone/iPad/Google Meets/Doximity) - this is a TELEHEALTH visit Patient's current medications have been reviewed and verified with patient and/or caregiver/proxy and have been updated accordingly in the medication list Patient states that he feels okay Notes that his blood sugar is still running high often (is at 258 mg/dl earlier this morning) and he has endocrinology follow up scheduled for early next month He denies any headaches or dizziness Denies any chest pains, no increased shortness of breath No nausea/vomiting, no abdominal pain No change in bowel habits noted States that his chronic low back pain and joint pains remain adequately controlled on his current medications and will need his 2 pain medications and Lorazepam Rx refilled today [facility] Medical History Central hypogonadism Overweight (BMI 25.0-29.9) Obesity (BMI 30-39.9) Anxiety History of testicular cancer GERD without esophagitis Elevated LFTs Vitamin D deficiency Neuropathy Degeneration of lumbar or lumbosacral intervertebral disc Anemia Mild chronic obstructive pulmonary disease Benign essential hypertension Chronic kidney disease (CKD), stage II (mild) Type 2 diabetes mellitus with diabetic chronic kidney disease Type 2 diabetes mellitus with diabetic neuropathy, unspecified Surgical History History of colonoscopy (~06/24/16) History of orchiectomy Pure hypercholesterolemia History of lumbar surgery Family History Father Cancer Mother Diabetes Social History Household Members: Other Housing: House Alcohol intake: former Patient Tobacco Use Status: Never used Tobacco e-Cigarette/Vaping Use: Never Used Second Hand Smoke Exposure: Yes service: Yes Current occupational status: disabled Cognitive needs: No Hearing needs: No Vision needs: Yes Questionnaire PHQ-9 Over the last 2 weeks, how often have you been bothered by any of the following problems? 1. Little interest or pleasure in doing things: more than half the days 2. Feeling down, depressed, or hopeless: not at all 3. Trouble falling or staying asleep, or sleeping too much: not at all 4. Feeling tired or having little energy: not at all 5. Poor appetite or overeating: not at all 6. Feeling bad about yourself - or that you are a failure or have let yourself or your family down: not at all 7. Trouble concentrating on things, such as reading the newspaper or watching television: not at all 8. Moving or speaking so slowly that other people could have noticed. Or the opposite - being so fidgety or restless that you have been moving around a lot more than usual: not at all 9. Thoughts that you would be better off or of hurting yourself in some way: not at all Total score: 2 Depression Screening Interpretation: Negative Depression Screening Done: Yes 70116 - PHQ-9 Billing: Yes Source: Developed by Drs. Robbi Keller, Margie Cardona, Parvez Adan and colleagues, with an educational breonna from [employer]. Thrive Questionnaire Date Thrive assessed: 12/13/24 I am a: Patient What is your living situation today?: I have a steady place to live Within the past 12 months, did the food you bought not last and you didn't have the money to get more?: Sometimes True Within the past 12 months, did you worry whether your food would run out before you got money to buy more?: Sometimes True Do you have trouble paying for medicines?: No Do you have trouble getting transportation to medical appointments?: No Do you have trouble paying your heating and electricity bill?: Yes Do you have trouble taking care of your child, family member or friend?: I choose not to answer this question Do you have trouble with day-to-day activities such as bathing, preparing meals, shopping, managing finances, etc.?: No Are you currently unemployed and looking for a job?: No Are you interested in more education?: No Please select the resources that you would like help with: None Currently or been in a relationship where the following occur: I choose not to answer THRIVE Score: 3 AUDIT C Alcohol Use Questionnaire (AUDIT-C) 1. How often do you have a drink containing alcohol?: Never 3. How often do you have six or more drinks on one occasion?: Never Total Score: 0 Score Reviewed/Action Taken: Yes SHAHRIAR-7 AMB Questionnaire SHAHRIAR-7 Date SHAHRIAR - 7 assessed: 12/13/24 Feeling nervous, anxious, or on edge: 0 = Not at all Not being able to stop or control worryin = Not at all Worrying too much about different things: 0 = Not at all Trouble relaxin = Not at all Being so restless that it is hard to sit still: 3 = Nearly every day Becoming easily annoyed or irritable: 2 = More than half the days Feeling afraid as if something awful might happen: 0 = Not at all Total SHAHRIAR-7 score (0-4 normal; 5-9 mild; 10-14 moderate; 15-21 severe): 5 Source: Developed by Drs. Robbi Keller, Margie Cardona, Parvez Adan and colleagues, with an educational breonna from [employer]. Review of Systems Const Denies chills, Reports fatigue, Denies fever(s) and Denies headache(s) ENT Denies dysphagia, Denies dizziness, Denies otalgia, Denies headache(s), Denies neck pain, Denies odynophagia and Denies sore throat Card Denies chest pain, Denies palpitations and Denies dyspnea Resp Denies chest congestion, Denies cough and Denies dyspnea GI Denies abdominal pain, Denies constipation, Denies dysphagia, Denies heartburn, Denies diarrhea, Denies nausea, Denies odynophagia and Denies vomiting Denies dysuria, Reports nocturia and Reports urinary frequency Musc Reports back pain (over the lumbar spine - chronic), Reports arthralgias (over both knees; increased in the right shoulder lately), Denies neck pain, Reports numbness (in both feet - constant) and Reports stiffness (a couple of fingers lock up every now and then) Skin/Breast Denies rash Neuro Denies dizziness, Denies headache(s) and Reports numbness (in both feet - constant) Psych Reports anxiety and Reports depression Endo Reports fatigue, Denies polydipsia and Denies palpitations Physical exam (Primary Care) Vital Signs: Oxygen Delivery Method Room Air 12/13/24 10:36 Physical examination is not performed as visit / consultation today is done over videoconference - Telehealth visit All physical findings indicated here, if present, are as per patient's and / or caregivers / proxy's report and visual inspection over videoconference, if appropriate or applicable Tobacco/Smoking Status: Tobacco use Status Tobacco use date assessed 12/13/24 12/13/24 10:38 Patient Tobacco Use Status Never used Tobacco 12/13/24 10:38 Tobacco use type 07/26/24 13:39 e-Cigarette/Vaping Use Never Used 12/13/24 10:38 PHQ-9: PHQ-9 Score PHQ-9: Total score 2 12/13/24 10:38 Depression Screening Interpretation: Negative Thrive Assessment: Date of Thrive Assessment Date Thrive assessed 12/13/24 12/13/24 10:38 Currently or been in a relationship where the following occur: I choose not to a [facility] Telehealth Telehealth Telehealth Platform: Telephone Location of provider rendering services: practice address Location of patient: address on file Patient Identification confirmed using: Name, : Yes Telehealth method: video (Facetime) Patient verbally consented to treatment: Yes Patient verbally consented to billing insurance company: Yes Patient informed of any privacy concerns related to visit: Yes Minutes spent on Phone/Video with Pt.: 18 Coding Level of Care Code Tele Est Pt Level 3 (65167) Diagnoses Uncontrolled type 2 diabetes mellitus with hyperglycemia E11.65 Diabetes mellitus type: type 2 Hyponatremia E87.1 Stage 3a chronic kidney disease N18.31 Chronic kidney disease stage 3 subtype: stage 3a (GFR 45-59) Benign essential hypertension I10 Pure hypercholesterolemia E78.00 Mild chronic obstructive pulmonary disease J44.9 Degeneration of intervertebral disc of lumbosacral region with discogenic back pain M51.370 Disc-related pain type: discogenic back pain only Neuropathy G62.9 Pain in both knees, unspecified chronicity M25.561; M25.562 Chronicity: unspecified Elevated LFTs R79.89 GERD without esophagitis K21.9 Vitamin D deficiency E55.9 History of testicular cancer Z85.47 Anxiety F41.9 Obesity (BMI 30-39.9) E66.9 Additional Codes PHQ-9 - 91617 - PHQ-9 Billing: Yes ([id number]) Assessment & Plan Assessment & Plan (1) Uncontrolled diabetes mellitus with hyperglycemia: Code(s): E11.65 - Type 2 diabetes mellitus with hyperglycemia Category: Medical Qualifiers: Diabetes mellitus type: type 2 Qualified Code(s): E11.65 - Type 2 diabetes mellitus with hyperglycemia Plan: Patient's HgbA1c was most recently at 10.8% back on 10/17/2024 (was previously at 14.0% earlier this year) - goal is at least <7.0% Reinforced diabetic diet Continue Humalog Kwikpen 35 units TID with meals and Basaglar 40 units Q HS; continue Jardiance 25 mg QD and Mounjaro 7.5 mg once a week Follow up with endocrinology as scheduled - he is reminded that he has an appointment with endocrinology coming up next month (2) Hyponatremia: Code(s): E87.1 - Hypo-osmolality and hyponatremia Category: Medical Plan: His serum sodium is again normal at 138 on his labs done a couple of months ago (he was also normal at 137 a few months prior) This was likely related to his persistent hyperglycemia over the past year We will continue to monitor his electrolyte levels regularly Follow up with nephrology as scheduled (3) Chronic kidney disease (CKD), stage III (moderate): Code(s): N18.30 - Chronic kidney disease, stage 3 unspecified Category: Medical Qualifiers: Chronic kidney disease stage 3 subtype: stage 3a (GFR 45-59) Qualified Code(s): N18.31 - Chronic kidney disease, stage 3a Plan: His renal function appeared stable, based on his most recent lab results Have advised patient again that controlling his diabetes and blood pressure is the best way to keep his renal function stable He is still presenting with 2+ proteinuria and microalbuminuria on his recent labs Follow up with nephrology as scheduled (4) Benign essential hypertension: Code(s): I10 - Essential (primary) hypertension Category: Medical Plan: Reinforced low-sodium diet -? goal is systolic BP of at least 130 mm or less Continue Amlodipine 10 mg QD, Carvedilol 12.5 mg BID, Hydralazine 25 mg TID and Losartan 100 mg QD He is reminded to continue monitoring his blood pressure regularly (5) Pure hypercholesterolemia: Code(s): E78.00 - Pure hypercholesterolemia, unspecified Category: Surgical Plan: Reinforced low cholesterol diet Continue Fenofibrate 145 mg QD and Atorvastatin 80 mg QD - we switched him out from his Pravastatin to Atorvastatin a few months ago for better efficacy Will have him recheck his labs and fasting lipids again next month for follow up (6) Mild chronic obstructive pulmonary disease: Code(s): J44.9 - Chronic obstructive pulmonary disease, unspecified Category: Medical Plan: Controlled -? PFTs done a couple of years ago showed mild COPD Patient has been mostly asymptomatic and has not needed to use any of his inhalers lately except for when he comes down with a cold or respiratory infection (7) Degeneration of lumbar or lumbosacral intervertebral disc: Code(s): M51.37 - Other intervertebral disc degeneration, lumbosacral region Category: Medical Qualifiers: Disc-related pain type: discogenic back pain only Qualified Code(s): M51.370 - Other intervertebral disc degeneration, lumbosacral region with discogenic back pain only Plan: Reinforced activity and weight lifting restrictions Continue Oxycodone 30 mg every 6-8 hours as needed and Oxycodone ER 80 mg every 6 hours - Rx refilled (8) Neuropathy: Code(s): G62.9 - Polyneuropathy, unspecified Category: Medical Plan: EMG and NCV of both lower extremities done in 2017 showed (+)? 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 chronic bilateral lower lumbar radiculopathy Continue Nortriptyline 50 mg Q HS Have emphasized to him again the importance of tight glycemic control to slow down the progression of his neuropathy although it looks like his neuropathy has progressed lately as he is now experiencing a constant / peristent numbness on both of his feet Follow up with podiatry as scheduled for regular/annual foot exam and diabetic foot care (9) Bilateral knee pain: Code(s): M25.561 - Pain in right knee; M25.562 - Pain in left knee Category: Medical Qualifiers: Chronicity: unspecified Qualified Code(s): M25.561 - Pain in right knee; M25.562 - Pain in left knee Plan: X-rays of both knees done last year revealed (+) mild OA changes in the right knee; left knee x-rays were normal He was recommended to see orthopedics for further evaluation and management of his knee symptoms but patient prefers to hold off for now and he will call for referral when he feels he needs to see orthopedics (10) Elevated LFTs: Code(s): R79.89 - Other specified abnormal findings of blood chemistry Category: Medical Plan: His LFTs have remained normal on his labs done a couple of months ago - these were most likely due to his weight, his medications and his elevated cholesterol levels Will continue to monitor his LFTs regularly (11) GERD without esophagitis: Code(s): K21.9 - Gastro-esophageal reflux disease without esophagitis Category: Medical Plan: Dietary restrictions reinforced (12) Vitamin D deficiency: Code(s): E55.9 - Vitamin D deficiency, unspecified Category: Medical Plan: Continue Vitamin D3 2000 units QD (13) 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 & 3 cycles of BEP (bleomycin, etoposide, cisplatin) chemotherapy completed in 04/2008 Code(s): Z85.47 - Personal history of malignant neoplasm of testis Category: Medical Plan: S/P left orchiectomy and chemotherapy (completed in 2007) - patient currently remains in remission Follow-up with Oncology/ urology as scheduled for continuing surveillance (14) Anxiety: Code(s): F41.9 - Anxiety disorder, unspecified Category: Medical Plan: Continue Lorazepam 1 mg 1 to 2 times a day as needed - Rx refilled (15) Obesity (BMI 30-39.9): Code(s): E66.9 - Obesity, unspecified Category: Medical Plan: Reinforced diet/exercise as tolerated/lose weight Plan Follow up as scheduled next month Orders: Orders Complete Blood Count Auto Diff 01/04/25 D64.9 - Anemia, unspecified Comprehensive Ennice. Panel Fast 01/04/25 E78.00 - Pure hypercholesterolemia, unspecified Microalbumin, Random (w Creat) 01/04/25 E11.9 - Type 2 diabetes mellitus without complications TSH reflex Free T4 01/04/25 E78.00 - Pure hypercholesterolemia, unspecified Vitamin B12 and Folate 01/04/25 E53.8 - Deficiency of other specified B group vitamins Hemoglobin A1c 01/04/25 E11.9 - Type 2 diabetes mellitus without complications Lipid Panel 01/04/25 E78.00 - Pure hypercholesterolemia, unspecified UA CC w/rflx Micro + Cult 01/04/25 R30.0 - Dysuria Vitamin D 25-OH Total 01/04/25 E55.9 - Vitamin D deficiency, unspecified Medications: Refilled oxycodone 30 mg PO Q6H PRN 120 tabs 0RF pain 30 days M51.37 - Other intervertebral disc degeneration, lumbosacral region oxycodone ER 80 mg PO Q6H 120 tabs 0RF 30 days M51.37 - Other intervertebral disc degeneration, lumbosacral region lorazepam 1 mg PO BID PRN 60 tabs 0RF anxiety 30 days F41.9 - Anxiety disorder, unspecified
--- OUTSIDE RECORDS SUMMARY | 2024-12-13 11:37 | XMS_ITS | Patient Health Record ---
Author Organization [facility] Address [address] [place] [address] Care Team Providers Care Pollution Control Chemist Name Role Phone Zackary ALICEA, [employer] Primary Care Provider Robbi Garcia Unavailable [phone] Reason For Referral No Information Medications Medication SIG (Take, Route, Fr equency, Duration) Notes Start Date End Date Status PriLOSEC 06/07/2024 06/07/2024 Active Norvasc Active oxyCODONE HCl Active OxyCONTIN Active Ativan Active LaMICtal Active Atenolol Active Problems Problem Type SNOMED Code ICD Code Onset Dates Problem Status W/U Status Risk Notes Problem Esophageal reflux (597238535) Esophageal reflux (530.81) Active confirmed Problem Right upper quadrant pain (890161912) Abdominal pain, right upper quadrant (789.01) Active confirmed Plan Of Treatment No Information Insurance Providers Payer Name Payer Address Payer Phone Subscriber Number Group Number Insured Name Patient Relationship to Insured Coverage Start Date Coverage End Date [facility] [employer] PROF[employer]AL CLAIMS [address] [place] [address] [id number] PELAYO Self - patient is the insured Medical (General) History Medical History History ICD Code Gallstones Elevated LFT's HTN Back pain, for which he uses Lamictal fo r nerve pain Denies SC,DM,CVA,Lung disease,renal dise ase Testicular cancer in 2007 Uses Ativan for sleep Abnormal u/s of bile duct Surgical History Surgery Date(Month/Year) 3 back surgeries Testicular surgery with lymp h node dissection, left orchiectomy, and chemo
== END 2024-12-13 12:40 | disposition home or self-care (01) ==
LOC: HO.HMCH 10:36
PROVIDERS: PCP Internal Medicine; Visit Provider Internal Medicine
DX: I12.9 Hypertensive chronic kidney disease with stage 1 through stage 4 chronic kidney disease, or unspecified chronic kidney disease (principal); E11.65 Type 2 diabetes mellitus with hyperglycemia; N18.31 Chronic kidney disease, stage 3a; J44.9 Chronic obstructive pulmonary disease, unspecified; E87.1 Hypo-osmolality and hyponatremia; E78.00 Pure hypercholesterolemia, unspecified; M51.370 Other intervertebral disc degeneration, lumbosacral region with discogenic back pain only; G62.9 Polyneuropathy, unspecified; M25.561 Pain in right knee; M25.562 Pain in left knee; R79.89 Other specified abnormal findings of blood chemistry; K21.9 Gastro-esophageal reflux disease without esophagitis

== ENCOUNTER → 2024-12-13 10:36 | Outpatient (BNVA) | payer BC, SELFPAY | PROVIDERS: PCP Internal Medicine; Visit Provider Internal Medicine | DX: E11.65 Type 2 diabetes mellitus with hyperglycemia (principal); E11.22 Type 2 diabetes mellitus with diabetic chronic kidney disease; I12.9 Hypertensive chronic kidney disease with stage 1 through stage 4 chronic kidney disease, or unspecified chronic kidney disease; N18.31 Chronic kidney disease, stage 3a; E87.1 Hypo-osmolality and hyponatremia; E78.00 Pure hypercholesterolemia, unspecified; J44.9 Chronic obstructive pulmonary disease, unspecified; M51.370 Other intervertebral disc degeneration, lumbosacral region with discogenic back pain only; E11.40 Type 2 diabetes mellitus with diabetic neuropathy, unspecified; M25.561 Pain in right knee; M25.562 Pain in left knee; R79.89 Other specified abnormal findings of blood chemistry; K21.9 Gastro-esophageal reflux disease without esophagitis; E55.9 Vitamin D deficiency, unspecified; F41.9 Anxiety disorder, unspecified; E66.9 Obesity, unspecified; Z85.47 Personal history of malignant neoplasm of testis; Z79.4 Long term (current) use of insulin; Z79.85 Long-term (current) use of injectable non-insulin antidiabetic drugs; Z79.899 Other long term (current) drug therapy; Z13.31 Encounter for screening for depression; Z13.30 Encounter for screening examination for mental health and behavioral disorders, unspecified | CPT/HCPCS: 96127 ==

== ENCOUNTER 2025-01-08 12:56 | Outpatient (AMB) | payer BC, SELFPAY ==
[2025-01-08 13:00] VITALS: BP 214/140; PULSE 100; O2SAT 96; BMI 30.8
--- NOTE | 2025-01-08 13:00 | A.OFFVIS_ITS ---
Vital Signs 01/08/25 13:00 01/08/25 13:22 Height 6 ft 1 in Weight 233 lb 11.04 oz BMI 30.8 BP 214/140 H 196/114 H Blood Pressure Location Rt brachial Lt brachial Position Sitting Sitting Pulse 100 Pulse Source Pulse Oximeter Pulse Oximetry (%) 96 Oxygen Delivery Method Room Air Intake Visit Reasons: T2DM Intake Note: Patient presents today for a follow-up on Type 2 Diabetes Mellitus: Last Diabetic eye exam was on: DUE, patient will be calling to make an appt Last Podiatry exam was on: Patient does not see a Public Information Officer Most recent HbA1c: 10.8%, 10/17/2024 Random Glucose- 273 mg/dL, Today Fabric Worker Leader Required: No Accompanied by: Self / Same As Patient Allergies gabapentin Adverse Reaction (Intermediate, Verified 01/08/25 13:02) severe somnolence, dizziness Medication List - Last Reconciled 01/08/25 by Juana Mosher PA-C albuterol sulfate 90 mcg/actuation 2 puffs PO Q6H PRN amlodipine 10 mg PO DAILY 90 days atorvastatin 80 mg PO BEDTIME 90 days blood sugar diagnostic (FreeStyle Lite Strips) As directed tests 4 X/day 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 sensor (FreeStyle Syed 3 Plus Sensor device) As directed every 15 days 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,business support liaison,cont (FreeStyle Syed 3 [place]) As directed every 15 days carvedilol 12.5 mg PO BID 90 days cholecalciferol (vitamin D3) (Vitamin D3) 50 mcg PO DAILY 90 days empagliflozin 25 mg PO QAM 90 days fenofibrate nanocrystallized 145 mg PO DAILY 90 days Humalog KwikPen Insulin (insulin lispro) 35 units (0.35 mL) subcut TID 30 days NS hydralazine 25 mg PO TID 90 days insulin degludec (Tresiba FlexTouch U-200 insulin) 40 units (0.2 mL) subcut DAILY 30 days MDD 60 units lamotrigine 200 mg PO BID lorazepam 1 mg PO BID PRN 30 days losartan 100 mg PO DAILY 90 days oxycodone 30 mg PO Q6H PRN 30 days oxycodone ER 80 mg PO Q6H 30 days pen needle, diabetic (BD Ultra-Fine Dee Pen Needle) As directed 4 times a day HPI HPI T2DM: Details: Patient is a 59-year-old male with a significant past medical history of chronic kidney disease, proteinuria, type 2 diabetes, peripheral neuropathy, history of elevated LFTs, hypertension, hyperlipidemia, anemia presenting today for a diabetic consultation/follow up. He was previously following my colleague. Endo: Previous A1c was 10.8. He is currently managed with Mounjaro 7.5 mg weekly, Tresiba 40 units daily, Humalog 35 units 3 times a day, Jardiance 25 mg daily. -he has not been on mounjaro for a few months. He states that he just stopped getting it filled by accident. -he failed trulicity and ozempic with n/v. CGM-usage 94%, average glucose 302, G mi 10.5%. Variability 26%. Very hyperglycemic 70%, hyperglycemic 24%, in range 6%, 0% hypoglycemia Hypoglycemia-rare, corrects with juice Hyperglycemia-he states that he has some blurry vision but this has been his baseline since his diabetes is poorly controlled. CV: Blood pressure today in the office is 214/140. Repeated blood pressures are similar and the lowest I was able to get in the office was 196/112 prior leaving. He states that his bps are high at home. He denies any current chest pain, shortness on breath, palpitations, dizziness, vision changes, headache etc.. He states he feels normal. He is mostly compliant with amlodipine 10 mg daily, carvedilol 12.5 mg twice a day, hydralazine 25 mg 3 times a day (states only takes it 2x a day), losartan 100 mg daily. Cholesterol is managed with fenofibrate 145 mg daily and atorvastatin 80 mg daily. He states he took amlodipine, carvedilol, and he thinks losartan this morning. Nephro: Has not been seen by Nephrology in a year and a half. CKD and proteinuria is overall stable. [facility] Medical History Central hypogonadism Overweight (BMI 25.0-29.9) Obesity (BMI 30-39.9) Anxiety History of testicular cancer GERD without esophagitis Elevated LFTs Vitamin D deficiency Neuropathy Degeneration of lumbar or lumbosacral intervertebral disc Anemia Mild chronic obstructive pulmonary disease Benign essential hypertension Chronic kidney disease (CKD), stage II (mild) Type 2 diabetes mellitus with diabetic chronic kidney disease Type 2 diabetes mellitus with diabetic neuropathy, unspecified Surgical History History of colonoscopy (~06/24/16) History of orchiectomy Pure hypercholesterolemia History of lumbar surgery Family History Father Cancer Mother Diabetes Social History Household Members: Other Housing: House Alcohol intake: former Patient Tobacco Use Status: Never used Tobacco e-Cigarette/Vaping Use: Never Used Second Hand Smoke Exposure: Yes service: Yes Current occupational status: disabled Cognitive needs: No Hearing needs: No Vision needs: Yes Physical Exam Vital Signs: Last Vital Signs Pulse 100 01/08/25 13:00 BP 214/140 H 01/08/25 13:00 Pulse Ox 96 01/08/25 13:00 Oxygen Delivery Method Room Air 01/08/25 13:00 BMI result Body Mass Index 30.8 Const Orientation/consciousness: patient oriented x3 HEENT Ears: hearing grossly normal bilaterally Neck Thyroid: Thyroid normal Lymphatic: no lymphadenopathy noted Resp Auscultation: clear to auscultation bilaterally Cardio Rate: regular rate Rhythm: regular rhythm Heart sounds: S1 normal heart sound present and S2 normal heart sound present Skin General skin exam: no rashes or lesions noted Neuro General: patient oriented x3, gait normal, moves all extremities, no focal motor deficits and CN's II-XI intact bilaterally Results Reviewed Results Reviewed: Laboratory Last Values Glucose (Clinic) 273 mg/dL (60-115) H 01/08/25 13:05 Laboratory Tests 10/17/24 10/17/24 10/26/24 10:59 11:05 12:49 Sodium 138 Potassium 4.2 Chloride 100 Carbon Dioxide 27 Anion Gap 15 BUN 19 H Creatinine 1.00 Estimated GFR > 60 Glucose (Clinic) 181 H Hemoglobin A1c % 10.8 H Calcium 9.9 Total Bilirubin 0.6 AST 23 ALT 21 Triglycerides 307 H Cholesterol 272 H LDL Cholesterol, Calc 149 H HDL Cholesterol 62 Urine Creatinine 59.68 Urine Microalbumin 594.0 Microalb/Creat Ratio 995.3 H Assessment & Plan Assessment & Plan (1) Hypertensive urgency: Code(s): I16.0 - Hypertensive urgency Category: Medical Plan: I have increased his carvedilol to 25 mg twice a day, advised to start taking the hydralazine 25 mg 3 times a day. Continue with regimen otherwise. Has a blood pressure cuff at home and we will monitor this. He has an appointment with his PCP in 2 days and tells me that he will call his PCP's office. He did refused to go to the ER today and he did sign AMA. He understands that his blood pressure is severely elevated and does need treatment but he does not want to go sit in the emergency room. He is aware of the increased risk of stroke, heart attack, kidney damage etc.. This was witnessed by my medical unit secretary. Unfortunately, we do not have access to and EKG machine in the office or any antihypertensives to administer here but he is asymptomatic. Warning signs of heart attack and stroke were reviewed. (2) Uncontrolled diabetes mellitus with hyperglycemia: Code(s): E11.65 - Type 2 diabetes mellitus with hyperglycemia Category: Medical Qualifiers: Diabetes mellitus type: type 2 Qualified Code(s): E11.65 - Type 2 diabetes mellitus with hyperglycemia Plan: Increase Tresiba to 50 units Increase Humalog to 40 units with meals Continue Jardiance Restart Mounjaro 2.5 mg weekly. He reports having issues with sensor this past month so I did give him a sample today in the office Short term follow up. He will follow up sooner if anything changes. Patient understands and agrees with the plan. Medications: New tirzepatide (Mounjaro) 2.5 mg (0.5 mL) subcut QWEEK 2 mL 5RF carvedilol must administer with a meal/food 25 mg PO BID 60 tabs 2RF Changed From insulin degludec (Tresiba FlexTouch U-200 insulin) may increase every 2 days by 2 units until am glucose less than 150 40 units (0.2 mL) subcut DAILY 30 days 9 mL 6RF MDD 60 units To insulin degludec (Tresiba FlexTouch U-200 insulin) 50 units (0.25 mL) subcut DAILY 9 mL 6RF 30 days From Humalog KwikPen Insulin (insulin lispro) 35 units (0.35 mL) subcut TID 30 days 33 mL 3RF NS To Humalog KwikPen Insulin (insulin lispro) 40 units (0.4 mL) subcut TID 45 mL 3RF 30 days NS Discontinued carvedilol Discontinued Reason: Doctor's Order 12.5 mg PO BID 90 days 180 tabs 3RF I10 - Essential (primary) hypertension Coding Level of Care Code Est Pt Level 4 (84007) Complex EM visit Add On G2211 Diagnoses Hypertensive urgency I16.0 Uncontrolled type 2 diabetes mellitus with hyperglycemia E11.65 Diabetes mellitus type: type 2
[2025-01-08 13:09] LABS: Glucose, Whole Blood 273 mg/dL (60-115)
--- OUTSIDE RECORDS SUMMARY | 2025-01-08 13:16 | XMS_ITS | Patient Health Record ---
Author Organization [facility] Address [address] [place] [address] Care Team Providers Care Panel Monitor Name Role Phone Zackary ALICEA, [employer] Primary Care Provider Robbi Garcia Unavailable [phone] Reason For Referral No Information Medications Medication SIG (Take, Route, Fr equency, Duration) Notes Start Date End Date Status PriLOSEC 06/07/2024 06/07/2024 Active Norvasc Active oxyCODONE HCl Active OxyCONTIN Active Ativan Active LaMICtal Active Atenolol Active Problems Problem Type SNOMED Code ICD Code Onset Dates Problem Status W/U Status Risk Notes Problem Esophageal reflux (974033837) Esophageal reflux (530.81) Active confirmed Problem Abdominal pain, right upper quadrant (789.01) Active confirmed Plan Of Treatment No Information Insurance Providers Payer Name Payer Address Payer Phone Subscriber Number Group Number Insured Name Patient Relationship to Insured Coverage Start Date Coverage End Date [facility] PROFESSIONAL CLAIMS [address] [place] [address] [id number] PELAYO Self - patient is the insured Medical (General) History Medical History History ICD Code Gallstones Elevated LFT's HTN Back pain, for which he uses Lamictal fo r nerve pain Denies PR,DM,CVA,Lung disease,renal dise ase Testicular cancer in 2007 Uses Ativan for sleep Abnormal u/s of bile duct Surgical History Surgery Date(Month/Year) 3 back surgeries Testicular surgery with lymp h node dissection, left orchiectomy, and chemo
[2025-01-08 13:22] VITALS: BP 196/114
== END 2025-01-08 13:35 | disposition home or self-care (01) ==
LOC: HO.ENCR 12:57
PROVIDERS: PCP Internal Medicine; Visit Provider Physician Assistant
DX: I16.0 Hypertensive urgency (principal); E11.65 Type 2 diabetes mellitus with hyperglycemia

== ENCOUNTER → 2025-01-08 12:56 | Outpatient (BNVA) | payer BC, SELFPAY | PROVIDERS: PCP Internal Medicine; Visit Provider Physician Assistant | DX: I16.0 Hypertensive urgency (principal); E11.65 Type 2 diabetes mellitus with hyperglycemia; Z79.4 Long term (current) use of insulin; Z79.84 Long term (current) use of oral hypoglycemic drugs; Z79.899 Other long term (current) drug therapy | CPT/HCPCS: 82947 ==

== ENCOUNTER 2025-01-09 07:49 | Outpatient (REF) | payer BC, SELFPAY ==
--- OUTSIDE RECORDS SUMMARY | 2025-01-09 07:52 | XMS_ITS | Patient Health Record ---
Author Organization [facility] Address [address] [place] [address] Care Team Providers Care Registered Sales Assistant Name Role Phone Zackary ALICEA, [place] Primary Care Provider Robbi Garcia Unavailable [phone] Reason For Referral No Information Medications Medication SIG (Take, Route, Fr equency, Duration) Notes Start Date End Date Status PriLOSEC 06/07/2024 06/07/2024 Active Norvasc Active oxyCODONE HCl Active OxyCONTIN Active Ativan Active LaMICtal Active Atenolol Active Problems Problem Type SNOMED Code ICD Code Onset Dates Problem Status W/U Status Risk Notes Problem Esophageal reflux (555636563) Esophageal reflux (530.81) Active confirmed Problem Abdominal pain, right upper quadrant (789.01) Active confirmed Plan Of Treatment No Information Insurance Providers Payer Name Payer Address Payer Phone Subscriber Number Group Number Insured Name Patient Relationship to Insured Coverage Start Date Coverage End Date [facility] PROFESSIONAL CLAIMS [address] [place] [address] [id number] [address]RI[address]Y PELAYO Self - patient is the insured Medical (General) History Medical History History ICD Code Gallstones Elevated LFT's HTN Back pain, for which he uses Lamictal fo r nerve pain Denies PA,DM,CVA,Lung disease,renal dise ase Testicular cancer in 2007 Uses Ativan for sleep Abnormal u/s of bile duct Surgical History Surgery Date(Month/Year) 3 back surgeries Testicular surgery with lymp h node dissection, left orchiectomy, and chemo
[2025-01-09 10:09] LABS: MANUAL DIFF FLAG NO
[2025-01-09 10:14] LABS: Hematocrit 42.6 % (42.0-52.0); Hemoglobin 14.6 g/dl (14.0-18.0); Imm Gran Abs Auto 0.08 X10*3/uL (0.00-0.03); Imm Gran Pct Auto 0.9 % (0.0-0.4); Lymphocytes Absolute Auto 2.6 X10*3/uL (1.2-4.9); Mean Corpuscular HGB Conc 34.3 g/dl (31.0-36.0); Mean Corpuscular Hemoglobin 28.1 pg (27.0-33.0); Mean Corpuscular Volume 81.9 fL (80.0-98.0); NRBC Abs Auto 0.000 X10*3/uL (0.0-0.012); NRBC Pct Auto 0.0 /100WBC (0.0-0.2); Platelet Count 302 X10*3/uL (160-400); Red Blood Count 5.20 X10*6/uL (4.60-5.80); White Blood Count 8.9 X10*3/uL (4.8-10.8)
[2025-01-09 10:26] LABS: Appearance Urine Clear; Glucose Urine UA >=1000 mg/dL (Negative); PH 5.5 (5.0-9.0); Specific Gravity - Urine 1.025 (1.005-1.025); UMIC TRIGGER UACC YES
[2025-01-09 10:49] LABS: Alanine Aminotransferase 18 U/L (0-40); Albumin Level 4.1 g/dL (3.5-5.0); Alkaline Phosphatase 85 U/L (39-117); Anion Gap 12 (12-20); Aspartate Amino Transferase 27 U/L (5-37); Blood Urea Nitrogen 25 mg/dL (9-16); Calcium 9.3 mg/dL (8.4-10.2); Carbon Dioxide 28 mmol/L (22-29); Chloride 105 mmol/L (96-108); Cholesterol 205 mg/dL (<200); Estimated Glomerular Filt Rate > 60; HDL Cholesterol 51 mg/dL (>40); Potassium 4.7 mmol/L (3.3-5.1); Sodium 140 mmol/L (135-145); Total Protein 7.1 g/dL (6.5-8.0); Triglycerides 192 mg/dL (<150)
[2025-01-09 10:58] LABS: Hemoglobin A1C 361.5719 umol/L; Total Hemoglobin (HGBA1C) 3828.2682 umol/L
[2025-01-09 11:21] LABS: Microalbum/Creatinine Ratio Ur 259.8 ug/mg cr (<30)
[2025-01-09 11:23] LABS: Folate 8.1 ng/mL (> or = 4.0); Vitamin B12 549 pg/mL (200-900)
== END 2025-01-09 07:50 | disposition home or self-care (01) ==
LOC: HO.HMGCLDS 07:49
PROVIDERS: PCP Internal Medicine; Visit Provider Internal Medicine
DX: E11.9 Type 2 diabetes mellitus without complications (principal); E53.8 Deficiency of other specified B group vitamins; E55.9 Vitamin D deficiency, unspecified; E78.00 Pure hypercholesterolemia, unspecified; D64.9 Anemia, unspecified
CPT/HCPCS: 36415; 80053; 80061; 81001; 82043; 82306; 82570; 82607; 82746; 83036; 84443; 85025

== ENCOUNTER 2025-01-10 10:27 | Outpatient (AMB) | payer BC, SELFPAY ==
[2025-01-10 10:30] VITALS: BP 122/98; PULSE 83; O2SAT 98; BMI 30.6
--- NOTE | 2025-01-10 10:30 | MHC.PC.OV ---
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: No Accompanied by: Self / Same As Patient Allergies gabapentin Adverse Reaction (Intermediate, Verified 01/10/25 10:56) severe somnolence, dizziness Medication List - Last Reconciled 01/10/25 by Yobany Raymundo MD albuterol sulfate 90 mcg/actuation 2 puffs PO Q6H PRN amlodipine 10 mg PO DAILY 90 days atorvastatin 80 mg PO BEDTIME 90 days blood sugar diagnostic (FreeStyle Lite Strips) As directed tests 4 X/day 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 sensor (CoridonStyle Syed 3 Plus Sensor device) As directed every 15 days 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,marketing support specialist,cont (FreeStyle Syed 3 [place]) As directed every 15 days carvedilol 25 mg PO BID cholecalciferol (vitamin D3) (Vitamin D3) 50 mcg PO DAILY 90 days empagliflozin 25 mg PO QAM 90 days fenofibrate nanocrystallized 145 mg PO DAILY 90 days Humalog KwikPen Insulin (insulin lispro) 40 units (0.4 mL) subcut TID 30 days NS hydralazine 25 mg PO TID 90 days insulin degludec (Tresiba FlexTouch U-200 insulin) 50 units (0.25 mL) subcut DAILY 30 days lamotrigine 200 mg PO BID lorazepam 1 mg PO BID PRN 30 days losartan 100 mg PO DAILY 90 days oxycodone 30 mg PO Q6H PRN 30 days oxycodone ER 80 mg PO Q6H 30 days pen needle, diabetic (BD Ultra-Fine Dee Pen Needle) As directed 4 times a day tirzepatide (Mounjaro) 2.5 mg (0.5 mL) subcut QWEEK Tobacco use date assessed: 01/10/25 Dental Screening Dental Screen Date: 01/10/25 Did you have a dental visit in the last 12 months?: No Did you have a dental problem in the last 6 months where you did not have access to dental care?: No Was dental information given to patient?: No HPI Med Check HPI Details Patient comes in today for his follow up visit Relates that he was seen by endocrinology a couple of days ago and for unknown reasons, his blood pressure was very high that day States that he took all of his blood pressure medications as usual that morning so he does not know what caused his blood pressure to go up that high HE was reportedly advised to go to the ER but he declined and endocrinology went ahead and increased his Carvedilol from 12.5 mg to 25 mg BID that day They also increased the dosages of his meds for his diabetes - Tresiba was increased to 50 units and Humalog to 40 units TID with meals and he was started back on Mounjaro 2.5 mg weekly Patient states that he currently feels drained / fatigued but otherwise thinks he is doing okay He denies any headaches or dizziness Denies any chest pains, no increased SOB No nausea/vomiting, no abdominal pain No change in bowel habits noted Adds that he has been experiencing a lot of problems with trigger fingers lately as they seem to keep recurring often on both of his hands He will need his pain meds and Lorazepam Rx refilled today, as usual, but also needs his Hydralazine Rx refilled States that his chronic low back pain and joint pains remain adequately controlled on his current medications but he is now considering cutting back on the doses of his pain meds and will try doing that sometime in the next few months He had his follow up labs done yesterday - to discuss his results [facility] Medical History Central hypogonadism Overweight (BMI 25.0-29.9) Obesity (BMI 30-39.9) Anxiety History of testicular cancer GERD without esophagitis Elevated LFTs Vitamin D deficiency Neuropathy Degeneration of lumbar or lumbosacral intervertebral disc Anemia Mild chronic obstructive pulmonary disease Benign essential hypertension Chronic kidney disease (CKD), stage II (mild) Type 2 diabetes mellitus with diabetic chronic kidney disease Type 2 diabetes mellitus with diabetic neuropathy, unspecified Surgical History History of colonoscopy (~06/24/16) History of orchiectomy Pure hypercholesterolemia History of lumbar surgery Family History Father Cancer Mother Diabetes Social History Household Members: Other Housing: House Alcohol intake: former Patient Tobacco Use Status: Never used Tobacco e-Cigarette/Vaping Use: Never Used Second Hand Smoke Exposure: Yes service: Yes Current occupational status: disabled Current occupational exposures/hazards: No Cognitive needs: No Hearing needs: No Vision needs: Yes Questionnaire PHQ-9 Over the last 2 weeks, how often have you been bothered by any of the following problems? 1. Little interest or pleasure in doing things: more than half the days 2. Feeling down, depressed, or hopeless: not at all 3. Trouble falling or staying asleep, or sleeping too much: not at all 4. Feeling tired or having little energy: not at all 5. Poor appetite or overeating: not at all 6. Feeling bad about yourself - or that you are a failure or have let yourself or your family down: not at all 7. Trouble concentrating on things, such as reading the newspaper or watching television: not at all 8. Moving or speaking so slowly that other people could have noticed. Or the opposite - being so fidgety or restless that you have been moving around a lot more than usual: not at all 9. Thoughts that you would be better off or of hurting yourself in some way: not at all Total score: 2 Depression Screening Interpretation: Negative Depression Screening Done: Yes [id number] - PHQ-9 Billing: Yes Source: Developed by Drs. Robbi Keller, Margie Cardona, Parvez Adan and colleagues, with an educational breonna from [employer]. Thrive Questionnaire Date Thrive assessed: 01/10/25 I am a: Patient What is your living situation today?: I have a steady place to live Within the past 12 months, did the food you bought not last and you didn't have the money to get more?: Sometimes True Within the past 12 months, did you worry whether your food would run out before you got money to buy more?: Sometimes True Do you have trouble paying for medicines?: No Do you have trouble getting transportation to medical appointments?: No Do you have trouble paying your heating and electricity bill?: Yes Do you have trouble taking care of your child, family member or friend?: I choose not to answer this question Do you have trouble with day-to-day activities such as bathing, preparing meals, shopping, managing finances, etc.?: No Are you currently unemployed and looking for a job?: No Are you interested in more education?: No Please select the resources that you would like help with: None Currently or been in a relationship where the following occur: I choose not to answer THRIVE Score: 3 AUDIT C Alcohol Use Questionnaire (AUDIT-C) 1. How often do you have a drink containing alcohol?: Never 3. How often do you have six or more drinks on one occasion?: Never Total Score: 0 Score Reviewed/Action Taken: Yes SHAHRIAR-7 AMB Questionnaire SHAHRIAR-7 Date SHAHRIAR - 7 assessed: 01/10/25 Feeling nervous, anxious, or on edge: 0 = Not at all Not being able to stop or control worryin = Not at all Worrying too much about different things: 0 = Not at all Trouble relaxin = Not at all Being so restless that it is hard to sit still: 3 = Nearly every day Becoming easily annoyed or irritable: 2 = More than half the days Feeling afraid as if something awful might happen: 0 = Not at all Total SHAHRIAR-7 score (0-4 normal; 5-9 mild; 10-14 moderate; 15-21 severe): 5 Source: Developed by Drs. Robbi Keller, Margie Cardona, Parvez dAan and colleagues, with an educational breonna from [employer]. Review of Systems Const Denies chills, Reports difficulty sleeping, Reports fatigue, Denies fever(s) and Denies headache(s) ENT Denies dysphagia, Denies dizziness, Denies otalgia, Denies headache(s), Denies neck pain, Denies odynophagia and Denies sore throat Card Denies chest pain, Denies palpitations and Denies dyspnea Resp Denies chest congestion, Denies cough and Denies dyspnea GI Denies abdominal pain, Denies constipation, Denies dysphagia, Denies heartburn, Denies diarrhea, Denies nausea, Denies odynophagia and Denies vomiting Denies dysuria, Reports nocturia and Reports urinary frequency Musc Details: (+) recurrent trigger fingers of both hands Reports back pain (over the lumbar spine - chronic), Reports arthralgias (over both knees; increased in the right shoulder lately), Denies neck pain, Reports numbness (in both feet - constant) and Reports stiffness (a couple of fingers lock up every now and then) Skin/Breast Denies rash Neuro Denies dizziness, Denies headache(s) and Reports numbness (in both feet - constant) Psych Reports anxiety and Reports depression Endo Reports fatigue, Denies polydipsia and Denies palpitations Physical exam (Primary Care) Vital Signs: Last Vital Signs Pulse 83 01/10/25 10:30 BP 122/98 H 01/10/25 10:30 Pulse Ox 98 01/10/25 10:30 Oxygen Delivery Method Room Air 01/10/25 10:30 BMI result Body Mass Index 30.6 Tobacco/Smoking Status: Tobacco use Status Tobacco use date assessed 01/10/25 01/10/25 10:33 Patient Tobacco Use Status Never used Tobacco 01/10/25 10:33 Tobacco use type 07/26/24 13:39 e-Cigarette/Vaping Use Never Used 01/10/25 10:33 PHQ-9: PHQ-9 Score PHQ-9: Total score 2 01/10/25 10:33 Depression Screening Interpretation: Negative Thrive Assessment: Date of Thrive Assessment Date Thrive assessed 01/10/25 01/10/25 10:33 Currently or been in a relationship where the following occur: I choose not to answer Const General: no acute distress and alert HENMT Ears: TM's normal bilaterally and EAC's normal Throat: Yes posterior oropharynx normal and Yes tonsils normal (no TP congestion noted) Neck Neck: Yes supple and No lymphadenopathy Thyroid: Thyroid normal Resp Auscultation: clear to auscultation bilaterally, no rales and no wheezes Cardio Rate: regular rate Rhythm: regular rhythm Heart sounds: no murmurs GI Palpation (GI): Soft to palpation, nontender and no other Auscultation: normal bowel sounds General: Yes no CVA tenderness Back/Spine/Pelvis Back: no CVA tenderness Thoracic/Lumbar Spine: lumbar spinal tenderness (chronic) Skin Rashes: no rashes Extrem Other: (+) few contracted fingers noted on both hands General: Yes no clubbing, cyanosis or edema Results Reviewed Results Reviewed: Laboratory Tests 01/09/25 07:56 WBC 8.9 Hgb 14.6 Hct 42.6 Plt Count 302 Sodium 140 Potassium 4.7 Creatinine 1.19 Estimated GFR > 60 Fasting Glucose 306 H Hemoglobin A1c % 10.8 H Calcium 9.3 D AST 27 ALT 18 Triglycerides 192 H Cholesterol 205 H LDL Cholesterol, Calc 116 H HDL Cholesterol 51 Vitamin B12 549 25-OH Vitamin D Total 53.7 TSH 2.20 Ur Specific [place] 1.025 Urine Protein 100 (2+) H Urine Glucose (UA) >=1000 H Urine Blood Negative Urine Nitrite Negative Ur Leukocyte Esterase Negative Microalb/Creat Ratio 259.8 H Coding Level of Care Code Est Pt Level 4 (90022) Diagnoses Uncontrolled type 2 diabetes mellitus with hyperglycemia E11.65 Diabetes mellitus type: type 2 Hyponatremia E87.1 Stage 3a chronic kidney disease N18.31 Chronic kidney disease stage 3 subtype: stage 3a (GFR 45-59) Benign essential hypertension I10 Pure hypercholesterolemia E78.00 Mild chronic obstructive pulmonary disease J44.9 Degeneration of intervertebral disc of lumbosacral region with discogenic back pain M51.370 Disc-related pain type: discogenic back pain only Neuropathy G62.9 Pain in both knees, unspecified chronicity M25.561; M25.562 Chronicity: unspecified Trigger finger, unspecified finger, unspecified laterality M65.30 Trigger finger location: unspecified finger Laterality: unspecified laterality Elevated LFTs R79.89 GERD without esophagitis K21.9 Vitamin D deficiency E55.9 History of testicular cancer Z85.47 Anxiety F41.9 Obesity (BMI 30-39.9) E66.9 Additional Codes PHQ-9 - 82582 - PHQ-9 Billing: Yes ([id number]) Assessment & Plan Assessment & Plan (1) Uncontrolled diabetes mellitus with hyperglycemia: Code(s): E11.65 - Type 2 diabetes mellitus with hyperglycemia Category: Medical Qualifiers: Diabetes mellitus type: type 2 Qualified Code(s): E11.65 - Type 2 diabetes mellitus with hyperglycemia Plan: Patient's HgbA1c was still at 10.8% on his labs done yesterday (was also at 10.8% back on 10/17/2024 but was at 14.0% at the beginning of this year) - goal is at least <7.0% Reinforced diabetic diet Continue Humalog Kwikpen 40 units TID with meals and Tresiba 50 units QD; continue Jardiance 25 mg QD and Mounjaro 2.5 mg once a week (Mounjaro was just restarted by endocrinology a couple of days ago) Follow up with endocrinology as scheduled (2) Hyponatremia: Code(s): E87.1 - Hypo-osmolality and hyponatremia Category: Medical Plan: RESOLVED - his serum sodium was again normal at 140 on his labs done yesterday and they have remained normal for the past few months now This was likely related to his persistent hyperglycemia over the past year We will continue to monitor his electrolyte levels regularly Follow up with nephrology as scheduled (3) Chronic kidney disease (CKD), stage III (moderate): Code(s): N18.30 - Chronic kidney disease, stage 3 unspecified Category: Medical Qualifiers: Chronic kidney disease stage 3 subtype: stage 3a (GFR 45-59) Qualified Code(s): N18.31 - Chronic kidney disease, stage 3a Plan: His renal function appeared stable, based on his most recent lab results Have advised patient again that controlling his diabetes and blood pressure is the best way to keep his renal function stable He is still presenting with 2+ proteinuria and microalbuminuria on his recent labs Follow up with nephrology as scheduled (4) Benign essential hypertension: Code(s): I10 - Essential (primary) hypertension Category: Medical Plan: Reinforced low-sodium diet -? goal is systolic BP of at least 130 mm or less Continue Amlodipine 10 mg QD, Carvedilol 25 mg BID (dose increased by endocrinology a couple of days ago), Hydralazine 25 mg TID (Rx refilled) and Losartan 100 mg QD He is reminded to continue monitoring his blood pressure regularly (5) Pure hypercholesterolemia: Code(s): E78.00 - Pure hypercholesterolemia, unspecified Category: Surgical Plan: Results of his labs done yesterday reviewed and discussed with patient - his cholesterol levels have been gradually trending down but he is advised that he needs to continue working on getting his numbers lower Reinforced low cholesterol diet Continue Fenofibrate 145 mg QD and Atorvastatin 80 mg QD - we switched him out from his Pravastatin to Atorvastatin a few months ago for better efficacy (6) Mild chronic obstructive pulmonary disease: Code(s): J44.9 - Chronic obstructive pulmonary disease, unspecified Category: Medical Plan: Controlled -? PFTs done a couple of years ago showed mild COPD Patient has been mostly asymptomatic and has not needed to use any of his inhalers lately except for when he comes down with a cold or respiratory infection (7) Degeneration of lumbar or lumbosacral intervertebral disc: Code(s): M51.37 - Other intervertebral disc degeneration, lumbosacral region Category: Medical Qualifiers: Disc-related pain type: discogenic back pain only Qualified Code(s): M51.370 - Other intervertebral disc degeneration, lumbosacral region with discogenic back pain only Plan: Reinforced activity and weight lifting restrictions Continue Oxycodone 30 mg every 6-8 hours as needed and Oxycodone ER 80 mg every 6 hours - Rx refilled (8) Neuropathy: Code(s): G62.9 - Polyneuropathy, unspecified Category: Medical Plan: EMG and NCV of both lower extremities done in 2017 showed (+)? 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 chronic bilateral lower lumbar radiculopathy Continue Nortriptyline 50 mg Q HS Have emphasized to him again the importance of tight glycemic control to slow down the progression of his neuropathy although it looks like his neuropathy has progressed lately as he is now experiencing a constant / peristent numbness on both of his feet Follow up with podiatry as scheduled for regular/annual foot exam and diabetic foot care (9) Bilateral knee pain: Code(s): M25.561 - Pain in right knee; M25.562 - Pain in left knee Category: Medical Qualifiers: Chronicity: unspecified Qualified Code(s): M25.561 - Pain in right knee; M25.562 - Pain in left knee Plan: X-rays of both knees done last year revealed (+) mild OA changes in the right knee; left knee x-rays were normal He was recommended to see orthopedics for further evaluation and management of his knee symptoms but patient prefers to hold off for now and he will call for referral when he feels he needs to see orthopedics (10) Trigger finger: Code(s): M65.30 - Trigger finger, unspecified finger Category: Medical Qualifiers: Trigger finger location: unspecified finger Laterality: unspecified laterality Qualified Code(s): M65.30 - Trigger finger, unspecified finger Plan: Involving a few fingers on both hands Will refer him to orthopedics for further management (11) Elevated LFTs: Code(s): R79.89 - Other specified abnormal findings of blood chemistry Category: Medical Plan: His LFTs have remained normal on his labs done yesterday - these were most likely due to his weight, his medications and his elevated cholesterol levels from a few months ago Will continue to monitor his LFTs regularly (12) GERD without esophagitis: Code(s): K21.9 - Gastro-esophageal reflux disease without esophagitis Category: Medical Plan: Dietary restrictions reinforced (13) Vitamin D deficiency: Code(s): E55.9 - Vitamin D deficiency, unspecified Category: Medical Plan: Continue Vitamin D3 2000 units QD (14) 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 & 3 cycles of BEP (bleomycin, etoposide, cisplatin) chemotherapy completed in 04/2008 Code(s): Z85.47 - Personal history of malignant neoplasm of testis Category: Medical Plan: S/P left orchiectomy and chemotherapy (completed in 2007) - patient currently remains in remission Follow-up with Oncology/ urology as scheduled for continuing surveillance (15) Anxiety: Code(s): F41.9 - Anxiety disorder, unspecified Category: Medical Plan: Continue Lorazepam 1 mg 1 to 2 times a day as needed - Rx refilled (16) Obesity (BMI 30-39.9): Code(s): E66.9 - Obesity, unspecified Category: Medical Plan: Reinforced diet/exercise as tolerated/lose weight Plan Follow up as scheduled next month Orders: Referrals Orthopedics Referral M65.30 - Trigger finger, unspecified finger Medications: Refilled oxycodone ER 80 mg PO Q6H 120 tabs 0RF 30 days M51.37 - Other intervertebral disc degeneration, lumbosacral region oxycodone 30 mg PO Q6H PRN 120 tabs 0RF pain 30 days M51.37 - Other intervertebral disc degeneration, lumbosacral region lorazepam 1 mg PO BID PRN 60 tabs 0RF anxiety 30 days F41.9 - Anxiety disorder, unspecified hydralazine 25 mg PO TID 270 tabs 3RF 90 days
--- OUTSIDE RECORDS SUMMARY | 2025-01-10 11:06 | XMS_ITS | Patient Health Record ---
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 Name Role Phone Zackary ALICEA, [place] Primary Care Provider Robbi Garcia Unavailable [phone] Reason For Referral No Information Medications Medication SIG (Take, Route, Fr equency, Duration) Notes Start Date End Date Status PriLOSEC 06/07/2024 06/07/2024 Active Norvasc Active oxyCODONE HCl Active OxyCONTIN Active Ativan Active LaMICtal Active Atenolol Active Problems Problem Type SNOMED Code ICD Code Onset Dates Problem Status W/U Status Risk Notes Problem Esophageal reflux ([id number]) Esophageal reflux (530.81) Active confirmed Problem Abdominal pain, right upper quadrant (789.01) Active confirmed Plan Of Treatment No Information Insurance Providers Payer Name Payer Address Payer Phone Subscriber Number Group Number Insured Name Patient Relationship to Insured Coverage Start Date Coverage End Date [facility] [employer] [address] [place] [address] [id number] KRISTY PELAYO Self - patient is the insured Medical (General) History Medical History History ICD Code Gallstones Elevated LFT's HTN Back pain, for which he uses Lamictal fo r nerve pain Denies AR,DM,CVA,Lung disease,renal dise ase Testicular cancer in 2007 Uses Ativan for sleep Abnormal u/s of bile duct Surgical History Surgery Date(Month/Year) 3 back surgeries Testicular surgery with lymp h node dissection, left orchiectomy, and chemo
[2025-01-10 11:09] VITALS: BP 120/82
== END 2025-01-10 11:09 | disposition home or self-care (01) ==
LOC: HO.HMCH 10:28
PROVIDERS: PCP Internal Medicine; Visit Provider Internal Medicine
DX: E11.65 Type 2 diabetes mellitus with hyperglycemia (principal); E87.1 Hypo-osmolality and hyponatremia; N18.31 Chronic kidney disease, stage 3a; I10 Essential (primary) hypertension; E78.00 Pure hypercholesterolemia, unspecified; J44.9 Chronic obstructive pulmonary disease, unspecified; M51.370 Other intervertebral disc degeneration, lumbosacral region with discogenic back pain only; G62.9 Polyneuropathy, unspecified; M25.561 Pain in right knee; M25.562 Pain in left knee; M65.30 Trigger finger, unspecified finger; R79.89 Other specified abnormal findings of blood chemistry; K21.9 Gastro-esophageal reflux disease without esophagitis; E55.9 Vitamin D deficiency, unspecified; Z85.47 Personal history of malignant neoplasm of testis; F41.9 Anxiety disorder, unspecified; E66.9 Obesity, unspecified

== ENCOUNTER → 2025-01-10 10:27 | Outpatient (BNVA) | payer BC, SELFPAY | PROVIDERS: PCP Internal Medicine; Visit Provider Internal Medicine | DX: E11.65 Type 2 diabetes mellitus with hyperglycemia (principal); E11.22 Type 2 diabetes mellitus with diabetic chronic kidney disease; I12.9 Hypertensive chronic kidney disease with stage 1 through stage 4 chronic kidney disease, or unspecified chronic kidney disease; N18.31 Chronic kidney disease, stage 3a; R53.83 Other fatigue; E87.1 Hypo-osmolality and hyponatremia; E78.00 Pure hypercholesterolemia, unspecified; J44.9 Chronic obstructive pulmonary disease, unspecified; M51.370 Other intervertebral disc degeneration, lumbosacral region with discogenic back pain only; G62.9 Polyneuropathy, unspecified; M25.561 Pain in right knee; M25.562 Pain in left knee; M65.30 Trigger finger, unspecified finger; R79.89 Other specified abnormal findings of blood chemistry; K21.9 Gastro-esophageal reflux disease without esophagitis; E55.9 Vitamin D deficiency, unspecified; F41.9 Anxiety disorder, unspecified; E66.9 Obesity, unspecified; Z68.30 Body mass index [BMI] 30.0-30.9, adult; Z79.4 Long term (current) use of insulin; Z85.47 Personal history of malignant neoplasm of testis | CPT/HCPCS: 96127 ==

== ENCOUNTER 2025-02-07 10:18 | Outpatient (AMB) | payer BC, SELFPAY ==
[2025-02-07 10:30] VITALS: BP 120/72; PULSE 75; RESP 18; TEMP 36.1; O2SAT 94; BMI 31.4
--- NOTE | 2025-02-07 10:30 | MHC.PC.OV ---
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 Accompanied by: Self / Same As Patient Allergies gabapentin Adverse Reaction (Intermediate, Verified 02/07/25 10:50) severe somnolence, dizziness Medication List - Last Reconciled 02/07/25 by Yobany Raymundo MD albuterol sulfate 90 mcg/actuation 2 puffs PO Q6H PRN amlodipine 10 mg PO DAILY 90 days atorvastatin 80 mg PO BEDTIME 90 days blood sugar diagnostic (FreeStyle Lite Strips) As directed tests 4 X/day 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 sensor (BiomotiStyle Syed 3 Plus Sensor device) As directed every 15 days 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,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,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 (FreeStyle Syed 3 [place]) As directed every 15 days carvedilol 25 mg PO BID empagliflozin 25 mg PO QAM 90 days fenofibrate nanocrystallized 145 mg PO DAILY 90 days Humalog KwikPen Insulin (insulin lispro) 40 units (0.4 mL) subcut TID 30 days NS hydralazine 25 mg PO TID 90 days insulin degludec (Tresiba FlexTouch U-200 insulin) 50 units (0.25 mL) subcut DAILY 30 days lamotrigine 200 mg PO BID lorazepam 1 mg PO BID PRN 30 days losartan 100 mg PO DAILY 90 days oxycodone 30 mg PO Q6H PRN 30 days oxycodone ER 80 mg PO Q6H 30 days pen needle, diabetic (BD Ultra-Fine Dee Pen Needle) As directed 4 times a day tirzepatide (Mounjaro) 2.5 mg (0.5 mL) subcut QWEEK Tobacco use date assessed: 02/07/25 Dental Screening Dental Screen Date: 02/07/25 Did you have a dental visit in the last 12 months?: No Did you have a dental problem in the last 6 months where you did not have access to dental care?: No Was dental information given to patient?: Patient has dentist HPI Med Check HPI Details Patient comes in today for his follow up visit States that he currently feels okay He denies any headaches or dizziness Denies any chest pains, no increased SOB No nausea/vomiting, no abdominal pain No change in bowel habits noted States that his blood sugar has been getting under better control over the past couple of months and he has a follow up appointment with endocrinology next week He is still having problems with trigger fingers on both of his hands and he is now scheduled to see orthopedics later this month for consultation He will need his pain meds and Lorazepam Rx refilled today - states that his chronic low back pain and joint pains remain adequately controlled on his current medications but he is planning now to try cutting back slowly on the dose of his extended release Oxycodone starting next month [facility] Medical History Central hypogonadism Overweight (BMI 25.0-29.9) Obesity (BMI 30-39.9) Anxiety History of testicular cancer GERD without esophagitis Elevated LFTs Vitamin D deficiency Neuropathy Degeneration of lumbar or lumbosacral intervertebral disc Anemia Mild chronic obstructive pulmonary disease Benign essential hypertension Chronic kidney disease (CKD), stage II (mild) Type 2 diabetes mellitus with diabetic chronic kidney disease Type 2 diabetes mellitus with diabetic neuropathy, unspecified Surgical History History of colonoscopy (~06/24/16) History of orchiectomy Pure hypercholesterolemia History of lumbar surgery Family History Father Cancer Mother Diabetes Social History Household Members: Other Housing: House Alcohol intake: former Patient Tobacco Use Status: Never used Tobacco e-Cigarette/Vaping Use: Never Used Second Hand Smoke Exposure: Yes service: Yes Current occupational status: disabled Current occupational exposures/hazards: No Cognitive needs: No Hearing needs: No Vision needs: Yes Questionnaire PHQ-9 Over the last 2 weeks, how often have you been bothered by any of the following problems? 1. Little interest or pleasure in doing things: more than half the days 2. Feeling down, depressed, or hopeless: not at all 3. Trouble falling or staying asleep, or sleeping too much: not at all 4. Feeling tired or having little energy: not at all 5. Poor appetite or overeating: not at all 6. Feeling bad about yourself - or that you are a failure or have let yourself or your family down: not at all 7. Trouble concentrating on things, such as reading the newspaper or watching television: not at all 8. Moving or speaking so slowly that other people could have noticed. Or the opposite - being so fidgety or restless that you have been moving around a lot more than usual: not at all 9. Thoughts that you would be better off or of hurting yourself in some way: not at all Total score: 2 Depression Screening Interpretation: Negative Depression Screening Done: Yes 32756 - PHQ-9 Billing: Yes Source: Developed by Drs. Robbi Keller, Margie Cardona, Parvez Adan and colleagues, with an educational breonna from [employer]. Thrive Questionnaire Date Thrive assessed: 02/07/25 I am a: Patient What is your living situation today?: I have a steady place to live Within the past 12 months, did the food you bought not last and you didn't have the money to get more?: Sometimes True Within the past 12 months, did you worry whether your food would run out before you got money to buy more?: Sometimes True Do you have trouble paying for medicines?: No Do you have trouble getting transportation to medical appointments?: No Do you have trouble paying your heating and electricity bill?: Yes Do you have trouble taking care of your child, family member or friend?: I choose not to answer this question Do you have trouble with day-to-day activities such as bathing, preparing meals, shopping, managing finances, etc.?: No Are you currently unemployed and looking for a job?: No Are you interested in more education?: No Please select the resources that you would like help with: None Currently or been in a relationship where the following occur: I choose not to answer THRIVE Score: 3 AUDIT C Alcohol Use Questionnaire (AUDIT-C) 1. How often do you have a drink containing alcohol?: Never 3. How often do you have six or more drinks on one occasion?: Never Total Score: 0 Score Reviewed/Action Taken: Yes SHAHRIAR-7 AMB Questionnaire SHAHRIAR-7 Date SHAHRIAR - 7 assessed: 02/07/25 Feeling nervous, anxious, or on edge: 0 = Not at all Not being able to stop or control worryin = Not at all Worrying too much about different things: 0 = Not at all Trouble relaxin = Not at all Being so restless that it is hard to sit still: 3 = Nearly every day Becoming easily annoyed or irritable: 2 = More than half the days Feeling afraid as if something awful might happen: 0 = Not at all Total SHAHRIAR-7 score (0-4 normal; 5-9 mild; 10-14 moderate; 15-21 severe): 5 Source: Developed by Drs. Robbi Keller, Margie Cardona, Parvez Adan and colleagues, with an educational breonna from [employer]. Review of Systems Const Denies chills, Reports difficulty sleeping, Reports fatigue, Denies fever(s) and Denies headache(s) ENT Denies dysphagia, Denies dizziness, Denies otalgia, Denies headache(s), Denies neck pain, Denies odynophagia and Denies sore throat Card Denies chest pain, Denies palpitations and Denies dyspnea Resp Denies chest congestion, Denies cough and Denies dyspnea GI Denies abdominal pain, Denies constipation, Denies dysphagia, Denies heartburn, Denies diarrhea, Denies nausea, Denies odynophagia and Denies vomiting Denies dysuria, Reports nocturia and Reports urinary frequency Musc Details: (+) recurrent trigger fingers of both hands Reports back pain (over the lumbar spine - chronic), Reports arthralgias (over both knees; increased in the right shoulder lately), Denies neck pain, Reports numbness (in both feet - constant) and Reports stiffness (a couple of fingers lock up every now and then) Skin/Breast Denies rash Neuro Denies dizziness, Denies headache(s) and Reports numbness (in both feet - constant) Psych Reports anxiety and Reports depression Endo Reports fatigue, Denies polydipsia and Denies palpitations Physical exam (Primary Care) Vital Signs: Last Vital Signs Temp 96.9 F 02/07/25 10:30 Pulse 75 02/07/25 10:30 Resp 18 02/07/25 10:30 BP 120/72 02/07/25 10:30 Pulse Ox 94 02/07/25 10:30 Oxygen Delivery Method Room Air 02/07/25 10:30 BMI result Body Mass Index 31.4 Tobacco/Smoking Status: Tobacco use Status Tobacco use date assessed 02/07/25 02/07/25 10:38 Patient Tobacco Use Status Never used Tobacco 02/07/25 10:38 Tobacco use type 07/26/24 13:39 e-Cigarette/Vaping Use Never Used 02/07/25 10:38 PHQ-9: PHQ-9 Score PHQ-9: Total score 2 02/07/25 10:38 Depression Screening Interpretation: Negative Thrive Assessment: Date of Thrive Assessment Date Thrive assessed 02/07/25 02/07/25 10:38 Currently or been in a relationship where the following occur: I choose not to answer Const General: no acute distress and alert HENMT Ears: TM's normal bilaterally and EAC's normal Throat: Yes posterior oropharynx normal and Yes tonsils normal (no TP congestion noted) Neck Neck: Yes supple and No lymphadenopathy Thyroid: Thyroid normal Resp Auscultation: clear to auscultation bilaterally, no rales and no wheezes Cardio Rate: regular rate Rhythm: regular rhythm Heart sounds: no murmurs GI Palpation (GI): Soft to palpation, nontender and no other Auscultation: normal bowel sounds General: Yes no CVA tenderness Back/Spine/Pelvis Back: no CVA tenderness Thoracic/Lumbar Spine: lumbar spinal tenderness (chronic) Skin Rashes: no rashes Extrem Other: (+) few contracted fingers noted on both hands General: Yes no clubbing, cyanosis or edema Coding Level of Care Code Est Pt Level 4 (46098) Diagnoses Uncontrolled type 2 diabetes mellitus with hyperglycemia E11.65 Diabetes mellitus type: type 2 Hyponatremia E87.1 Stage 3a chronic kidney disease N18.31 Chronic kidney disease stage 3 subtype: stage 3a (GFR 45-59) Benign essential hypertension I10 Pure hypercholesterolemia E78.00 Mild chronic obstructive pulmonary disease J44.9 Degeneration of intervertebral disc of lumbosacral region with discogenic back pain M51.370 Disc-related pain type: discogenic back pain only Neuropathy G62.9 Pain in both knees, unspecified chronicity M25.561; M25.562 Chronicity: unspecified Trigger finger, unspecified finger, unspecified laterality M65.30 Trigger finger location: unspecified finger Laterality: unspecified laterality Elevated LFTs R79.89 GERD without esophagitis K21.9 Vitamin D deficiency E55.9 History of testicular cancer Z85.47 Anxiety F41.9 Obesity (BMI 30-39.9) E66.9 Additional Codes PHQ-9 - 05908 - PHQ-9 Billing: Yes ([id number]) Assessment & Plan Assessment & Plan (1) Uncontrolled diabetes mellitus with hyperglycemia: Code(s): E11.65 - Type 2 diabetes mellitus with hyperglycemia Category: Medical Qualifiers: Diabetes mellitus type: type 2 Qualified Code(s): E11.65 - Type 2 diabetes mellitus with hyperglycemia Plan: Patient's HgbA1c was still at 10.8% on his labs done last month (he was also at 10.8% back on 10/17/2024 but was at 14.0% at the beginning of this year) - goal is at least <7.0% Reinforced diabetic diet Continue Humalog Kwikpen 40 units TID with meals and Tresiba 50 units QD; continue Jardiance 25 mg QD and Mounjaro 2.5 mg once a week (Mounjaro was just restarted by endocrinology a couple of days ago) Follow up with endocrinology as scheduled - he has an appointment coming up early next week (2) Hyponatremia: Code(s): E87.1 - Hypo-osmolality and hyponatremia Category: Medical Plan: RESOLVED - his serum sodium was again normal at 140 on his labs done last month and they have remained normal for the past few months now This was likely related to his persistent hyperglycemia over this past year We will continue to monitor his electrolyte levels regularly Follow up with nephrology as scheduled (3) Chronic kidney disease (CKD), stage III (moderate): Code(s): N18.30 - Chronic kidney disease, stage 3 unspecified Category: Medical Qualifiers: Chronic kidney disease stage 3 subtype: stage 3a (GFR 45-59) Qualified Code(s): N18.31 - Chronic kidney disease, stage 3a Plan: His renal function appeared stable, based on his most recent lab results Have advised patient again that controlling his diabetes and blood pressure is the best way to keep his renal function stable He is still presenting with 2+ proteinuria and microalbuminuria on his most recent labs Follow up with nephrology as scheduled (4) Benign essential hypertension: Code(s): I10 - Essential (primary) hypertension Category: Medical Plan: Reinforced low-sodium diet -? goal is systolic BP of at least 130 mm or less Continue Amlodipine 10 mg QD, Carvedilol 25 mg BID, Hydralazine 25 mg TID and Losartan 100 mg QD He is reminded to continue monitoring his blood pressure regularly (5) Pure hypercholesterolemia: Code(s): E78.00 - Pure hypercholesterolemia, unspecified Category: Surgical Plan: Reinforced low cholesterol diet Continue Fenofibrate 145 mg QD and Atorvastatin 80 mg QD - we switched him out from his Pravastatin to Atorvastatin a few months ago for better efficacy (6) Mild chronic obstructive pulmonary disease: Code(s): J44.9 - Chronic obstructive pulmonary disease, unspecified Category: Medical Plan: Controlled -? PFTs done a couple of years ago showed mild COPD Patient has been mostly asymptomatic and has not needed to use any of his inhalers lately except for when he comes down with a cold or respiratory infection (7) Degeneration of lumbar or lumbosacral intervertebral disc: Code(s): M51.37 - Other intervertebral disc degeneration, lumbosacral region Category: Medical Qualifiers: Disc-related pain type: discogenic back pain only Qualified Code(s): M51.370 - Other intervertebral disc degeneration, lumbosacral region with discogenic back pain only Plan: Reinforced activity and weight lifting restrictions Continue Oxycodone 30 mg every 6-8 hours as needed and Oxycodone ER 80 mg every 6 hours - Rx refilled States that he is planning to try cutting back on his Oxycodone ER next month from every 6 hours to every 8 hours to start with (8) Neuropathy: Code(s): G62.9 - Polyneuropathy, unspecified Category: Medical Plan: EMG and NCV of both lower extremities done in 2017 showed (+)? 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 chronic bilateral lower lumbar radiculopathy Continue Nortriptyline 50 mg Q HS Have emphasized to him again the importance of tight glycemic control to slow down the progression of his neuropathy although it looks like his neuropathy has progressed lately as he is now experiencing a constant / peristent numbness on both of his feet Follow up with podiatry as scheduled for regular/annual foot exam and diabetic foot care (9) Bilateral knee pain: Code(s): M25.561 - Pain in right knee; M25.562 - Pain in left knee Category: Medical Qualifiers: Chronicity: unspecified Qualified Code(s): M25.561 - Pain in right knee; M25.562 - Pain in left knee Plan: X-rays of both knees done last year revealed (+) mild OA changes in the right knee; left knee x-rays were normal He was recommended to see orthopedics for further evaluation and management of his knee symptoms but patient prefers to hold off for now and he will call for referral when he feels he needs to see orthopedics (10) Trigger finger: Code(s): M65.30 - Trigger finger, unspecified finger Category: Medical Qualifiers: Trigger finger location: unspecified finger Laterality: unspecified laterality Qualified Code(s): M65.30 - Trigger finger, unspecified finger Plan: Involving a few fingers on both hands He has been referred to and is scheduled to see orthopedics for this issue in a couple of weeks (11) Elevated LFTs: Code(s): R79.89 - Other specified abnormal findings of blood chemistry Category: Medical Plan: His LFTs have remained normal on his labs done last month - these were most likely due to his weight, his medications and his elevated cholesterol levels from a few months ago Will continue to monitor his LFTs regularly (12) GERD without esophagitis: Code(s): K21.9 - Gastro-esophageal reflux disease without esophagitis Category: Medical Plan: Dietary restrictions reinforced (13) Vitamin D deficiency: Code(s): E55.9 - Vitamin D deficiency, unspecified Category: Medical Plan: Continue Vitamin D3 2000 units QD (14) 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 & 3 cycles of BEP (bleomycin, etoposide, cisplatin) chemotherapy completed in 04/2008 Code(s): Z85.47 - Personal history of malignant neoplasm of testis Category: Medical Plan: S/P left orchiectomy and chemotherapy (completed in 2007) - patient currently remains in remission Follow-up with Oncology/ urology as scheduled for continuing surveillance (15) Anxiety: Code(s): F41.9 - Anxiety disorder, unspecified Category: Medical Plan: Continue Lorazepam 1 mg 1 to 2 times a day as needed - Rx refilled (16) Obesity (BMI 30-39.9): Code(s): E66.9 - Obesity, unspecified Category: Medical Plan: Reinforced diet/exercise as tolerated/lose weight Plan Follow up in 1 month Medications: Refilled lorazepam 1 mg PO BID PRN 60 tabs 0RF anxiety 30 days F41.9 - Anxiety disorder, unspecified oxycodone 30 mg PO Q6H PRN 120 tabs 0RF pain 30 days M51.37 - Other intervertebral disc degeneration, lumbosacral region oxycodone ER 80 mg PO Q6H 120 tabs 0RF 30 days M51.37 - Other intervertebral disc degeneration, lumbosacral region
--- OUTSIDE RECORDS SUMMARY | 2025-02-07 11:48 | XMS_ITS | Patient Health Record ---
Author Organization [facility] Address [address] [place] [address] Care Team Providers Care Phlebotomy Technician Name Role Phone Zackary ALICEA, [place] Primary Care Provider Robbi Garcia Unavailable [phone] Reason For Referral No Information Medications Medication SIG (Take, Route, Fr equency, Duration) Notes Start Date End Date Status PriLOSEC 06/07/2024 06/07/2024 Active Norvasc Active oxyCODONE HCl Active OxyCONTIN Active Ativan Active LaMICtal Active Atenolol Active Problems Problem Type SNOMED Code ICD Code Onset Dates Problem Status W/U Status Risk Notes Problem Esophageal reflux ([id number]) Esophageal reflux (530.81) Active confirmed Problem Abdominal pain, right upper quadrant (789.01) Active confirmed Plan Of Treatment No Information Insurance Providers Payer Name Payer Address Payer Phone Subscriber Number Group Number Insured Name Patient Relationship to Insured Coverage Start Date Coverage End Date [facility] [employer] [address] [place] [address] [id number]ELAYO Self - patient is the insured Medical (General) History Medical History History ICD Code Gallstones Elevated LFT's HTN Back pain, for which he uses Lamictal fo r nerve pain Denies NH,DM,CVA,Lung disease,renal dise ase Testicular cancer in 2007 Uses Ativan for sleep Abnormal u/s of bile duct Surgical History Surgery Date(Month/Year) 3 back surgeries Testicular surgery with lymp h node dissection, left orchiectomy, and chemo
== END 2025-02-07 15:46 | disposition home or self-care (01) ==
LOC: HO.HMCH 10:19
PROVIDERS: PCP Internal Medicine; Visit Provider Internal Medicine
DX: I12.9 Hypertensive chronic kidney disease with stage 1 through stage 4 chronic kidney disease, or unspecified chronic kidney disease (principal); E11.65 Type 2 diabetes mellitus with hyperglycemia; N18.31 Chronic kidney disease, stage 3a; J44.9 Chronic obstructive pulmonary disease, unspecified; E87.1 Hypo-osmolality and hyponatremia; E78.00 Pure hypercholesterolemia, unspecified; M51.370 Other intervertebral disc degeneration, lumbosacral region with discogenic back pain only; G62.9 Polyneuropathy, unspecified; M25.561 Pain in right knee; M25.562 Pain in left knee; M65.30 Trigger finger, unspecified finger; R79.89 Other specified abnormal findings of blood chemistry

== ENCOUNTER → 2025-02-07 10:18 | Outpatient (BNVA) | payer BC, SELFPAY | PROVIDERS: PCP Internal Medicine; Visit Provider Internal Medicine | DX: E11.65 Type 2 diabetes mellitus with hyperglycemia (principal); E11.22 Type 2 diabetes mellitus with diabetic chronic kidney disease; I12.9 Hypertensive chronic kidney disease with stage 1 through stage 4 chronic kidney disease, or unspecified chronic kidney disease; N18.31 Chronic kidney disease, stage 3a; E78.00 Pure hypercholesterolemia, unspecified; E87.1 Hypo-osmolality and hyponatremia; J44.9 Chronic obstructive pulmonary disease, unspecified; M51.370 Other intervertebral disc degeneration, lumbosacral region with discogenic back pain only; G62.9 Polyneuropathy, unspecified; M25.561 Pain in right knee; M25.562 Pain in left knee; M65.30 Trigger finger, unspecified finger; R79.89 Other specified abnormal findings of blood chemistry; K21.9 Gastro-esophageal reflux disease without esophagitis; E55.9 Vitamin D deficiency, unspecified; F41.9 Anxiety disorder, unspecified; E66.9 Obesity, unspecified; M51.379 Other intervertebral disc degeneration, lumbosacral region without mention of lumbar back pain or lower extremity pain; Z85.47 Personal history of malignant neoplasm of testis; Z68.31 Body mass index [BMI] 31.0-31.9, adult | CPT/HCPCS: 96127 ==

== ENCOUNTER 2025-02-12 12:50 | Outpatient (AMB) | payer BC, SELFPAY ==
[2025-02-12 12:54] VITALS: BP 106/66; PULSE 80; O2SAT 92; BMI 32.0
--- NOTE | 2025-02-12 12:54 | A.OFFVIS_ITS ---
Vital Signs 02/12/25 12:54 Height 6 ft 1 in Weight 242 lb 4.608 oz BMI 32.0 BP 106/66 Blood Pressure Location Lt brachial Position Sitting Pulse 80 Pulse Source Pulse Oximeter Pulse Oximetry (%) 92 Oxygen Delivery Method Room Air Intake Visit Reasons: T2DM and BP Intake Note: Patient present today for Type 2 Diabetes Mellitus Last Diabetic eye exam: Last exam was over a year Last Podiatry Visit: Doesn't have one Random Glucose: 156 mg/dl HgA1C: 10.8% 01/09/25 Tim[employer] Skidder Required: No Accompanied by: Self / Same As Patient Allergies gabapentin Adverse Reaction (Intermediate, Verified 02/12/25 12:59) severe somnolence, dizziness Medication List - Last Reconciled 02/12/25 by Juana Mosher PA-C albuterol sulfate 90 mcg/actuation 2 puffs PO Q6H PRN amlodipine 10 mg PO DAILY 90 days atorvastatin 80 mg PO BEDTIME 90 days blood sugar diagnostic (FreeStyle Lite Strips) As directed tests 4 X/day 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 sensor (FreeStyle Syed 3 Plus Sensor device) As directed every 15 days 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,videotape editor,cont (FreeStyle Syed 3 [place]) As directed every 15 days carvedilol 25 mg PO BID empagliflozin 25 mg PO QAM 90 days fenofibrate nanocrystallized 145 mg PO DAILY 90 days Humalog KwikPen Insulin (insulin lispro) 40 units (0.4 mL) subcut TID 30 days NS hydralazine 25 mg PO TID 90 days insulin degludec (Tresiba FlexTouch U-200 insulin) 50 units (0.25 mL) subcut DAILY 30 days lamotrigine 200 mg PO BID lorazepam 1 mg PO BID PRN 30 days losartan 100 mg PO DAILY 90 days oxycodone 30 mg PO Q6H PRN 30 days oxycodone ER 80 mg PO Q6H 30 days pen needle, diabetic (BD Ultra-Fine Dee Pen Needle) As directed 4 times a day HPI HPI T2DM and BP: Details: Patient is a 59-year-old male with a significant past medical history of chronic kidney disease, proteinuria, type 2 diabetes, peripheral neuropathy, history of elevated LFTs, hypertension, hyperlipidemia, anemia presenting today for a diabetic consultation/follow up. He was previously following my colleague. Endo: Previous A1c was 10.8. He is currently managed with Mounjaro 2.5 mg weekly, Tresiba 50 units daily, Humalog 40 units 3 times a day, Jardiance 25 mg daily. -he failed trulicity and ozempic with n/v. CGM-usage 98%, average glucose 218, G mi 8.5%. Variability 26%. Very hyperglycemic 27% (was 70%), hyperglycemic 43% (was 24%), in range 30% (was 6%), 0% hypoglycemia Hypoglycemia-rare, corrects with juice Hyperglycemia-he states that he can tell his blood sugars are much better and he has not had any significantly high 1s CV: Blood pressure today is 106/66. He is on amlodipine 10 mg daily, carvedilol 25 mg twice a day, hydralazine 25 mg 3 times a day, losartan 100 mg daily. Cholesterol is managed with fenofibrate 145 mg daily and atorvastatin 80 mg daily. Nephro: Has not been seen by Nephrology in a year and a half. CKD and proteinuria is overall stable. COUNTS INCLUDE 234 BEDS AT THE [facility] Medical History Central hypogonadism Overweight (BMI 25.0-29.9) Obesity (BMI 30-39.9) Anxiety History of testicular cancer GERD without esophagitis Elevated LFTs Vitamin D deficiency Neuropathy Degeneration of lumbar or lumbosacral intervertebral disc Anemia Mild chronic obstructive pulmonary disease Benign essential hypertension Chronic kidney disease (CKD), stage II (mild) Type 2 diabetes mellitus with diabetic chronic kidney disease Type 2 diabetes mellitus with diabetic neuropathy, unspecified Surgical History History of colonoscopy (~06/24/16) History of orchiectomy Pure hypercholesterolemia History of lumbar surgery Family History Father Cancer Mother Diabetes Social History Household Members: Other Housing: House Alcohol intake: former Patient Tobacco Use Status: Never used Tobacco e-Cigarette/Vaping Use: Never Used Second Hand Smoke Exposure: Yes service: Yes Current occupational status: disabled Current occupational exposures/hazards: No Cognitive needs: No Hearing needs: No Vision needs: Yes Physical Exam Const Orientation/consciousness: patient oriented x3 HEENT Ears: hearing grossly normal bilaterally Neck Thyroid: Thyroid normal Lymphatic: no lymphadenopathy noted Resp Auscultation: clear to auscultation bilaterally Cardio Rate: regular rate Rhythm: regular rhythm Heart sounds: S1 normal heart sound present and S2 normal heart sound present Skin General skin exam: no rashes or lesions noted Neuro General: patient oriented x3, gait normal and no focal motor deficits Assessment & Plan Assessment & Plan (1) Type 2 diabetes mellitus with diabetic chronic kidney disease: Code(s): E11.22 - Type 2 diabetes mellitus with diabetic chronic kidney disease Category: Medical Qualifiers: Diabetes mellitus nursing home insulin use: with middle or intermediate school principal use Chronic kidney disease stage: stage 2 (mild) Qualified Code(s): E11.22 - Type 2 diabetes mellitus with diabetic chronic kidney disease; N18.2 - Chronic kidney disease, stage 2 (mild); Z79.4 - detention (current) use of insulin Plan: Increase Mounjaro to 5 mg weekly Continue regimen otherwise States that he had issues getting his freestyle Syed replaced provided today in the office. Recheck labs 3 months (2) Benign essential hypertension: Code(s): I10 - Essential (primary) hypertension Category: Medical Plan: WNL. Improved with the increased dose of the carvedilol (3) Pure hypercholesterolemia: Code(s): E78.00 - Pure hypercholesterolemia, unspecified Category: Surgical Plan: Continue current regimen Medications: New tirzepatide (Mounjaro) 5 mg (0.5 mL) subcut QWEEK 2 mL 5RF Coding Level of Care Code Est Pt Level 4 (78150) Complex EM visit Add On G2211 Diagnoses Type 2 diabetes mellitus with stage 2 chronic kidney disease, with long-term current use of insulin E11.22; N18.2; Z79.4 Diabetes mellitus middle or intermediate school principal insulin use: with middle or intermediate school principal use Chronic kidney disease stage: stage 2 (mild) Benign essential hypertension I10 Pure hypercholesterolemia E78.00
[2025-02-12 13:04] LABS: Glucose, Whole Blood 156 mg/dL (60-115)
--- OUTSIDE RECORDS SUMMARY | 2025-02-12 14:59 | XMS_ITS | Patient Health Record ---
Author Organization [facility] Address [address] [place] [address] Care Team Providers Care Installers Mechanical Name Role Phone Zackary ALICEA, [place] Primary Care Provider Robbi Garcia Unavailable [phone] Reason For Referral No Information Medications Medication SIG (Take, Route, Fr equency, Duration) Notes Start Date End Date Status PriLOSEC 06/07/2024 06/07/2024 Active Norvasc Active oxyCODONE HCl Active OxyCONTIN Active Ativan Active LaMICtal Active Atenolol Active Problems Problem Type SNOMED Code ICD Code Onset Dates Problem Status W/U Status Risk Notes Problem Esophageal reflux (626508474) Esophageal reflux (530.81) Active confirmed Problem Right upper quadrant pain (788616317) Abdominal pain, right upper quadrant (789.01) Active confirmed Plan Of Treatment No Information Insurance Providers Payer Name Payer Address Payer Phone Subscriber Number Group Number Insured Name Patient Relationship to Insured Coverage Start Date Coverage End Date [facility] [place] [employer] [place] [address] [place] [address] [id number] KRISTY PELAYO Self - patient is the insured Medical (General) History Medical History History ICD Code Gallstones Elevated LFT's HTN Back pain, for which he uses Lamictal fo r nerve pain Denies [place],DM,CVA,Lung disease,renal dise ase Testicular cancer in 2007 Uses Ativan for sleep Abnormal u/s of bile duct Surgical History Surgery Date(Month/Year) 3 back surgeries Testicular surgery with lymp h node dissection, left orchiectomy, and chemo
== END 2025-02-12 13:12 | disposition home or self-care (01) ==
LOC: HO.ENCR 12:51
PROVIDERS: PCP Internal Medicine; Visit Provider Physician Assistant
DX: E11.22 Type 2 diabetes mellitus with diabetic chronic kidney disease (principal); N18.2 Chronic kidney disease, stage 2 (mild); Z79.4 Long term (current) use of insulin; I12.9 Hypertensive chronic kidney disease with stage 1 through stage 4 chronic kidney disease, or unspecified chronic kidney disease; E78.00 Pure hypercholesterolemia, unspecified

== ENCOUNTER → 2025-02-12 12:50 | Outpatient (BNVA) | payer BC, SELFPAY | PROVIDERS: PCP Internal Medicine; Visit Provider Physician Assistant | DX: E11.22 Type 2 diabetes mellitus with diabetic chronic kidney disease (principal); E11.40 Type 2 diabetes mellitus with diabetic neuropathy, unspecified; I12.9 Hypertensive chronic kidney disease with stage 1 through stage 4 chronic kidney disease, or unspecified chronic kidney disease; N18.2 Chronic kidney disease, stage 2 (mild); R80.9 Proteinuria, unspecified; E78.00 Pure hypercholesterolemia, unspecified | CPT/HCPCS: 82947 ==

== ENCOUNTER 2025-02-23 12:55 | Outpatient (AMB) | payer BC, SELFPAY ==
--- NOTE | 2025-02-23 13:09 | MHC.OFFVIS ---
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 Reports he has daily 24/7 cramping and locking in the right middle finger. He has pulling on the finger and massaging for relief with very minor improvement. He says its more of an inconvenience versus pain. Hx of 3 back surgery. Hx of type 2 DM. 358 is his current blood sugar. Allergies gabapentin Adverse Reaction (Intermediate, Verified 02/23/25 13:15) severe somnolence, dizziness HPI HPI BASE BRANDER-Left Middle Trigger Finger: Details: Chivo is a 59 year old right hand dominant man who presents today as a new patient for evaluation of left hand middle finger, trigger finger. Reports he has daily 24/7 cramping and locking in the right middle finger. He has pulling on the finger and massaging for relief with very minor improvement. He says its more of an inconvenience versus pain. Hx of 3 back surgery. Hx of type 2 DM. Current A1c is above 10 358 is his current blood sugar. [facility] Medical History Central hypogonadism Overweight (BMI 25.0-29.9) Obesity (BMI 30-39.9) Anxiety History of testicular cancer GERD without esophagitis Elevated LFTs Vitamin D deficiency Neuropathy Degeneration of lumbar or lumbosacral intervertebral disc Anemia Mild chronic obstructive pulmonary disease Benign essential hypertension Chronic kidney disease (CKD), stage II (mild) Type 2 diabetes mellitus with diabetic chronic kidney disease Type 2 diabetes mellitus with diabetic neuropathy, unspecified Surgical History History of colonoscopy (~06/24/16) History of orchiectomy Pure hypercholesterolemia History of lumbar surgery Family History Father Cancer Mother Diabetes Social History Household Members: Other Housing: House Alcohol intake: former Patient Tobacco Use Status: Never used Tobacco e-Cigarette/Vaping Use: Never Used Second Hand Smoke Exposure: Yes service: Yes Current occupational status: disabled Current occupational exposures/hazards: No Cognitive needs: No Hearing needs: No Vision needs: Yes Review of Systems Const All systems reviewed & are unremarkable except as noted in HPI and below Physical Exam Vital Signs: BMI result Body Mass Index 30.2 Extrem Other: Patient is alert, oriented, and in no acute distress. Neuro: Normal sensation of the tips of all digits of the left hand at this time Vascular: Cap refill brisk Pain: Tenderness to palpation of the left middle finger A1 santos Pain associated with locking and catching of the left middle finger ROM: There is a visible and palpable locking and catching of the left middle finger Skin: No lacerations or abrasions. General: No ecchymosis, erythema, or evidence of infection. Psych: Appears grossly normal Affect normal Attitude cooperative Assessment & Plan Assessment & Plan (1) Trigger finger, left middle finger: Code(s): M65.332 - Trigger finger, left middle finger Category: Medical Plan 1. Left middle finger trigger finger Patient is educated about this condition Patient is educated about the treatment options available At this time, due to the patient's A1c above 10 as well as his current blood sugar of 358, unfortunately I can not perform either a steroid injection or get him signed up for trigger release surgery Patient is educated that if he is able to get his blood sugars under better control, or if he does get his A1c below 8, he should call our office for reassessment and discussion of the treatment options at that time Patient understands this is amenable to this plan Follow-up as needed Coding Level of Care Code New Pt Level 3 (00494) Diagnoses Trigger finger, left middle finger M65.332
[2025-02-23 13:14] VITALS: BMI 30.2
== END 2025-02-23 13:27 | disposition home or self-care (01) ==
LOC: HO.HOS 12:56
PROVIDERS: PCP Internal Medicine
DX: M65.332 Trigger finger, left middle finger (principal); E11.9 Type 2 diabetes mellitus without complications
CPT/HCPCS: 99203

== ENCOUNTER 2025-03-07 10:26 | Outpatient (AMB) | payer BC, SELFPAY ==
[2025-03-07 10:41] VITALS: BP 138/88; PULSE 81; TEMP 36.3; O2SAT 96; BMI 31.5
--- NOTE | 2025-03-07 10:41 | A.OFFPC_ITS ---
Vital Signs 03/07/25 10:41 Height 6 ft 1 in Weight 238 lb 8 oz BMI 31.5 BP 138/88 Blood Pressure Location Lt brachial Position Sitting Pulse 81 Pulse Source Pulse Oximeter Temp 97.3 F Temp Source Temporal Artery Scan Pulse Oximetry (%) 96 Oxygen Delivery Method Room Air 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 Check Allergies gabapentin Adverse Reaction (Intermediate, Verified 03/07/25 11:05) severe somnolence, dizziness Medication List - Last Reconciled 03/07/25 by Yobany Raymundo MD albuterol sulfate 90 mcg/actuation 2 puffs PO Q6H PRN amlodipine 10 mg PO DAILY 90 days atorvastatin 80 mg PO BEDTIME 90 days blood sugar diagnostic (FreeStyle Lite Strips) As directed tests 4 X/day 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 sensor (FreeStyle Syed 3 Plus Sensor device) As directed every 15 days 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,acute care physical therapist,cont (FreeStyle Syed 3 [place]) As directed every 15 days carvedilol 25 mg PO BID empagliflozin 25 mg PO QAM 90 days fenofibrate nanocrystallized 145 mg PO DAILY 90 days Humalog KwikPen Insulin (insulin lispro) 40 units (0.4 mL) subcut TID 30 days NS hydralazine 25 mg PO TID 90 days insulin degludec (Tresiba FlexTouch U-200 insulin) 50 units (0.25 mL) subcut DAILY 30 days lamotrigine 200 mg PO BID lorazepam 1 mg PO BID PRN 30 days losartan 100 mg PO DAILY 90 days oxycodone 30 mg PO Q6H PRN 30 days oxycodone ER 80 mg PO Q6H 30 days pen needle, diabetic (BD Ultra-Fine Dee Pen Needle) As directed 4 times a day tirzepatide (Mounjaro) 5 mg (0.5 mL) subcut QWEEK Tobacco use date assessed: 03/07/25 Dental Screening Dental Screen Date: 03/07/25 Did you have a dental visit in the last 12 months?: No Did you have a dental problem in the last 6 months where you did not have access to dental care?: No Was dental information given to patient?: Patient has dentist HPI Med Check HPI Details Patient comes in today for his follow up visit States that he currently feels okay He was seen by orthopedics a couple of weeks ago for his trigger finger but was advised that until he can get his diabetes under much better control, he is not a good surgical candidate at this time He reports that his blood sugar has been slowly getting under better control lately He denies any headaches or dizziness Denies any chest pains, no increased SOB No nausea/vomiting, no abdominal pain No change in bowel habits noted States that his chronic low back pain and joint pains remain adequately controlled on his current medications - states that he is still planning on trying to cut back slowly on the dose of his extended release Oxycodone but for now, needs his Rx refilled and states that his pain medications will now need their yearly prior authorization application [facility] Medical History Central hypogonadism Overweight (BMI 25.0-29.9) Obesity (BMI 30-39.9) Anxiety History of testicular cancer GERD without esophagitis Elevated LFTs Vitamin D deficiency Neuropathy Degeneration of lumbar or lumbosacral intervertebral disc Anemia Mild chronic obstructive pulmonary disease Benign essential hypertension Chronic kidney disease (CKD), stage II (mild) Type 2 diabetes mellitus with diabetic chronic kidney disease Type 2 diabetes mellitus with diabetic neuropathy, unspecified Surgical History History of colonoscopy (~06/24/16) History of orchiectomy Pure hypercholesterolemia History of lumbar surgery Family History Father Cancer Mother Diabetes Social History Household Members: Other Housing: House Alcohol intake: former Patient Tobacco Use Status: Never used Tobacco e-Cigarette/Vaping Use: Never Used Second Hand Smoke Exposure: Yes service: Yes Current occupational status: disabled Current occupational exposures/hazards: No Cognitive needs: No Hearing needs: No Vision needs: Yes Questionnaire PHQ-9 Over the last 2 weeks, how often have you been bothered by any of the following problems? 1. Little interest or pleasure in doing things: more than half the days 2. Feeling down, depressed, or hopeless: not at all 3. Trouble falling or staying asleep, or sleeping too much: not at all 4. Feeling tired or having little energy: not at all 5. Poor appetite or overeating: not at all 6. Feeling bad about yourself - or that you are a failure or have let yourself or your family down: not at all 7. Trouble concentrating on things, such as reading the newspaper or watching television: not at all 8. Moving or speaking so slowly that other people could have noticed. Or the opposite - being so fidgety or restless that you have been moving around a lot more than usual: not at all 9. Thoughts that you would be better off or of hurting yourself in some way: not at all Total score: 2 Depression Screening Interpretation: Negative Depression Screening Done: Yes 67762 - PHQ-9 Billing: Yes Source: Developed by Drs. Robbi Keller, Margie Cardona, Parvez Adan and colleagues, with an educational breonna from [employer]. Thrive Questionnaire Date Thrive assessed: 10/18/24 I am a: Patient What is your living situation today?: I have a steady place to live Within the past 12 months, did the food you bought not last and you didn't have the money to get more?: Sometimes True Within the past 12 months, did you worry whether your food would run out before you got money to buy more?: Sometimes True Do you have trouble paying for medicines?: No Do you have trouble getting transportation to medical appointments?: No Do you have trouble paying your heating and electricity bill?: Yes Do you have trouble taking care of your child, family member or friend?: I choose not to answer this question Do you have trouble with day-to-day activities such as bathing, preparing meals, shopping, managing finances, etc.?: No Are you currently unemployed and looking for a job?: No Are you interested in more education?: No Please select the resources that you would like help with: None Currently or been in a relationship where the following occur: I choose not to answer THRIVE Score: 3 AUDIT C Alcohol Use Questionnaire (AUDIT-C) 1. How often do you have a drink containing alcohol?: Never 3. How often do you have six or more drinks on one occasion?: Never Total Score: 0 Score Reviewed/Action Taken: Yes SHAHRIAR-7 AMB Questionnaire SHAHRIAR-7 Date SHAHRIAR - 7 assessed: 02/07/25 Feeling nervous, anxious, or on edge: 0 = Not at all Not being able to stop or control worryin = Not at all Worrying too much about different things: 0 = Not at all Trouble relaxin = Not at all Being so restless that it is hard to sit still: 3 = Nearly every day Becoming easily annoyed or irritable: 2 = More than half the days Feeling afraid as if something awful might happen: 0 = Not at all Total SHAHRIAR-7 score (0-4 normal; 5-9 mild; 10-14 moderate; 15-21 severe): 5 Source: Developed by Drs. Robbi Keller, Margie Cardona, Parvez Adan and colleagues, with an educational breonna from [employer]. Review of Systems Const Denies chills, Reports difficulty sleeping, Reports fatigue, Denies fever(s) and Denies headache(s) ENT Denies dysphagia, Denies dizziness, Denies otalgia, Denies headache(s), Denies neck pain, Denies odynophagia and Denies sore throat Card Denies chest pain, Denies palpitations and Denies dyspnea Resp Denies chest congestion, Denies cough and Denies dyspnea GI Denies abdominal pain, Denies constipation, Denies dysphagia, Denies heartburn, Denies diarrhea, Denies nausea, Denies odynophagia and Denies vomiting Denies difficulty urinating, Denies dysuria, Reports nocturia and Reports urinary frequency Musc Details: (+) recurrent trigger fingers of both hands Reports back pain (over the lumbar spine - chronic), Reports arthralgias (over both knees; increased in the right shoulder lately), Denies neck pain, Reports numbness (in both feet - constant) and Reports stiffness (a few fingers lock up every now and then in both hands) Skin/Breast Denies rash Neuro Denies dizziness, Denies headache(s) and Reports numbness (in both feet - constant) Psych Reports anxiety and Reports depression Endo Reports fatigue, Denies polydipsia and Denies palpitations Physical exam (Primary Care) Vital Signs: Last Vital Signs Temp 97.3 F 03/07/25 10:41 Pulse 81 03/07/25 10:41 BP 138/88 03/07/25 10:41 Pulse Ox 96 03/07/25 10:41 Oxygen Delivery Method Room Air 03/07/25 10:41 BMI result Body Mass Index 31.5 Tobacco/Smoking Status: Tobacco use Status Tobacco use date assessed 03/07/25 03/07/25 10:45 Patient Tobacco Use Status Never used Tobacco 03/07/25 10:45 Tobacco use type 07/26/24 13:39 e-Cigarette/Vaping Use Never Used 03/07/25 10:45 PHQ-9: PHQ-9 Score PHQ-9: Total score 2 03/07/25 10:45 Depression Screening Interpretation: Negative Thrive Assessment: Date of Thrive Assessment Date Thrive assessed 10/18/24 03/07/25 10:45 Currently or been in a relationship where the following occur: I choose not to answer Const General: no acute distress and alert HENMT Ears: TM's normal bilaterally and EAC's normal Throat: Yes posterior oropharynx normal and Yes tonsils normal (no TP congestion noted) Neck Neck: Yes supple and No lymphadenopathy Thyroid: Thyroid normal Resp Auscultation: clear to auscultation bilaterally, no rales and no wheezes Cardio Rate: regular rate Rhythm: regular rhythm Heart sounds: no murmurs GI Palpation (GI): Soft to palpation, nontender and no other Auscultation: normal bowel sounds General: Yes no CVA tenderness Back/Spine/Pelvis Back: no CVA tenderness Thoracic/Lumbar Spine: lumbar spinal tenderness (chronic) Skin Rashes: no rashes Extrem Other: (+) few contracted fingers noted on both hands General: Yes no clubbing, cyanosis or edema Coding Level of Care Code Est Pt Level 4 (92456) Diagnoses Uncontrolled type 2 diabetes mellitus with hyperglycemia E11.65 Diabetes mellitus type: type 2 Hyponatremia E87.1 Stage 3a chronic kidney disease N18.31 Chronic kidney disease stage 3 subtype: stage 3a (GFR 45-59) Benign essential hypertension I10 Pure hypercholesterolemia E78.00 Mild chronic obstructive pulmonary disease J44.9 Degeneration of intervertebral disc of lumbosacral region with discogenic back pain M51.370 Disc-related pain type: discogenic back pain only Neuropathy G62.9 Pain in both knees, unspecified chronicity M25.561; M25.562 Chronicity: unspecified Trigger finger, unspecified finger, unspecified laterality M65.30 Trigger finger location: unspecified finger Laterality: unspecified laterality Elevated LFTs R79.89 GERD without esophagitis K21.9 Vitamin D deficiency E55.9 History of testicular cancer Z85.47 Anxiety F41.9 Obesity (BMI 30-39.9) E66.9 Additional Codes PHQ-9 - 50834 - PHQ-9 Billing: Yes ([id number]) Assessment & Plan Assessment & Plan (1) Uncontrolled diabetes mellitus with hyperglycemia: Code(s): E11.65 - Type 2 diabetes mellitus with hyperglycemia Category: Medical Qualifiers: Diabetes mellitus type: type 2 Qualified Code(s): E11.65 - Type 2 diabetes mellitus with hyperglycemia Plan: Patient's HgbA1c was still at 10.8% on his labs done a couple of months ago (he was also at 10.8% back on 10/17/2024 but was at 14.0% at the beginning of this year) - goal is at least <7.0% Reinforced diabetic diet Continue Humalog Kwikpen 40 units TID with meals and Tresiba 50 units QD; continue Jardiance 25 mg QD and Mounjaro 5 mg once a week Follow up with endocrinology as scheduled (2) Hyponatremia: Code(s): E87.1 - Hypo-osmolality and hyponatremia Category: Medical Plan: RESOLVED - his serum sodium was again normal at 140 on his labs done a couple of months ago and they have remained normal for the past few months now This was likely related to his persistent hyperglycemia over this past year We will continue to monitor his electrolyte levels regularly Follow up with nephrology as scheduled (3) Chronic kidney disease (CKD), stage III (moderate): Code(s): N18.30 - Chronic kidney disease, stage 3 unspecified Category: Medical Qualifiers: Chronic kidney disease stage 3 subtype: stage 3a (GFR 45-59) Qualified Code(s): N18.31 - Chronic kidney disease, stage 3a Plan: His renal function appeared stable, based on his most recent lab results Have advised patient again that controlling his diabetes and blood pressure is the best way to keep his renal function stable He is still presenting with 2+ proteinuria and microalbuminuria on his most recent labs Follow up with nephrology as scheduled (4) Benign essential hypertension: Code(s): I10 - Essential (primary) hypertension Category: Medical Plan: Reinforced low-sodium diet -? goal is systolic BP of at least 130 mm or less Continue Amlodipine 10 mg QD, Carvedilol 25 mg BID, Hydralazine 25 mg TID and Losartan 100 mg QD He is reminded to continue monitoring his blood pressure regularly (5) Pure hypercholesterolemia: Code(s): E78.00 - Pure hypercholesterolemia, unspecified Category: Surgical Plan: Reinforced low cholesterol diet Continue Fenofibrate 145 mg QD and Atorvastatin 80 mg QD - we switched him out from his Pravastatin to Atorvastatin a few months ago for better efficacy Will have him recheck his labs and fasting lipids in a few weeks/1 month for follow up (6) Mild chronic obstructive pulmonary disease: Code(s): J44.9 - Chronic obstructive pulmonary disease, unspecified Category: Medical Plan: Controlled -? PFTs done a couple of years ago showed mild COPD Patient has been mostly asymptomatic and has not needed to use any of his inhalers lately except for when he comes down with a cold or respiratory infection (7) Degeneration of lumbar or lumbosacral intervertebral disc: Code(s): M51.37 - Other intervertebral disc degeneration, lumbosacral region Category: Medical Qualifiers: Disc-related pain type: discogenic back pain only Qualified Code(s): M51.370 - Other intervertebral disc degeneration, lumbosacral region with discogenic back pain only Plan: Reinforced activity and weight lifting restrictions Continue Oxycodone 30 mg every 6-8 hours as needed and Oxycodone ER 80 mg every 6 hours - Rx refilled States that he is planning to try cutting back on his Oxycodone ER next month from every 6 hours to every 8 hours soon (8) Neuropathy: Code(s): G62.9 - Polyneuropathy, unspecified Category: Medical Plan: EMG and NCV of both lower extremities done in 2017 showed (+)? 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 chronic bilateral lower lumbar radiculopathy Continue Nortriptyline 50 mg Q HS Have emphasized to him again the importance of tight glycemic control to slow down the progression of his neuropathy although it looks like his neuropathy has progressed lately as he is now experiencing a constant / peristent numbness on both of his feet Follow up with podiatry as scheduled for regular/annual foot exam and diabetic foot care (9) Bilateral knee pain: Code(s): M25.561 - Pain in right knee; M25.562 - Pain in left knee Category: Medical Qualifiers: Chronicity: unspecified Qualified Code(s): M25.561 - Pain in right knee; M25.562 - Pain in left knee Plan: X-rays of both knees done last year revealed (+) mild OA changes in the right knee; left knee x-rays were normal He was recommended to see orthopedics for further evaluation and management of his knee symptoms but patient prefers to hold off for now and he will call for referral when he feels he needs to see orthopedics (10) Trigger finger: Code(s): M65.30 - Trigger finger, unspecified finger Category: Medical Qualifiers: Trigger finger location: unspecified finger Laterality: unspecified laterality Qualified Code(s): M65.30 - Trigger finger, unspecified finger Plan: Involving a few fingers on both hands He has been referred to and was seen by orthopedics for this issue in a couple of weeks ago but was advised that until he can get his diabetes under much better control, he would not be a good surgical candidate and was advised to just reach out again to orthopedics when he is ready to have surgery done (11) Elevated LFTs: Code(s): R79.89 - Other specified abnormal findings of blood chemistry Category: Medical Plan: His LFTs have remained normal on his labs done a couple of months ago - these were most likely due to his weight, his medications and his elevated cholesterol levels from a few months ago Will continue to monitor his LFTs regularly (12) GERD without esophagitis: Code(s): K21.9 - Gastro-esophageal reflux disease without esophagitis Category: Medical Plan: Dietary restrictions reinforced (13) Vitamin D deficiency: Code(s): E55.9 - Vitamin D deficiency, unspecified Category: Medical Plan: Continue Vitamin D3 2000 units QD (14) 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 & 3 cycles of BEP (bleomycin, etoposide, cisplatin) chemotherapy completed in 04/2008 Code(s): Z85.47 - Personal history of malignant neoplasm of testis Category: Medical Plan: S/P left orchiectomy and chemotherapy (completed in 2007) - patient currently remains in remission Follow-up with Oncology/ urology as scheduled for continuing surveillance (15) Anxiety: Code(s): F41.9 - Anxiety disorder, unspecified Category: Medical Plan: Continue Lorazepam 1 mg 1 to 2 times a day as needed - Rx refilled (16) Obesity (BMI 30-39.9): Code(s): E66.9 - Obesity, unspecified Category: Medical Plan: Reinforced diet; exercise and weight loss are likely not realistic due to his physical issues and multiple comorbidities Plan Follow up as scheduled in 4 weeks (at the end of the month) Orders: Orders Hemoglobin A1c 03/31/25 E11.9 - Type 2 diabetes mellitus without complications Vitamin D 25-OH Total 03/31/25 E55.9 - Vitamin D deficiency, unspecified Complete Blood Count Auto Diff 03/31/25 D64.9 - Anemia, unspecified Comprehensive [place]. Panel Fast 03/31/25 E78.00 - Pure hypercholesterolemia, u nspecified Microalbumin, Random (w Creat) 03/31/25 E11.9 - Type 2 diabetes mellitus without complications Lipid Panel 03/31/25 E78.00 - Pure hypercholesterolemia, unspecified TSH reflex Free T4 03/31/25 E78.00 - Pure hypercholesterolemia, unspecified UA CC w/rflx Micro + Cult 03/31/25 R30.0 - Dysuria Medications: Refilled oxycodone ER 80 mg PO Q6H 120 tabs 0RF 30 days M51.37 - Other intervertebral disc degeneration, lumbosacral region oxycodone 30 mg PO Q6H PRN 120 tabs 0RF pain 30 days M51.37 - Other intervertebral disc degeneration, lumbosacral region lorazepam 1 mg PO BID PRN 60 tabs 0RF anxiety 30 days F41.9 - Anxiety disorder, unspecified
--- OUTSIDE RECORDS SUMMARY | 2025-03-07 12:01 | XMS_ITS | Patient Health Record ---
Author Organization [facility] Address [address] [place] [address] Care Team Providers Care Pmo Consultant Name Role Phone Zackary ALICEA, [place] Primary Care Provider Robbi Garcia Unavailable [phone] Reason For Referral No Information Medications Medication SIG (Take, Route, Fr equency, Duration) Notes Start Date End Date Status PriLOSEC 06/07/2024 06/07/2024 Active Norvasc Active oxyCODONE HCl Active OxyCONTIN Active Ativan Active LaMICtal Active Atenolol Active Problems Problem Type SNOMED Code ICD Code Onset Dates Problem Status W/U Status Risk Notes Problem Esophageal reflux (368561046) Esophageal reflux (530.81) Active confirmed Problem Right upper quadrant pain (242661004) Abdominal pain, right upper quadrant (789.01) Active confirmed Plan Of Treatment No Information Insurance Providers Payer Name Payer Address Payer Phone Subscriber Number Group Number Insured Name Patient Relationship to Insured Coverage Start Date Coverage End Date [facility] [place] [employer] PROFESSIONAL CLAIMS [address] [place] [address] [id number] PELAYO Self - patient is [...]
== END 2025-03-07 11:17 | disposition home or self-care (01) ==
LOC: HO.HMCH 10:26
PROVIDERS: PCP Internal Medicine; Visit Provider Internal Medicine
DX: E11.65 Type 2 diabetes mellitus with hyperglycemia (principal); I12.9 Hypertensive chronic kidney disease with stage 1 through stage 4 chronic kidney disease, or unspecified chronic kidney disease; N18.31 Chronic kidney disease, stage 3a; J44.9 Chronic obstructive pulmonary disease, unspecified; E87.1 Hypo-osmolality and hyponatremia; E78.00 Pure hypercholesterolemia, unspecified; M51.370 Other intervertebral disc degeneration, lumbosacral region with discogenic back pain only; G62.9 Polyneuropathy, unspecified; M25.561 Pain in right knee; M25.562 Pain in left knee; R79.89 Other specified abnormal findings of blood chemistry; M65.30 Trigger finger, unspecified finger

== ENCOUNTER → 2025-03-07 10:26 | Outpatient (BNVA) | payer BC, SELFPAY | PROVIDERS: PCP Internal Medicine; Visit Provider Internal Medicine | DX: E11.65 Type 2 diabetes mellitus with hyperglycemia (principal); E11.22 Type 2 diabetes mellitus with diabetic chronic kidney disease; I12.9 Hypertensive chronic kidney disease with stage 1 through stage 4 chronic kidney disease, or unspecified chronic kidney disease; E87.1 Hypo-osmolality and hyponatremia; N18.31 Chronic kidney disease, stage 3a; E78.00 Pure hypercholesterolemia, unspecified; J44.9 Chronic obstructive pulmonary disease, unspecified; M51.370 Other intervertebral disc degeneration, lumbosacral region with discogenic back pain only; G62.9 Polyneuropathy, unspecified; E11.40 Type 2 diabetes mellitus with diabetic neuropathy, unspecified; M25.561 Pain in right knee; M25.562 Pain in left knee; M65.30 Trigger finger, unspecified finger; R79.89 Other specified abnormal findings of blood chemistry; K21.9 Gastro-esophageal reflux disease without esophagitis; E55.9 Vitamin D deficiency, unspecified; F41.9 Anxiety disorder, unspecified; E66.9 Obesity, unspecified; D64.9 Anemia, unspecified; R30.0 Dysuria; Z85.47 Personal history of malignant neoplasm of testis | CPT/HCPCS: 96127 ==

== ENCOUNTER 2025-04-04 07:49 | Outpatient (REF) | payer BC, SELFPAY ==
--- OUTSIDE RECORDS SUMMARY | 2025-04-04 07:53 | XMS_ITS | Patient Health Record ---
Author Organization [facility] Address [address] [place] [address] Care Team Providers Care Director Of Labor Relations Name Role Phone Zackary ALICEA, [place] Primary Care Provider Robbi Garcia Unavailable [phone] Reason For Referral No Information Medications Medication SIG (Take, Route, Fr equency, Duration) Notes Start Date End Date Status PriLOSEC 06/07/2024 06/07/2024 Active Norvasc Active oxyCODONE HCl Active OxyCONTIN Active Ativan Active LaMICtal Active Atenolol Active Problems Problem Type SNOMED Code ICD Code Onset Dates Problem Status W/U Status Risk Notes Problem Esophageal reflux (407743309) Esophageal reflux (530.81) Active confirmed Problem Right upper quadrant pain (648956934) Abdominal pain, right upper quadrant (789.01) Active confirmed Plan Of Treatment No Information Insurance Providers Payer Name Payer Address Payer Phone Subscriber Number Group Number Insured Name Patient Relationship to Insured Coverage Start Date Coverage End Date [facility] [place] [employer] PROFESSIONAL CLAIMS [address] [place] [address] [id number] [address] PELAYO Self - patient is the insured Medical (General) History Medical History History ICD Code Gallstones Elevated LFT's HTN Back pain, for which he uses Lamictal fo r nerve pain Denies MS,DM,CVA,Lung disease,renal dise ase Testicular cancer in 2007 Uses Ativan for sleep Abnormal u/s of bile duct Surgical History Surgery Date(Month/Year) 3 back surgeries Testicular surgery with lymp h node dissection, left orchiectomy, and chemo
[2025-04-04 09:57] LABS: MANUAL DIFF FLAG NO
[2025-04-04 10:08] LABS: Hematocrit 47.9 % (42.0-52.0); Hemoglobin 15.8 g/dl (14.0-18.0); Imm Gran Abs Auto 0.12 X10*3/uL (0.00-0.03); Imm Gran Pct Auto 1.4 % (0.0-0.4); Lymphocytes Absolute Auto 3.0 X10*3/uL (1.2-4.9); Mean Corpuscular HGB Conc 33.0 g/dl (31.0-36.0); Mean Corpuscular Hemoglobin 27.5 pg (27.0-33.0); Mean Corpuscular Volume 83.4 fL (80.0-98.0); NRBC Abs Auto 0.000 X10*3/uL (0.0-0.012); NRBC Pct Auto 0.0 /100WBC (0.0-0.2); Platelet Count 292 X10*3/uL (160-400); Red Blood Count 5.74 X10*6/uL (4.60-5.80); White Blood Count 8.9 X10*3/uL (4.8-10.8)
[2025-04-04 10:09] LABS: Appearance Urine Clear; Glucose Urine UA 500 mg/dL (Negative); PH 5.5 (5.0-9.0); Specific Gravity - Urine 1.025 (1.005-1.025); UMIC TRIGGER UACC YES
[2025-04-04 10:42] LABS: Alanine Aminotransferase 27 U/L (0-40); Albumin Level 4.6 g/dL (3.5-5.0); Alkaline Phosphatase 83 U/L (39-117); Anion Gap 14 (12-20); Aspartate Amino Transferase 21 U/L (5-37); Blood Urea Nitrogen 20 mg/dL (9-16); Calcium 9.9 mg/dL (8.4-10.2); Carbon Dioxide 28 mmol/L (22-29); Chloride 103 mmol/L (96-108); Cholesterol 259 mg/dL (<200); Estimated Glomerular Filt Rate > 60; HDL Cholesterol 49 mg/dL (>40); Potassium 4.2 mmol/L (3.3-5.1); Sodium 141 mmol/L (135-145); Total Protein 7.6 g/dL (6.5-8.0); Triglycerides 373 mg/dL (<150)
[2025-04-04 11:29] LABS: Microalbum/Creatinine Ratio Ur 417.0 ug/mg cr (<30)
== END 2025-04-04 07:50 | disposition home or self-care (01) ==
LOC: HO.HMGCLDS 07:49
PROVIDERS: PCP Internal Medicine; Visit Provider Internal Medicine
DX: M65.332 Trigger finger, left middle finger (principal); M65.331 Trigger finger, right middle finger; M65.342 Trigger finger, left ring finger; M65.341 Trigger finger, right ring finger; E55.9 Vitamin D deficiency, unspecified; D64.9 Anemia, unspecified; E78.00 Pure hypercholesterolemia, unspecified; R20.0 Anesthesia of skin; E11.9 Type 2 diabetes mellitus without complications; M51.379 Other intervertebral disc degeneration, lumbosacral region without mention of lumbar back pain or lower extremity pain; F41.9 Anxiety disorder, unspecified; I10 Essential (primary) hypertension; G62.9 Polyneuropathy, unspecified; M25.561 Pain in right knee; M25.562 Pain in left knee; R30.0 Dysuria
CPT/HCPCS: 36415; 80053; 80061; 81001; 82043; 82306; 82570; 83036; 84443; 85025

== ENCOUNTER 2025-04-04 10:29 | Outpatient (AMB) | payer BC, SELFPAY ==
--- NOTE | 2025-04-04 10:35 | MHC.PC.OV ---
Vital Signs 04/04/25 10:36 Height 6 ft 1 in Weight 242 lb 2 oz BMI 31.9 BP 126/62 Blood Pressure Location Lt brachial Position Sitting Respiration 18 Pulse 73 Pulse Source Pulse Oximeter Temp 97.1 F Temp Source Temporal Artery Scan Pulse Oximetry (%) 97 Oxygen Delivery Method Room Air Intake Visit Reasons: med management Flavoring Maker Required: No Accompanied by: Self / Same As Patient Allergies gabapentin Adverse Reaction (Intermediate, Verified 04/04/25 10:46) severe somnolence, dizziness Medication List - Last Reconciled 04/04/25 by LINDSAY Montemayor albuterol sulfate 90 mcg/actuation 2 puffs PO Q6H PRN amlodipine 10 mg PO DAILY 90 days atorvastatin 80 mg PO BEDTIME 90 days blood sugar diagnostic (FreeStyle Lite Strips) As directed tests 4 X/day 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 sensor (CH MackStyle Syed 3 Plus Sensor device) As directed every 15 days 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,director of slot operations,cont (FreeStyle Syed 3 [place]) As directed every 15 days carvedilol 25 mg PO BID empagliflozin 25 mg PO QAM 90 days fenofibrate nanocrystallized 145 mg PO DAILY 90 days Humalog KwikPen Insulin (insulin lispro) 40 units (0.4 mL) subcut TID 30 days NS hydralazine 25 mg PO TID 90 days insulin degludec (Tresiba FlexTouch U-200 insulin) 50 units (0.25 mL) subcut DAILY 30 days lamotrigine 200 mg PO BID lorazepam 1 mg PO BID PRN 30 days losartan 100 mg PO DAILY 90 days oxycodone 30 mg PO Q6H PRN 30 days oxycodone ER 80 mg PO Q6H 30 days pen needle, diabetic (BD Ultra-Fine Dee Pen Needle) As directed 4 times a day tirzepatide (Mounjaro) 5 mg (0.5 mL) subcut QWEEK Tobacco use date assessed: 04/04/25 Dental Screening Dental Screen Date: 04/04/25 Did you have a dental visit in the last 12 months?: No Did you have a dental problem in the last 6 months where you did not have access to dental care?: No Was dental information given to patient?: No HPI med management HPI Details The patient is a 59-year-old male presenting for medication management and review of lab results. He has a history of chronic pain following an L3-L5 fusion for a work-related back injury when he was younger. The fusion involved a bone graft from his hip, and he reports the graft site bothers him more than his back. He experiences constant numbness in his feet and pain in his legs from the knees down, which he attributes to both his past surgery and diabetes. The patient's diabetes has been labile, with an A1c that was previously as high as 14 but has improved to 9.9. He is treated with Jardiance and insulin. The patient acknowledges his diet, including pasta, contributes to his glycemic control and is trying to make changes. He has a trigger finger that is painful, frequently locks, surgery option has been placed on hold due to elevated glucose. The patient also has a history of anxiety, for which he takes lorazepam once nightly. [facility] Medical History Central hypogonadism Overweight (BMI 25.0-29.9) Obesity (BMI 30-39.9) Anxiety History of testicular cancer GERD without esophagitis Elevated LFTs Vitamin D deficiency Neuropathy Degeneration of lumbar or lumbosacral intervertebral disc Anemia Mild chronic obstructive pulmonary disease Benign essential hypertension Chronic kidney disease (CKD), stage II (mild) Type 2 diabetes mellitus with diabetic chronic kidney disease Type 2 diabetes mellitus with diabetic neuropathy, unspecified Surgical History History of colonoscopy (~06/24/16) History of orchiectomy Pure hypercholesterolemia History of lumbar surgery Family History Father Cancer Mother Diabetes Social History Household Members: Other Housing: House Alcohol intake: former Patient Tobacco Use Status: Never used Tobacco e-Cigarette/Vaping Use: Never Used Second Hand Smoke Exposure: Yes service: Yes Current occupational status: disabled Current occupational exposures/hazards: No Cognitive needs: No Hearing needs: No Vision needs: Yes Questionnaire PHQ-9 Over the last 2 weeks, how often have you been bothered by any of the following problems? Depression Screening Interpretation: Negative Depression Screening Done: Yes Source: Developed by Drs. Robbi Keller, Margie Cardona, Parvez Adan and colleagues, with an educational breonna from [employer]. Thrive Questionnaire Date Thrive assessed: 10/18/24 I am a: Patient What is your living situation today?: I have a steady place to live Within the past 12 months, did the food you bought not last and you didn't have the money to get more?: Sometimes True Within the past 12 months, did you worry whether your food would run out before you got money to buy more?: Sometimes True Do you have trouble paying for medicines?: No Do you have trouble getting transportation to medical appointments?: No Do you have trouble paying your heating and electricity bill?: Yes Do you have trouble taking care of your child, family member or friend?: I choose not to answer this question Do you have trouble with day-to-day activities such as bathing, preparing meals, shopping, managing finances, etc.?: No Are you currently unemployed and looking for a job?: No Are you interested in more education?: No Please select the resources that you would like help with: None Currently or been in a relationship where the following occur: I choose not to answer THRIVE Score: 3 SHAHRIAR-7 AMB Questionnaire SHAHRIAR-7 Date SHAHRIAR - 7 assessed: 02/07/25 Source: Developed by Drs. Robbi Keller, Margie Cardona, Parvez Adan and colleagues, with an educational breonna from [employer]. Review of Systems Const Denies chills, Reports difficulty sleeping, Reports fatigue, Denies fever(s) and Denies headache(s) ENT Denies dysphagia, Denies dizziness, Denies otalgia, Denies headache(s), Denies neck pain, Denies odynophagia and Denies sore throat Card Denies chest pain, Denies palpitations and Denies dyspnea Resp Denies chest congestion, Denies cough and Denies dyspnea GI Denies abdominal pain, Denies constipation, Denies dysphagia, Denies heartburn, Denies diarrhea, Denies nausea, Denies odynophagia and Denies vomiting Denies difficulty urinating, Denies dysuria, Reports nocturia and Reports urinary frequency Musc Details: (+) recurrent trigger fingers of both hands Reports back pain (over the lumbar spine - chronic), Reports arthralgias (over both knees; increased in the right shoulder lately), Denies neck pain, Reports numbness (in both feet - constant) and Reports stiffness (a few fingers lock up every now and then in both hands) Skin/Breast Denies rash Neuro Denies dizziness, Denies headache(s) and Reports numbness (in both feet - constant) Psych Reports anxiety and Reports depression Endo Reports fatigue, Denies polydipsia and Denies palpitations Physical exam (Primary Care) Vital Signs: Last Vital Signs Temp 97.1 F 04/04/25 10:36 Pulse 73 04/04/25 10:36 Resp 18 04/04/25 10:36 BP 126/62 04/04/25 10:36 Pulse Ox 97 04/04/25 10:36 Oxygen Delivery Method Room Air 04/04/25 10:36 BMI result Body Mass Index 31.9 Tobacco/Smoking Status: Tobacco use Status Tobacco use date assessed 04/04/25 04/04/25 10:42 Patient Tobacco Use Status Never used Tobacco 04/04/25 10:42 Tobacco use type 07/26/24 13:39 e-Cigarette/Vaping Use Never Used 04/04/25 10:42 Depression Screening Interpretation: Negative Thrive Assessment: Date of Thrive Assessment Date Thrive assessed 10/18/24 04/04/25 10:42 Currently or been in a relationship where the following occur: I choose not to answer Const General: no acute distress and alert HENMT Ears: TM's normal bilaterally and EAC's normal Throat: Yes posterior oropharynx normal and Yes tonsils normal (no TP congestion noted) Neck Neck: Yes supple and No lymphadenopathy Thyroid: Thyroid normal Resp Auscultation: clear to auscultation bilaterally, no rales and no wheezes Cardio Rate: regular rate Rhythm: regular rhythm Heart sounds: no murmurs GI Palpation (GI): Soft to palpation, nontender and no other Auscultation: normal bowel sounds General: Yes no CVA tenderness Back/Spine/Pelvis Back: no CVA tenderness Thoracic/Lumbar Spine: lumbar spinal tenderness (chronic) Skin Rashes: no rashes Extrem Other: (+) few contracted fingers noted on both hands General: Yes no clubbing, cyanosis or edema Psych Speech and movement: Normal speech and movement present Affect: normal affect Thought process: Normal thought process present Thought content: Normal thought content present Coding Level of Care Code Est Pt Level 3 (58908) Diagnoses Degeneration of lumbar or lumbosacral intervertebral disc M51.37 Trigger finger, unspecified finger, unspecified laterality M65.30 Trigger finger location: unspecified finger Laterality: unspecified laterality Anxiety F41.9 Benign essential hypertension I10 Neuropathy G62.9 Pain in both knees, unspecified chronicity M25.561; M25.562 Chronicity: unspecified Time Spent (min) 29 Assessment & Plan Assessment & Plan (1) Degeneration of lumbar or lumbosacral intervertebral disc: Code(s): M51.37 - Other intervertebral disc degeneration, lumbosacral region Category: Medical Plan: Reinforced activity and weight lifting restrictions The patient reports chronic pain related to a past lumbar fusion and diabetic neuropathy, managed with oxycodone. A refill for his oxycodone prescriptions was provided. (2) Trigger finger: Code(s): M65.30 - Trigger finger, unspecified finger Category: Medical Qualifiers: Trigger finger location: unspecified finger Laterality: unspecified laterality Qualified Code(s): M65.30 - Trigger finger, unspecified finger Plan: The patient has a painful, locking trigger finger that is not healing. Surgical intervention is being held because of the high A1c, as it poses a risk of poor wound healing. Management will focus on improving glycemic control. (3) Anxiety: Code(s): F41.9 - Anxiety disorder, unspecified Category: Medical Plan: Continue Lorazepam 1 mg 1 to 2 times a day as needed - Rx refilled (4) Benign essential hypertension: Code(s): I10 - Essential (primary) hypertension Category: Medical Plan: Reinforced low-sodium diet -? goal is systolic BP of at least 130 mm or less Continue Amlodipine 10 mg QD, Carvedilol 25 mg BID, Hydralazine 25 mg TID and Losartan 100 mg QD He is reminded to continue monitoring his blood pressure regularly (5) Neuropathy: Code(s): G62.9 - Polyneuropathy, unspecified Category: Medical Plan: EMG and NCV of both lower extremities done in 2017 showed (+)? 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 chronic bilateral lower lumbar radiculopathy Continue Nortriptyline 50 mg Q HS Have emphasized to him again the importance of tight glycemic control to slow down the progression of his neuropathy although it looks like his neuropathy has progressed lately as he is now experiencing a constant / peristent numbness on both of his feet Follow up with podiatry as scheduled for regular/annual foot exam and diabetic foot care (6) Bilateral knee pain: Code(s): M25.561 - Pain in right knee; M25.562 - Pain in left knee Category: Medical Qualifiers: Chronicity: unspecified Qualified Code(s): M25.561 - Pain in right knee; M25.562 - Pain in left knee Plan: X-rays of both knees done last year revealed (+) mild OA changes in the right knee; left knee x-rays were normal He was recommended to see orthopedics for further evaluation and management of his knee symptoms but patient prefers to hold off for now and he will call for referral when he feels he needs to see orthopedics Medications: Refilled oxycodone ER 80 mg PO Q6H 120 tabs 0RF 30 days M51.37 - Other intervertebral disc degeneration, lumbosacral region lorazepam 1 mg PO BID PRN 60 tabs 0RF anxiety 30 days F41.9 - Anxiety disorder, unspecified oxycodone 30 mg PO Q6H PRN 120 tabs 0RF pain 30 days M51.37 - Other intervertebral disc degeneration, lumbosacral region
[2025-04-04 10:36] VITALS: BP 126/62; PULSE 73; RESP 18; TEMP 36.2; O2SAT 97; BMI 31.9
== END 2025-04-04 11:01 | disposition home or self-care (01) ==
PROVIDERS: PCP Internal Medicine
DX: M51.379 Other intervertebral disc degeneration, lumbosacral region without mention of lumbar back pain or lower extremity pain (principal); M65.331 Trigger finger, right middle finger; F41.9 Anxiety disorder, unspecified; M65.332 Trigger finger, left middle finger; I10 Essential (primary) hypertension; G62.9 Polyneuropathy, unspecified; M25.561 Pain in right knee; M25.562 Pain in left knee

== ENCOUNTER 2025-05-02 10:21 | Outpatient (AMB) | payer BC, SELFPAY ==
--- NOTE | 2025-05-02 10:43 | MHC.PC.OV ---
Vital Signs 05/02/25 10:44 Height 6 ft 1 in Weight 243 lb 2 oz BMI 32.1 BP 110/62 Blood Pressure Location Lt brachial Position Sitting Pulse 80 Pulse Source Pulse Oximeter Temp 97.0 F Temp Source Temporal Artery Scan Pulse Oximetry (%) 94 Oxygen Delivery Method Room Air 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 Check Allergies gabapentin Adverse Reaction (Intermediate, Verified 05/02/25 11:10) severe somnolence, dizziness Medication List - Last Reconciled 05/02/25 by Yobany Raymundo MD albuterol sulfate 90 mcg/actuation 2 puffs PO Q6H PRN amlodipine 10 mg PO DAILY 90 days atorvastatin 80 mg PO BEDTIME 90 days blood sugar diagnostic (FreeStyle Lite Strips) As directed tests 4 X/day 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 sensor (FreeStyle Syed 3 Plus Sensor device) As directed every 15 days 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,life science technician,cont (FreeStyle Syed 3 Helm) As directed every 15 days carvedilol 25 mg PO BID empagliflozin 25 mg PO QAM 90 days fenofibrate nanocrystallized 145 mg PO DAILY 90 days Humalog KwikPen Insulin (insulin lispro) 40 units (0.4 mL) subcut TID 30 days NS hydralazine 25 mg PO TID 90 days insulin degludec (Tresiba FlexTouch U-200 insulin) 50 units (0.25 mL) subcut DAILY 30 days lamotrigine 200 mg PO BID lorazepam 1 mg PO BID PRN 30 days losartan 100 mg PO DAILY 90 days oxycodone 30 mg PO Q6H PRN 30 days oxycodone ER 80 mg PO Q6H 30 days pen needle, diabetic As directed 4 times a day tirzepatide (Mounjaro) 5 mg (0.5 mL) subcut QWEEK Tobacco use date assessed: 05/02/25 Dental Screening Dental Screen Date: 05/02/25 Did you have a dental visit in the last 12 months?: Yes Did you have a dental problem in the last 6 months where you did not have access to dental care?: No Was dental information given to patient?: Patient has dentist HPI Med Check HPI Details Patient comes in today for his follow up visit States that he currently feels okay He denies any headaches or dizziness Denies any chest pains, no increased SOB No nausea/vomiting, no abdominal pain No change in bowel habits noted States that his chronic low back pain and joint pains remain adequately controlled on his current medications and needs his pain meds and Lorazepam Rx refilled Reports that his blood sugar has been slowly getting under better control lately He had his follow up labs done last month - to discuss his results He would also like to get his flu shot today [facility] Medical History Central hypogonadism Overweight (BMI 25.0-29.9) Obesity (BMI 30-39.9) Anxiety History of testicular cancer GERD without esophagitis Elevated LFTs Vitamin D deficiency Neuropathy Degeneration of lumbar or lumbosacral intervertebral disc Anemia Mild chronic obstructive pulmonary disease Benign essential hypertension Chronic kidney disease (CKD), stage II (mild) Type 2 diabetes mellitus with diabetic chronic kidney disease Type 2 diabetes mellitus with diabetic neuropathy, unspecified Surgical History History of colonoscopy (~06/24/16) History of orchiectomy Pure hypercholesterolemia History of lumbar surgery Family History Father Cancer Mother Diabetes Social History Household Members: Other Housing: House Alcohol intake: former Patient Tobacco Use Status: Never used Tobacco e-Cigarette/Vaping Use: Never Used Second Hand Smoke Exposure: Yes service: Yes Current occupational status: disabled Current occupational exposures/hazards: No Cognitive needs: No Hearing needs: No Vision needs: Yes Questionnaire PHQ-9 Over the last 2 weeks, how often have you been bothered by any of the following problems? 1. Little interest or pleasure in doing things: more than half the days 2. Feeling down, depressed, or hopeless: not at all 3. Trouble falling or staying asleep, or sleeping too much: not at all 4. Feeling tired or having little energy: not at all 5. Poor appetite or overeating: not at all 6. Feeling bad about yourself - or that you are a failure or have let yourself or your family down: not at all 7. Trouble concentrating on things, such as reading the newspaper or watching television: not at all 8. Moving or speaking so slowly that other people could have noticed. Or the opposite - being so fidgety or restless that you have been moving around a lot more than usual: not at all 9. Thoughts that you would be better off or of hurting yourself in some way: not at all Total score: 2 Depression Screening Interpretation: Negative Depression Screening Done: Yes 63186 - PHQ-9 Billing: Yes Source: Developed by Drs. Robbi Keller, Margie Cardona, Parvez Adan and colleagues, with an educational breonna from [email or web address]. Thrive Questionnaire Date Thrive assessed: 10/18/24 I am a: Patient What is your living situation today?: I have a steady place to live Within the past 12 months, did the food you bought not last and you didn't have the money to get more?: Sometimes True Within the past 12 months, did you worry whether your food would run out before you got money to buy more?: Sometimes True Do you have trouble paying for medicines?: No Do you have trouble getting transportation to medical appointments?: No Do you have trouble paying your heating and electricity bill?: Yes Do you have trouble taking care of your child, family member or friend?: I choose not to answer this question Do you have trouble with day-to-day activities such as bathing, preparing meals, shopping, managing finances, etc.?: No Are you currently unemployed and looking for a job?: No Are you interested in more education?: No Please select the resources that you would like help with: None Currently or been in a relationship where the following occur: I choose not to answer THRIVE Score: 3 AUDIT C Alcohol Use Questionnaire (AUDIT-C) 1. How often do you have a drink containing alcohol?: Never 3. How often do you have six or more drinks on one occasion?: Never Total Score: 0 Score Reviewed/Action Taken: Yes SHAHRIAR-7 AMB Questionnaire SHAHRIAR-7 Date SHAHRIAR - 7 assessed: 02/07/25 Feeling nervous, anxious, or on edge: 0 = Not at all Not being able to stop or control worryin = Not at all Worrying too much about different things: 0 = Not at all Trouble relaxin = Not at all Being so restless that it is hard to sit still: 3 = Nearly every day Becoming easily annoyed or irritable: 2 = More than half the days Feeling afraid as if something awful might happen: 0 = Not at all Total SHAHRIAR-7 score (0-4 normal; 5-9 mild; 10-14 moderate; 15-21 severe): 5 Source: Developed by Drs. Robbi Keller, Margie Cardona, Parvez Adan and colleagues, with an educational breonna from [email or web address]. Review of Systems Const Denies chills, Reports difficulty sleeping, Reports fatigue, Denies fever(s) and Denies headache(s) ENT Denies dysphagia, Denies dizziness, Denies otalgia, Denies headache(s), Denies neck pain, Denies odynophagia and Denies sore throat Card Denies chest pain, Denies palpitations and Denies dyspnea Resp Denies chest congestion, Denies cough and Denies dyspnea GI Denies abdominal pain, Denies constipation, Denies dysphagia, Denies heartburn, Denies diarrhea, Denies nausea, Denies odynophagia and Denies vomiting Denies difficulty urinating, Denies dysuria, Reports nocturia and Reports urinary frequency Musc Details: (+) recurrent trigger fingers of both hands Reports back pain (over the lumbar spine - chronic), Reports arthralgias (over both knees; increased in the right shoulder lately), Denies neck pain, Reports numbness (in both feet - constant) and Reports stiffness (a few fingers lock up every now and then in both hands) Skin/Breast Denies rash Neuro Denies dizziness, Denies headache(s) and Reports numbness (in both feet - constant) Psych Reports anxiety and Reports depression Endo Reports fatigue, Denies polydipsia and Denies palpitations Physical exam (Primary Care) Vital Signs: Last Vital Signs Temp 97.0 F 05/02/25 10:44 Pulse 80 05/02/25 10:44 BP 110/62 05/02/25 10:44 Pulse Ox 94 05/02/25 10:44 Oxygen Delivery Method Room Air 05/02/25 10:44 BMI result Body Mass Index 32.1 Tobacco/Smoking Status: Tobacco use Status Tobacco use date assessed 05/02/25 05/02/25 10:48 Patient Tobacco Use Status Never used Tobacco 05/02/25 10:43 Tobacco use type 07/26/24 13:39 e-Cigarette/Vaping Use Never Used 05/02/25 10:43 PHQ-9: PHQ-9 Score PHQ-9: Total score 2 05/02/25 11:13 Depression Screening Interpretation: Negative Thrive Assessment: Date of Thrive Assessment Date Thrive assessed 10/18/24 05/02/25 10:43 Currently or been in a relationship where the following occur: I choose not to answer Const General: no acute distress and alert HENMT Ears: TM's normal bilaterally and EAC's normal Throat: Yes posterior oropharynx normal and Yes tonsils normal (no TP congestion noted) Neck Neck: Yes supple and No lymphadenopathy Thyroid: Thyroid normal Resp Auscultation: clear to auscultation bilaterally, no rales and no wheezes Cardio Rate: regular rate Rhythm: regular rhythm Heart sounds: no murmurs GI Palpation (GI): Soft to palpation, nontender and no other Auscultation: normal bowel sounds General: Yes no CVA tenderness Back/Spine/Pelvis Back: no CVA tenderness Thoracic/Lumbar Spine: lumbar spinal tenderness (chronic) Skin Rashes: no rashes Extrem Other: (+) few contracted fingers noted on both hands General: Yes no clubbing, cyanosis or edema Office Procedures Flu Questionnaire Does the patient have a severe egg allergy?: No Does the patient have severe life threatening allergies?: No Does the patient have a fever or illness today?: No Has the patient ever had Guillain-[place] Syndrome?: No Has the patient ever had any past reaction to a flu shot?: No Immunizations Fluarix [id number] (PF) 45 mcg (15 mcg x 3)/0.5 mL IM syringe Performing Provider: Yobany Raymundo MD [facility] Administered by: Vicky Gore CMA on 05/02/25 11:23 Dose Route Admin Location Dispensed Lot Number Expiration Date [facility] Boiler/Chiller Technician 0.5 mL IM Left Deltoid 0.5 mL [id number] 12/04/25 [id number] [employer] VIS Given Date VIS Provided VIS Publication Date 05/02/25 Single Vaccine 24 Eligibility Eligibility Date Funding Source Not [facility] Eligible 05/02/25 Private Results Reviewed Results Reviewed: Laboratory Tests 04/04/25 04/04/25 07:52 09:59 WBC 8.9 Hgb 15.8 Hct 47.9 Plt Count 292 Sodium 141 Potassium 4.2 Creatinine 1.17 Estimated GFR > 60 Fasting Glucose 194 H Hemoglobin A1c % 9.9 H Calcium 9.9 D AST 21 ALT 27 Triglycerides 373 H Cholesterol 259 H LDL Cholesterol, Calc 136 H HDL Cholesterol 49 25-OH Vitamin D Total 59.9 TSH 2.63 Ur Specific [place] 1.025 Urine Protein 100 (2+) H Urine Glucose (UA) 500 H Urine Blood Negative Urine Nitrite Negative Ur Leukocyte Esterase Negative Microalb/Creat Ratio 417.0 H Coding Level of Care Code Est Pt Level 4 (49407) Diagnoses Uncontrolled type 2 diabetes mellitus with hyperglycemia E11.65 Diabetes mellitus type: type 2 Hyponatremia E87.1 Stage 3a chronic kidney disease N18.31 Chronic kidney disease stage 3 subtype: stage 3a (GFR 45-59) Benign essential hypertension I10 Pure hypercholesterolemia E78.00 Mild chronic obstructive pulmonary disease J44.9 Degeneration of intervertebral disc of lumbosacral region with discogenic back pain M51.370 Disc-related pain type: discogenic back pain only Neuropathy G62.9 Pain in both knees, unspecified chronicity M25.561; M25.562 Chronicity: unspecified Trigger finger, unspecified finger, unspecified laterality M65.30 Trigger finger location: unspecified finger Laterality: unspecified laterality Elevated LFTs R79.89 GERD without esophagitis K21.9 Vitamin D deficiency E55.9 History of testicular cancer Z85.47 Anxiety F41.9 Obesity (BMI 30-39.9) E66.9 Additional Codes PHQ-9 - 11659 - PHQ-9 Billing: Yes ([id number]) Assessment & Plan Assessment & Plan (1) Uncontrolled diabetes mellitus with hyperglycemia: Code(s): E11.65 - Type 2 diabetes mellitus with hyperglycemia Category: Medical Qualifiers: Diabetes mellitus type: type 2 Qualified Code(s): E11.65 - Type 2 diabetes mellitus with hyperglycemia Plan: Patient's HgbA1c was at 9.9% on his labs done last month (he was previously at 10.8% a few months ago and was all the way up at 14.0% at the beginning of this year) - goal is at least <7.0% Reinforced diabetic diet Continue Humalog Kwikpen 40 units TID with meals and Tresiba 50 units QD; continue Jardiance 25 mg QD and Mounjaro 5 mg once a week Follow up with endocrinology as scheduled (2) Hyponatremia: Code(s): E87.1 - Hypo-osmolality and hyponatremia Category: Medical Plan: RESOLVED - his serum sodium was again normal at 141 on his labs done last month and they have remained normal for a few months now This was likely related to his persistent hyperglycemia over the past year; will continue to monitor his electrolyte levels regularly Follow up with nephrology as scheduled (3) Chronic kidney disease (CKD), stage III (moderate): Code(s): N18.30 - Chronic kidney disease, stage 3 unspecified Category: Medical Qualifiers: Chronic kidney disease stage 3 subtype: stage 3a (GFR 45-59) Qualified Code(s): N18.31 - Chronic kidney disease, stage 3a Plan: His renal function appeared stable, based on his most recent lab results Have advised patient again that controlling his diabetes and blood pressure is the best way to keep his renal function stable He is still presenting with 2+ proteinuria and microalbuminuria on his most recent labs Follow up with nephrology as scheduled (4) Benign essential hypertension: Code(s): I10 - Essential (primary) hypertension Category: Medical Plan: Reinforced low-sodium diet -? goal is systolic BP of at least 130 mm or less Continue Amlodipine 10 mg QD, Carvedilol 25 mg BID, Hydralazine 25 mg TID and Losartan 100 mg QD He is reminded to continue monitoring his blood pressure regularly (5) Pure hypercholesterolemia: Code(s): E78.00 - Pure hypercholesterolemia, unspecified Category: Surgical Plan: Results of his labs done last month reviewed and discussed with patient - have cautioned him that his cholesterol levels have gone up significantly from previous on his recent labs Reinforced low cholesterol diet Continue Fenofibrate 145 mg QD and Atorvastatin 80 mg QD - we switched him out from his Pravastatin to Atorvastatin last year for better efficacy (6) Mild chronic obstructive pulmonary disease: Code(s): J44.9 - Chronic obstructive pulmonary disease, unspecified Category: Medical Plan: Controlled -? PFTs done a couple of years ago showed mild COPD Patient has been mostly asymptomatic and has not needed to use any of his inhalers lately except for when he comes down with a cold or respiratory infection (7) Degeneration of lumbar or lumbosacral intervertebral disc: Code(s): M51.37 - Other intervertebral disc degeneration, lumbosacral region Category: Medical Qualifiers: Disc-related pain type: discogenic back pain only Qualified Code(s): M51.370 - Other intervertebral disc degeneration, lumbosacral region with discogenic back pain only Plan: Reinforced activity and weight lifting restrictions Continue Oxycodone 30 mg every 6-8 hours as needed and Oxycodone ER 80 mg every 6 hours - Rx refilled States that he is planning to try cutting back on his Oxycodone ER next month from every 6 hours to every 8 hours soon (8) Neuropathy: Code(s): G62.9 - Polyneuropathy, unspecified Category: Medical Plan: EMG and NCV of both lower extremities done in 2017 showed (+)? 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 chronic bilateral lower lumbar radiculopathy Continue Nortriptyline 50 mg Q HS Have emphasized to him again the importance of tight glycemic control to slow down the progression of his neuropathy although it looks like his neuropathy has progressed lately as he is now experiencing a constant / peristent numbness on both of his feet Follow up with podiatry as scheduled for regular/annual foot exam and diabetic foot care (9) Bilateral knee pain: Code(s): M25.561 - Pain in right knee; M25.562 - Pain in left knee Category: Medical Qualifiers: Chronicity: unspecified Qualified Code(s): M25.561 - Pain in right knee; M25.562 - Pain in left knee Plan: X-rays of both knees done last year revealed (+) mild OA changes in the right knee; left knee x-rays were normal He was recommended to see orthopedics for further evaluation and management of his knee symptoms but patient prefers to hold off for now and he will call for referral when he feels he needs to see orthopedics (10) Trigger finger: Code(s): M65.30 - Trigger finger, unspecified finger Category: Medical Qualifiers: Trigger finger location: unspecified finger Laterality: unspecified laterality Qualified Code(s): M65.30 - Trigger finger, unspecified finger Plan: Involving a few fingers on both hands He has been referred to and was seen by orthopedics for this issue in a couple of weeks ago but was advised that until he can get his diabetes under much better control, he would not be a good surgical candidate and was advised to just reach out again to orthopedics when he is ready to have surgery done (11) Elevated LFTs: Code(s): R79.89 - Other specified abnormal findings of blood chemistry Category: Medical Plan: His LFTs have remained normal on his labs done a couple of months ago - these were most likely due to his weight, his medications and his elevated cholesterol levels from a few months ago Will continue to monitor his LFTs regularly (12) GERD without esophagitis: Code(s): K21.9 - Gastro-esophageal reflux disease without esophagitis Category: Medical Plan: Dietary restrictions reinforced (13) Vitamin D deficiency: Code(s): E55.9 - Vitamin D deficiency, unspecified Category: Medical Plan: Continue Vitamin D3 2000 units QD (14) 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 & 3 cycles of BEP (bleomycin, etoposide, cisplatin) chemotherapy completed in 04/2008 Code(s): Z85.47 - Personal history of malignant neoplasm of testis Category: Medical Plan: S/P left orchiectomy and chemotherapy (completed in 2007) - patient currently remains in remission Follow-up with Oncology/ urology as scheduled for continuing surveillance (15) Anxiety: Code(s): F41.9 - Anxiety disorder, unspecified Category: Medical Plan: Continue Lorazepam 1 mg 1 to 2 times a day as needed - Rx refilled (16) Obesity (BMI 30-39.9): Code(s): E66.9 - Obesity, unspecified Category: Medical Plan: Reinforced diet; exercise and weight loss are likely not realistic due to his physical issues and multiple comorbidities Plan Per request, flu vaccine given today Follow up in 1 month Orders: Orders Influenza [id number] Immunization Today Z23 - Encounter for immunization Medications: Refilled oxycodone 30 mg PO Q6H PRN 120 tabs 0RF pain 30 days M51.37 - Other intervertebral disc degeneration, lumbosacral region oxycodone ER 80 mg PO Q6H 120 tabs 0RF 30 days M51.37 - Other intervertebral disc degeneration, lumbosacral region lorazepam 1 mg PO BID PRN 60 tabs 0RF anxiety 30 days F41.9 - Anxiety disorder, unspecified
[2025-05-02 10:44] VITALS: BP 110/62; PULSE 80; TEMP 36.1; O2SAT 94; BMI 32.1
== END 2025-05-02 11:28 | disposition home or self-care (01) ==
LOC: HO.HMCH 10:22
PROVIDERS: PCP Internal Medicine; Visit Provider Internal Medicine
DX: E11.65 Type 2 diabetes mellitus with hyperglycemia (principal); I12.9 Hypertensive chronic kidney disease with stage 1 through stage 4 chronic kidney disease, or unspecified chronic kidney disease; N18.31 Chronic kidney disease, stage 3a; J44.9 Chronic obstructive pulmonary disease, unspecified; E87.1 Hypo-osmolality and hyponatremia; E78.00 Pure hypercholesterolemia, unspecified; M51.370 Other intervertebral disc degeneration, lumbosacral region with discogenic back pain only; G62.9 Polyneuropathy, unspecified; M25.561 Pain in right knee; M25.562 Pain in left knee; M65.30 Trigger finger, unspecified finger; R79.89 Other specified abnormal findings of blood chemistry; K21.9 Gastro-esophageal reflux disease without esophagitis; E55.9 Vitamin D deficiency, unspecified; Z85.47 Personal history of malignant neoplasm of testis; F41.9 Anxiety disorder, unspecified; E66.9 Obesity, unspecified; Z23 Encounter for immunization

== ENCOUNTER → 2025-05-02 10:21 | Outpatient (BNVA) | payer BC, SELFPAY | PROVIDERS: PCP Internal Medicine; Visit Provider Internal Medicine | DX: Z23 Encounter for immunization (principal); Z51.81 Encounter for therapeutic drug level monitoring; E11.65 Type 2 diabetes mellitus with hyperglycemia; E11.22 Type 2 diabetes mellitus with diabetic chronic kidney disease; I12.9 Hypertensive chronic kidney disease with stage 1 through stage 4 chronic kidney disease, or unspecified chronic kidney disease; N18.31 Chronic kidney disease, stage 3a; E87.1 Hypo-osmolality and hyponatremia; E78.00 Pure hypercholesterolemia, unspecified; J44.9 Chronic obstructive pulmonary disease, unspecified; M51.370 Other intervertebral disc degeneration, lumbosacral region with discogenic back pain only; G62.9 Polyneuropathy, unspecified; M25.561 Pain in right knee; M25.562 Pain in left knee; M65.30 Trigger finger, unspecified finger; R79.89 Other specified abnormal findings of blood chemistry; K21.9 Gastro-esophageal reflux disease without esophagitis; E55.9 Vitamin D deficiency, unspecified; Z85.47 Personal history of malignant neoplasm of testis; F41.9 Anxiety disorder, unspecified; E66.9 Obesity, unspecified; Z79.4 Long term (current) use of insulin; Z79.891 Long term (current) use of opiate analgesic; Z79.899 Other long term (current) drug therapy | CPT/HCPCS: 90471; 90656; 96127 ==

== ENCOUNTER 2025-05-30 10:16 | Outpatient (AMB) | payer BC, SELFPAY ==
--- OUTSIDE RECORDS SUMMARY | 2025-05-30 10:27 | XMS_ITS | Patient Health Record ---
Author Organization [facility] Address [address] [place] [id number] Care Team Providers Care Bull Driver Name Role Phone Zackary ALICEA, Java Primary Care Provider Robbi Garcia Unavailable [phone] Reason For Referral No Information Medications Medication SIG (Take, Route, Fr equency, Duration) Notes Start Date End Date Status PriLOSEC Active Norvasc Active oxyCODONE HCl Active OxyCONTIN Active Ativan Active LaMICtal Active Atenolol Active Social History Social History Additional Details Category Social Info Options Details Miscellaneous: Marital status: single 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 ; 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 [employer] Notes: Denies smoking and significa nt alcohol use Problems Problem Type SNOMED Code ICD Code Onset Dates Problem Status W/U Status Risk Notes Problem Esophageal reflux ([id number]) Esophageal reflux (530.81) Active confirmed Problem Right upper quadrant pain ([id number]) Abdominal pain, right upper quadrant (789.01) Active confirmed Plan Of Treatment No Information Insurance Providers Payer Name Payer Address Payer Phone Subscriber Number Group Number Insured Name Patient Relationship to Insured Coverage Start Date Coverage End Date O [employer] [address] [place] [address] [id number] Chrissie KRISTY PELAYO Self - patient is the insured Medical (General) History Medical History History ICD Code Gallstones Elevated LFT's HTN Back pain, for which he uses Lamictal fo r nerve pain Denies VA,DM,CVA,Lung disease,renal dise ase Testicular cancer in 2007 Uses Ativan for sleep Abnormal u/s of bile duct Surgical History Surgery Date(Month/Year) 3 back surgeries Testicular surgery with lymp h node dissection, left orchiectomy, and chemo
--- NOTE | 2025-05-30 10:47 | A.OFFPC_ITS ---
Vital Signs 05/30/25 10:49 Height 6 ft 1 in Weight 236 lb 8 oz BMI 31.2 BP 136/82 Blood Pressure Location Lt brachial Position Sitting Pulse 66 Pulse Source Pulse Oximeter Temp 97.1 F Temp Source Temporal Artery Scan Pulse Oximetry (%) 96 Oxygen Delivery Method Room Air 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 Check Intake Note: Patient is here to follow up on Med check. 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,cont (FreeStyle Syed 3 [place]) As directed every 15 days carvedilol 25 mg PO BID empagliflozin 25 mg PO QAM 90 days fenofibrate nanocrystallized 145 mg PO DAILY 90 days Humalog KwikPen Insulin (insulin lispro) 40 units (0.4 mL) subcut TID 30 days NS hydralazine 25 mg PO TID 90 days insulin degludec (Tresiba FlexTouch U-200 insulin) 50 units (0.25 mL) subcut DAILY 30 days lamotrigine 200 mg PO BID lorazepam 1 mg PO BID PRN 30 days losartan 100 mg PO DAILY 90 days oxycodone 30 mg PO Q6H PRN 30 days oxycodone ER 80 mg PO Q6H 30 days pen needle, diabetic As directed 4 times a day tirzepatide (Mounjaro) 5 mg (0.5 mL) subcut QWEEK Tobacco use date assessed: 05/30/25 Dental Screening Dental Screen Date: 05/02/25 HPI Med Check HPI Details - The patient is a 59-year-old male pres enting for follow up of his chronic pain and management of his uncontrolled diabetes. - He reports that his blood sugar is per sistently labile, describing it as up and down and all around, and he is unable to get it controlled despite his efforts to take his insulin. - Today's blood glucose reading was off the charts, with no numerical value displayed on the meter. - He reports experiencing spots in his e yes. - He is experiencing significant fatigue with zero energy. - The patient reports eating cereal for breakfast before the visit. - He missed a scheduled appointment with the diabetes clinic earlier this month on May 14 - He denies any headaches or dizziness - Denies any chest pains, no increased S OB - No nausea/vomiting, no abdominal pain - No change in bowel habits noted -States that his chronic low back pain a nd joint pains remain adequately controlled on his current medications and needs his pain meds and Lorazepam Rx refilled - His last colonoscopy was several years ago, and records indicate the next one is due in June 2026. FORMERLY [facility], [facility] Medical History Uncontrolled diabetes mellitus with hyperglycemia Central hypogonadism Overweight (BMI 25.0-29.9) Obesity (BMI 30-39.9) Anxiety History of testicular cancer GERD without esophagitis Elevated LFTs Vitamin D deficiency Neuropathy Degeneration of lumbar or lumbosacral intervertebral disc Anemia Mild chronic obstructive pulmonary disease Benign essential hypertension Chronic kidney disease (CKD), stage II (mild) Type 2 diabetes mellitus with diabetic chronic kidney disease Type 2 diabetes mellitus with diabetic neuropathy, unspecified Surgical History History of colonoscopy (~06/24/16) History of orchiectomy Pure hypercholesterolemia History of lumbar surgery Family History Father Cancer Mother Diabetes Social History Household Members: Other Housing: House Alcohol intake: former Patient Tobacco Use Status: Never used Tobacco e-Cigarette/Vaping Use: Never Used Second Hand Smoke Exposure: No service: Yes Current occupational status: disabled Current occupational exposures/hazards: No Cognitive needs: No Hearing needs: No Vision needs: Yes Questionnaire Thrive Questionnaire Date Thrive assessed: 10/18/24 I am a: Patient What is your living situation today?: I have a steady place to live Within the past 12 months, did the food you bought not last and you didn't have the money to get more?: Sometimes True Within the past 12 months, did you worry whether your food would run out before you got money to buy more?: Sometimes True Do you have trouble paying for medicines?: No Do you have trouble getting transportation to medical appointments?: No Do you have trouble paying your heating and electricity bill?: Yes Do you have trouble taking care of your child, family member or friend?: I choose not to answer this question Do you have trouble with day-to-day activities such as bathing, preparing meals, shopping, managing finances, etc.?: No Are you currently unemployed and looking for a job?: No Are you interested in more education?: No Currently or been in a relationship where the following occur: I choose not to answer THRIVE Score: 3 SHAHRIAR-7 AMB Questionnaire SHAHRIAR-7 Date SHAHRIAR - 7 assessed: 02/07/25 Source: Developed by Drs. Robbi Keller, Margie Cardona, Parvez Adan and colleagues, with an educational breonna from [employer]. Review of Systems Const Denies chills, Reports difficulty sleeping, Reports fatigue, Denies fever(s) and Denies headache(s) Eyes Reports other visual disturbances (seeing 'spots' in eyes often) ENT Denies dysphagia, Denies dizziness, Denies otalgia, Denies headache(s), Denies neck pain, Denies odynophagia and Denies sore throat Card Denies chest pain, Denies palpitations and Denies dyspnea Resp Denies chest congestion, Denies cough and Denies dyspnea GI Denies abdominal pain, Denies constipation, Denies dysphagia, Denies heartburn, Denies diarrhea, Denies nausea, Denies odynophagia and Denies vomiting Denies difficulty urinating, Denies dysuria, Reports nocturia and Reports urinary frequency Musc Details: (+) recurrent trigger fingers of both hands Reports back pain (over the lumbar spine - chronic), Reports arthralgias (over both knees; increased in the right shoulder lately), Denies neck pain, Reports numbness (in both feet - constant) and Reports stiffness (a few fingers lock up every now and then in both hands) Skin/Breast Denies rash Neuro Denies dizziness, Denies headache(s) and Reports numbness (in both feet - constant) Psych Reports anxiety and Reports depression Endo Reports fatigue, Denies polydipsia and Denies palpitations Physical exam (Primary Care) Vital Signs: Last Vital Signs Temp 97.1 F 05/30/25 10:49 Pulse 66 05/30/25 10:49 BP 136/82 05/30/25 10:49 Pulse Ox 96 05/30/25 10:49 Oxygen Delivery Method Room Air 05/30/25 10:49 BMI result Body Mass Index 31.2 Tobacco/Smoking Status: Tobacco use Status Tobacco use date assessed 05/30/25 05/30/25 10:49 Patient Tobacco Use Status Never used Tobacco 05/30/25 10:47 Tobacco use type 07/26/24 13:39 e-Cigarette/Vaping Use Never Used 05/30/25 10:47 Thrive Assessment: Date of Thrive Assessment Date Thrive assessed 10/18/24 05/30/25 10:47 Currently or been in a relationship where the following occur: I choose not to answer Const General: no acute distress and alert HENMT Ears: TM's normal bilaterally and EAC's normal Throat: Yes posterior oropharynx normal and Yes tonsils normal (no TP congestion noted) Neck Neck: Yes supple and No lymphadenopathy Thyroid: Thyroid normal Resp Auscultation: clear to auscultation bilaterally, no rales and no wheezes Cardio Rate: regular rate Rhythm: regular rhythm Heart sounds: no murmurs GI Palpation (GI): Soft to palpation, nontender and no other Auscultation: normal bowel sounds General: Yes no CVA tenderness Back/Spine/Pelvis Back: no CVA tenderness Thoracic/Lumbar Spine: lumbar spinal tenderness (chronic) Skin Rashes: no rashes Extrem Other: (+) few contracted fingers noted on both hands General: Yes no clubbing, cyanosis or edema Coding Level of Care Code Est Pt Level 4 (54395) Diagnoses Uncontrolled type 2 diabetes mellitus with hyperglycemia E11.65 Diabetes mellitus type: type 2 Hyponatremia E87.1 Stage 3a chronic kidney disease N18.31 Chronic kidney disease stage 3 subtype: stage 3a (GFR 45-59) Benign essential hypertension I10 Pure hypercholesterolemia E78.00 Mild chronic obstructive pulmonary disease J44.9 Degeneration of intervertebral disc of lumbosacral region with discogenic back pain M51.370 Disc-related pain type: discogenic back pain only Neuropathy G62.9 Pain in both knees, unspecified chronicity M25.561; M25.562 Chronicity: unspecified Trigger finger, unspecified finger, unspecified laterality M65.30 Trigger finger location: unspecified finger Laterality: unspecified laterality Elevated LFTs R79.89 GERD without esophagitis K21.9 Vitamin D deficiency E55.9 History of testicular cancer Z85.47 Anxiety F41.9 Obesity (BMI 30-39.9) E66.9 Assessment & Plan Assessment & Plan (1) Uncontrolled diabetes mellitus with hyperglycemia: Code(s): E11.65 - Type 2 diabetes mellitus with hyperglycemia Category: Medical Qualifiers: Diabetes mellitus type: type 2 Qualified Code(s): E11.65 - Type 2 diabetes mellitus with hyperglycemia Plan: Patient's HgbA1c was at 9.9% on his labs done a couple of months ago (he was previously at 10.8% a few months prior and was all the way up at 14.0% at the beginning of this year) - goal is at least <7.0% Have advised him that his blood sugar has been uncontrolled long enough and he now appears to be experiencing symptoms of some of the long-term complications from uncontrolled diabetes, particularly retinopathy (which he already has based on his recent eye exam reports) and neuropathy and that he really needs to have a sense of urgency in getting his blood sugar under control as soon as possible Have advised him to try reaching out to the endocrinology office [facility] to reschedule his follow up appointment since he missed his last one recently - advised that I will place another referral for him if it will help them reschedule him [facility] Reinforced diabetic diet Continue Humalog Kwikpen 40 units TID with meals and Tresiba 50 units QD; continue Jardiance 25 mg QD and Mounjaro 5 mg once a week for now until he is seen by endocrinology, hopefully soon (2) Hyponatremia: Code(s): E87.1 - Hypo-osmolality and hyponatremia Category: Medical Plan: RESOLVED - his serum sodium was again normal at 141 on his labs done a couple of months and they have remained normal for a few months now Have advised patient that this was likely related to his persistent hyperglycemia over the past year and that this will continue to recur unless he gets his diabetes under control and keep it under control consistently Will continue to monitor his electrolyte levels regularly Follow up with nephrology as scheduled (3) Chronic kidney disease (CKD), stage III (moderate): Code(s): N18.30 - Chronic kidney disease, stage 3 unspecified Category: Medical Qualifiers: Chronic kidney disease stage 3 subtype: stage 3a (GFR 45-59) Qualified Code(s): N18.31 - Chronic kidney disease, stage 3a Plan: His renal function appeared stable, based on his most recent lab results from a couple of months ago Have advised patient again that controlling his diabetes and blood pressure is the best way to keep his renal function stable He is still presenting with 2+ proteinuria and microalbuminuria on his most recent labs Follow up with nephrology as scheduled (4) Benign essential hypertension: Code(s): I10 - Essential (primary) hypertension Category: Medical Plan: Reinforced low-sodium diet -? goal is systolic BP of at least 130 mm or less Continue Amlodipine 10 mg QD, Carvedilol 25 mg BID, Hydralazine 25 mg TID and Losartan 100 mg QD He is reminded to continue monitoring his blood pressure regularly (5) Pure hypercholesterolemia: Code(s): E78.00 - Pure hypercholesterolemia, unspecified Category: Surgical Plan: Reinforced low cholesterol diet Have reminded patient that his cholesterol levels have gone up significantly from previous on his recent labs Continue Fenofibrate 145 mg QD and Atorvastatin 80 mg QD - we switched him out from his Pravastatin to Atorvastatin last year for better efficacy Will have him recheck his labs and fasting lipids again next year for follow up (6) Mild chronic obstructive pulmonary disease: Code(s): J44.9 - Chronic obstructive pulmonary disease, unspecified Category: Medical Plan: Controlled -? PFTs done a couple of years ago showed mild COPD Patient has been mostly asymptomatic and has not needed to use any of his inhalers lately except for when he comes down with a cold or respiratory infection (7) Degeneration of lumbar or lumbosacral intervertebral disc: Code(s): M51.37 - Other intervertebral disc degeneration, lumbosacral region Category: Medical Qualifiers: Disc-related pain type: discogenic back pain only Qualified Code(s): M51.370 - Other intervertebral disc degeneration, lumbosacral region with discogenic back pain only Plan: Reinforced activity and weight lifting restrictions Continue Oxycodone 30 mg every 6-8 hours as needed and Oxycodone ER 80 mg every 6 hours - Rx refilled States that he is planning to try cutting back on his Oxycodone ER next month from every 6 hours to every 8 hours soon (8) Neuropathy: Code(s): G62.9 - Polyneuropathy, unspecified Category: Medical Plan: EMG and NCV of both lower extremities done in 2017 showed (+)? 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 chronic bilateral lower lumbar radiculopathy Continue Nortriptyline 50 mg Q HS Have emphasized to him again the importance of tight glycemic control to slow down the progression of his neuropathy although it looks like his neuropathy has progressed lately as he is now experiencing a constant/persistent numbness in both of his feet Follow up with podiatry as scheduled for regular/annual foot exam and diabetic foot care (9) Bilateral knee pain: Code(s): M25.561 - Pain in right knee; M25.562 - Pain in left knee Category: Medical Qualifiers: Chronicity: unspecified Qualified Code(s): M25.561 - Pain in right knee; M25.562 - Pain in left knee Plan: X-rays of both knees done last year revealed (+) mild OA changes in the right knee; left knee x-rays were normal He was recommended to see orthopedics for further evaluation and management of his knee symptoms but patient prefers to hold off for now and he will call for referral when he feels he needs to see orthopedics (10) Trigger finger: Code(s): M65.30 - Trigger finger, unspecified finger Category: Medical Qualifiers: Trigger finger location: unspecified finger Laterality: unspecified laterality Qualified Code(s): M65.30 - Trigger finger, unspecified finger Plan: Involving a few fingers on both hands He has been referred to and was seen by orthopedics for this issue in a couple of weeks ago but was advised that until he can get his diabetes under much better control, he would not be a good surgical candidate and was advised to just reach out again to orthopedics when he is ready to have surgery done (11) Elevated LFTs: Code(s): R79.89 - Other specified abnormal findings of blood chemistry Category: Medical Plan: His LFTs have remained normal on his labs done a couple of months ago - these were most likely due to his weight, his medications and his elevated cholesterol levels from a few months ago Will continue to monitor his LFTs regularly (12) GERD without esophagitis: Code(s): K21.9 - Gastro-esophageal reflux disease without esophagitis Category: Medical Plan: Dietary restrictions reinforced (13) Vitamin D deficiency: Code(s): E55.9 - Vitamin D deficiency, unspecified Category: Medical Plan: Continue Vitamin D3 2000 units QD (14) 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 & 3 cycles of BEP (bleomycin, etoposide, cisplatin) chemotherapy completed in 04/2008 Code(s): Z85.47 - Personal history of malignant neoplasm of testis Category: Medical Plan: S/P left orchiectomy and chemotherapy (completed in 2007) - patient currently remains in remission Follow-up with Oncology/ urology as scheduled for continuing surveillance (15) Anxiety: Code(s): F41.9 - Anxiety disorder, unspecified Category: Medical Plan: Continue Lorazepam 1 mg 1 to 2 times a day as needed - Rx refilled (16) Obesity (BMI 30-39.9): Code(s): E66.9 - Obesity, unspecified Category: Medical Plan: Reinforced diet; exercise and weight loss are likely not realistic due to his physical issues and multiple comorbidities Plan Follow up in 1 month Orders: Orders Comprehensive [place]. Panel Fast 06/23/25 E78.00 - Pure hypercholesterolemia, unspecified Lipid Panel 06/23/25 E78.00 - Pure hypercholesterolemia, unspecified TSH reflex Free T4 06/23/25 E78.00 - Pure hypercholesterolemia, unspecified UA CC w/rflx Micro + Cult 06/23/25 R30.0 - Dysuria Complete Blood Count Auto Diff 06/23/25 D64.9 - Anemia, unspecified Microalbumin, Random (w Creat) 06/23/25 E11.9 - Type 2 diabetes mellitus without complications Hemoglobin A1c 06/23/25 E11.9 - Type 2 diabetes mellitus without complications Vitamin B12 and Folate 06/23/25 E53.8 - Deficiency of other specified B group vitamins Vitamin D 25-OH Total 06/23/25 E55.9 - Vitamin D deficiency, unspecified Referrals Endocrinology Referral E11.65 - Type 2 diabetes mellitus with hyperglycemia Medications: Refilled oxycodone 30 mg PO Q6H PRN 120 tabs 0RF pain 30 days M51.37 - Other intervertebral disc degeneration, lumbosacral region oxycodone ER 80 mg PO Q6H 120 tabs 0RF 30 days M51.37 - Other intervertebral disc degeneration, lumbosacral region lorazepam 1 mg PO BID PRN 60 tabs 0RF anxiety 30 days F41.9 - Anxiety disorder, unspecified
[2025-05-30 10:49] VITALS: BP 136/82; PULSE 66; TEMP 36.2; O2SAT 96; BMI 31.2
== END 2025-05-30 11:14 | disposition home or self-care (01) ==
LOC: HO.HMCH 10:17
PROVIDERS: PCP Internal Medicine; Visit Provider Internal Medicine
DX: E11.65 Type 2 diabetes mellitus with hyperglycemia (principal); N18.31 Chronic kidney disease, stage 3a; J44.9 Chronic obstructive pulmonary disease, unspecified; E87.1 Hypo-osmolality and hyponatremia; I10 Essential (primary) hypertension; E78.00 Pure hypercholesterolemia, unspecified; M51.370 Other intervertebral disc degeneration, lumbosacral region with discogenic back pain only; G62.9 Polyneuropathy, unspecified; M25.561 Pain in right knee; M25.562 Pain in left knee; M65.30 Trigger finger, unspecified finger; R79.89 Other specified abnormal findings of blood chemistry; K21.9 Gastro-esophageal reflux disease without esophagitis; E55.9 Vitamin D deficiency, unspecified; Z85.47 Personal history of malignant neoplasm of testis; F41.9 Anxiety disorder, unspecified; E66.9 Obesity, unspecified